=== PATIENT | male | born 1955 | race Caucasian/White ===

== ENCOUNTER → 2017-10-26 11:30 | Outpatient (CLI) | payer OTHER, MEDICAID, SELFPAY ==
[2017-10-26 13:30] LABS: Cholesterol 151 mg/dL (140-199); HDL Cholesterol 51 mg/dL (40-60); LDL Cholesterol Calculated 71 mg/dL (<100); Triglycerides 143 mg/dL (35-150)
[2017-10-26 14:00] LABS: Thyroid Stimulating Hormone 1.58 uIU/mL (0.47-4.68)
== END ==
PROVIDERS: Nurse Practitioner Family; Family Provider Physician Assistant; PCP Physician Assistant; Visit Provider Physician Assistant
DX: E11.9 Type 2 diabetes mellitus without complications (principal); Z79.4 Long term (current) use of insulin; E03.9 Hypothyroidism, unspecified
CPT/HCPCS: 36415; 80061; 83036; 84443

== ENCOUNTER 2019-05-31 23:13 | Observation (INO) | payer OTHER, SELFPAY ==
[2019-05-31 23:28] VITALS: BP 198/83; PULSE 71; RESP 16; TEMP 36.4; O2SAT 98; BMI 29.7
--- NOTE | 2019-05-31 23:39 | ED.CHESTPAIN ---
HPI - Chest Pain General Chief Complaint: Chest Pain Stated Complaint: chest pain, vomiting Time Seen by Provider: 05/31/19 23:15 Source: patient Mode of arrival: Ambulatory Limitations: no limitations History of Present Illness HPI narrative: 64-year-old male nonsmoker with history of diabetes presents with a chief complaint of severe epigastric pain with nausea and vomiting since about noon today. He states that it gets significantly worse whenever he eats or drinks and denies any history of alcohol or gallbladder disease. He has never had a similar set of symptoms. He denies fever or chills nor any change of bowel habits. He denies any change in diet or medications. He has had no trauma or injuries. Patient denies any palliation or radiation of his symptoms. He is not dizzy nor weak or lightheaded and denies any shortness of breath. In addition to pain with eating or drinking it hurts when he moves or with palpation. MD complaint: chest pain Onset (ago): hour(s) Duration: intermittent Pain location: epigastric Severity: severe Quality: aching and sharp Pain radiation: none Relieving factors: nothing Exacerbating factors: eating, palpation and movement Associated symptoms: nausea and vomiting Treatments prior to arrival chest pain: none Related Data Previous Rx's Medication Instructions Recorded [place] / SQ HS #30 09/03/17 [place] 1 each SUBCUT 6XD #100 10/26/17 pen needle, diabetic 31 gauge x #100 each 02/26/1807/27 Syringes #100 each 06/12/18 Glucose: Home Monitor #1 ea 09/25/18 Glucose: Test Strips #100 each 09/25/18 lancets #1 each 10/21/18 Insulin [place] BD Ultra Fine Mini #150 each 03/07/19 Pen Needle alprazolam 0.5 mg tablet 0.5 mg PO BIDP PRN #30 tab 03/26/19 lisinopril 20 mg tablet 20 mg PO QDAY #90 tab 03/26/19 insulin NPH isoph U-100 human 100 See Rx Instructions SUBCUT BID #90 03/27/19 unit/mL (3 mL) subcutaneous pen ml metformin 1,000 mg tablet 1,000 mg PO BIDCC #180 tab 03/27/19 zolpidem 10 mg tablet 10 mg PO HSP PRN #30 tab 03/27/19 atorvastatin 40 mg tablet 40 mg PO HS #90 tab 04/15/19 bupropion HCl 150 mg 24 hr tablet, 150 mg PO QDAY #90 tab 04/15/19 extended release insulin lispro 100 unit/mL 10 unit SUBCUT [facility] #15 ml 04/15/19 subcutaneous pen levothyroxine 125 mcg tablet 125 mcg PO QDAY #90 tab 04/15/19 Allergies Allergy/AdvReac Type Severity Reaction Status Date / Time flu shot Allergy Unknown Uncoded 01/09/19 13:04 Review of Systems Constitutional Constitutional: Denies chills, Denies fatigue, Denies fever(s), Denies frequent falls, Denies lethargy and Denies weakness Eyes Eyes: Denies change in vision, Denies eye discharge, Denies irritation and Denies loss of vision ENT Ears, Nose, Mouth, and Throat: Denies change in voice, Denies dizziness, Denies neck pain, Denies sore throat and Denies throat swelling Cardiovascular Cardiovascular: Denies chest pain, Denies irregular heart rhythm, Denies lightheadedness, Denies palpitations, Denies dyspnea, Denies dyspnea on exertion and Denies orthopnea Respiratory Respiratory: Denies cough, Denies dyspnea, Denies dyspnea on exertion and Denies wheezing Gastrointestinal Gastrointestinal: Reports abdominal pain, Denies change in bowel habits, Denies diarrhea, Reports nausea and Reports vomiting Genitourinary Genitourinary: Denies hematuria, Denies flank pain, Denies urinary incontinence and Denies urinary urgency Musculoskeletal Musculoskeletal: Denies back pain, Denies muscle weakness, Denies neck pain, Denies numbness and Denies tingling Integumentary/Breasts Skin/Breast: Denies pruritus, Denies erythema, Denies rash and Denies wounds Neurologic Neurologic: Denies behavioral changes, Denies confusion, Denies dizziness, Denies frequent falls, Denies loss of vision, Denies numbness, Denies tingling and Denies weakness Psychiatric Psychiatric: Denies anxiety, Denies behavioral changes, Denies confusion, Denies depression, Denies homicidal ideation and Denies suicidal ideation Endocrine Endocrine: Denies fatigue, Denies flushing and Denies palpitations Hematologic/Lymphatic Hematologic/Lymphatic: Denies easy bruising Allergic/Immunologic Allergic/Immunologic: Denies urticaria, Denies throat swelling and Denies wheezing Patient History Medical History Chronic back pain (Chronic 2004) CTS (carpal tunnel syndrome) (Chronic 1994) Depression (Chronic 1997) Diabetes mellitus (Chronic 1999) Esophageal obstruction due to food impaction (Resolved 05/07/16) Foot pain (Chronic 2004) Shoulder pain (Chronic 2009) Sleep apnea (Chronic 2009) Surgical History History of esophagogastroduodenoscopy (EGD) (Resolved 05/08/16) Social History marital status: household members: none lives independently: Yes education level: high school occupational status: employed Smoking Status: Never smoker alcohol intake: never substance use type: does not use Smoking Status: Never smoker alcohol intake frequency: 0-2 drinks per day Substance Use Type: does not use Exam Narrative Exam Narrative: GENERAL: [64] year old patient appears stated age. Obviously in pain, rubbing his upper abdomen and clutching a emesis bag HEAD: Atraumatic. Normocephalic. EYES: Pupils equal round and reactive. Extraocular motions intact. No scleral icterus. No injection or drainage. ENT: Nose without bleeding, purulent drainage. Throat without erythema, tonsillar hypertrophy or exudate. Airway patent. NECK: Trachea midline. Non tender CARDIOVASCULAR: Regular rate and rhythm without murmurs, gallops, or rubs. RESPIRATORY: Clear to auscultation. Breath sounds equal bilaterally. No wheezes, rales, or rhonchi. GASTROINTESTINAL: Abdomen soft, non-tender, nondistended. EXTREMITIES: No edema or joint tenderness. BACK: Nontender without deformity or crepitance. No flank tenderness. NEURO: AOx3. SKIN: No rash or erythema of visible areas Initial Vital Signs Initial Vital Signs: Vital Signs Temperature 97.5 F L 05/31/19 23:28 Pulse Rate 71 05/31/19 23:28 Respiratory Rate 16 05/31/19 23:28 Blood Pressure 198/83 H 05/31/19 23:28 Pulse Oximetry 98 05/31/19 23:28 Course Course Course Narrative: Call to on-call surgery upon receipt of imaging, a recommendation for antibiotics, NPO status and admission Orders Ordered: Acetaminophen (Tylenol) 650 mg PO Q6HR PRN PRN Reason: Fever/Mild Pain (1-3) Last Admin: 06/01/19 17:20 Dose: 650 mg Documented by: THELMA Alprazolam (Xanax) 0.5 mg PO BID PRN PRN Reason: Anxiety Bupropion HCl (Wellbutrin Xl) 150 mg PO DAILY [facility] Last Admin: 06/01/19 07:57 Dose: Not Given Documented by: BISMARK Dextrose (D50w) 25 gm IV PRN PRN PRN Reason: Hypoglycemia Hydromorphone HCl (Dilaudid) 0.5 mg IV Q4H PRN PRN Reason: Pain, Severe (7-10) Last Admin: 06/01/19 23:34 Dose: 0.5 mg Documented by: THELMA Piperacillin/Tazobactam/Dextrose (Zosyn) 3.375 gm in 50 mls @ 100 mls/hr IV Q6H [facility] Last Infusion: 06/01/19 23:33 Dose: 0 mls/hr Documented by: Admin: 06/01/19 22:05 Dose: 100 mls/hr Documented by: Infusion: 06/01/19 20:41 Dose: 0 mls/hr Documented by: Admin: 06/01/19 17:20 Dose: 100 mls/hr Documented by: Infusion: 06/01/19 10:07 Dose: 0 mls/hr Documented by: Admin: 06/01/19 09:50 Dose: 100 mls/hr Documented by: TRAVIS Insulin Aspart (Novolog Flexpen) 0 unit SUBCUT [facility]; Protocol Last Admin: 06/01/19 20:38 Dose: 7 unit Documented by: JEAN Cosigned by: THELMA Admin: 06/01/19 17:19 Dose: 3 unit Documented by: THELMA Cosigned by: DONNA Admin: 06/01/19 12:00 Dose: Not Given Documented by: Admin: 06/01/19 08:28 Dose: Not Given Documented by: BISMARK Ketorolac Tromethamine (Toradol) 15 mg IV Q6H PRN PRN Reason: Pain, Moderate (4-6) Stop: 06/06/19 21:12 Levothyroxine Sodium (Synthroid) 125 mcg PO QACBREAK [facility] Last Admin: 06/01/19 07:56 Dose: Not Given Documented by: BISMARK Ondansetron HCl (Zofran) 4 mg IV Q4HR PRN PRN Reason: Nausea And Vomiting Last Admin: 06/01/19 15:22 Dose: 4 mg Documented by: Admin: 06/01/19 00:01 Dose: 4 mg Documented by: SARAH Oxycodone HCl (Percolone) 5 mg PO Q4HR PRN PRN Reason: Pain, Moderate (4-6) Last Admin: 06/01/19 05:09 Dose: 5 mg Documented by: AWAIS Discontinued Medications Bupivacaine HCl/Epinephrine Bitart (Marcaine 0.25% W/ Epi (Pf)) 20 ml INJ NOW ONE Stop: 06/01/19 10:05 Last Admin: 06/01/19 10:04 Dose: 40 ml Documented by: GAURAV Fentanyl (Sublimaze) 0 mcg IV Q5M PRN PRN Reason: Pain, Moderate (4-6) Hydromorphone HCl (Dilaudid) 0.5 mg IV NOW ONE Stop: 05/31/19 23:45 Last Admin: 06/01/19 00:07 Dose: 0.5 mg Documented by: SARAH Hydromorphone HCl (Dilaudid) 0 mg IV Q5MIN PRN PRN Reason: Pain, Mild (1-3) Sodium Chloride (Normal Saline 0.9%) 1,000 mls @ 150 mls/hr IV CONT [facility] Last Admin: 06/01/19 04:48 Dose: 150 mls/hr Documented by: AWAIS Sodium Chloride (Normal Saline 0.9%) 1,000 mls @ 1,000 mls/hr IV BOLUS ONE Stop: 06/01/19 00:43 Last Infusion: 06/01/19 01:15 Dose: 0 mls/hr Documented by: Admin: 06/01/19 00:00 Dose: 1,000 mls/hr Documented by: SARAH Piperacillin/Tazobactam/Dextrose (Zosyn) 3.375 gm in 50 mls @ 100 mls/hr IV NOW ONE Stop: 06/01/19 03:36 Last Admin: 06/01/19 04:49 Dose: 100 mls/hr Documented by: AWAIS Lactated Ringer's (Lactated Ringers) 1,000 mls @ 42 mls/hr IV CONT ERIC Last Infusion: 06/01/19 16:26 Dose: 0 mls/hr Documented by: Admin: 06/01/19 10:59 Dose: 42 mls/hr Documented by: Infusion: 06/01/19 10:59 Dose: 42 mls/hr Documented by: Admin: 06/01/19 09:07 Dose: 42 mls/hr Documented by: AUGUSTINA Sodium Chloride (Normal Saline 0.9%) 1,000 mls @ 0 mls/hr IV NOW ONE Stop: 06/01/19 19:32 Last Admin: 06/01/19 20:10 Dose: 500 mls/hr Documented by: THELMA Iopamidol (Isovue-M 300) 15 ml INJ NOW ONE Stop: 06/01/19 11:16 Last Admin: 06/01/19 11:16 Dose: 45 ml Documented by: GAURAV Ketorolac Tromethamine (Toradol) 15 mg IV NOW ONE Stop: 06/01/19 19:21 Last Admin: 06/01/19 20:09 Dose: 15 mg Documented by: THELMA Metoclopramide HCl (Reglan) 10 mg IV NOW PRN PRN Reason: Nausea And Vomiting Ondansetron HCl (Zofran) 4 mg IV NOW PRN PRN Reason: Nausea And Vomiting Oxycodone/Acetaminophen (Percocet 5/325) 1 tab PO PACUNOW PRN PRN Reason: Mild or Moderate Pain Vital Signs Vital signs: Vital Signs - 8 hr 05/31/19 23:28 06/01/19 00:50 Temperature 97.5 F L Pulse Rate 71 88 Respiratory Rate 16 20 Blood Pressure 198/83 H Blood Pressure [Left Arm] 154/82 H Pulse Oximetry 98 96 MDM - Chest Pain Lab Data Result diagrams: 05/31/19 23:59 05/31/19 23:59 Labs: Lab Results 05/31/19 05/31/19 05/31/19 Range/Units 23:59 23:59 23:59 WBC 13.6 H (4.5-11.0) X10^3/uL RBC 4.44 L (4.5-5.9) X10^6/uL Hgb 13.2 L (13.5-17.5) g/dL Hct 38.6 L (41-53) % MCV 87.0 (80-100) fL MCH 29.8 (26-34) PG MCHC 34.3 (30-36) % RDW 13.9 (11.6-14.8) % Plt Count 297 (150-400) X10^3/uL Neut % (Auto) 60.9 (50-75) % Lymph % (Auto) 29.3 (25-40) % [place] % (Auto) 6.1 (3-14) % Eos % (Auto) 2.9 (2-4) % Baso % (Auto) 0.8 (0-2) % Neut # (Auto) 8300 H (8273-0905) /uL Lymph # (Auto) 4000 (8944-8580) /uL [place] # (Auto) 800 (0-900) /uL Eos # (Auto) 400 (0-450) /uL Baso # (Auto) 100 (0-100) /uL D-Dimer 218 (<230) ng/mL Sodium (137-145) mmol/L Potassium (3.4-5.1) mmol/L Chloride (98-107) mmol/L Carbon Dioxide (22-32) mmol/L BUN (9-20) mg/dL Creatinine (0.66-1.25) mg/dL Estimated GFR (>60) mL/min BUN/Creatinine Ratio (6-22) Glucose (80-110) mg/dL Calcium (8.4-10.2) mg/dL Total Bilirubin (0.2-1.3) mg/dL AST (17-59) IU/L ALT (<50) IU/L Alkaline Phosphatase (38-126) U/L Total Creatine Kinase (55-170) U/L CK-MB (CK-2) (<2.37) ng/mL CK-MB (CK-2) Rel Index (1.5-5.0) % Troponin I (0.01-0.034) ng/mL B-Natriuretic Peptide < 100 (<100) Total Protein (6.3-8.2) g/dL Albumin (3.5-5.0) g/dL Globulin (1.7-4.1) g/dL Albumin/Globulin Ratio (1.0-2.8) Lipase (23-300) U/L 05/31/19 Range/Units 23:59 WBC (4.5-11.0) X10^3/uL RBC (4.5-5.9) X10^6/uL Hgb (13.5-17.5) g/dL Hct (41-53) % MCV (80-100) fL MCH (26-34) PG MCHC (30-36) % RDW (11.6-14.8) % Plt Count (150-400) X10^3/uL Neut % (Auto) (50-75) % Lymph % (Auto) (25-40) % [place] % (Auto) (3-14) % Eos % (Auto) (2-4) % Baso % (Auto) (0-2) % Neut # (Auto) (9215-8511) /uL Lymph # (Auto) (4625-3790) /uL [place] # (Auto) (0-900) /uL Eos # (Auto) (0-450) /uL Baso # (Auto) (0-100) /uL D-Dimer (<230) ng/mL Sodium 138 (137-145) mmol/L Potassium 4.3 (3.4-5.1) mmol/L Chloride 100 (98-107) mmol/L Carbon Dioxide 26 (22-32) mmol/L BUN 26 H (9-20) mg/dL Creatinine 1.10 (0.66-1.25) mg/dL Estimated GFR > 60.0 (>60) mL/min BUN/Creatinine Ratio 23.6 H (6-22) Glucose 156 H (80-110) mg/dL Calcium 10.1 (8.4-10.2) mg/dL Total Bilirubin 0.4 (0.2-1.3) mg/dL AST 35 (17-59) IU/L ALT 31 (<50) IU/L Alkaline Phosphatase 90 (38-126) U/L Total Creatine Kinase 310 H (55-170) U/L CK-MB (CK-2) 2.97 H (<2.37) ng/mL CK-MB (CK-2) Rel Index 1.0 L (1.5-5.0) % Troponin I < 0.012 (0.01-0.034) ng/mL B-Natriuretic Peptide (<100) Total Protein 8.4 H (6.3-8.2) g/dL Albumin 5.0 (3.5-5.0) g/dL Globulin 3.4 (1.7-4.1) g/dL Albumin/Globulin Ratio 1.5 (1.0-2.8) Lipase 179 (23-300) U/L Imaging Data US - abdomen: Radiologist's Impression: [address] [address] Ultrasound Report Signed Patient: Bladimir Xavier Jr LMR#: [id number] : 3Acct:[id number] Age/Sex: 64 / MDate of Service: 06/01/19 Loc: MY459-0 Accession Number: [id number] Procedure: US abdomen limited Ordering Provider: Da Lafleur D.O. PROCEDURE: US ABDOMEN LIMITED INDICATIONS: EPIGASTRIC PAIN AFTER EATING TECHNIQUE: Real-time focused scanning was performed of the abdomen, with image documentation. COMPARISON: [facility], CR, XR CHEST 1V, 06/01/2019, 0:00. [facility], CT, CT ABDOMEN PELVIS W CON, 06/01/2019, 1:13. FINDINGS: Innumerable gallstones are seen. The gallbladder wall is thickened at 4 mm. No chava pericholecystic fluid is seen. The sonographic Salinas sign is positive. There is no biliary dilatation, the common bile duct measures 4-5 mm. The liver is normal in size and demonstrates no focal lesions. The pancreas is not well-seen, secondary to overlying bowel gas. IMPRESSION: Acute cholecystitis, with gallstones, a thickened gallbladder wall, and a positive sonographic Salinas's sign. No biliary dilatation. Note: No significant discrepancy from the preliminary report. Dictated by: Valentino Hemphill M.D. on 06/01/2019 at 8:09 Approved by: Valentino Hemphill M.D. on 06/01/2019 at 8:10 Discharge Plan Departure Patient Disposition: Admitted As Inpatient Clinical Impression: Acute cholecystitis Discharge Date/Time: 06/01/19 04:16 Admit Date/Time: 06/01/19 03:21 Admit Provider: Makenzie Magana
--- NOTE | 2019-05-31 23:40 | DI.RAD.S_ITS ---
PROCEDURE: XR CHEST 1V INDICATIONS: chest pain TECHNIQUE: One view of the chest was acquired. COMPARISON: [facility], US, US ABDOMEN LIMITED, 06/01/2019, 3:43. [facility], CT, CT ABDOMEN PELVIS W CON, 06/01/2019, 1:13. FINDINGS: The inferior most costophrenic angles are not included within the [id number] of this study. Surgical changes and devices: None. Lungs and pleura: Lungs are clear. No pleural effusions or pneumothorax. Mediastinum: Mediastinal contours appear normal. Heart size is normal. Bones and chest wall: No suspicious bony lesions. Age-appropriate bony degenerative changes are seen. Overlying soft tissues appear unremarkable. IMPRESSION: Portable chest within normal limits. Dictated by: Valentino Hemphill M.D. on 06/01/2019 at 8:05 Approved by: Valentino Hemphill M.D. on 06/01/2019 at 8:05
[2019-06-01] VITALS (32 sets, daily range): BP systolic 114–168; BP diastolic 67–107; PULSE 68–109; RESP 10–20; TEMP 35.8–36.9; O2SAT 91–99; BMI 29.0
[2019-06-01] MEDS: SODIUM CHLORIDE 0.9% 1,000 ML 1000 ML IV
--- NOTE | 2019-06-01 | PATH_ITS ---
[facility] Accession Number: [id number] . 01 Material submitted: . gallbladder - GALLBLADDER . 01 Clinical history: . CHEST PAIN, VOMITING . 02 Diagnosis: Gallbladder, Cholecystectomy: Mild chronic cholecystitis with cholelithiasis. No evidence of neoplasm. [facility] 06/04/2019 1314 Local . 02 Electronically signed: . Tian Leung MD, PhD, Pathologist NPI- [id number] . 01 Gross description: . Received in formalin, labeled gallbladder, is an intact gallbladder (length-8.7 cm, diameter-3.4 cm) with ramirez-stallings smooth and shiny serosa and a patent cystic duct. No lymph nodes are identified. The lumen contains dark green gelatinous bile and multiple dark black round smooth friable calculi (6.1 x 3.2 x 2.7 cm in aggregate). The mucosa is stallings with a trabeculated appearance. The wall is up to 0.2 cm thick. No nodules, masses or lesions are identified. Section code: (A1) cystic duct resection margin and two serial sections from the body; (A2) two longitudinal sections from the fundus. ([id number]) /[facility] 06/03/2019 1554 Local . 02 Pathologist provided ICD-10: K80.60 . 02 CPT . 802317 Performed at: 01 [facility] [address] [facility], [place], [place] [id number] MD Maurice Hendrickson MD Phone: [phone] Performed at: 02 [facility] [address] [place], [place] [id number] MD Nehal Jansen MD Phone: [phone]
[2019-06-01] MEDS: ONDANSETRON 4 MG/2 ML INJ IV ×2 (00:01→15:22)
[2019-06-01] MEDS: HYDROMORPHONE 0.5 MG INJ IV ×2 (00:07→23:34)
[2019-06-01 00:11] LABS: Add Manual Diff / Slide Review NO; Basophils Absolute Auto 100 /uL (0-100); Basophils Percent Auto 0.8 % (0-2); Eosinophils Absolute Auto 400 /uL (0-450); Eosinophils Percent Auto 2.9 % (2-4); Hematocrit 38.6 % (41-53); Hemoglobin 13.2 g/dL (13.5-17.5); Lymphocytes Absolute Auto 4000 /uL (1100-4500); Lymphocytes Percent Auto 29.3 % (25-40); Mean Corpuscular HGB Conc 34.3 % (30-36); Mean Corpuscular Hemoglobin 29.8 PG (26-34); Monocytes Absolute Auto 800 /uL (0-900); Monocytes Percent Auto 6.1 % (3-14); Neutrophils Absolute Auto 8300 /uL (1500-7000); Neutrophils Percent Auto 60.9 % (50-75); Platelet Count 297 X10^3/uL (150-400); Red Blood Cell Count 4.44 X10^6/uL (4.5-5.9); Red Cell Distribution Width 13.9 % (11.6-14.8); White Blood Cell Count 13.6 X10^3/uL (4.5-11.0)
[2019-06-01 00:16] LABS: D Dimer 218 ng/mL (<230)
[2019-06-01 00:17] LABS: Alanine Aminotransferase 31 IU/L (<50); Albumin Globulin Ratio 1.5 (1.0-2.8); Alkaline Phosphatase 90 U/L (38-126); Aspartate Aminotransferase 35 IU/L (17-59); BUN Creatinine Ratio 23.6 (6-22); Bilirubin Total 0.4 mg/dL (0.2-1.3); Blood Urea Nitrogen 26 mg/dL (9-20); Calcium 10.1 mg/dL (8.4-10.2); Carbon Dioxide 26 mmol/L (22-32); Chloride 100 mmol/L (98-107); Creatine Kinase 310 U/L (55-170); Estimated Glomerular Filt Rate > 60.0 mL/min (>60); Globulin 3.4 g/dL (1.7-4.1); Glucose 156 mg/dL (80-110); Lipase 179 U/L (23-300); Potassium 4.3 mmol/L (3.4-5.1); Sodium 138 mmol/L (137-145); Total Protein 8.4 g/dL (6.3-8.2)
[2019-06-01 00:29] LABS: Troponin I < 0.012 ng/mL (0.01-0.034)
[2019-06-01 00:32] LABS: HEMOLYSIS 26 (0-50)
[2019-06-01 00:42] LABS: Creatine Kinase MB 2.97 ng/mL (<2.37)
[2019-06-01 00:48] LABS: B Type Natriuretic Peptide < 100 (<100)
--- NOTE | 2019-06-01 01:03 | DI.CT.S_ITS ---
PROCEDURE: CT ABDOMEN PELVIS W CON INDICATIONS: severe abdominal pain TECHNIQUE: After the administration of intravenous contrast, 5 mm thick sections acquired from the diaphragm to the symphysis. 5 mm coronal and sagittal reformats were acquired. For radiation dose reduction, the following was used: automated exposure control, adjustment of mA and/or kV according to patient size. COMPARISON: [facility], CR, XR CHEST 1V, 06/01/2019, 0:00. [facility], US, US ABDOMEN LIMITED, 06/01/2019, 3:43. FINDINGS: Image quality: Excellent. ABDOMEN: Lung bases: At least 2 calcified granulomas can be seen within the right lower lobe, as on series 3 image 10 and within the left lower lobe on series 2 image 15. Heart size is normal. Solid organs: Liver is normal in size and enhancement. Innumerable gallstones can be seen within the gallbladder lumen. The gallbladder wall appears thickened and enhancing. Biliary system is non dilated. Pancreas enhances normally. Spleen is normal in size and enhancement. No adrenal nodules. Kidneys demonstrate normal size and enhancement, without hydronephrosis. Peritoneum and bowel: Bowel loops demonstrate normal wall thickness and caliber. No free fluid or air. The appendix is well-seen and is normal. Nodes and vessels: No retroperitoneal or mesenteric adenopathy by size criteria. Aorta and inferior vena cava are normal in size. Miscellaneous: No ventral hernias. PELVIS: Genitourinary: Bladder wall thickness is normal. Miscellaneous: No inguinal adenopathy. Bilateral fat containing inguinal hernias are seen. Bones: Within the left iliac bone, adjacent to the sacroiliac joint, there is an irregular sclerotic focus that measures 2.5 cm. No similar sclerotic foci can be seen elsewhere. No acute vertebral body compression fractures. There is a remote appearing anterior wedge deformity seen of L1. There is a remote appearing center compression deformity seen at L4. Fusion changes can be seen at L2-L3. Degenerative changes are seen throughout. Focal degenerative change is seen of the pubic symphysis. IMPRESSION: Numerous gallstones are seen. Mild gallbladder wall thickening and enhancement can be seen. (The subsequently performed abdominal ultrasound confirms acute cholecystitis.) There is a focal sclerotic lesion involving the left iliac bone. This is felt most likely to be related to a large bone island. If clinically appropriate, please consider additional dedicated imaging (such as a nuclear medicine bone scan) for further evaluation. Incidental note is made of: Prior granulomatous exposure. Normal appendix. Bilateral fat containing inguinal hernias L2-L3 fusion changes Lumbar compression deformities Focal degenerative change of the pubic symphysis Note: No significant discrepancy from the preliminary report. Dictated by: Valentino Hemphill M.D. on 06/01/2019 at 7:50 Approved by: Valentino Hemphill M.D. on 06/01/2019 at 7:58
--- NOTE | 2019-06-01 02:47 | DI.US.S_ITS ---
PROCEDURE: US ABDOMEN LIMITED INDICATIONS: EPIGASTRIC PAIN AFTER EATING TECHNIQUE: Real-time focused scanning was performed of the abdomen, with image documentation. COMPARISON: [facility], CR, XR CHEST 1V, 06/01/2019, 0:00. [facility], CT, CT ABDOMEN PELVIS W CON, 06/01/2019, 1:13. FINDINGS: Innumerable gallstones are seen. The gallbladder wall is thickened at 4 mm. No chava pericholecystic fluid is seen. The sonographic Salinas sign is positive. There is no biliary dilatation, the common bile duct measures 4-5 mm. The liver is normal in size and demonstrates no focal lesions. The pancreas is not well-seen, secondary to overlying bowel gas. IMPRESSION: Acute cholecystitis, with gallstones, a thickened gallbladder wall, and a positive sonographic Salinas's sign. No biliary dilatation. Note: No significant discrepancy from the preliminary report. Dictated by: Valentino Hemphill M.D. on 06/01/2019 at 8:09 Approved by: Valentino Hemphill M.D. on 06/01/2019 at 8:10
--- NOTE | 2019-06-01 03:17 | P.HP_ITS ---
History of Present Illness History of Present Illness Date Patient Seen: 06/01/19 Time Patient Seen: 07:28 Chief complaint: chest pain, vomiting Narrative: This is a 64 yo man with history of overweight, insulin dependent DM2, HTN, HLD, depression, ANNALISA not on cpap, and multiple orthopedic operations. About two weeks ago he noticed epigastric pain after eating. It resolved on its own after a few hours. Yesterday he developed sharp epigastric pain again and came into the ER. He was found to have cholelthiasis and cholecystitis by CT, US and labs. No sign of choledocholithiasis or cholangitis. He denies subjective fevers or jaundice at home. He says he is otherwise healthy, and has never had a heart attack or stroke. He says that he has had problems with his oxygen levels when waking up from surgery in the past, but has always done fine. ROS: Constitutional: Denies chills, Denies fatigue, Denies fever(s), Denies frequent falls, Denies lethargy and Denies weakness Eyes: Denies change in vision, Denies eye discharge, Denies irritation and Den ies loss of vision Ears, Nose, Mouth, and Throat: Denies change in voice, Denies dizziness, Denies neck pain, Denies sore throat and Denies throat swelling Cardiovascular: Denies chest pain, Denies irregular heart rhythm, Denies lightheadedness, Denies palpitations, Denies dyspnea, Denies dyspnea on exertion and Denies orthopnea Respiratory: Denies cough, Denies dyspnea, Denies dyspnea on exertion and Denies wheezing Gastrointestinal: Reports abdominal pain, Denies change in bowel habits, Denies diarrhea, Reports nausea and Reports vomiting Genitourinary: Denies hematuria, Denies flank pain, Denies urinary incontinence and Denies urinary urgency Musculoskeletal: Denies back pain, Denies muscle weakness, Denies neck pain, Denies numbness and Denies tingling Skin/Breast: Denies pruritus, Denies erythema, Denies rash and Denies wounds Neurologic: Denies behavioral changes, Denies confusion, Denies dizziness, Denies frequent falls, Denies loss of vision, Denies numbness, Denies tingling and Denies weakness Psychiatric: Denies anxiety, Denies behavioral changes, Denies confusion, Denies depression, Denies homicidal ideation and Denies suicidal ideation Endocrine: Denies fatigue, Denies flushing and Denies palpitations Hematologic/Lymphatic: Denies easy bruising Allergic/Immunologic: Denies urticaria, Denies throat swelling and Denies wheezing PE: GENERAL: alert, comfortable, appears stated age. HEAD: Atraumatic. Normocephalic. EYES: Pupils equal round and reactive. Wearing glasses; Extraocular motions intact. No scleral icterus. No injection or drainage. NECK: Trachea midline. Non tender CARDIOVASCULAR: Regular rate and rhythm; no LE edema RESPIRATORY: Non tachypneic; breathing comfortably on room air. Breath sounds equal bilaterally GASTROINTESTINAL: Abdomen soft, non-tender, nondistended. 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 No flank tenderness. NEURO: AOx3. No focal abnormalities SKIN: No rash or erythema of visible areas Patient History Medical History Chronic back pain (Chronic 2004) CTS (carpal tunnel syndrome) (Chronic 1994) Depression (Chronic 1997) Diabetes mellitus (Chronic 1999) Esophageal obstruction due to food impaction (Resolved 05/07/16) Foot pain (Chronic 2004) Shoulder pain (Chronic 2009) Sleep apnea (Chronic 2009) Surgical History History of esophagogastroduodenoscopy (EGD) (Resolved 05/08/16) Family & Social History Social History: household members none lives independently Yes Safety & Behavioral: Feels Safe in Current Yes Environment Been Physically Hurt or No Threatened By a Person Tobacco & Substance use: Smoking Status Never smoker alcohol intake never alcohol intake frequency 0-2 drinks per day Substance Use Type does not use Meds Home Medications and Allergies Home Medications Medication Instructions Recorded Confirmed Type Hyde / SQ HS #30 09/03/17 01/09/19 Rx Hyde 1 each SUBCUT 6XD #100 10/26/17 06/01/19 Rx pen needle, diabetic 31 gauge x #100 each 02/26/18 01/09/19 Rx 3/16 Syringes #100 each 06/12/18 01/09/19 Rx Glucose: Home Monitor #1 ea 09/25/18 01/09/19 Rx Glucose: Test Strips #100 each 09/25/18 01/09/19 Rx lancets #1 each 10/21/18 01/09/19 Rx Insulin Hyde BD Ultra Fine Mini #150 each 03/07/19 Rx Pen Needle alprazolam 0.5 mg tablet 0.5 mg PO BIDP PRN #30 tab 03/26/19 06/01/19 Rx lisinopril 20 mg tablet 20 mg PO QDAY #90 tab 03/26/19 06/01/19 Rx insulin NPH isoph U-100 human 100 See Rx Instructions SUBCUT BID #90 03/27/19 06/01/19 Rx unit/mL (3 mL) subcutaneous pen ml metformin 1,000 mg tablet 1,000 mg PO BIDCC #180 tab 03/27/19 06/01/19 Rx zolpidem 10 mg tablet 10 mg PO HSP PRN #30 tab 03/27/19 06/01/19 Rx atorvastatin 40 mg tablet 40 mg PO HS #90 tab 04/15/19 06/01/19 Rx bupropion HCl 150 mg 24 hr tablet, 150 mg PO QDAY #90 tab 04/15/19 06/01/19 Rx extended release insulin lispro 100 unit/mL 10 unit SUBCUT QAC #15 ml 04/15/19 06/01/19 Rx subcutaneous pen levothyroxine 125 mcg tablet 125 mcg PO QDAY #90 tab 04/15/19 06/01/19 Rx Allergies Allergy/AdvReac Type Severity Reaction Status Date / Time flu shot Allergy Unknown Uncoded 01/09/19 13:04 Exam Vital Signs (past 8 hours): - 05/31/19 23:28 06/01/19 00:50 Temperature 97.5 F L Pulse Rate 71 88 Respiratory Rate 16 20 Blood Pressure 198/83 H Blood Pressure [Left Arm] 154/82 H Pulse Oximetry 98 96 Oxygen Delivery Method Room Air Objective Imaging CT scan - abdomen: Radiologist's impression: Gall stones, thickened GB wall US - abdomen: Radiologist's impression: Gall stones; CBD 4.5mm; thickened gb wall Labs Result Diagrams: 05/31/19 23:59 05/31/19 23:59 Labs: Laboratory Results - last 24 hr 05/31/19 05/31/19 05/31/19 23:59 23:59 23:59 WBC 13.6 H RBC 4.44 L Hgb 13.2 L Hct 38.6 L MCV 87.0 MCH 29.8 MCHC 34.3 RDW 13.9 Plt Count 297 Neut % (Auto) 60.9 Lymph % (Auto) 29.3 [place] % (Auto) 6.1 Eos % (Auto) 2.9 Baso % (Auto) 0.8 Neut # (Auto) 8300 H Lymph # (Auto) 4000 [place] # (Auto) 800 Eos # (Auto) 400 Baso # (Auto) 100 D-Dimer 218 Sodium Potassium Chloride Carbon Dioxide BUN Creatinine Estimated GFR BUN/Creatinine Ratio Glucose Calcium Total Bilirubin AST ALT Alkaline Phosphatase Total Creatine Kinase CK-MB (CK-2) CK-MB (CK-2) Rel Index Troponin I B-Natriuretic Peptide < 100 Total Protein Albumin Globulin Albumin/Globulin Ratio Lipase 05/31/19 23:59 WBC RBC Hgb Hct MCV MCH MCHC RDW Plt Count Neut % (Auto) Lymph % (Auto) [place] % (Auto) Eos % (Auto) Baso % (Auto) Neut # (Auto) Lymph # (Auto) [place] # (Auto) Eos # (Auto) Baso # (Auto) D-Dimer Sodium 138 Potassium 4.3 Chloride 100 Carbon Dioxide 26 BUN 26 H Creatinine 1.10 Estimated GFR > 60.0 BUN/Creatinine Ratio 23.6 H Glucose 156 H Calcium 10.1 Total Bilirubin 0.4 AST 35 ALT 31 Alkaline Phosphatase 90 Total Creatine Kinase 310 H CK-MB (CK-2) 2.97 H CK-MB (CK-2) Rel Index 1.0 L Troponin I < 0.012 B-Natriuretic Peptide Total Protein 8.4 H Albumin 5.0 Globulin 3.4 Albumin/Globulin Ratio 1.5 Lipase 179 Assessment & Plan Assessment and plan (1) Acute cholecystitis: Current visit: Yes Status: Acute (2) Depression: Current visit: No Status: Chronic (3) Generalized anxiety disorder: Current visit: No Status: Chronic (4) Hypothyroidism (acquired): Current visit: No Status: Chronic (5) Essential hypertension: Current visit: No Status: Chronic (6) Hyperlipidemia associated with type 2 diabetes mellitus: Current visit: No Status: Chronic (7) Controlled type 2 diabetes mellitus without complication, with long-term current use of insulin: Current visit: No Status: Chronic (8) Dysthymia: Current visit: No Status: None Assessment & Plan narrative: 64 yo man with acute cholecystitis. Alternatives, risks and benefits of cholecystectomy were discussed. Risk of bleeding, infection, damage to nearby structures, need for additional procedures, bile duct injury, need for open surgery, bile leak, need for prolonged hospitalization, hernia were discussed. The patient desires to proceed with surgery. Plan: Laparoscopic possible open cholecystectomy NPO IV fluids pain meds hold DM meds hold antihypertensives hold DVT ppx IV zosyn Time Spent With Patient Time with patient: 25 - 35 minutes Quality VTE Deep Vein Thrombosis/Pulmonary Embolism Present on Admission: No
[2019-06-01] MEDS: SODIUM CHLORIDE 0.9% 1,000 ML 150 ML IV (04:48)
[2019-06-01] MEDS: PIPERACILLIN-TAZO 3.375 GM/50 ML FROZ.PIGGY IV ×4 (04:49→22:05)
[2019-06-01] MEDS: OXYCODONE IR 5 MG TABLET PO (05:09)
--- NOTE | 2019-06-01 08:34 | PC.NURSE ---
Patient off floor to pre-op at this time. Taken in bed by 2 nurses, accompanied by significant other. Consent form still needs filled out, signed and witnessed, OR crew aware of the same and consent on chart. Sent down with 1000 Zosyn dose for them to hang.
[2019-06-01] MEDS: LACTATED RINGERS 1,000 ML 42 ML IV ×2 (09:07→10:59)
--- NOTE | 2019-06-01 09:57 | SUR.OPER ---
Supine on padded OR bed, head on pillow, safety belt at thigh, ARMS ON PADDED ARM BOARDS<90 degrees Legs uncrossed.
[2019-06-01] MEDS: BUPIVACAINE 0.25% W/ EPI (PF) 10 ML VIAL 20 ML INJ (10:04)
[2019-06-01] MEDS: IOPAMIDOL 15 ML VIAL INJ (11:16)
--- NOTE | 2019-06-01 12:32 | PM.OP.1 ---
Operative Date/Time/Diagnoses Date of procedure: 06/01/19 Time of procedure: 12:32 Pre-op diagnosis: acute cholecystitis Post-op diagnosis: same (acute on chronic cholecystitis) Procedure & Clinicians Procedure: Laparoscopic cholecystectomy with intra op cholangiogram Same procedure as scheduled: Yes Indications: Acute cholecystitis Surgeon: Makenzie Magana Click Yes if Unassisted: Yes Anesthesia Type: General Operative Notes Findings: Dense adhesions, obstructing cystic duct stones, removed during procedure, contrast did not pass through cystic duct during cholangiogram, but no stones appeared in duct on images Specimen(s): other (gall bladder) Estimated Blood Loss (mL): 50 Blood products transfused: none Procedure in detail: The patient was brought into the operating room and placed supine on the OR table. Sequential compression devices were placed on both legs and turned on. Appropriate perioperative antibiotics were given prior to the start of surgery. General anesthesia was induced the patient was intubated. The abdomen was prepped and draped in sterile fashion. Surgical time-out was conducted. Local anesthetic was injected under the skin just superior to the umbilicus and a 5 mm vertical incision was made at this site. The umbilical stalk was grasped with a Pennie and elevated. A Veress needle was passed through the fascia into proper position. The position was tested with a saline drop test which was appropriate for intra-abdominal Veress needle placement. The abdomen was then insufflated in the usual fashion. Once insufflated to 15 mm Hg the Veress needle was removed and a 5 mm optical trocar was placed under direct vision using a 5 mm 30 degree scope. Once the camera was inside the abdomen I took a look around. There was no injury from port placement. Two additional ports were placed in a similar fashion in the right upper quadrant and a 10 mm port was placed in the epigastrium. Through the 2 lateral ports the gallbladder was grasped and elevated and the infundibulum was retracted laterally to the patient's right. Prolonged tedious dissection was undertaken to dissect out the cystic duct and artery. There was dense inflammatory rind covering Calot's triangle. All if the adhesions were very vascular, and hemostasis was continually an issue. Using clips and cautery as well as Surgicell I was able to get the cystic duct and artery dissected out and bleeding controlled. ICG was given 45 minutes prior to the procedure. Under flourescene lamp, the ICG was seen in the liver, but not in the gall bladder or cystic duct. I felt that the cystic duct was likely obstructed with stones. I could not easily tell the location of the CBD because of all of the thick adhesive rind. Once I dissected out the cystic duct, I clipped it at the infundibulum with a 10mm clip sericulture teacher, then made a ductotomy for a cholangiogram. A 3mm spherical black stone was seen in the duct. This was removed. No other stones were seen. The cholangiogram catheter threaded into the duct and was secured by the cholangioclamp. Upon injecting saline, a significant amount of fluid leaked out. I attempted to re-thread it, but no change was seen with re-injection of saline. A cholangiogram was attempted, but contrast was seen coming out of the ductotomy and not draining into the duct. Because I was not able to see the CBD well, I elected at this point to close the cystic duct, and complete the cholecystectomy, leaving any stones that may remain unseen in the cystic duct to be removed by ERCP if necessary. I then dissected the gall bladder from the top down removing it from the liver. The cystic artery was doubly clipped and ligated. Once the gall bladder was free from the liver, I passed an endoloop over the gall bladder and around the cystic duct just below the ductotomy, securing it well. A second endoloop was placed in the same fashion. The cystic duct was then completely divided at the level of the ductotomy and placed in an endocatch bag. The epigastric port site had to be enlarged to remove the bag full of stones. I then took a last look into the abdomen and suctioned out the remaining blood and fluid. I left a 19 round nilay drain secured through the lateral port site with 3-0 Nylon. At this point I removed insufflation from the abdomen, and I closed the epigastric port site with 0 vicryl in the fascia, and 4-0 Monocryl in the skin. The remaining port sites were closed with 3-0 vicryl and 4-0 Monocryl, and sealed with steri strips. Local anesthetic was given at each of the port sites and in the fascia. This concluded the procedure. At this point the needle sponge and instrument counts were correct. The gallbladder was passed off the table for pathology. Patient was awakened from anesthesia and extubated. She was transferred to the postanesthesia care unit in stable condition. Complications: none Post-operative Condition: stable Disposition: Acute Care Plan for aftercare: Transfer to recovery and back to the floor; repeat labs in AM; if elevated bilirubin will consider MRCP vs outpatient follow up labs and MRCP if needed at that point.
--- NOTE | 2019-06-01 14:13 | SUR.PHASEI ---
PT CONTINUES TO BE VERY SLEEPING AND HAS PERIODS OF APNEA, REMAINS ON O2 AT 4LNC DR SILVEIRA (ANESTHESIA) NOTIFIED AND RESPIRATORY CALLED FOR CPAP. LUNGS CLEAR .
--- NOTE | 2019-06-01 15:39 | SUR.PHASEI ---
PT REMAINS SLEEPY, ON CPAP WITH 4 LITERS O2, PULSE OX 90-96%, PT DOES CONTINUE TO HAVE APNEA EPISODES WHILE SLEEPING SIGNIFICANT OTHER IS AT BEDSIDE WITH PT, PT TOLERATING SMALL SIPS OF WATER,
--- NOTE | 2019-06-01 17:13 | CM.DANOTE ---
DCP Assessment: EMR reviewed: Patient is a 64 yr old male who was admitted for a cholecystectomy preformed by Dr. Magana. Patients PCP is Dr Rocha. CM/RN met with patient at the bedside and explained role. Patient was still very groggy and medicated at time of CM visit. Patients Significant other Blanche Hodge was at the bedside. Patient stated he would like her to be his emergency contact. her phone number is [phone]. Patient stated he wanted his next of kin to be his sister Amita rosado [phone]. CM department will verify this information with the patient again tomorrow when patient is more alert and clear with his decisions. Patient currently lives in a house with two roommates. Patients stated they are no help and wont be helpful to him when he d/c. Patient is I with all ADL's and drives himself. Patient was placed into ICU after surgery due to apnic episodes and needing oxygen. Patient was not able to stay awake any longer during CM visit so CM department will follow up again tomorrow 06/02/19 to finish D/C planning. No PT ordered at this time I: Rodriguez and self pay P: Patients current plan is to d/c home when medically stable. patient does not have anyone at home who will help with recovery if he needs it. CM department to follow up with patient tomorrow to determine D/C plan. Marilyn Garibay RN Discharge Planning/Care Management CM Discharge Assessment Start: 06/01/19 16:27 Freq: Status: Active Protocol: Document 06/01/19 16:28 HS (Rec: 06/01/19 16:51 HS [id number]) Discharge Planning Assessment Assigned Neurology Manager Marilyn Garibay RN Advance Directives? No History Provided By Medical Record Has Patient been admitted in last 30 No days? Prior Living Arrangements House Comment Patient currently lives with two roommates. Household Members none Comment No house hole members who could help with caregiving tasks Type of transporation used prior to Drives own vehicle admit Independent with ADL's Yes Is patient alert and oriented? Yes Caregiver for Another No Discharge Plan Home Whiteboard Updated in Patient Room with Yes name and ext. # of Neurology Manager Review Status In Process Next Review Type Continued Stay Review
[2019-06-01] MEDS: INSULIN ASPART 100 UNIT/ML INSULN PEN SUBCUT ×2 (17:19→20:38)
[2019-06-01] MEDS: ACETAMINOPHEN 325 MG TABLET 650 MG PO (17:20)
[2019-06-01] MEDS: KETOROLAC 15 MG/ML VIAL IV (20:09)
[2019-06-01] MEDS: SODIUM CHLORIDE 0.9% 1,000 ML 500 ML IV (20:10)
--- NOTE | 2019-06-01 21:01 | PC.NURSE ---
Addendum entered by Mildred Gonsalves R.N. 06/01/19 23:34: Pt with HR 102-113 post IV bolus. Giving 0.5mg IV Dilaudid for pain that is just starting back up per patient. Pt sleeping comfortably, with CPAP, using urinal when needed, incisions c/d/i, ROSEMARY to bulb suction-25cc serosang this shift. Family at bedside. Original Note: Pt wtih 1L NS bolus infusiong for sustained tachycardia. HR 100-113. Dr. Magana aware. Afebrile. FRANCO 142.84. Sats 92% on RA sleeping. CPAP to be put on shortly. Will cont to monitor tachycardia.
[2019-06-02] VITALS: BP 144/79; PULSE 105; RESP 17
--- NOTE | 2019-06-02 00:14 | PC.NURSE ---
Addendum entered by Joce Wilcox R.N. 06/02/19 06:54: 0400: Sleeping intermittently. Vital signs stable. at bedside. Original Note: Production Recorder Note: 0000: Awake, vital signs stable with HR 102, B/P 144/79. Pt is on CPAP with O2 2L bleed-in. SCDs on. IV in place in lt hand. Pt recently medicated for pain, and states it is helping. resting at bedside.
[2019-06-02 02:09] VITALS: BP 139/85; PULSE 100; RESP 14
[2019-06-02] MEDS: PIPERACILLIN-TAZO 3.375 GM/50 ML FROZ.PIGGY IV (03:34)
[2019-06-02 04:00] VITALS: BP 132/77; PULSE 96; RESP 16; TEMP 36.9; O2SAT 91
[2019-06-02 05:01] LABS: Add Manual Diff / Slide Review NO; Basophils Absolute Auto 0 /uL (0-100); Basophils Percent Auto 0.1 % (0-2); Eosinophils Absolute Auto 0 /uL (0-450); Hematocrit 35.2 % (41-53); Lymphocytes Absolute Auto 1100 /uL (1100-4500); Lymphocytes Percent Auto 7.5 % (25-40); Mean Corpuscular Hemoglobin 29.7 PG (26-34); Mean Corpuscular Volume 87.1 fL (80-100); Monocytes Absolute Auto 700 /uL (0-900); Monocytes Percent Auto 4.9 % (3-14); Neutrophils Absolute Auto 12700 /uL (1500-7000); Neutrophils Percent Auto 87.5 % (50-75); Platelet Count 264 X10^3/uL (150-400); Red Blood Cell Count 4.04 X10^6/uL (4.5-5.9); Red Cell Distribution Width 14.1 % (11.6-14.8); White Blood Cell Count 14.5 X10^3/uL (4.5-11.0)
[2019-06-02 05:10] LABS: Alanine Aminotransferase 80 IU/L (<50); Albumin 4.1 g/dL (3.5-5.0); Albumin Globulin Ratio 1.4 (1.0-2.8); Alkaline Phosphatase 63 U/L (38-126); Aspartate Aminotransferase 62 IU/L (17-59); BUN Creatinine Ratio 21.5 (6-22); Bilirubin Total 0.4 mg/dL (0.2-1.3); Blood Urea Nitrogen 28 mg/dL (9-20); Calcium 8.9 mg/dL (8.4-10.2); Carbon Dioxide 24 mmol/L (22-32); Chloride 100 mmol/L (98-107); Estimated Glomerular Filt Rate 55.2 mL/min (>60); Globulin 2.9 g/dL (1.7-4.1); Glucose 252 mg/dL (80-110); HEMOLYSIS < 15 (0-50); Magnesium 1.5 mg/dL (1.6-2.3); Potassium 4.4 mmol/L (3.4-5.1); Sodium 137 mmol/L (137-145)
[2019-06-02 06:00] VITALS: BP 125/80; PULSE 92; RESP 18; O2SAT 97
[2019-06-02] MEDS: LEVOTHYROXINE 125 MCG TABLET PO (06:44)
[2019-06-02] MEDS: METFORMIN HCL 500 MG TABLET 1000 MG PO (07:27)
[2019-06-02] MEDS: OXYCODONE IR 5 MG TABLET PO (07:27)
[2019-06-02] MEDS: ACETAMINOPHEN 325 MG TABLET 650 MG PO (07:27)
[2019-06-02 07:28] VITALS: BP 127/74; PULSE 92; RESP 20; TEMP 37.3; O2SAT 94
[2019-06-02] MEDS: MAGNESIUM SULFATE 2 GM/50 ML PIGGYBACK IV (07:28)
[2019-06-02] MEDS: buPROPion XL 150 MG TAB PO (07:28)
[2019-06-02] MEDS: INSULIN ASPART 100 UNIT/ML INSULN PEN SUBCUT (07:33)
[2019-06-02] MEDS: INSULIN ASPART 100 UNIT/ML INSULN PEN 10 UNIT SUBCUT (07:34)
--- NOTE | 2019-06-02 10:23 | PC.NURSE ---
Dr. Magana on rounds ~ 0733. removed drain from abd and applied steri strips, covered with gauze, and secured site with tape. Dr. Magana instructed patient to call tomorrow to schedule a f/u appointment, educated to s/s of post op wound infx, when to call with concerns/seek emergency medical treatment. would like pt to receive IV mag prior to d/c. Pt is reported pain well controlled with PRN meds. He is tolerating ADA diet without n/v. He is up ambulating with a fww currently. Plan to ambulate without AD prior to d/c as pt does not normally use a mobility aid.
--- NOTE | 2019-06-02 11:17 | CM.DPC ---
DCP Discharge Home Per Surgeon, pt medically stable to d/c home later today and no identified barriers to discharge. Per RNMD would like pt to receive IV mag prior to d/c. Pt is reported pain well controlled with PRN meds. He is tolerating ADA diet without n/v. He is up ambulating with a fww currently. Plan to ambulate without AD prior to d/c as pt does not normally use a mobility aid. Plan: SW to follow for plan of d/c home later today and currently no SW needs at this time. Please refer if indicated. KALLIE Ayala
--- NOTE | 2019-06-02 11:38 | PC.NURSE ---
Pt d/c'd to home per MD order at 1135. Pt and s/o provided with printed d/c education and packet as well as rx for oxycodone. Pt and s/o verbalized understanding regarding dx, medications, activity, diet, wound care, s/s of post op infx, when to notify provider, when to seek emergency medical tx. Pt verbalizes understanding. Pt ambulated in hallway with a steady gait without AD and tolerated well. Pt states he has no questions regarding d/c teaching. All belongings are gathered and given to pt and s/o. HIGH RIGGER escorted pt and s/o to POV for d/c in no acute distress.
[2019-06-04 19:02] LABS: Reticulocyte Count, Percent 1.6 % (0.87-2.60)
[2019-06-04 19:22] LABS: Hemoglobin A1C% w Est Avg Glu 8.2 % (4.0-6.0)
[2019-06-04 19:51] LABS: Prostate Specific Antigen Scrn 1.59 ng/mL (0.1-4.0)
--- NOTE | 2019-06-05 11:53 | PC.NURSE ---
Late entry: Zosyn stopped 06/01 518 NS stopped 06/01 1655 (started 447) NS stopped 06/01 2109 (started 2009)
== END 2019-06-02 11:35 | disposition home or self-care (01) ==
LOC: ED 06-01 03:07 → AC 06-01 03:41 → ICU 06-01 15:23
PROVIDERS: Admitting Provider Surgery; Emergency Provider Emergency Medicine; PCP Student in an Organized Health Care Education/Training Program; Visit Provider Surgery
PROC: 0FT44ZZ Resection of Gallbladder, Percutaneous Endoscopic Approach (ICD-10-PCS; CPT 47562; principal; 2019-06-01 09:00)
DX: K80.00 Calculus of gallbladder with acute cholecystitis without obstruction (principal); R10.13 Epigastric pain; K82.8 Other specified diseases of gallbladder; F32.9 Major depressive disorder, single episode, unspecified; F41.1 Generalized anxiety disorder; E03.9 Hypothyroidism, unspecified; I10 Essential (primary) hypertension; E78.5 Hyperlipidemia, unspecified; E11.9 Type 2 diabetes mellitus without complications; Z79.4 Long term (current) use of insulin; F34.1 Dysthymic disorder; G47.33 Obstructive sleep apnea (adult) (pediatric)
CPT/HCPCS: 47563; 36415; 71045; 74177; 76000; 76705; 80053; 82550; 82553; 82962; 83036; 83690; 83735; 83880; 84484; 85025; 85045; 85379; 87797; 93005; 93010; 94660; 94760; 94762; 96361; 96365; 96372; 96374; 96375; 96376; 99220; 99284; G0103; G0378; J1100; J1170; J1885; J2250; J2405; J2543; J2704; J3010; Q9967

== ENCOUNTER 2019-06-08 13:20 | Inpatient (IN) | payer OTHER, SELFPAY ==
[2019-06-01 04:21] VITALS: BMI 29.0
[2019-06-08 13:26] VITALS: BP 169/89; PULSE 71; RESP 22; TEMP 36.6; O2SAT 99
--- NOTE | 2019-06-08 13:37 | ED_ITS ---
HPI - Abdominal Pain General Chief Complaint: Abdominal Pain Stated Complaint: Discomfort and Nausea After Surgery Time Seen by Provider: 06/08/19 13:29 Source: patient Mode of arrival: Ambulatory Limitations: no limitations History of Present Illness HPI narrative: Patient is a 64-year-old male who is post cholecystectomy day 8, presenting today with increasing abdominal pain and nausea and rash. He says the 1st few days he was doing fine however yesterday he started to notice some abdominal pain this morning at is seems to be epigastric and right upper quadrant significantly worse he feels extremely nauseous. He also is noted to have an erythematous like rash all over his trunk. He has no difficulty spe aking or facial, lip or tongue swelling. He says it does feel like he can't take a deep breath due to pain is epigastric area. He denies any real chest pain. He has been taking his pain pills about 3 times a day just 1 tablet was initially helping. He has been having bowel movements as as well. He denies any fevers or chills. MD complaint: abdominal pain Related Data Previous Rx's Medication Instructions Recorded [place] 1 each SUBCUT 6XD #100 10/26/17 pen needle, diabetic 31 gauge x #100 each 02/26/1807/27 Syringes #100 each 06/12/18 Glucose: Home Monitor #1 ea 09/25/18 Glucose: Test Strips #100 each 09/25/18 lancets #1 each 10/21/18 Insulin [place] BD Ultra Fine Mini #150 each 03/07/19 Pen Needle alprazolam 0.5 mg tablet 0.5 mg PO BIDP PRN #30 tab 03/26/19 lisinopril 20 mg tablet 20 mg PO QDAY #90 tab 03/26/19 insulin NPH isoph U-100 human 100 See Rx Instructions SUBCUT BID #90 03/27/19 unit/mL (3 mL) subcutaneous pen ml metformin 1,000 mg tablet 1,000 mg PO BIDCC #180 tab 03/27/19 zolpidem 10 mg tablet 10 mg PO HSP PRN #30 tab 03/27/19 atorvastatin 40 mg tablet 40 mg PO HS #90 tab 04/15/19 bupropion HCl 150 mg 24 hr tablet, 150 mg PO QDAY #90 tab 04/15/19 extended release insulin lispro 100 unit/mL 10 unit SUBCUT QAC #15 ml 04/15/19 subcutaneous pen levothyroxine 125 mcg tablet 125 mcg PO QDAY #90 tab 04/15/19 docusate sodium 100 mg PO BID #60 cap 06/02/19 oxycodone 5 mg PO Q4-6H PRN #30 tab 06/02/19 Allergies Allergy/AdvReac Type Severity Reaction Status Date / Time flu shot Allergy Unknown Uncoded 06/04/19 14:57 Review of Systems Review of Systems ROS Unobtainable: All systems reviewed & are unremarkable except as noted in HPI and below Constitutional Constitutional: Denies chills, Denies fever(s), Denies lethargy and Denies weakness Eyes Eyes: Denies change in vision, Denies eye discharge, Denies irritation and Denies loss of vision ENT Ears, Nose, Mouth, and Throat: Denies change in voice, Denies neck pain and Denies sore throat Cardiovascular Cardiovascular: Denies chest pain, Denies irregular heart rhythm, Denies lightheadedness, Denies palpitations and Denies orthopnea Respiratory Respiratory: Reports pain on inspiration Gastrointestinal Gastrointestinal: Reports as per HPI Genitourinary Genitourinary: Denies hematuria, Denies flank pain, Denies urinary incontinence and Denies urinary urgency Musculoskeletal Musculoskeletal: Denies neck pain Integumentary/Breasts Skin/Breast: Denies pruritus, Denies erythema, Denies rash and Denies wounds Neurologic Neurologic: Denies loss of vision and Denies weakness Endocrine Endocrine: Denies palpitations Patient History Medical History Chronic back pain (Chronic 2004) CTS (carpal tunnel syndrome) (Chronic 1994) Depression (Chronic 1997) Diabetes mellitus (Chronic 1999) Esophageal obstruction due to food impaction (Resolved 05/07/16) Foot pain (Chronic 2004) Shoulder pain (Chronic 2009) Sleep apnea (Chronic 2009) Surgical History (Updated 06/08/19 @ 17:19 by Wing Martin MD) History of esophagogastroduodenoscopy (EGD) (Resolved 05/08/16) Status post laparoscopic cholecystectomy (Acute) Social History marital status: household members: none lives independently: Yes education level: high school occupational status: employed Smoking Status: Never smoker alcohol intake: never substance use type: does not use Smoking Status: Never smoker alcohol intake frequency: 0-2 drinks per day Substance Use Type: does not use Exam Initial Vital Signs Initial Vital Signs: Vital Signs Temperature 97.9 F 06/08/19 13:26 Pulse Rate 71 06/08/19 13:26 Respiratory Rate 22 06/08/19 13:26 Blood Pressure 169/89 H 06/08/19 13:26 Pulse Oximetry 99 06/08/19 13:26 GENERAL: Alert male appears uncomfortable HEENT: Head atraumatic,EOMI, pupils reactive CARDIOVASCULAR: Regular rate and rhythm without murmurs, rubs or gallops. RESPIRATORY: Breath sounds equal bilaterally, no wheezes rales or rhonchi. ABDOMEN: Soft, mild tenderness in right upper quadrant and epigastric normal bowel sounds incision size overall appear healing and non infectious EXTREMITIES: Normal range of motion, no clubbing or edema. Neurovascularly intact NEUROLOGICAL: Alert and oriented x4.Normal gait and speech. SKIN: Erythematous blanchable blotchy rash on abdomen and back Course Orders Ordered: ED Orders 06/08/19 13:28 EKG-12 Lead Stat 06/08/19 13:48 CT abdomen pelvis w con Stat XR chest 1V Stat Complete Blood Count AUTO DIFF Stat Comprehensive Metabolic Panel Stat Lipase Stat Troponin & CK Cardiac Panel Stat Sodium Chloride (Normal Saline 0.9%) 1,000 mls @ 200 mls/hr IV NOW ONE Stop: 06/08/19 21:59 Last Infusion: 06/08/19 17:29 Dose: 200 mls/hr Documented by: Admin: 06/08/19 17:01 Dose: 200 mls/hr Documented by: PERI Discontinued Medications Diphenhydramine HCl (Benadryl) 25 mg IV NOW ONE Stop: 06/08/19 16:16 Last Admin: 06/08/19 16:18 Dose: 25 mg Documented by: PERI Hydromorphone HCl (Dilaudid) 0.5 mg IV NOW ONE Stop: 06/08/19 13:49 Last Admin: 06/08/19 13:55 Dose: 0.5 mg Documented by: PERI Hydromorphone HCl (Dilaudid) 1 mg IV NOW ONE Stop: 06/08/19 16:15 Last Admin: 06/08/19 16:19 Dose: 1 mg Documented by: PERI Sodium Chloride (Normal Saline 0.9%) 1,000 mls @ 1,000 mls/hr IV BOLUS ONE Stop: 06/08/19 15:40 Last Infusion: 06/08/19 16:58 Dose: 0 mls/hr Documented by: Admin: 06/08/19 15:00 Dose: 1,000 mls/hr Documented by: PERI Methylprednisolone (Solu-Medrol 125 Mg Vial) 125 mg IV NOW ONE Stop: 06/08/19 13:49 Last Admin: 06/08/19 13:55 Dose: 125 mg Documented by: PERI Ondansetron HCl (Zofran) 4 mg IV NOW ONE Stop: 06/08/19 13:49 Last Admin: 06/08/19 13:55 Dose: 4 mg Documented by: PERI Vital Signs Vital signs: Vital Signs - 8 hr 06/08/19 13:26 06/08/19 14:30 06/08/19 15:30 Temperature 97.9 F Pulse Rate 71 81 84 Respiratory Rate 22 18 18 Blood Pressure 169/89 H Blood Pressure [Left Arm] 155/76 H 160/80 H Pulse Oximetry 99 99 06/08/19 16:00 Temperature Pulse Rate 84 Respiratory Rate Blood Pressure Blood Pressure [Left Arm] 150/93 H Pulse Oximetry 97 MDM - Abdominal Pain Lab Data Attestation: I reviewed the patient's lab results. Result diagrams: 06/08/19 13:48 06/08/19 13:48 Labs: Lab Results 06/08/19 06/08/19 06/08/19 Range/Units 13:48 13:48 13:48 WBC 14.3 H (4.5-11.0) X10^3/uL RBC 4.52 (4.5-5.9) X10^6/uL Hgb 13.3 L (13.5-17.5) g/dL Hct 39.0 L (41-53) % MCV 86.2 (80-100) fL MCH 29.4 (26-34) PG MCHC 34.1 (30-36) % RDW 13.9 (11.6-14.8) % Plt Count 326 (150-400) X10^3/uL Neut % (Auto) 66.5 (50-75) % Lymph % (Auto) 20.6 L (25-40) % [place] % (Auto) 6.6 (3-14) % Eos % (Auto) 5.7 H (2-4) % Baso % (Auto) 0.6 (0-2) % Neut # (Auto) 9500 H (5986-3096) /uL Lymph # (Auto) 2900 (1754-7752) /uL [place] # (Auto) 900 (0-900) /uL Eos # (Auto) 800 H (0-450) /uL Baso # (Auto) 100 (0-100) /uL Sodium 135 L (137-145) mmol/L Potassium 5.0 (3.4-5.1) mmol/L Chloride 97 L (98-107) mmol/L Carbon Dioxide 28 (22-32) mmol/L BUN 29 H (9-20) mg/dL Creatinine 1.20 (0.66-1.25) mg/dL Estimated GFR > 60.0 (>60) mL/min BUN/Creatinine Ratio 24.2 H (6-22) Glucose 184 H (80-110) mg/dL Calcium 10.7 H (8.4-10.2) mg/dL Total Bilirubin 0.5 (0.2-1.3) mg/dL AST 27 (17-59) IU/L ALT 36 (<50) IU/L Alkaline Phosphatase 92 (38-126) U/L Total Creatine Kinase 65 D Cancelled (55-170) U/L CK-MB (CK-2) TNP Cancelled CK-MB (CK-2) Rel Index TNP Cancelled Troponin I < 0.012 Cancelled (0.01-0.034) ng/mL Total Protein 8.2 (6.3-8.2) g/dL Albumin 4.9 (3.5-5.0) g/dL Globulin 3.3 (1.7-4.1) g/dL Albumin/Globulin Ratio 1.5 (1.0-2.8) Lipase 2442 H D (23-300) U/L Imaging Data CT scan - abdomen/pelvis: Radiologist's Impression: PROCEDURE: CT ABDOMEN PELVIS W CON INDICATIONS: pain post camilla x1 week TECHNIQUE: After the administration of oral and intravenous contrast, 5 mm thick sections acquired from the diaphragms to the symphysis. 5 mm thick coronal and sagittal reformats were performed. For radiation dose reduction, the following was used: automated exposure control, adjustment of mA and/or kV according to patient size. COMPARISON: [facility], CT, CT ABDOMEN PELVIS W CON, 06/01/2019, 1:13. FINDINGS: Image quality: Diagnostic. ABDOMEN: Lung bases: Lung bases are clear. Heart size is normal. Coronary artery atherosclerosis is present. Solid organs: Interval postoperative changes are evident related to a cholecystectomy. Multiple clips are seen within the gallbladder fossa. There may be a retained stone within the common hepatic duct or the cystic stump (image 28, series 3 and image 27, series 2). Mild intrahepatic biliary dilatation is present, which is slightly more pronounced on the current exam. The common bile duct is unchanged in size. No definite liver lesions are evident. No subcapsular fluid collections are identified. No fluid collections are seen within the gallbladder fossa. The spleen, adrenals, pancreas, and kidneys are unchanged. There is no hydronephrosis. Peritoneum and bowel: Mild prominence of the wall the distal esophagus is noted. There is a small hiatal hernia. The stomach is otherwise unremarkable. The small bowel loops are nondilated. The distal colon is decompressed and demonstrates slight wall thickening involving the rectosigmoid colon without surrounding inflammation. A moderate amount of residual stool is seen within the proximal aspect of the colon. The appendix is well-visualized and normal. There is no free fluid, loculated fluid collection or free air. Periumbilical soft tissue attenuation probably is related to recent surgery. Nodes and vessels: No retroperitoneal or mesenteric adenopathy. Aorta and inferior vena cava are normal in caliber. There is aortic atherosclerosis. Bones: No acute fracture or suspicious osseous lesion is evident. Degenerative changes of the thoracolumbar spine are unchanged since the prior study. PELVIS: Genitourinary: Mild thickening of the urinary bladder wall is present. The prostate is not significantly enlarged. Miscellaneous: No inguinal hernias or adenopathy. No free fluid or loculated fluid collection is identified. Bones: No suspicious bony lesions. No acute pelvic fractures are identified. There continues to be a sclerotic lesion evident involving the posterior left iliac bone. The degree of degenerative changes of the pelvis are unchanged. Slight deformity involving the right parasymphyseal portion of the pubic bone and the inferior pubic ramus probably is related to previous trauma and is unchanged.. IMPRESSION: 1. Interval cholecystectomy. There is no associated loculated fluid collection within the gallbladder fossa or evidence of an injury to the liver. 2. Retained stone within the cystic stump versus common hepatic duct with mild interval increase in degree of intrahepatic biliary dilatation. The common bile duct is not significantly changed in size. MRCP may be helpful for better characterization, if indicated. 3. No free fluid or loculated fluid collections within the abdomen or pelvis. 4. No bowel obstruction. 5. Mild wall prominence of the urinary bladder. Please correlate clinically to exclude cystitis. Dictated by: Saeid Mota M.D. on 06/08/2019 at 14:11 Chest x-ray: Radiologist's Impression: PROCEDURE: XR CHEST 1V INDICATIONS: short of breath TECHNIQUE: One view of the chest was acquired. COMPARISON: [facility], XR CHEST 1V, 06/01/2019, 0:00. FINDINGS: Surgical changes and devices: None. Lungs and pleura: Lungs are clear. No pleural effusions or pneumothorax. Mediastinum: Mediastinal contours appear normal. Heart size is normal. Bones and chest wall: No suspicious bony lesions. Degenerative changes of the spine and shoulders appear to be unchanged since the prior study, but are not adequately evaluated on this study. Overlying soft tissues appear unremarkable. IMPRESSION: Stable chest. No acute cardiopulmonary process is evident. Dictated by: Saeid Mota M.D. on 06/08/2019 at 14:24 ECG Data Attestation: I personally reviewed and interpreted this ECG as follows: Prior ECG tracings: available for review Interpretation: Normal sinus rhythm rate 71 p.r. interval 160 QRS [address] elevation depression or T-wave inversion MDM Narrative Medical decision making narrative: The patient is found to have pancreatitis with lipase of 2444, he also CT notes a stone in the cystic duct versus common hepatic duct. I initially talked with surgery here who recommended patient be transferred for ERCP, stone is visible on CT. Patient is noted to have rash which is possible related to allergic like reacti on he is given Solu-Medrol and Benadryl. He still continues to itch on his back but the rash on his the abdomen does seem to be improving. Patient is a [place] patient we have called [facility] unfortunately [facility] does not have any beds however he has been placed on a wait list nonetheless they do recommend calling a place called [facility]: [phone] 1st thing on Sunday morning to ensure that he be transferred to the correct hospital. Dr. Martin has been updated on the circumstances and happily accepts patient in till he can be transferred. Discharge Plan Departure Admit Date/Time: 06/08/19 17:18 Admit Provider: Wing Martin
--- NOTE | 2019-06-08 13:48 | DI.CT.S_ITS ---
PROCEDURE: CT ABDOMEN PELVIS W CON INDICATIONS: pain post camilla x1 week TECHNIQUE: After the administration of oral and intravenous contrast, 5 mm thick sections acquired from the diaphragms to the symphysis. 5 mm thick coronal and sagittal reformats were performed. For radiation dose reduction, the following was used: automated exposure control, adjustment of mA and/or kV according to patient size. COMPARISON: [facility], CT, CT ABDOMEN PELVIS W CON, 06/01/2019, 1:13. FINDINGS: Image quality: Diagnostic. ABDOMEN: Lung bases: Lung bases are clear. Heart size is normal. Coronary artery atherosclerosis is present. Solid organs: Interval postoperative changes are evident related to a cholecystectomy. Multiple clips are seen within the gallbladder fossa. There may be a retained stone within the common hepatic duct or the cystic stump (image 28, series 3 and image 27, series 2). Mild intrahepatic biliary dilatation is present, which is slightly more pronounced on the current exam. The common bile duct is unchanged in size. No definite liver lesions are evident. No subcapsular fluid collections are identified. No fluid collections are seen within the gallbladder fossa. The spleen, adrenals, pancreas, and kidneys are unchanged. There is no hydronephrosis. Peritoneum and bowel: Mild prominence of the wall the distal esophagus is noted. There is a small hiatal hernia. The stomach is otherwise unremarkable. The small bowel loops are nondilated. The distal colon is decompressed and demonstrates slight wall thickening involving the rectosigmoid colon without surrounding inflammation. A moderate amount of residual stool is seen within the proximal aspect of the colon. The appendix is well-visualized and normal. There is no free fluid, loculated fluid collection or free air. Periumbilical soft tissue attenuation probably is related to recent surgery. Nodes and vessels: No retroperitoneal or mesenteric adenopathy. Aorta and inferior vena cava are normal in caliber. There is aortic atherosclerosis. Bones: No acute fracture or suspicious osseous lesion is evident. Degenerative changes of the thoracolumbar spine are unchanged since the prior study. PELVIS: Genitourinary: Mild thickening of the urinary bladder wall is present. The prostate is not significantly enlarged. Miscellaneous: No inguinal hernias or adenopathy. No free fluid or loculated fluid collection is identified. Bones: No suspicious bony lesions. No acute pelvic fractures are identified. There continues to be a sclerotic lesion evident involving the posterior left iliac bone. The degree of degenerative changes of the pelvis are unchanged. Slight deformity involving the right parasymphyseal portion of the pubic bone and the inferior pubic ramus probably is related to previous trauma and is unchanged.. IMPRESSION: 1. Interval cholecystectomy. There is no associated loculated fluid collection within the gallbladder fossa or evidence of an injury to the liver. 2. Retained stone within the cystic stump versus common hepatic duct with mild interval increase in degree of intrahepatic biliary dilatation. The common bile duct is not significantly changed in size. MRCP may be helpful for better characterization, if indicated. 3. No free fluid or loculated fluid collections within the abdomen or pelvis. 4. No bowel obstruction. 5. Mild wall prominence of the urinary bladder. Please correlate clinically to exclude cystitis. Dictated by: Saeid Mota M.D. on 06/08/2019 at 14:11 Approved by: Saeid Mota M.D. on 06/08/2019 at 14:21
--- NOTE | 2019-06-08 13:48 | DI.RAD.S_ITS ---
PROCEDURE: XR CHEST 1V INDICATIONS: short of breath TECHNIQUE: One view of the chest was acquired. COMPARISON: [facility], , XR CHEST 1V, 06/01/2019, 0:00. FINDINGS: Surgical changes and devices: None. Lungs and pleura: Lungs are clear. No pleural effusions or pneumothorax. Mediastinum: Mediastinal contours appear normal. Heart size is normal. Bones and chest wall: No suspicious bony lesions. Degenerative changes of the spine and shoulders appear to be unchanged since the prior study, but are not adequately evaluated on this study. Overlying soft tissues appear unremarkable. IMPRESSION: Stable chest. No acute cardiopulmonary process is evident. Dictated by: Saeid Mota M.D. on 06/08/2019 at 14:24 Approved by: Saeid Mota M.D. on 06/08/2019 at 14:26
[2019-06-08] MEDS: ONDANSETRON 4 MG/2 ML INJ IV (13:55)
[2019-06-08] MEDS: HYDROMORPHONE 0.5 MG INJ IV (13:55)
[2019-06-08] MEDS: methylPREDNISolone 125 MG/2 ML VIAL IV (13:55)
[2019-06-08 14:17] LABS: Alanine Aminotransferase 36 IU/L (<50); Albumin 4.9 g/dL (3.5-5.0); Albumin Globulin Ratio 1.5 (1.0-2.8); Alkaline Phosphatase 92 U/L (38-126); Aspartate Aminotransferase 27 IU/L (17-59); BUN Creatinine Ratio 24.2 (6-22); Bilirubin Total 0.5 mg/dL (0.2-1.3); Blood Urea Nitrogen 29 mg/dL (9-20); Calcium 10.7 mg/dL (8.4-10.2); Carbon Dioxide 28 mmol/L (22-32); Chloride 97 mmol/L (98-107); Creatine Kinase 65 U/L (55-170); Estimated Glomerular Filt Rate > 60.0 mL/min (>60); Globulin 3.3 g/dL (1.7-4.1); Glucose 184 mg/dL (80-110); HEMOLYSIS 16 (0-50); Sodium 135 mmol/L (137-145); Total Protein 8.2 g/dL (6.3-8.2)
[2019-06-08 14:23] LABS: Add Manual Diff / Slide Review NO; Basophils Absolute Auto 100 /uL (0-100); Basophils Percent Auto 0.6 % (0-2); Eosinophils Absolute Auto 800 /uL (0-450); Eosinophils Percent Auto 5.7 % (2-4); Hemoglobin 13.3 g/dL (13.5-17.5); Lymphocytes Absolute Auto 2900 /uL (1100-4500); Lymphocytes Percent Auto 20.6 % (25-40); Mean Corpuscular HGB Conc 34.1 % (30-36); Mean Corpuscular Hemoglobin 29.4 PG (26-34); Mean Corpuscular Volume 86.2 fL (80-100); Monocytes Absolute Auto 900 /uL (0-900); Monocytes Percent Auto 6.6 % (3-14); Neutrophils Absolute Auto 9500 /uL (1500-7000); Neutrophils Percent Auto 66.5 % (50-75); Platelet Count 326 X10^3/uL (150-400); Red Blood Cell Count 4.52 X10^6/uL (4.5-5.9); Red Cell Distribution Width 13.9 % (11.6-14.8); White Blood Cell Count 14.3 X10^3/uL (4.5-11.0)
[2019-06-08 14:25] LABS: Lipase 2442 U/L (23-300)
[2019-06-08 14:29] LABS: Troponin I < 0.012 ng/mL (0.01-0.034)
[2019-06-08 14:30] VITALS: BP 155/76; PULSE 78; PULSE 81; RESP 18; O2SAT 95; O2SAT 99
[2019-06-08] MEDS: SODIUM CHLORIDE 0.9% 1,000 ML 1000 ML IV (15:00)
[2019-06-08 15:30] VITALS: BP 160/80; PULSE 84; RESP 18
[2019-06-08 16:00] VITALS: BP 150/93; PULSE 84; O2SAT 97
[2019-06-08] MEDS: diphenhydrAMINE 50 MG/ML VIAL 25 MG IV (16:18)
[2019-06-08] MEDS: HYDROMORPHONE 1 MG INJ IV (16:19)
[2019-06-08] MEDS: SODIUM CHLORIDE 0.9% 1,000 ML 200 ML IV (17:01)
--- NOTE | 2019-06-08 17:16 | PM.HP.1 ---
History of Present Illness History of Present Illness Date Patient Seen: 06/08/19 Time Patient Seen: 17:16 Chief complaint: Discomfort and Nausea After Surgery Narrative: Patient is a gentleman who had a laparoscopic cholecystectomy week ago. He had acute cholecystitis. On opening the cystic duct a stone came out but a cholangiogram was unable to be performed as injection simply caused diet to back flow. He presents now with progressive epigastric pain. He has been eating fine and is hungry now. He has been having bowel movements. The pain has gotten worse. He says his sugars with actually been well controlled since he got home. He is diabetic. Patient History Medical History Chronic back pain (Chronic 2004) CTS (carpal tunnel syndrome) (Chronic 1994) Depression (Chronic 1997) Diabetes mellitus (Chronic 1999) Esophageal obstruction due to food impaction (Resolved 05/07/16) Foot pain (Chronic 2004) Shoulder pain (Chronic 2009) Sleep apnea (Chronic 2009) Surgical History (Updated 06/08/19 @ 17:19 by Wing Martin MD) History of esophagogastroduodenoscopy (EGD) (Resolved 05/08/16) Status post laparoscopic cholecystectomy (Acute) Family & Social History Social History: household members none lives independently Yes Tobacco & Substance use: Smoking Status Never smoker alcohol intake never alcohol intake frequency 0-2 drinks per day Substance Use Type does not use Meds Home Medications and Allergies Home Medications Medication Instructions Recorded Confirmed Type [place] 1 each SUBCUT 6XD #100 10/26/17 06/04/19 Rx pen needle, diabetic 31 gauge x #100 each 02/26/18 06/04/19 Rx 07/27 Syringes #100 each 06/12/18 06/04/19 Rx Glucose: Home Monitor #1 ea 09/25/18 06/04/19 Rx Glucose: Test Strips #100 each 09/25/18 06/04/19 Rx lancets #1 each 10/21/18 06/04/19 Rx Insulin [place] BD Ultra Fine Mini #150 each 03/07/19 06/04/19 Rx Pen Needle alprazolam 0.5 mg tablet 0.5 mg PO BIDP PRN #30 tab 03/26/19 06/04/19 Rx lisinopril 20 mg tablet 20 mg PO QDAY #90 tab 03/26/19 06/04/19 Rx insulin NPH isoph U-100 human 100 See Rx Instructions SUBCUT BID #90 03/27/19 06/04/19 Rx unit/mL (3 mL) subcutaneous pen ml metformin 1,000 mg tablet 1,000 mg PO BIDCC #180 tab 03/27/19 06/04/19 Rx zolpidem 10 mg tablet 10 mg PO HSP PRN #30 tab 03/27/19 06/04/19 Rx atorvastatin 40 mg tablet 40 mg PO HS #90 tab 04/15/19 06/04/19 Rx bupropion HCl 150 mg 24 hr tablet, 150 mg PO QDAY #90 tab 04/15/19 06/04/19 Rx extended release insulin lispro 100 unit/mL 10 unit SUBCUT QAC #15 ml 04/15/19 06/04/19 Rx subcutaneous pen levothyroxine 125 mcg tablet 125 mcg PO QDAY #90 tab 04/15/19 06/04/19 Rx docusate sodium 100 mg PO BID #60 cap 06/02/19 06/04/19 Rx oxycodone 5 mg PO Q4-6H PRN #30 tab 06/02/19 06/04/19 Rx Allergies Allergy/AdvReac Type Severity Reaction Status Date / Time flu shot Allergy Unknown Uncoded 06/04/19 14:57 Review of Systems Review of Systems Narrative: Patient has no visual difficulties. No trouble swallowing. No cough cold or asthma. No heart problems chest pain or murmurs. No black or bloody bowel movements. No seizures or blackouts. He does suffer from hypertension and is on medication. Exam Vital Signs (past 8 hours): - 06/08/19 13:26 06/08/19 14:30 06/08/19 15:30 Temperature 97.9 F Pulse Rate 71 81 84 Respiratory Rate 22 18 18 Blood Pressure 169/89 H Blood Pressure [Left Arm] 155/76 H 160/80 H Pulse Oximetry 99 99 06/08/19 16:00 Temperature Pulse Rate 84 Respiratory Rate Blood Pressure Blood Pressure [Left Arm] 150/93 H Pulse Oximetry 97 Oxygen Delivery Method Room Air Narrative Exam Narrative: Operative no apparent distress. Eyes are nonicteric. Neck is supple. No nodes in the neck supraclavicular areas. Lungs are clear to auscultation without rales or rhonchi. Good effort. Good air movement. Heart regular rate and rhythm. He has a 2/6 systolic murmur heard best at left sternal border without radiation into the neck. No bruit in the neck. His abdomen is protuberant soft. May have a hernia at the umbilicus. Scars are all intact there is some bruising around them. No cellulitis. Objective Imaging CT scan - abdomen: My impression: Patient has a stone somewhere near the cystic duct common bile duct junction. Clips from the gallbladder removal are noted. The pancreas actually looks pretty normal with normal contours. Labs Result Diagrams: 06/08/19 13:48 06/08/19 13:48 Labs: Laboratory Results - last 24 hr 06/08/19 06/08/19 06/08/19 13:48 13:48 13:48 WBC 14.3 H RBC 4.52 Hgb 13.3 L Hct 39.0 L MCV 86.2 MCH 29.4 MCHC 34.1 RDW 13.9 Plt Count 326 Neut % (Auto) 66.5 Lymph % (Auto) 20.6 L [place] % (Auto) 6.6 Eos % (Auto) 5.7 H Baso % (Auto) 0.6 Neut # (Auto) 9500 H Lymph # (Auto) 2900 [place] # (Auto) 900 Eos # (Auto) 800 H Baso # (Auto) 100 Sodium 135 L Potassium 5.0 Chloride 97 L Carbon Dioxide 28 BUN 29 H Creatinine 1.20 Estimated GFR > 60.0 BUN/Creatinine Ratio 24.2 H Glucose 184 H Calcium 10.7 H Total Bilirubin 0.5 AST 27 ALT 36 Alkaline Phosphatase 92 Total Creatine Kinase 65 D Cancelled CK-MB (CK-2) TNP Cancelled CK-MB (CK-2) Rel Index TNP Cancelled Troponin I < 0.012 Cancelled Total Protein 8.2 Albumin 4.9 Globulin 3.3 Albumin/Globulin Ratio 1.5 Lipase 2442 H D Assessment & Plan Assessment & Plan narrative: Patient with progressive epigastric pain. Oddly despite his elevated amylase of 2000 he is hungry and wants something to eat. CT is not consistent with a lot of inflammation of his pancreas as I might of expected. He does have a stone somewhere in his biliary tree. It does not appear to be obstructing based on the liver function tests which are normal. Attempted diet transfer of this patient as he will need an ERCP but the ensure or insists on him going to [place] and there are no beds available. Therefore we will admit him IV fluids p.o. liquids control his sugars and attempt to transfer tomorrow depending on bed availability
[2019-06-08 17:22] VITALS: BP 183/74; PULSE 91; O2SAT 97
[2019-06-08 18:14] VITALS: BMI 29.7
[2019-06-08 18:18] VITALS: BP 135/97; PULSE 89; RESP 20; TEMP 36.4; O2SAT 93
[2019-06-08] MEDS: LACTATED RINGERS 1,000 ML 125 ML IV (18:32)
[2019-06-08] MEDS: GABAPENTIN 300 MG CAPSULE PO (20:46)
[2019-06-08] MEDS: ATORVASTATIN 20 MG TABLET 40 MG PO (20:46)
[2019-06-08] MEDS: ZOLPIDEM 5 MG TABLET 10 MG PO (20:47)
[2019-06-08] MEDS: OXYCODONE IR 5 MG TABLET PO (20:47)
[2019-06-08] MEDS: INSULIN ASPART 100 UNIT/ML INSULN PEN SUBCUT (21:55)
--- NOTE | 2019-06-08 22:12 | PC.NURSE ---
Gladis shift note: Patient admitted to room 204 from ED, ambulated from gurney to bed, steady gait. Scattered rash to upper chest, upper and lower back, flat pink, pruritic. Patient states significant improvement with Solumedrol and Benadryl admin in ED. Oriented to room, environment, and plan of care. NPO after MN. Bed alarm active, call appropriately for staff assistance. Call light within reach. SO Magalie at bedside providing supportive care.
[2019-06-09 00:14] VITALS: BP 127/74; PULSE 95; RESP 16; TEMP 36.2; O2SAT 90
[2019-06-09 00:46] VITALS: RESP 16; O2SAT 92
[2019-06-09] MEDS: OXYCODONE IR 5 MG TABLET PO ×3 (00:52→08:44)
[2019-06-09] MEDS: LACTATED RINGERS 1,000 ML 125 ML IV (01:53)
--- NOTE | 2019-06-09 03:58 | PC.NURSE ---
Pt NPO since 0000. Plan for transfer to hospital in [place] tomorrow for ERCP procedure. Pt reports pain at epigastric area, describes as a ball hitting the inside. Abd round, tender, bowel tones active. Lap sites from procedure lst week with well appox edges, no redness or s/s infection. Lipase increased on admit, labs order for the AM. BG check at 0200 196. Pt with maculopapular rash on upper chest, upper back and down bilat flank. Reports pruritis, no antipruretic ordered. Pt states lotion helps. RN applied lotion with some relief. Pt assured provided could be contacted of pruritus increased, pt declined at this time. Inquiring regarding transfer time. Await for bed availability. Will notify pt of time when known. Supportive S.O. at bedside. Monitoring UOP.
[2019-06-09 04:10] VITALS: BP 128/72; PULSE 91; RESP 16; TEMP 36.9; O2SAT 90
[2019-06-09 06:01] LABS: Add Manual Diff / Slide Review NO; Basophils Absolute Auto 100 /uL (0-100); Basophils Percent Auto 0.4 % (0-2); Eosinophils Absolute Auto 0 /uL (0-450); Hematocrit 37.7 % (41-53); Hemoglobin 12.8 g/dL (13.5-17.5); Lymphocytes Absolute Auto 1500 /uL (1100-4500); Lymphocytes Percent Auto 8.7 % (25-40); Mean Corpuscular HGB Conc 33.9 % (30-36); Mean Corpuscular Hemoglobin 29.2 PG (26-34); Mean Corpuscular Volume 86.2 fL (80-100); Monocytes Absolute Auto 400 /uL (0-900); Monocytes Percent Auto 2.4 % (3-14); Neutrophils Absolute Auto 15700 /uL (1500-7000); Neutrophils Percent Auto 88.5 % (50-75); Platelet Count 342 X10^3/uL (150-400); Red Blood Cell Count 4.37 X10^6/uL (4.5-5.9); Red Cell Distribution Width 14.2 % (11.6-14.8); White Blood Cell Count 17.7 X10^3/uL (4.5-11.0)
[2019-06-09 06:09] LABS: Alanine Aminotransferase 32 IU/L (<50); Albumin 4.6 g/dL (3.5-5.0); Albumin Globulin Ratio 1.4 (1.0-2.8); Alkaline Phosphatase 68 U/L (38-126); Amylase 100 U/L (30-110); Aspartate Aminotransferase 25 IU/L (17-59); BUN Creatinine Ratio 21.7 (6-22); Bilirubin Total 0.6 mg/dL (0.2-1.3); Blood Urea Nitrogen 26 mg/dL (9-20); Calcium 10.3 mg/dL (8.4-10.2); Carbon Dioxide 24 mmol/L (22-32); Chloride 99 mmol/L (98-107); Estimated Glomerular Filt Rate > 60.0 mL/min (>60); Globulin 3.2 g/dL (1.7-4.1); Glucose 193 mg/dL (80-110); HEMOLYSIS < 15 (0-50); Lipase 172 U/L (23-300); Potassium 5.2 mmol/L (3.4-5.1); Sodium 136 mmol/L (137-145); Total Protein 7.8 g/dL (6.3-8.2)
[2019-06-09 08:00] VITALS: BP 128/78; PULSE 90; RESP 18; TEMP 36.8; O2SAT 92
[2019-06-09] MEDS: LISINOPRIL 20 MG TABLET PO (08:43)
[2019-06-09] MEDS: GABAPENTIN 300 MG CAPSULE PO (08:43)
[2019-06-09] MEDS: LEVOTHYROXINE 125 MCG TABLET PO (08:43)
[2019-06-09] MEDS: diphenhydrAMINE 50 MG/ML VIAL IV (08:43)
[2019-06-09] MEDS: buPROPion XL 150 MG TAB PO (08:43)
[2019-06-09] MEDS: predniSONE 10 MG TABLET PO (08:44)
[2019-06-09] MEDS: INSULIN ASPART 100 UNIT/ML INSULN PEN SUBCUT ×2 (08:44→14:57)
--- NOTE | 2019-06-09 09:08 | CM.DANOTE ---
DCP: Case received, EMR reviewed and met with patient. Introduced self and role. Was able to meet with patient, he was starting to get ready to ambulate down the dunne. Obtained baseline history and health information from patient. He was recently here about a week ago. DCP assessment completed with information currently available. Patient is a 64 year old male who admitted yesterday afternoon to the care of the hospitalist/surgical team. PCP: Dr. Rocha. Payer: confirmed: [facility]. Patient came to the hospital via private vehicle secondary to increased epigastric pain. Patient was here on 06/02 for cholecystectomy. Patient is noted to have a stone near the cystic duct. According to notes, as well as patient, they are looking to transfer him to a higher level hospital, for ERCP, for stone removal. Met with patient. He had friend visiting, and was starting to walk down the [place]. He is independent. He resides here in [place], and lives with room mates. P: DCP will continue to follow. He could potentially be discharged today if higher level hospital accepts. Alice Sal RN/Sourcing Analyst
[2019-06-09 10:50] VITALS: BP 101/66; PULSE 78; RESP 18; TEMP 37.5; O2SAT 94
--- NOTE | 2019-06-09 12:02 | PC.NURSE ---
Day shift pt c/o itching associated with a rash this AM on assessment. Notified MD and order placed for 10mg prednisone and 50 mg IV benadryl. This was given to pt and he stated it felt better for a short period of time and then got worse. This AM rash was to his mid-thigh. Around 1100, rash to his knee. Spoke with pt who reports rash started afternoon of his original surgery (06/01/2019). At the time it was on his chest and arms only but was not spreading and felt like it was getting better to pt. Yesterday (06/08/2019) pt states rash got worse and spread to his back and abd. this started prior to pt coming into hospital. last night before bed (around 2100) pt noticed that the rash was getting worse on his legs and arms. This morning around 1100, rash had spread from his mid thigh that i had seen this AM on assessment to his knee. Pt denies starting any new medications within the last 2 months. Spoke with pharmacist, best guess is the oxycodone as it was started around surgery, pt states he did have Rx for it at home and was taking it. He also reports he has taken oxycodone multiple other times in his life and had never had this issue previously. Notified MD and order to stop oxycodone. no additional orders obtained. will continue to monitor.
[2019-06-09 15:20] VITALS: BP 122/70; PULSE 77; RESP 18; TEMP 37.7; O2SAT 93
--- NOTE | 2019-06-09 15:20 | PM.DS.1 ---
History of Present Illness History of Present Illness Chief complaint: Discomfort and Nausea After Surgery Narrative: Patient is a gentleman who had a laparoscopic cholecystectomy week ago. He had acute cholecystitis. On opening the cystic duct a stone came out but a cholangiogram was unable to be performed as injection simply caused diet to back flow. He presents now with progressive epigastric pain. He has been eating fine and is hungry now. He has been having bowel movements. The pain has gotten worse. He says his sugars with actually been well controlled since he got home. He is diabetic. Discharge Providers Provider Date of admission: 06/08/19 17:18 Discharge Date: 06/09/19 Primary care physician: Patrick Rocha MD Consults: 06/08/19 17:53 Consult to Discharge Planning Routine Comment: Discharge provider: Wing Martin MD Summary Hospital Course Discharge Diagnosis: 1. Acute pancreatitis 2. Type 2 diabetes mellitus worsened by pancreatitis 3. Elevated cholesterol chronic treated with medication 4. Chronic essential hypertension 5. Choledocholithiasis as most likely cause of acute pancreatitis 6. Hypothyroidism 7. Anemia acute probably related to recent operation and fluid shifts with pancreatitis 8. Allergic reaction acute with rash cause is not clear at time of transfer Hospital Course: Patient was admitted. He was given steroids and Benadryl for the rash that he developed. It seemed to progress suggesting it made a been contact related due to our sheets. He really was on no new medication. He is transferred to [facility] at the direction of [facility] insurer for further treatment of his choledocholithiasis and pancreatitis. His amylase was normal. Lipase was 2200 on admission and normal the following day. His liver function tests were within normal limits. His white blood cell count is elevated at 17 but he did receive a dose of IV steroids which may have impacted that. He has been afebrile and shows no sign of abscess or infection. His wounds look fine. There is some bruising. Status at Discharge Cognitive/behavioral status at discharge: at baseline, oriented Functional status at discharge: independent ambulation Overall status at discharge: patient is progressing back to baseline Exam Vital Signs (past 8 hours): - 06/09/19 08:00 06/09/19 10:50 Temperature 98.3 F 99.5 F Pulse Rate 90 78 Respiratory Rate 18 18 Blood Pressure 128/78 101/66 Pulse Oximetry 92 94 Oxygen Delivery Method Room Air Oxygen Flow Rate 0 Narrative Exam Narrative: Lungs are clear to auscultation no rales or rhonchi. Heart regular rate and rhythm without murmur gallop abdomen is protuberant soft with [id number] epigastric pain on moderate palpation. No palpable masses. No obvious enlargement of the liver spleen. Objective Labs Result Diagrams: 06/09/19 05:43 06/09/19 05:43 Labs: Laboratory Results - last 24 hr 06/09/19 06/09/19 05:43 05:43 WBC 17.7 H RBC 4.37 L Hgb 12.8 L Hct 37.7 L MCV 86.2 MCH 29.2 MCHC 33.9 RDW 14.2 Plt Count 342 Neut % (Auto) 88.5 H D Lymph % (Auto) 8.7 L [place] % (Auto) 2.4 L Eos % (Auto) 0.0 L Baso % (Auto) 0.4 Neut # (Auto) 35902 H Lymph # (Auto) 1500 [place] # (Auto) 400 Eos # (Auto) 0 Baso # (Auto) 100 Sodium 136 L Potassium 5.2 H Chloride 99 Carbon Dioxide 24 BUN 26 H Creatinine 1.20 Estimated GFR > 60.0 BUN/Creatinine Ratio 21.7 Glucose 193 H Calcium 10.3 H Total Bilirubin 0.6 AST 25 ALT 32 Alkaline Phosphatase 68 Total Protein 7.8 Albumin 4.6 Globulin 3.2 Albumin/Globulin Ratio 1.4 Amylase 100 Lipase 172 D Discharge Plan Discharge Plan Patient Disposition: [facility] Other facility: [facility] in [facility] Under care of provider: Dr. Almazan Sayed Discharge comment: Being transferred for care not available for here(ERCP) Discharge orders & Medications Prescriptions: No Action [place] 1 each SUBCUT 6XD Qty: 100 RF: 5 (DME) pen needle, diabetic [Sure-Fine Pen [place]] 31 gauge x 3/16 needle See Dose Instructions .ROUTE .MEDSUPPLY Qty: 100 RF: 3 (DME) Syringes See Rx Instructions .Route .MEDSUPPLY Qty: 100 RF: 6 (DME) Glucose: Home Monitor 0 .Route .MEDSUPPLY Qty: 1 RF: 0 (DME) Glucose: Test Strips 0 .Route .MEDSUPPLY Qty: 100 RF: 5 (DME) lancets Qty: 1 RF: 3 (DME) Insulin [place] BD Ultra Fine Mini Pen Needle Qty: 150 RF: 3 lisinopril 20 mg tablet 20 mg PO QDAY Qty: 90 RF: 3 metformin [Glucophage] 1,000 mg tablet 1,000 mg PO BIDCC Qty: 180 RF: 1 zolpidem [Ambien] 10 mg tablet 10 mg PO HSP PRN (Reason: insomnia) Qty: 30 RF: 5 Humulin N NPH Insulin KwikPen 100 unit/mL (3 mL) insulin pen See Rx Instructions SUBCUT BID Qty: 90 RF: 1 atorvastatin 40 mg tablet 40 mg PO HS Qty: 90 RF: 3 insulin lispro 100 unit/mL insulin pen 10 unit SUBCUT QAC Qty: 15 RF: 11 bupropion HCl [Wellbutrin XL] 150 mg tablet extended release 24 hr 150 mg PO QDAY Qty: 90 RF: 3 levothyroxine [Synthroid] 125 mcg tablet 125 mcg PO QDAY Qty: 90 RF: 3 oxycodone 5 mg tablet 5 mg PO Q4-6H PRN (Reason: post operative pain) Qty: 30 RF: 0 docusate sodium 100 mg capsule 100 mg PO BID Qty: 60 RF: 0 Follow up/Referrals: Patrick Rocha MD [Primary Care Provider] - Discharge Health Status Multidrug resistant organism: No MDRO Precautions: [place] Diet/Activity/Treatments Diet: Nothing by Mouth Diet comment: Diet per receiving physician Discharge Data Primary Care Provider: Patrick Rocha
--- NOTE | 2019-06-09 15:58 | PC.NURSE ---
Addendum entered by Bibiana Huntley R.N. 06/09/19 16:52: Report given to transport team, patient transferred to [facility] in stable condition as ordered. Original Note: Report given to Monse MONZON, receiving nurse at [facility] at [phone], questions answered. Patient remain NPO, macular rash still present to upper chest, upper and lower back, and upper arms, less pruritic. Dr. Martin in to update patient. Awaiting for transport teams arrival.
== END 2019-06-09 16:52 | disposition short-term general hospital (02) | DRG 393 ==
LOC: ED 13:48 → AC 17:19
PROVIDERS: Nurse Practitioner Family; Admitting Provider Specialist; Emergency Provider Emergency Medicine; PCP Student in an Organized Health Care Education/Training Program; Visit Provider Specialist
DX: K91.86 Retained cholelithiasis following cholecystectomy (principal); K85.90 Acute pancreatitis without necrosis or infection, unspecified; E11.69 Type 2 diabetes mellitus with other specified complication; F32.9 Major depressive disorder, single episode, unspecified; E78.5 Hyperlipidemia, unspecified; I10 Essential (primary) hypertension; E03.9 Hypothyroidism, unspecified; D64.89 Other specified anemias; L23.9 Allergic contact dermatitis, unspecified cause; Z79.4 Long term (current) use of insulin
CPT/HCPCS: 36415; 71045; 74177; 80053; 82150; 82550; 82962; 83690; 84484; 85025; 93005; 96361; 96374; 96375; 96376; 99222; 99238; 99284; 99285; J1170; J1200; J2405; J2930; Q9967

== ENCOUNTER → 2019-09-22 10:59 | Outpatient (CLI) | payer OTHER, SELFPAY ==
--- NOTE | 2019-09-22 | DI.RAD.S_ITS ---
PROCEDURE: XR LUMBAR SPINE 2-3V INDICATIONS: FALL AND INJURY TO LOWER BACK PAIN TECHNIQUE: 3 views of the lumbar spine were acquired. COMPARISON: [facility], CT, CT ABDOMEN PELVIS W CON, 06/08/2019, 14:36. FINDINGS: Bones: 5 [id number] vertebrae are present. There is normal bony alignment. L1 and L4 compression fractures are stable in appearance compared to prior CT scan. No suspicious bony lesions. Severe L2-L3 degenerative disc changes. Moderate L1-L2 degenerative changes. Mild L3-L4, L4-L5 and L5-S1 degenerative disc disease. Mild facet hypertrophy noted throughout the lumbar spine. Soft tissues: Overlying bowel gas pattern is normal. No suspicious soft tissue calcifications. Cholecystectomy clips. IMPRESSION: 1. No acute fracture. No acute osseous lesion. If symptoms and/or clinical suspicion for pathology persists, evaluation with MRI may be helpful for further assessment. 2. Chronic L1 and L4 compression fractures stable compared to 06/08/2019. 3. Multilevel degenerative disc disease and facet arthropathy. Dictated by: Jennifer Alvarado MD, PhD on 09/22/2019 at 13:47 Approved by: Jennifer Alvarado MD, PhD on 09/22/2019 at 13:51
== END ==
PROVIDERS: PCP Student in an Organized Health Care Education/Training Program; Referring Provider Family Medicine; Visit Provider Family Medicine
DX: M54.5 Low back pain (principal); S39.92XA Unspecified injury of lower back, initial encounter; M51.36 Other intervertebral disc degeneration, lumbar region; M51.37 Other intervertebral disc degeneration, lumbosacral region; M47.816 Spondylosis without myelopathy or radiculopathy, lumbar region; M48.56XS Collapsed vertebra, not elsewhere classified, lumbar region, sequela of fracture; W19.XXXA Unspecified fall, initial encounter
CPT/HCPCS: 72100

== ENCOUNTER → 2019-09-24 07:34 | Outpatient (CLI) | payer OTHER, SELFPAY ==
--- NOTE | 2019-09-24 | DI.MRI.S_ITS ---
PROCEDURE: MR LUMBAR SPINE WO CON INDICATIONS: Wedge compression fracture of first lumbar vertebr TECHNIQUE: Noncontrast sagittal T1 spin echo and T2 fast echo, sagittal STIR, axial T1 and T2 fast spin echo through the lumbar spine. In cases with scoliosis, additional coronal T2 fast spin echo may be performed. COMPARISON: [facility], CT, CT ABDOMEN PELVIS W CON, 06/01/2019, 1:13. [facility], CR, XR LUMBAR SPINE 2-3V, 09/22/2019, 11:09. [facility], CT, CT ABDOMEN PELVIS W CON, 06/08/2019, 14:36. FINDINGS: Image quality: Diagnostic, with note made of motion artifact. Alignment and Curvature: There is straightening of the normal lumbar lordosis. No focal AP alignment abnormality is seen. Bone Marrow: Marrow is of normal overall signal. Compression deformities are seen involving the L1, L3, and L4 levels, which are similar to prior imaging, without acute features. At the L3 level, there is posterior displacement of fracture fragments of 4-5 mm, as on series 4 image 49. Spinal Cord: Conus medullaris terminates at the L1 level. Visualized cord demonstrates normal signal and size. Paraspinous Soft Tissues: No paravertebral masses. T12-L1: No significant abnormality is seen. L1-L2: The disc height is well-preserved. Loss of disc signal is seen at this level. Mild generalized disc bulge is seen. There is mild to moderate right-sided and moderate left-sided neural foraminal narrowing seen. No significant central canal narrowing is seen. L2-L3: Mild to moderate loss of disc height is seen. The disc signal is relatively well-preserved. Moderate disc bulge is seen. Moderate bilateral neural foraminal narrowing can be seen. There is moderate central canal narrowing seen involving the superior aspect of L3, where there is posterior displacement of fracture fragments. L3-L4: Moderate loss of disc height and disc signal can be seen. Moderate generalized disc bulge is seen. Mild facet joint hypertrophy is seen. There is moderate left-sided and mild to moderate right-sided neural foraminal narrowing seen. No significant central canal narrowing is seen. L4-L5: The disc height is well-preserved. Loss of disc signal is seen at this level. Moderate disc bulge is seen, which is eccentric to the right. Moderate facet joint hypertrophy is seen. At least moderate bilateral neural foraminal narrowing can be seen. There is a degree of compression seen upon the exiting nerve roots. Mild central canal narrowing is seen. L5-S1: Moderate loss of disc height is seen. Loss of disc signal is seen. Moderate disc bulge is seen, with a mild central disc protrusion. There is moderate bilateral facet hypertrophy seen, right worse than left. There is moderate right-sided and moderate to severe left-sided neural foraminal narrowing seen. There is a degree of compression seen upon the exiting right L5 nerve root. No significant central canal narrowing is seen. IMPRESSION: L1, L3, and L4 compression fractures, without acute features. At L3, there is posterior displacement of fracture fragments seen, with associated moderate central canal narrowing. Multiple levels of degenerative change are seen, which are most prominent inferiorly. Dictated by: Valentino Hemphill M.D. on 09/24/2019 at 9:17 Approved by: Valentino Hemphill M.D. on 09/24/2019 at 9:25
== END ==
PROVIDERS: PCP Student in an Organized Health Care Education/Training Program; Referring Provider Family Medicine; Visit Provider Family Medicine
DX: M47.816 Spondylosis without myelopathy or radiculopathy, lumbar region (principal); M47.817 Spondylosis without myelopathy or radiculopathy, lumbosacral region; M48.56XS Collapsed vertebra, not elsewhere classified, lumbar region, sequela of fracture
CPT/HCPCS: 72148

== ENCOUNTER → 2019-10-03 14:09 | Outpatient (CLI) | payer OTHER, SELFPAY ==
[2019-09-24 10:28] VITALS: BMI 29.7
[2019-10-03 14:22] LABS: Add Manual Diff / Slide Review NO; Basophils Absolute Auto 200 /uL (0-100); Basophils Percent Auto 1.2 % (0-2); Eosinophils Absolute Auto 400 /uL (0-450); Eosinophils Percent Auto 3.4 % (2-4); Hematocrit 39.7 % (41-53); Hemoglobin 13.7 g/dL (13.5-17.5); Lymphocytes Absolute Auto 3800 /uL (1100-4500); Lymphocytes Percent Auto 30.8 % (25-40); Mean Corpuscular HGB Conc 34.4 % (30-36); Mean Corpuscular Volume 87.2 fL (80-100); Monocytes Absolute Auto 700 /uL (0-900); Monocytes Percent Auto 5.8 % (3-14); Neutrophils Absolute Auto 7200 /uL (1500-7000); Neutrophils Percent Auto 58.8 % (50-75); Platelet Count 296 X10^3/uL (150-400); Red Blood Cell Count 4.55 X10^6/uL (4.5-5.9); Red Cell Distribution Width 13.7 % (11.6-14.8); White Blood Cell Count 12.2 X10^3/uL (4.5-11.0)
--- NOTE | 2019-10-03 14:26 | DI.CT.S_ITS ---
PROCEDURE: CT ABDOMEN PELVIS W CON INDICATIONS: Abdominal pain TECHNIQUE: After the administration of oral and intravenous contrast, 5 mm thick sections acquired from the diaphragms to the symphysis. 5 mm thick coronal and sagittal reformats were performed. For radiation dose reduction, the following was used: automated exposure control, adjustment of mA and/or kV according to patient size. COMPARISON: [facility], CT, CT ABDOMEN PELVIS W CON, 06/01/2019, 1:13. [facility], CT, CT ABDOMEN PELVIS W CON, 06/08/2019, 14:36. FINDINGS: Image quality: Excellent. ABDOMEN: Lung bases: There is a small 3 mm right lower lobe groundglass nodule on series 3 image 4 which appears unchanged from the recent prior study. Heart size is normal. Solid organs: There is diffuse hypoattenuation of the liver consistent with fatty infiltration. The gallbladder is surgically absent. No fluid collections in the gallbladder fossa. There is a small calcification measuring up to 4 mm redemonstrated in the cystic duct stump. There is resolution of intra-and extrahepatic biliary ductal dilatation seen on the prior study. Pancreas enhances normally. No peripancreatic fat stranding or fluid collections. No pancreatic duct dilatation. The spleen is normal in size. No adrenal nodules. Kidneys demonstrate no hydronephrosis. Peritoneum and bowel: Stomach, small bowel, and colon loops are normal in caliber and wall thickness. No pericecal inflammatory changes to suggest appendicitis. No free fluid or air. Nodes and vessels: No retroperitoneal or mesenteric adenopathy. Aorta and inferior vena cava are normal in caliber. Miscellaneous: No ventral hernias. PELVIS: Genitourinary: There is marked concentric bladder wall thickening with mild associated fat stranding. Miscellaneous: No inguinal hernias or adenopathy. Bones: A sclerotic lesion is redemonstrated within the posterior left ilium, measuring up to 3.0 x 1.4 x 2.7 cm, unchanged from the recent prior studies and likely representing a bone island. No vertebral body compression fractures. IMPRESSION: 1. Small residual stone redemonstrated within the cystic duct stump. 2. Resolution of biliary ductal dilatation seen on the prior study. 3. No abnormal fluid collections or free fluid in the gallbladder fossa. 4. Concentric bladder wall thickening with mild fat stranding suggestive of a nonspecific cystitis. Recommend correlation with urinalysis. 5. Sclerotic lesion redemonstrated in the posterior left ilium likely representing a bone island. Dictated by: Maurice Koch M.D. on 10/03/2019 at 16:03 Approved by: Maurice Koch M.D. on 10/03/2019 at 16:10
[2019-10-03 14:34] LABS: Alanine Aminotransferase 31 IU/L (<50); Albumin 4.8 g/dL (3.5-5.0); Albumin Globulin Ratio 1.5 (1.0-2.8); Alkaline Phosphatase 65 U/L (38-126); Aspartate Aminotransferase 29 IU/L (17-59); BUN Creatinine Ratio 19.4 (6-22); Bilirubin Total 0.4 mg/dL (0.2-1.3); Blood Urea Nitrogen 28 mg/dL (9-20); Calcium 10.2 mg/dL (8.4-10.2); Carbon Dioxide 24 mmol/L (22-32); Chloride 101 mmol/L (98-107); Estimated Glomerular Filt Rate 49.1 mL/min (>60); Globulin 3.1 g/dL (1.7-4.1); Glucose 134 mg/dL (80-110); HEMOLYSIS < 15 (0-50); Lipase 140 U/L (23-300); Potassium 4.6 mmol/L (3.4-5.1); Sodium 138 mmol/L (137-145); Total Protein 7.9 g/dL (6.3-8.2)
[2019-10-03 14:55] LABS: Procalcitonin < 0.05 ng/mL (<0.5)
[2019-10-03 17:25] LABS: Bacteria Urine None Seen; RBC Urine None Seen (0-5/HPF); WBC Urine None Seen (0-5/HPF)
[2019-10-03 18:34] LABS: Appearance Urine UA CLEAR; Bilirubin Urine UA NEGATIVE (NEGATIVE); Color Urine UA YELLOW; Glucose Urine UA NEGATIVE (Negative); Ketones Urine UA NEGATIVE (NEGATIVE); Leukocyte Esterase Urine UA NEGATIVE (NEGATIVE); Nitrite Urine UA NEGATIVE (Negative); Occult Blood Urine UA NEGATIVE (Negative); Protein Urine UA NEGATIVE (Negative); Specific Gravity Urine UA <=1.005 (1.000-1.035); Urobilinogen Urine UA 0.2 E.U./dL (0.2); pH Urine UA 5.5 (4.5-8.0)
[2019-10-03 18:45] LABS: Culture Indicated Urine Cult Not Indicated; Urine Comments Microscopic Normal
== END ==
PROVIDERS: PCP Student in an Organized Health Care Education/Training Program; Referring Provider Student in an Organized Health Care Education/Training Program; Visit Provider Student in an Organized Health Care Education/Training Program
DX: K81.0 Acute cholecystitis (principal); K85.90 Acute pancreatitis without necrosis or infection, unspecified; R10.9 Unspecified abdominal pain; K91.86 Retained cholelithiasis following cholecystectomy; N30.90 Cystitis, unspecified without hematuria
CPT/HCPCS: 36415; 74177; 80053; 81001; 83690; 84145; 85025

== ENCOUNTER 2019-10-06 20:29 | Emergency (ER) | payer OTHER, SELFPAY ==
[2019-09-24 10:28] VITALS: BMI 29.7
[2019-10-06 20:50] VITALS: BP 201/89; PULSE 52; RESP 20; TEMP 36.4; O2SAT 100; BMI 28.8
[2019-10-06 21:35] LABS: INR 0.9 (0.9-1.3); Prothrombin Time 10.9 SECONDS (10.1-12.7)
[2019-10-06 21:37] LABS: PTT Partial Thromboplastin Tim 31 SECONDS (26.4-36.2)
[2019-10-06 21:39] LABS: Alanine Aminotransferase 27 IU/L (<50); Albumin 4.7 g/dL (3.5-5.0); Albumin Globulin Ratio 1.5 (1.0-2.8); Alkaline Phosphatase 95 U/L (38-126); Aspartate Aminotransferase 27 IU/L (17-59); BUN Creatinine Ratio 20.8 (6-22); Bilirubin Total 0.4 mg/dL (0.2-1.3); Blood Urea Nitrogen 30 mg/dL (9-20); Calcium 10.2 mg/dL (8.4-10.2); Carbon Dioxide 28 mmol/L (22-32); Chloride 99 mmol/L (98-107); Estimated Glomerular Filt Rate 49.1 mL/min (>60); Globulin 3.2 g/dL (1.7-4.1); Glucose 228 mg/dL (80-110); HEMOLYSIS < 15 (0-50); Lipase 138 U/L (23-300); Sodium 137 mmol/L (137-145); Total Protein 7.9 g/dL (6.3-8.2)
[2019-10-06 21:40] LABS: Add Manual Diff / Slide Review NO; Basophils Absolute Auto 0 /uL (0-100); Basophils Percent Auto 0.2 % (0-2); Eosinophils Absolute Auto 2100 /uL (0-450); Eosinophils Percent Auto 15.3 % (2-4); Hematocrit 41.1 % (41-53); Hemoglobin 13.9 g/dL (13.5-17.5); Lymphocytes Absolute Auto 2200 /uL (1100-4500); Lymphocytes Percent Auto 16.5 % (25-40); Mean Corpuscular HGB Conc 33.9 % (30-36); Mean Corpuscular Hemoglobin 29.8 PG (26-34); Mean Corpuscular Volume 87.9 fL (80-100); Monocytes Absolute Auto 800 /uL (0-900); Monocytes Percent Auto 5.6 % (3-14); Neutrophils Absolute Auto 8500 /uL (1500-7000); Neutrophils Percent Auto 62.4 % (50-75); Platelet Count 286 X10^3/uL (150-400); Red Blood Cell Count 4.67 X10^6/uL (4.5-5.9); Red Cell Distribution Width 14.3 % (11.6-14.8); White Blood Cell Count 13.6 X10^3/uL (4.5-11.0)
--- NOTE | 2019-10-06 22:10 | PC.NURSE ---
Pt wondering how long the wait will be until the doctor will come see him. I told the pt that there is a wait due to the influx of patients but that if there is anything that we could do to make him more comfortable during the wait to let us know. I gave him warm blankets and dimmed the lights. Call light is in reach and pt has no complaints at this time
[2019-10-06 22:17] VITALS: BP 182/88; PULSE 68; RESP 18; O2SAT 98
--- NOTE | 2019-10-06 22:45 | DI.RAD.S_ITS ---
PROCEDURE: XR ACUTE ABDOMEN SERIES INDICATIONS: vomiting TECHNIQUE: One view chest and two views of the abdomen were acquired. COMPARISON: [facility], CT, CT ABDOMEN PELVIS W CON, 06/01/2019, 1:13. FINDINGS: Surgical changes and devices: Right upper quadrant surgical clips. Chest: Lungs are clear. Heart size is normal. No pleural effusions. No pneumoperitoneum. Abdomen: Bowel gas pattern is normal. No suspicious calcifications. Visualized solid organ contours appear normal. Bones: Unchanged left posteromedial iliac sclerosis. Pubic symphysis degenerative changes. Mild bilateral degeneration and diffuse spondylosis IMPRESSION: No specific evidence of bowel obstruction seen at this time although if the patient's symptoms do not improve, continued surveillance with abdominal series radiographs could be performed. Mild/moderate stool Dictated by: Montana Greenwood M.D. on 10/07/2019 at 8:36 Approved by: Montana Greenwood M.D. on 10/07/2019 at 8:38
--- NOTE | 2019-10-06 23:22 | ED.NAVMDI ---
HPI - Nausea/Vomiting/Diarrhea General Chief complaint: Nausea/Vomiting/Diarrhea Stated complaint: VOMITING OVER A WEEK PAIN IN THE CHEST Time Seen by Provider: 10/06/19 22:24 History of Present Illness HPI Narrative: 64-year-old gentleman with a history of hypertension, hyperlipidemia, diabetes, with a history of acute cholecystitis June 01 and laparoscopic cholecystectomy. He has a known stone in the remnant cystic duct with no intrahepatic bile duct dilation. Over the last week he has been having recurrent episodes of epigastric abdominal pain with significant vomiting. These are occurring every other day and he is not able to link them to foods, medications, eating or other activities. He denies any fevers, cough, chills, chest pain, palpitations, diarrhea or flank pain. He was evaluated by his primary care physician within outpatient CT scan 48 hours ago with an unrevealing workup at that time. Related Data Previous Rx's Medication Instructions Recorded Syringes #100 each 06/12/18 Glucose: Test Strips #100 each 09/25/18 lisinopril 20 mg tablet 20 mg PO QDAY #90 tab 03/26/19 insulin NPH isoph U-100 human 100 See Rx Instructions SUBCUT BID #90 03/27/19 unit/mL (3 mL) subcutaneous pen ml metformin 1,000 mg tablet 1,000 mg PO BIDCC #180 tab 03/27/19 zolpidem 10 mg tablet 10 mg PO HSP PRN #30 tab 03/27/19 atorvastatin 40 mg tablet 40 mg PO HS #90 tab 04/15/19 bupropion HCl 150 mg 24 hr tablet, 150 mg PO QDAY #90 tab 04/15/19 extended release insulin lispro 100 unit/mL 10 unit SUBCUT QAC #15 ml 04/15/19 subcutaneous pen levothyroxine 125 mcg tablet 125 mcg PO QDAY #90 tab 04/15/19 docusate sodium 100 mg PO BID #60 cap 06/02/19 oxycodone 5 mg PO Q4-6H PRN #30 tab 06/02/19 ursodiol 300 mg capsule 300 mg PO TID #90 cap 06/19/19 onetouch glucose meter starter kit #1 ea 07/02/19 Insulin [place] BD Ultra Fine Mini #150 each 07/04/19 Pen Needle ondansetron 4 mg disintegrating 4 mg PO Q8H PRN 7 Days #21 tab 10/03/19 tablet ondansetron 4 mg PO Q8H PRN #20 tab 10/07/19 Allergies Allergy/AdvReac Type Severity Reaction Status Date / Time Influenza Virus Vaccines Allergy Unknown Verified 10/03/19 13:50 Review of Systems Review of Systems Narrative: Pertinent positive and negative findings as per HPI Remainder of review of systems is otherwise unremarkable for Constitutional: Fevers, chills, weakness ENT: No sore throat, neck pain, ear pain CV: Chest pain, palpitations, dyspnea on exertion Respiratory: Cough, wheeze, dyspnea : Dysuria, hematuria, flank pain MS: Muscle weakness, numbness, joint swelling or warmth Skin: Rashes, nonhealing lesions Neuro: Syncope, dizziness, tingling Psych: Depression, anxiety, suicidal ideation Patient History Medical History Chronic back pain (Chronic 2004) CTS (carpal tunnel syndrome) (Chronic 1994) Depression (Chronic 1997) Diabetes mellitus (Chronic 1999) Esophageal obstruction due to food impaction (Resolved 05/07/16) Foot pain (Chronic 2004) Shoulder pain (Chronic 2009) Sleep apnea (Chronic 2009) Surgical History History of esophagogastroduodenoscopy (EGD) (Resolved 05/08/16) Status post laparoscopic cholecystectomy (Acute) Family History Mother Loud snoring Restless leg Hypertension Diabetes mellitus Depression Family/Other Restless leg Obesity Hypertension Depression Anxiety Social History marital status: household members: none lives independently: Yes education level: high school occupational status: employed Smoking Status: Never smoker alcohol intake: never substance use type: does not use Smoking Status: Never smoker alcohol intake frequency: 0-2 drinks per day Substance Use Type: does not use Exam Narrative Exam Narrative: General: Healthy appearing, in no acute distress. Able to give a complete and coherent history. Well-nourished well-developed HEENT: Moist mucous membranes, normal sclera with reactive pupils, Neck: supple Respiratory: Lungs are clear to auscultation, no wheezing no rales no rhonchi. Full and symmetrical air movement Cardiac: Regular rate and rhythm no murmurs no bruits Abdomen: Mildly distended, tender in the epigastrium without rebound or guarding. No rashes or skin changes. Hypoactive bowel tones. No flank pain Skin: Warm and dry, no rashes Neurologic: Grossly neurologically intact with no obvious asymmetries or abnormalities Extremities: No trauma, well perfused Psych: Cooperative, appropriate insight and affect Initial Vital Signs Initial Vital Signs: Vital Signs Temperature 97.6 F 10/06/19 20:50 Pulse Rate 52 L 10/06/19 20:50 Respiratory Rate 20 10/06/19 20:50 Blood Pressure 201/89 H 10/06/19 20:50 Pulse Oximetry 100 10/06/19 20:50 Course Orders Ordered: ED Orders 10/06/19 21:01 EKG-12 Lead Stat 10/06/19 21:10 Complete Blood Count AUTO DIFF Stat Comprehensive Metabolic Panel Stat Lipase Stat Partial Thromboplastin Time Stat Prothrombin Time INR Stat 10/06/19 22:45 XR acute abdomen series Stat 10/07/19 01:24 CT kidney ureter bladder (KUB) Stat Discontinued Medications Hydromorphone HCl (Dilaudid) 0.5 mg IV NOW ONE Stop: 10/07/19 00:01 Last Admin: 10/07/19 00:32 Dose: 0.5 mg Documented by: RENÉE Hydromorphone HCl (Dilaudid) 1 mg IV NOW ONE Stop: 10/07/19 01:25 Last Admin: 10/07/19 02:01 Dose: 1 mg Documented by: RENÉE Sodium Chloride (Normal Saline 0.9%) 1,000 mls @ 1,000 mls/hr IV BOLUS ONE Stop: 10/07/19 00:59 Last Infusion: 10/07/19 02:02 Dose: 0 mls/hr Documented by: Admin: 10/07/19 00:31 Dose: 1,000 mls/hr Documented by: RENÉE Ondansetron HCl (Zofran) 4 mg IV NOW ONE Stop: 10/07/19 00:01 Last Admin: 10/07/19 00:32 Dose: 4 mg Documented by: RENÉE Vital Signs Vital signs: Vital Signs - 8 hr 10/06/19 20:50 10/06/19 22:17 10/07/19 00:38 Temperature 97.6 F 98.0 F Pulse Rate 52 L 68 92 H Respiratory Rate 20 18 16 Blood Pressure 201/89 H Blood Pressure [Left Arm] 182/88 H 175/84 H Pulse Oximetry 100 98 98 MDM - Nausea/Vomiting/Diarrhea Medical Records Attestation: I reviewed the patient's medical records. Lab Data Attestation: I reviewed the patient's lab results. Result diagrams: 10/06/19 21:10 10/06/19 21:10 Labs: Lab Results 10/06/19 10/06/19 10/06/19 Range/Units 21:10 21:10 21:10 WBC 13.6 H (4.5-11.0) X10^3/uL RBC 4.67 (4.5-5.9) X10^6/uL Hgb 13.9 (13.5-17.5) g/dL Hct 41.1 (41-53) % MCV 87.9 (80-100) fL MCH 29.8 (26-34) PG MCHC 33.9 (30-36) % RDW 14.3 (11.6-14.8) % Plt Count 286 (150-400) X10^3/uL Neut % (Auto) 62.4 (50-75) % Lymph % (Auto) 16.5 L (25-40) % [place] % (Auto) 5.6 (3-14) % Eos % (Auto) 15.3 H (2-4) % Baso % (Auto) 0.2 (0-2) % Neut # (Auto) 8500 H (8231-6677) /uL Lymph # (Auto) 2200 (7170-4605) /uL [place] # (Auto) 800 (0-900) /uL Eos # (Auto) 2100 H (0-450) /uL Baso # (Auto) 0 (0-100) /uL PT 10.9 (10.1-12.7) SECONDS INR 0.9 (0.9-1.3) APTT 31 (26.4-36.2) SECONDS Sodium 137 (137-145) mmol/L Potassium 5.0 (3.4-5.1) mmol/L Chloride 99 (98-107) mmol/L Carbon Dioxide 28 (22-32) mmol/L BUN 30 H (9-20) mg/dL Creatinine 1.44 H (0.66-1.25) mg/dL Estimated GFR 49.1 L (>60) mL/min BUN/Creatinine Ratio 20.8 (6-22) Glucose 228 H (80-110) mg/dL Calcium 10.2 (8.4-10.2) mg/dL Total Bilirubin 0.4 (0.2-1.3) mg/dL AST 27 (17-59) IU/L ALT 27 (<50) IU/L Alkaline Phosphatase 95 (38-126) U/L Total Protein 7.9 (6.3-8.2) g/dL Albumin 4.7 (3.5-5.0) g/dL Globulin 3.2 (1.7-4.1) g/dL Albumin/Globulin Ratio 1.5 (1.0-2.8) Lipase 138 (23-300) U/L Urine Dip Bedside Urine Glucose 100 mg/dl Bedside Urine Bilirubin - Negative Bedside Urine Ketone +/- 5 Urine Specific [place] 1.020 Bedside Urine Occult Blood - Negative Bedside Urine pH 6.0 Bedside Urine Protein +/- 15 Bedside Urine Urobilinogen - Negative Bedside Urine Nitrite - Negative Bedside Urine Leukocytes - Negative Esterase MDM Narrative Medical decision making narrative: 64-year-old gentleman with a week of recurrent episodes of epigastric pain associated with vomiting. No evidence of acute coronary syndrome. On CT scan initially no significant findings with slightly increased white blood cell count today and symptoms continuing CT KUB is repeated(the contrast used caused some itching in a mild rash so has not used again). Again, no significant findings are appreciated aside from a 5 mm stone in the remnant cystic duct without any intrahepatic duct dilation or LFT abnormalities. Pain and nausea are improved with medications fluids and Zofran. He is safe for home discharge now explain to him the uncertainty of his current diagnosis and he has follow-up scheduled with his primary care physician coming this week. Discharge Plan Departure Patient Disposition: Home Clinical Impression: Abdominal pain Qualifiers: Abdominal location: epigastric Qualified Code(s): R10.13 - Epigastric pain Vomiting Qualifiers: Vomiting type: unspecified Vomiting Intractability: non-intractable Nausea presence: with nausea Qualified Code(s): R11.2 - Nausea with vomiting, unspecified Instructions: DI for Vomiting -- Adult Activity Restrictions/Additional Instructions: Thank you for coming in tonight. Your blood work is very reassuring with no evidence of heart attack, overwhelming abdominal infection, pneumonia, intra-abdominal bleeding, abscess or bowel obstruction. I do not have a good explanation for why you have these recurrent episodes every 48 hours. At this point, I can tell you am not finding a life-threatening diagnosis and I do believe it is okay to treat the nausea specifically and to use pain medication on a very limited basis to control the pain. 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 Please follow-up with Dr. Chapa to see what his thoughts are in next steps to figuring out the source of your pain and vomiting. Prescriptions: New ondansetron 4 mg tablet,disintegrating 4 mg PO Q8H PRN (Reason: nausea and vomiting) Qty: 20 RF: 0 No Action (DME) Syringes See Rx Instructions .Route .MEDSUPPLY Qty: 100 RF: 6 (DME) Glucose: Test Strips 0 .Route .MEDSUPPLY Qty: 100 RF: 5 lisinopril 20 mg tablet 20 mg PO QDAY Qty: 90 RF: 3 metformin [Glucophage] 1,000 mg tablet 1,000 mg PO BIDCC Qty: 180 RF: 1 zolpidem [Ambien] 10 mg tablet 10 mg PO HSP PRN (Reason: insomnia) Qty: 30 RF: 5 Humulin N NPH Insulin KwikPen 100 unit/mL (3 mL) insulin pen See Rx Instructions SUBCUT BID Qty: 90 RF: 1 atorvastatin 40 mg tablet 40 mg PO HS Qty: 90 RF: 3 insulin lispro 100 unit/mL insulin pen 10 unit SUBCUT QAC Qty: 15 RF: 11 bupropion HCl [Wellbutrin XL] 150 mg tablet extended release 24 hr 150 mg PO QDAY Qty: 90 RF: 3 levothyroxine [Synthroid] 125 mcg tablet 125 mcg PO QDAY Qty: 90 RF: 3 (DME) onetouch glucose meter starter kit Qty: 1 RF: 0 (DME) Insulin [place] BD Ultra Fine Mini Pen Needle Qty: 150 RF: 3 ondansetron 4 mg tablet,disintegrating 4 mg PO Q8H PRN (Reason: nausea and vomiting) 7 Days Qty: 21 RF: 0 ursodiol [Actigall] 300 mg capsule 300 mg PO TID Qty: 90 RF: 6 oxycodone 5 mg tablet 5 mg PO Q4-6H PRN (Reason: post operative pain) Qty: 30 RF: 0 docusate sodium 100 mg capsule 100 mg PO BID Qty: 60 RF: 0 Referrals: Patrick Rocha MD [Primary Care Provider] -
[2019-10-07] MEDS: SODIUM CHLORIDE 0.9% 1,000 ML 1000 ML IV (00:31)
[2019-10-07] MEDS: HYDROMORPHONE 0.5 MG INJ IV (00:32)
[2019-10-07] MEDS: ONDANSETRON 4 MG/2 ML INJ IV (00:32)
[2019-10-07 00:38] VITALS: BP 175/84; PULSE 92; RESP 16; TEMP 36.7; O2SAT 98
--- NOTE | 2019-10-07 01:24 | DI.CT.S_ITS ---
PROCEDURE: CT KIDNEY URETER BLADDER (KUB) INDICATIONS: continued abdominal pain, emesis. Compare to 10/02 study TECHNIQUE: Noncontrast 5 mm thick sections acquired from the diaphragms to the symphysis. 5 mm thick coronal and sagittal reformats were then performed. For radiation dose reduction, the following was used: automated exposure control, adjustment of mA and/or kV according to patient size. COMPARISON: [facility], CT, CT ABDOMEN PELVIS W CON, 06/01/2019, 1:13. [facility], CT, CT ABDOMEN PELVIS W CON, 06/08/2019, 14:36. [facility], CT, CT ABDOMEN PELVIS W CON, 10/03/2019, 15:11. FINDINGS: Image quality: Excellent. Lung bases: Lung bases are clear. Heart size is normal. Coronary artery calcifications are present. Urinary system: Both kidneys are normal in size. No kidney stones. No hydronephrosis or perinephric fat stranding. Both ureters appear non-dilated throughout their expected courses. Bladder wall thickness is normal; no calcified bladder stones. Other solid organs: Liver is normal in size. Gallbladder surgically absent. Unchanged by millimeters calculus seen in the cystic duct. Pancreas is normal in contours. Spleen is normal in size. No adrenal nodules. Peritoneum and bowel: Unenhanced bowel loops demonstrate normal wall thickness and caliber. The appendix is normal in size. There is incidentally noted appendicolith measuring 2-3 mm. This is seen on image 66/2. No free fluid or air. Nodes and vessels: No retroperitoneal or mesenteric adenopathy by size criteria. Aorta and inferior vena cava are normal in caliber. Abdominal wall: No ventral hernias. Pelvis: No free pelvic fluid. No inguinal hernias or adenopathy. Bones: No suspicious bony lesions. Diffuse spondylosis and facet arthropathy. Mild anterior wedging of L1 vertebral body which is grossly unchanged No vertebral body compression fractures. Unchanged sclerosis involving left posteromedial ilium. IMPRESSION: No urolithiasis. No evidence of urinary obstruction Normal appendix. Incidentally noted 2-3 mm appendicolith Coronary artery disease Status post cholecystectomy. Residual proximal choledocholithiasis which is grossly unchanged since prior study dated 06/08/19 Findings concordant with the preliminary study interpretation provided at the time of the exam. Dictated by: Montana Greenwood M.D. on 10/07/2019 at 8:11 Approved by: Montana Greenwood M.D. on 10/07/2019 at 8:19
[2019-10-07] MEDS: HYDROMORPHONE 1 MG INJ IV (02:01)
[2019-10-07 02:30] VITALS: BP 132/60; PULSE 88; RESP 18; O2SAT 93
[2019-10-07] MEDS: OXYCODONE/APAP 5/325 PREPACK 1 BOTTLE MISC (03:52)
[2019-10-07 04:00] VITALS: BP 123/71; PULSE 87; RESP 16; O2SAT 93
== END 2019-10-07 04:00 | disposition home or self-care (01) ==
PROVIDERS: Emergency Provider Emergency Medicine; PCP Student in an Organized Health Care Education/Training Program
DX: R10.13 Epigastric pain (principal); R11.2 Nausea with vomiting, unspecified; I10 Essential (primary) hypertension; E78.5 Hyperlipidemia, unspecified; E11.9 Type 2 diabetes mellitus without complications
CPT/HCPCS: 36415; 74022; 74176; 80053; 81003; 83690; 85025; 85610; 85730; 93005; 93010; 96361; 96374; 96375; 96376; 99284; 99285; J1170; J2405

== ENCOUNTER → 2019-11-01 08:40 | Outpatient (CLI) | payer OTHER, SELFPAY ==
[2019-10-07 14:50] VITALS: BMI 29.7
--- NOTE | 2019-11-01 08:41 | DI.MRI.S_ITS ---
PROCEDURE: MR ABDOMEN WO CON INDICATIONS: retained cystic duct stones TECHNIQUE: Coronal HASTE through the abdomen, axial 2-D FLASH in- and [id number], and breath-hold T2 FSE with fat saturation through the biliary system and pancreas. Oblique coronal and axial thin-slice HASTE, radial thick-slab HASTE centered on the extrahepatic bile ducts. Intravenous secretin: Not requested. COMPARISON: [facility], CT, CT ABDOMEN PELVIS W CON, 10/03/2019, 15:11. Outside Facility, RG, MRI ABDOMEN W / WO CONT MRCP, 06/10/2019, 10:40. [facility], CT, CT KIDNEY URETER BLADDER (KUB), 10/07/2019, 1:23. FINDINGS: Image quality: Excellent. Pancreas and biliary system: Gallbladder is surgically absent. A 7 mm hypointensity is present the residual cystic duct stump, close to the confluence of the common hepatic duct, but in a position stable compared to prior studies. No other filling defects of the biliary system. Intra- and extra-hepatic biliary ducts are non dilated. Pancreas is normal in morphology, without adjacent soft tissue edema. Pancreatic duct is normal in caliber, without developmental anomalies. Other solid organs: Liver is normal in size. Spleen is normal in size. No adrenal nodules. Both kidneys are normal in size, without hydronephrosis. Nodes and vessels: No retroperitoneal or mesenteric adenopathy by size criteria. Aorta and inferior vena cava are normal in size. Bowel and peritoneum: Unenhanced bowel loops are normal in caliber. No free fluid. Lung bases: No basal pleural effusions. Heart size is normal. Bones and soft tissues: No ventral hernias. Bone marrow is of normal overall signal. IMPRESSION: 1. Stable position of 7 mm cystic duct stone compared to the prior study. 2. Status post cholecystectomy without evidence of biliary dilatation. Dictated by: Leigha Figueroa M.D. on 11/03/2019 at 9:49 Approved by: Leigha Figueroa M.D. on 11/03/2019 at 9:58
== END ==
PROVIDERS: PCP Student in an Organized Health Care Education/Training Program; Referring Provider Surgery; Visit Provider Surgery
DX: K80.50 Calculus of bile duct without cholangitis or cholecystitis without obstruction (principal); Z90.49 Acquired absence of other specified parts of digestive tract
CPT/HCPCS: 74181

== ENCOUNTER → 2019-12-23 13:12 | Outpatient (CLI) | payer OTHER, SELFPAY ==
[2019-10-07 14:50] VITALS: BMI 29.7
[2019-12-23 14:08] LABS: BUN Creatinine Ratio 19.5 (6-22); Blood Urea Nitrogen 25 mg/dL (9-20); Estimated Glomerular Filt Rate 56.2 mL/min (>60)
== END ==
PROVIDERS: PCP Student in an Organized Health Care Education/Training Program; Referring Provider Student in an Organized Health Care Education/Training Program; Visit Provider Student in an Organized Health Care Education/Training Program
DX: E11.9 Type 2 diabetes mellitus without complications (principal)
CPT/HCPCS: 36415; 82565; 83036; 84520

== ENCOUNTER 2020-01-18 22:03 | Emergency (ER) | payer OTHER, SELFPAY ==
[2019-10-07 14:50] VITALS: BMI 29.7
[2020-01-18 22:11] VITALS: PULSE 71; O2SAT 97
[2020-01-18 22:12] VITALS: BP 216/93; PULSE 75; RESP 18; TEMP 37.3; O2SAT 95
--- NOTE | 2020-01-18 22:16 | ED_ITS ---
HPI - Chest Pain General Chief Complaint: Chest Pain Stated Complaint: vomiting x2 days, pain in chest Time Seen by Provider: 01/18/20 22:14 Source: patient Mode of arrival: Ambulatory Limitations: no limitations History of Present Illness HPI narrative: 64M with a history of hypertension, hyperlipidemia, diabetes, with a history of acute cholecystitis June 01 and laparoscopic cholecystectomy presents with family and the chief complaint of 2 days of severe epigastric pain with multiple episodes of nausea and vomiting. He has a poor appetite and any eating and drinking worsens pain and causes vomiting. He denies chest pain, SOB, fever, or chills. He states this feels very similar to prior gallbladder episodes. He had a lap choley in May and had what appeared to be a retained stone in the CBD, he was sent to [facility] for evaluation and treatment and ERCP noted that the stone was actually in the cystic duct. He had been in his normal state of health until he had another similar episode in September with comp lete workup including reassuring labs and CT KUB noting retained stone in Cystic duct with no other significant findings. Related Data Previous Rx's Medication Instructions Recorded Syringes #100 each 06/12/18 lisinopril 20 mg tablet 20 mg PO QDAY #90 tab 03/26/19 atorvastatin 40 mg tablet 40 mg PO HS #90 tab 04/15/19 bupropion HCl 150 mg 24 hr tablet, 150 mg PO QDAY #90 tab 04/15/19 extended release levothyroxine 125 mcg tablet 125 mcg PO QDAY #90 tab 04/15/19 docusate sodium 100 mg PO BID #60 cap 06/02/19 ursodiol 300 mg capsule 300 mg PO TID #90 cap 06/19/19 onetouch glucose meter starter kit #1 ea 07/02/19 ondansetron 4 mg PO Q8H PRN #20 tab 10/07/19 zolpidem 10 mg tablet 10 mg PO HSP PRN #30 tab 10/08/19 metformin 1,000 mg tablet 1,000 mg PO BIDCC #180 tab 10/13/19 Glucose: Test Strips #100 each 10/29/19 insulin lispro 100 unit/mL 10 unit SUBCUT QAC #20 ml MDD 50 11/21/19 subcutaneous pen units Insulin [place] BD Ultra Fine Mini #450 each 01/01/20 Pen Needle insulin NPH isoph U-100 human 100 See Rx Instructions SUBCUT BID #90 01/01/20 unit/mL (3 mL) subcutaneous pen ml hydrocodone-acetaminophen 1 tab PO Q4-6H PRN #10 tab 01/19/20 ondansetron 4 mg PO TID-QID PRN #10 tab 01/19/20 Allergies Allergy/AdvReac Type Severity Reaction Status Date / Time Iodinated Contrast Media Allergy Mild Rash Verified 12/23/19 13:48 Influenza Virus Vaccines Allergy Unknown Verified 12/23/19 13:48 Review of Systems Constitutional Constitutional: Denies chills, Denies fatigue, Denies fever(s), Denies frequent falls, Denies lethargy and Denies weakness Eyes Eyes: Denies change in vision, Denies eye discharge, Denies irritation and Denies loss of vision ENT Ears, Nose, Mouth, and Throat: Denies change in voice, Denies dizziness, Denies neck pain, Denies sore throat and Denies throat swelling Cardiovascular Cardiovascular: Denies chest pain, Denies irregular heart rhythm, Denies li ghtheadedness, Denies palpitations, Denies dyspnea, Denies dyspnea on exertion and Denies orthopnea Respiratory Respiratory: Denies cough, Denies dyspnea, Denies dyspnea on exertion and Denies wheezing Gastrointestinal Gastrointestinal: Reports abdominal pain, Denies change in bowel habits, Denies diarrhea, Reports nausea and Reports vomiting Musculoskeletal Musculoskeletal: Denies neck pain and Denies numbness Integumentary/Breasts Skin/Breast: Denies pruritus, Denies erythema, Denies rash and Denies wounds Neurologic Neurologic: Denies behavioral changes, Denies confusion, Denies dizziness, Denies frequent falls, Denies loss of vision, Denies numbness and Denies weakness Psychiatric Psychiatric: Denies anxiety, Denies behavioral changes, Denies confusion, Denies depression, Denies homicidal ideation and Denies suicidal ideation Endocrine Endocrine: Denies fatigue, Denies flushing and Denies palpitations Hematologic/Lymphatic Hematologic/Lymphatic: Denies easy bruising Allergic/Immunologic Allergic/Immunologic: Denies urticaria, Denies throat swelling and Denies wheezing Patient History Medical History Chronic back pain (Chronic 2004) CTS (carpal tunnel syndrome) (Chronic 1994) Depression (Chronic 1997) Diabetes mellitus (Chronic 1999) Esophageal obstruction due to food impaction (Resolved 05/07/16) Foot pain (Chronic 2004) Shoulder pain (Chronic 2009) Sleep apnea (Chronic 2009) Surgical History History of esophagogastroduodenoscopy (EGD) (Resolved 05/08/16) Status post laparoscopic cholecystectomy (Acute) Family History Mother Loud snoring Restless leg Hypertension Diabetes mellitus Depression Family/Other Restless leg Obesity Hypertension Depression Anxiety Social History marital status: household members: none lives independently: Yes education level: high school occupational status: employed Smoking Status: Never smoker alcohol intake: never substance use type: does not use Smoking Status: Never smoker alcohol intake frequency: 0-2 drinks per day Substance Use Type: does not use Exam Narrative Exam Narrative: GENERAL: [64] year old patient appears stated age. Well- nourished, well-developed patient, in mild distress. Holding an emesis bag HEAD: Atraumatic. Normocephalic. EYES: Pupils equal round and reactive. Extraocular motions intact. No scleral icterus. No injection or drainage. ENT: Nose without bleeding, purulent drainage. Throat without erythema, tonsillar hypertrophy or exudate. Airway patent. NECK: Trachea midline. Non tender CARDIOVASCULAR: Regular rate and rhythm without murmurs, gallops, or rubs. RESPIRATORY: Clear to auscultation. Breath sounds equal bilaterally. No wheezes, rales, or rhonchi. GASTROINTESTINAL: Abdomen soft, tender in the epigastric, nondistended. EXTREMITIES: No edema or joint tenderness. BACK: Nontender without deformity or crepitance. No flank tenderness. NEURO: AOx3. SKIN: No rash or erythema of visible areas Initial Vital Signs Initial Vital Signs: Vital Signs Pulse Rate 71 01/18/20 22:11 Pulse Oximetry 97 01/18/20 22:11 Course Orders Ordered: ED Orders 01/18/20 22:15 Complete Blood Count AUTO DIFF Stat Comprehensive Metabolic Panel Stat Lipase Stat Troponin & CK Cardiac Panel Stat 01/18/20 22:42 US abdomen limited Stat 01/18/20 23:27 CT abdomen pelvis w con Stat 01/19/20 EKG-12 Lead Stat Discontinued Medications Hydrocodone Bitart/Acetaminophen (Vicodin 5/325 Prepack) 1 bottle MISC SEEINSTR ONE Stop: 01/19/20 01:58 Last Admin: 01/19/20 02:15 Dose: 1 bottle Documented by: RENÉE Diphenhydramine HCl (Benadryl) 25 mg IV NOW ONE Stop: 01/18/20 22:18 Last Admin: 01/18/20 22:27 Dose: 25 mg Documented by: SHARI Hydromorphone HCl (Dilaudid) 0.5 mg IV NOW ONE Stop: 01/18/20 22:15 Last Admin: 01/18/20 22:22 Dose: 0.5 mg Documented by: SHARI Hydromorphone HCl (Dilaudid) 0.5 mg IV NOW ONE Stop: 01/19/20 00:24 Last Admin: 01/19/20 00:26 Dose: 0.5 mg Documented by: SHARI Sodium Chloride (Normal Saline 0.9%) 1,000 mls @ 1,000 mls/hr IV BOLUS ONE Stop: 01/18/20 23:13 Last Infusion: 01/19/20 00:22 Dose: 0 mls/hr Documented by: Admin: 01/18/20 22:22 Dose: 1,000 mls/hr Documented by: SHARI Methylprednisolone (Solu-Medrol 125 Mg Vial) 125 mg IV NOW ONE Stop: 01/18/20 22:18 Last Admin: 01/18/20 22:27 Dose: 125 mg Documented by: SHARI Ondansetron HCl (Zofran) 4 mg IV Q4HR PRN PRN Reason: Nausea And Vomiting Last Admin: 01/18/20 22:22 Dose: 4 mg Documented by: SHARI Ondansetron HCl (Zofran Odt Prepack) 1 bottle MISC SEEINSTR ONE Stop: 01/19/20 01:58 Last Admin: 01/19/20 02:15 Dose: 1 bottle Documented by: RENÉE Vital Signs Vital signs: Vital Signs - 8 hr 01/18/20 22:11 01/18/20 22:12 01/18/20 22:30 Temperature 99.2 F Pulse Rate 71 75 96 H Respiratory Rate 18 Blood Pressure 216/93 H Pulse Oximetry 97 95 93 01/18/20 23:00 01/18/20 23:29 01/18/20 23:30 Temperature Pulse Rate 85 86 83 Respiratory Rate Blood Pressure 144/65 H 148/79 H Pulse Oximetry 95 98 97 01/19/20 00:23 01/19/20 00:30 01/19/20 01:00 Temperature Pulse Rate 75 82 85 Respiratory Rate Blood Pressure 166/76 H 163/76 H 159/72 H Pulse Oximetry 96 96 93 01/19/20 01:30 01/19/20 02:00 01/19/20 02:22 Temperature 98.7 F Pulse Rate 86 77 Respiratory Rate Blood Pressure 141/66 H 104/60 Pulse Oximetry 93 92 MDM - Chest Pain Lab Data Result diagrams: 01/18/20 22:15 01/18/20 22:15 Labs: Lab Results 01/18/20 01/18/20 Range/Units 22:15 22:15 WBC 16.8 H (4.5-11.0) X10^3/uL RBC 4.99 (4.5-5.9) X10^6/uL Hgb 14.8 (13.5-17.5) g/dL Hct 44.0 (41-53) % MCV 88.2 (80-100) fL MCH 29.7 (26-34) PG MCHC 33.7 (30-36) % RDW 14.5 (11.6-14.8) % Plt Count 298 (150-400) X10^3/uL Neut % (Auto) 80.6 H (50-75) % Lymph % (Auto) 13.1 L (25-40) % Rolette % (Auto) 5.2 (3-14) % Eos % (Auto) 0.4 L (2-4) % Baso % (Auto) 0.7 (0-2) % Neut # (Auto) 36860 H (7483-5131) /uL Lymph # (Auto) 2200 (7326-2859) /uL Rolette # (Auto) 900 (0-900) /uL Eos # (Auto) 100 (0-450) /uL Baso # (Auto) 100 (0-100) /uL Sodium 136 L (137-145) mmol/L Potassium 4.8 (3.4-5.1) mmol/L Chloride 99 (98-107) mmol/L Carbon Dioxide 28 (22-32) mmol/L BUN 23 H (9-20) mg/dL Creatinine 1.09 (0.66-1.25) mg/dL Estimated GFR > 60.0 (>60) mL/min BUN/Creatinine Ratio 21.1 (6-22) Glucose 225 H (80-110) mg/dL Calcium 10.9 H (8.4-10.2) mg/dL Total Bilirubin 0.7 (0.2-1.3) mg/dL AST 31 (17-59) IU/L ALT 34 (<50) IU/L Alkaline Phosphatase 72 (38-126) U/L Total Creatine Kinase 194 H (55-170) U/L CK-MB (CK-2) 2.16 (<2.37) ng/mL CK-MB (CK-2) Rel Index 1.1 L (1.5-5.0) % Troponin I < 0.012 (0.01-0.034) ng/mL Total Protein 8.4 H (6.3-8.2) g/dL Albumin 4.9 (3.5-5.0) g/dL Globulin 3.5 (1.7-4.1) g/dL Albumin/Globulin Ratio 1.4 (1.0-2.8) Lipase 96 (23-300) U/L Imaging Data US - abdomen: Radiologist's Impression: Poorly visualized CBD CT scan - abdomen/pelvis: Radiologist's Impression: Possible ileus MDM Narrative Medical decision making narrative: Patient with unremarkable labs and imaging findings. Likely an ileus noted on CT. Pain is well controlled, patient able to tolerate oral hydration and is a good candidate for discharge on clear liquid diet with pain control and antinausea meds. He will follow-up closely and understands return precautions to the emergency department. Discharge Plan Departure Patient Disposition: Home Clinical Impression: Ileus Discharge Date/Time: 01/19/20 02:24 Instructions: Acute Abdominal Pain, DI for Ileus Activity Restrictions/Additional Instructions: *You have been diagnosed with [abdominal pain likely due to an ileus, you have reassuring labs, ultrasound and CT] *What to do: *Take medications as directed *Follow up with your primary care provider in 2-3 days, call for an appointment. Let them know you were seen in the Emergency Department and that we ask that you be seen in follow up *Return to ER if you should have any new, worsening or concerning symptoms 1. Drink plenty of fluids with frequent small sips. 2. For the next 24 hours a clear liquid diet is advised. After that please employ a B.R.A.T. diet which would include bananas, rice, apples, toast and other mild food items 3. Please take medications as directed. 4. Please follow-up with your doctor in the next 1-2 days. Call the office for an appointment. 5. Please return to the emergency Department for any worsening or persistent symptoms, such as increasing pain or fever. Prescriptions: New hydrocodone-acetaminophen 5-325 mg tablet 1 tab PO Q4-6H PRN (Reason: pain) Qty: 10 RF: 0 ondansetron 4 mg tablet,disintegrating 4 mg PO TID-QID PRN (Reason: nausea and vomiting) Qty: 10 RF: 0 No Action (DME) Syringes See Rx Instructions .Route .MEDSUPPLY Qty: 100 RF: 6 lisinopril 20 mg tablet 20 mg PO QDAY Qty: 90 RF: 3 atorvastatin 40 mg tablet 40 mg PO HS Qty: 90 RF: 3 bupropion HCl [Wellbutrin XL] 150 mg tablet extended release 24 hr 150 mg PO QDAY Qty: 90 RF: 3 levothyroxine [Synthroid] 125 mcg tablet 125 mcg PO QDAY Qty: 90 RF: 3 (DME) onetouch glucose meter starter kit Qty: 1 RF: 0 metformin [Glucophage] 1,000 mg tablet 1,000 mg PO BIDCC Qty: 180 RF: 1 (DME) Glucose: Test Strips 0 .Route .MEDSUPPLY Qty: 100 RF: 5 (DME) Insulin [place] BD Ultra Fine Mini Pen Needle Qty: 450 RF: 3 Humulin N NPH Insulin KwikPen 100 unit/mL (3 mL) insulin pen See Rx Instructions SUBCUT BID Qty: 90 RF: 1 zolpidem [Ambien] 10 mg tablet 10 mg PO HSP PRN (Reason: insomnia) Qty: 30 RF: 5 insulin lispro 100 unit/mL insulin pen 10 unit SUBCUT QAC MDD 50 units Qty: 20 RF: 11 ursodiol [Actigall] 300 mg capsule 300 mg PO TID Qty: 90 RF: 6 docusate sodium 100 mg capsule 100 mg PO BID Qty: 60 RF: 0 ondansetron 4 mg tablet,disintegrating 4 mg PO Q8H PRN (Reason: nausea and vomiting) Qty: 20 RF: 0 Referrals: Patrick Rocha MD [Primary Care Provider] -
[2020-01-18] MEDS: HYDROMORPHONE 0.5 MG INJ IV (22:22)
[2020-01-18] MEDS: SODIUM CHLORIDE 0.9% 1,000 ML 1000 ML IV (22:22)
[2020-01-18] MEDS: ONDANSETRON 4 MG/2 ML INJ IV (22:22)
[2020-01-18] MEDS: methylPREDNISolone 125 MG/2 ML VIAL IV (22:27)
[2020-01-18] MEDS: diphenhydrAMINE 50 MG/ML VIAL 25 MG IV (22:27)
[2020-01-18 22:28] LABS: Add Manual Diff / Slide Review NO; Basophils Absolute Auto 100 /uL (0-100); Basophils Percent Auto 0.7 % (0-2); Eosinophils Absolute Auto 100 /uL (0-450); Eosinophils Percent Auto 0.4 % (2-4); Hemoglobin 14.8 g/dL (13.5-17.5); Lymphocytes Absolute Auto 2200 /uL (1100-4500); Lymphocytes Percent Auto 13.1 % (25-40); Mean Corpuscular HGB Conc 33.7 % (30-36); Mean Corpuscular Hemoglobin 29.7 PG (26-34); Mean Corpuscular Volume 88.2 fL (80-100); Monocytes Absolute Auto 900 /uL (0-900); Monocytes Percent Auto 5.2 % (3-14); Neutrophils Absolute Auto 13500 /uL (1500-7000); Neutrophils Percent Auto 80.6 % (50-75); Platelet Count 298 X10^3/uL (150-400); Red Blood Cell Count 4.99 X10^6/uL (4.5-5.9); Red Cell Distribution Width 14.5 % (11.6-14.8); White Blood Cell Count 16.8 X10^3/uL (4.5-11.0)
[2020-01-18 22:30] VITALS: PULSE 96; O2SAT 93
[2020-01-18 22:32] LABS: Alanine Aminotransferase 34 IU/L (<50); Albumin 4.9 g/dL (3.5-5.0); Albumin Globulin Ratio 1.4 (1.0-2.8); Alkaline Phosphatase 72 U/L (38-126); Aspartate Aminotransferase 31 IU/L (17-59); BUN Creatinine Ratio 21.1 (6-22); Bilirubin Total 0.7 mg/dL (0.2-1.3); Blood Urea Nitrogen 23 mg/dL (9-20); Calcium 10.9 mg/dL (8.4-10.2); Carbon Dioxide 28 mmol/L (22-32); Chloride 99 mmol/L (98-107); Creatine Kinase 194 U/L (55-170); Estimated Glomerular Filt Rate > 60.0 mL/min (>60); Globulin 3.5 g/dL (1.7-4.1); Glucose 225 mg/dL (80-110); Lipase 96 U/L (23-300); Potassium 4.8 mmol/L (3.4-5.1); Sodium 136 mmol/L (137-145); Total Protein 8.4 g/dL (6.3-8.2)
--- NOTE | 2020-01-18 22:42 | DI.US.S_ITS ---
PROCEDURE: US ABDOMEN LIMITED INDICATIONS: severe epigastric pain, hx retained stone, N/V TECHNIQUE: Real-time focused scanning was performed of the abdomen, with image documentation. COMPARISON: [facility], CT, CT KIDNEY URETER BLADDER (KUB), 10/07/2019, 1:23. [facility], CT, CT ABDOMEN PELVIS W CON, 01/18/2020, 23:29. [facility], US, US ABDOMEN LIMITED, 06/01/2019, 3:43. FINDINGS: The gallbladder has been removed. No abnormality of the gallbladder fossa can be seen. The liver is normal in size and demonstrates no focal lesions. There is no biliary dilatation, the common bile duct measures 2 mm. No common duct stones are seen on these images. The tail of the pancreas is hyperechoic. The visualized remainder of the pancreas is unremarkable. IMPRESSION: Status post cholecystectomy, without biliary dilatation seen on these ultrasound images. Note: No significant discrepancy from the preliminary report. Dictated by: Valentino Hemphill M.D. on 01/19/2020 at 8:39 Approved by: Valentino Hemphill M.D. on 01/19/2020 at 8:42
[2020-01-18 22:43] LABS: Troponin I < 0.012 ng/mL (0.01-0.034)
[2020-01-18 22:47] LABS: CKMB % Relative Index 1.1 % (1.5-5.0); Creatine Kinase MB 2.16 ng/mL (<2.37); HEMOLYSIS 17 (0-50)
[2020-01-18 23:00] VITALS: PULSE 85; O2SAT 95
--- NOTE | 2020-01-18 23:27 | DI.CT.S_ITS ---
PROCEDURE: CT ABDOMEN PELVIS W CON INDICATIONS: severe epigastric pain, persistent vomiting TECHNIQUE: After the administration of intravenous contrast, 5 mm thick sections acquired from the diaphragm to the symphysis. 5 mm coronal and sagittal reformats were acquired. For radiation dose reduction, the following was used: automated exposure control, adjustment of mA and/or kV according to patient size. COMPARISON: [facility], CT, CT ABDOMEN PELVIS W CON, 06/01/2019, 1:13. [facility], CT, CT ABDOMEN PELVIS W CON, 06/08/2019, 14:36. [facility], US, US ABDOMEN LIMITED, 01/18/2020, 23:13. [facility], MR, MR ABDOMEN WO CON, 11/01/2019, 8:47. [facility], CT, CT KIDNEY URETER BLADDER (KUB), 10/07/2019, 1:23. [facility], CR, XR ACUTE ABDOMEN SERIES, 10/06/2019, 22:40. [facility], CT, CT ABDOMEN PELVIS W CON, 10/03/2019, 15:11. FINDINGS: Image quality: Excellent. ABDOMEN: Lung bases: Lung bases are clear. Heart size is normal. Solid organs: Liver is normal in size and enhancement. Gallbladder has been removed. There is again seen a gallstone within the biliary system, at the junction between the cystic duct remnant and the common bile duct. This can be seen on series 4, image 27 and measures up to 6 mm. No chava biliary dilatation is seen. Minimal right upper quadrant flava toward changes are seen, with haziness of the fat. Pancreas enhances normally. Spleen is normal in size and enhancement. No adrenal nodules. Kidneys demonstrate normal size and enhancement, without hydronephrosis. Peritoneum and bowel: Mild prominence of small bowel loops can be seen within the upper abdomen that measure up to 2.6 cm. No frankly dilated loops of small bowel are seen. Nodes and vessels: No retroperitoneal or mesenteric adenopathy by size criteria. Aorta and inferior vena cava are normal in size. Miscellaneous: No ventral hernias. PELVIS: Genitourinary: Bladder wall thickness is normal. Miscellaneous: No inguinal adenopathy. Bilateral fat containing inguinal hernias are seen. Bones: No suspicious bony lesions. Remote compression deformities are seen involving several levels, although most prominently at the L3-4 level with 50% loss of height centrally and L4, with 30% loss of height centrally. The L3 level demonstrates posterior displacement of fracture fragments of 7 mm. There is vertebral body fusion seen at the L2-3 level. Milder degenerative changes are seen elsewhere. Lower lumbar spine facet arthropathy is seen. IMPRESSION: There is again seen a 6 mm stone within the extrahepatic biliary system at the junction between the cystic duct remnant and the common bile duct. No chava associated biliary ductal dilatation is seen. Minimal right upper quadrant inflammatory changes are seen, with haziness of the fat. This may be related to inflammatory change. Mild prominence of upper abdominal small bowel loops are seen, which may be related to ileus. No bowel obstruction can be seen. Incidental note is made of: Cholecystectomy clips Fat containing bilateral inguinal hernias Vertebral body compression deformities are seen, which are worst at L3 and L4 L2-3 vertebral body fusion Note: No significant discrepancy from the preliminary report. Dictated by: Valentino Hemphill M.D. on 01/19/2020 at 8:42 Approved by: Valentino Hemphill M.D. on 01/19/2020 at 8:49
[2020-01-18 23:29] VITALS: BP 144/65; PULSE 86; O2SAT 98
[2020-01-18 23:30] VITALS: BP 148/79; PULSE 83; O2SAT 97
[2020-01-19 00:23] VITALS: BP 166/76; PULSE 75; O2SAT 96
[2020-01-19] MEDS: HYDROMORPHONE 0.5 MG INJ IV (00:26)
[2020-01-19 00:30] VITALS: BP 163/76; PULSE 82; O2SAT 96
[2020-01-19 01:00] VITALS: BP 159/72; PULSE 85; O2SAT 93
[2020-01-19 01:30] VITALS: BP 141/66; PULSE 86; O2SAT 93
[2020-01-19 02:00] VITALS: BP 104/60; PULSE 77; O2SAT 92
[2020-01-19] MEDS: ONDANSETRON 4 MG ODT PREPACK 1 BOTTLE MISC (02:15)
[2020-01-19] MEDS: HYDROCODONE/ACET 5/325 PREPACK 1 BOTTLE MISC (02:15)
[2020-01-19 02:22] VITALS: TEMP 37.1
== END 2020-01-19 02:24 | disposition home or self-care (01) ==
PROVIDERS: Emergency Provider Emergency Medicine; PCP Student in an Organized Health Care Education/Training Program
DX: K56.7 Ileus, unspecified (principal); I10 Essential (primary) hypertension; E78.5 Hyperlipidemia, unspecified; E11.9 Type 2 diabetes mellitus without complications; R11.2 Nausea with vomiting, unspecified; R07.9 Chest pain, unspecified; R10.13 Epigastric pain
CPT/HCPCS: 36415; 74177; 76705; 80053; 82550; 82553; 83690; 84484; 85025; 93005; 96361; 96374; 96375; 96376; 99284; J1170; J1200; J2405; J2930; Q9967

== ENCOUNTER 2020-01-24 16:00 | Emergency (ER) | payer OTHER, SELFPAY ==
[2019-10-07 14:50] VITALS: BMI 29.7
[2020-01-24] VITALS (23 sets, daily range): BP systolic 135–209; BP diastolic 63–96; PULSE 61–96; RESP 16–29; TEMP 36.9; O2SAT 80–99; BMI 29.7
--- NOTE | 2020-01-24 16:03 | ED.CHESTPAIN ---
HPI - Chest Pain General Chief Complaint: Chest Pain Stated Complaint: chest pains Time Seen by Provider: 01/24/20 16:00 Source: patient Mode of arrival: Ambulatory Limitations: no limitations History of Present Illness HPI narrative: 64M with history of hypertension, hyperlipidemia, diabetes with history of acute cholecystitis in May followed by subsequent laparoscopic cholecystectomy presents with a recurrence of severe epigastric pain worsening over the course of the day. He states it feels just like it did when he was seen about a week ago under similar circumstances. Of note, there was concern of a possible retained stone in his common bile duct after the initial surgery in May and he was sent out for further evaluation and the nose from [place] suggest the stone was actually in the cystic duct. He has been going about his normal business and was seen and evaluated by myself about a week ago under similar circumstances, he had a normal EKG, reassuring labs and was treated for his pain and had imaging demonstrating the possibility of ileus. Today he has severe epigastric pain that is worse with eating and drinking and associated with nausea and vomiting. He denies any exertional symptoms and denies any chest pain or shortness of breath. He has had no fever or chills. MD complaint: chest pain Duration: intermittent Onset: after eating Pain location: substernal and epigastric Severity: moderate Quality: aching and sharp Pain radiation: none Relieving factors: nothing Exacerbating factors: eating Associated symptoms: nausea and vomiting Treatments prior to arrival chest pain: none Related Data Previous Rx's Medication Instructions Recorded Syringes #100 each 06/12/18 lisinopril 20 mg tablet 20 mg PO QDAY #90 tab 03/26/19 atorvastatin 40 mg tablet 40 mg PO HS #90 tab 04/15/19 bupropion HCl 150 mg 24 hr tablet, 150 mg PO QDAY #90 tab 04/15/19 extended release levothyroxine 125 mcg tablet 125 mcg PO QDAY #90 tab 04/15/19 onetouch glucose meter starter kit #1 ea 07/02/19 ondansetron 4 mg PO Q8H PRN #20 tab 10/07/19 zolpidem 10 mg tablet 10 mg PO HSP PRN #30 tab 10/08/19 metformin 1,000 mg tablet 1,000 mg PO BIDCC #180 tab 10/13/19 Glucose: Test Strips #100 each 10/29/19 insulin lispro 100 unit/mL 10 unit SUBCUT QAC #20 ml MDD 50 11/21/19 subcutaneous pen units Insulin Henderson BD Ultra Fine Mini #450 each 01/01/20 Pen Needle insulin NPH isoph U-100 human 100 See Rx Instructions SUBCUT BID #90 01/01/20 unit/mL (3 mL) subcutaneous pen ml hydroxyzine HCl 50 mg tablet 50 mg PO TID PRN 7 Days #21 tab 01/20/20 Allergies Allergy/AdvReac Type Severity Reaction Status Date / Time Iodinated Contrast Media Allergy Mild Rash Verified 01/24/20 17:22 Influenza Virus Vaccines Allergy Unknown Verified 01/24/20 17:22 Review of Systems Constitutional Constitutional: Denies chills, Denies fatigue, Denies fever(s), Denies frequent falls, Denies lethargy and Denies weakness Eyes Eyes: Denies change in vision, Denies eye discharge, Denies irritation and Denies loss of vision ENT Ears, Nose, Mouth, and Throat: Denies change in voice, Denies dizziness, Denies neck pain, Denies sore throat and Denies throat swelling Cardiovascular Cardiovascular: Denies chest pain, Denies irregular heart rhythm, Denies lightheadedness, Denies palpitations, Denies dyspnea, Denies dyspnea on exertion and Denies orthopnea Respiratory Respiratory: Denies cough, Denies dyspnea, Denies dyspnea on exertion and Denies wheezing Gastrointestinal Gastrointestinal: Reports abdominal pain, Denies change in bowel habits, Denies diarrhea, Reports nausea and Reports vomiting Musculoskeletal Musculoskeletal: Denies neck pain and Denies numbness Integumentary/Breasts Skin/Breast: Denies pruritus, Denies erythema, Denies rash and Denies wounds Neurologic Neurologic: Denies behavioral changes, Denies confusion, Denies dizziness, Denies frequent falls, Denies loss of vision, Denies numbness and Denies weakness Psychiatric Psychiatric: Denies anxiety, Denies behavioral changes, Denies confusion, Denies depression, Denies homicidal ideation and Denies suicidal ideation Endocrine Endocrine: Denies fatigue, Denies flushing and Denies palpitations Hematologic/Lymphatic Hematologic/Lymphatic: Denies easy bruising Allergic/Immunologic Allergic/Immunologic: Denies urticaria, Denies throat swelling and Denies wheezing Patient History Medical History (Updated 01/24/20 @ 18:07 by Da Lafleur DO) Chronic back pain (Chronic 2004) CTS (carpal tunnel syndrome) (Chronic 1994) Depression (Chronic 1997) Diabetes mellitus (Chronic 1999) Esophageal obstruction due to food impaction (Resolved 05/07/16) Foot pain (Chronic 2004) Shoulder pain (Chronic 2009) Sleep apnea (Chronic 2009) Surgical History History of esophagogastroduodenoscopy (EGD) (Resolved 05/08/16) Status post laparoscopic cholecystectomy (Acute) Family History Mother Loud snoring Restless leg Hypertension Diabetes mellitus Depression Family/Other Restless leg Obesity Hypertension Depression Anxiety Social History marital status: household members: none lives independently: Yes education level: high school occupational status: employed Smoking Status: Never smoker alcohol intake: never substance use type: does not use Smoking Status: Never smoker alcohol intake frequency: 0-2 drinks per day Substance Use Type: does not use Exam Narrative Exam Narrative: GENERAL: [64] year old patient appears stated age. Well-nourished, well-developed patient, in mild distress. Obviously uncomfortable, rubbing his upper abdomen HEAD: Atraumatic. Normocephalic. EYES: Pupils equal round and reactive. Extraocular motions intact. No scleral icterus. No injection or drainage. ENT: Nose without bleeding, purulent drainage. Throat without erythema, tonsillar hypertrophy or exudate. Airway patent. NECK: Trachea midline. Non tender CARDIOVASCULAR: Regular rate and rhythm without murmurs, gallops, or rubs. RESPIRATORY: Clear to auscultation. Breath sounds equal bilaterally. No wheezes, rales, or rhonchi. GASTROINTESTINAL: Abdomen soft, tender in the epigastrium, nondistended. EXTREMITIES: No edema or joint tenderness. BACK: Nontender without deformity or crepitance. No flank tenderness. NEURO: AOx3. SKIN: No rash or erythema of visible areas Initial Vital Signs Initial Vital Signs: Vital Signs Pulse Rate 61 01/24/20 16:03 Pulse Oximetry 99 01/24/20 16:03 Course Orders Ordered: Discontinued Medications Al Hydrox/Mg Hydrox/Simethicone 20 ml/ Lidocaine HCl 15 ml 0 ml PO NOW ONE Stop: 01/24/20 16:07 Last Admin: 01/24/20 16:50 Dose: 35 ml Documented by: ANDRE Hydromorphone HCl (Dilaudid) 0.5 mg IV NOW ONE Stop: 01/24/20 16:24 Last Admin: 01/24/20 16:40 Dose: 0.5 mg Documented by: ANDRE Hydromorphone HCl (Dilaudid) 0.5 mg IV NOW ONE Stop: 01/24/20 17:28 Last Admin: 01/24/20 17:32 Dose: 0.5 mg Documented by: ANDRE Hydromorphone HCl (Dilaudid) 1 mg IV NOW ONE Stop: 01/24/20 19:01 Last Admin: 01/24/20 19:00 Dose: 1 mg Documented by: JEFFY Sodium Chloride (Normal Saline 0.9%) 1,000 mls @ 1,000 mls/hr IV BOLUS ONE Stop: 01/24/20 17:05 Last Infusion: 01/24/20 17:59 Dose: 0 mls/hr Documented by: Admin: 01/24/20 16:52 Dose: 1,000 mls/hr Documented by: ANDRE Ondansetron HCl (Zofran) 4 mg IV NOW ONE Stop: 01/24/20 19:01 Last Admin: 01/24/20 19:00 Dose: 4 mg Documented by: JEFFY Pantoprazole Sodium (Protonix) 40 mg IV NOW ONE Stop: 01/24/20 16:07 Last Admin: 01/24/20 16:48 Dose: 40 mg Documented by: ANDRE Consultations Consultation #1: call to Dr. Torres to discuss patient and he agrees that patient needs to be at a facility that can perform ERCP given known stone and current pancreatitis Consultation #2: call to [facility] to help arrange transfer, they are in agreement with plan and will help place patient, likely at [place] Time: 17:29 Vital Signs Vital signs: Vital Signs - 8 hr 01/24/20 16:03 01/24/20 16:05 01/24/20 16:07 Temperature 98.4 F Pulse Rate 61 95 H 93 H Respiratory Rate 24 Blood Pressure 161/92 H 166/77 H Pulse Oximetry 99 97 97 01/24/20 16:08 01/24/20 16:09 01/24/20 16:10 Temperature Pulse Rate 96 H 85 Respiratory Rate Blood Pressure 148/68 H 147/65 H 141/63 H Pulse Oximetry 80 L 98 01/24/20 16:11 01/24/20 16:12 01/24/20 16:37 Temperature Pulse Rate 87 83 84 Respiratory Rate 24 Blood Pressure 135/63 139/64 Pulse Oximetry 98 99 94 MDM - Chest Pain Lab Data Result diagrams: 01/24/20 16:20 01/24/20 16:20 Labs: Lab Results 01/24/20 01/24/20 01/24/20 Range/Units 16:20 16:20 16:20 WBC 11.3 H (4.5-11.0) X10^3/uL RBC 4.42 L (4.5-5.9) X10^6/uL Hgb 13.2 L (13.5-17.5) g/dL Hct 39.1 L (41-53) % MCV 88.3 (80-100) fL MCH 29.9 (26-34) PG MCHC 33.8 (30-36) % RDW 14.8 (11.6-14.8) % Plt Count 266 (150-400) X10^3/uL Neut % (Auto) 47.6 L (50-75) % Lymph % (Auto) 30.0 (25-40) % Crowley % (Auto) 7.7 (3-14) % Eos % (Auto) 13.9 H (2-4) % Baso % (Auto) 0.8 (0-2) % Neut # (Auto) 5400 (8272-4475) /uL Lymph # (Auto) 3400 (9548-0886) /uL Crowley # (Auto) 900 (0-900) /uL Eos # (Auto) 1600 H (0-450) /uL Baso # (Auto) 100 (0-100) /uL PT 11.2 (10.1-12.7) SECONDS INR 1.0 (0.9-1.3) APTT 32 (26.4-36.2) SECONDS Sodium 139 (137-145) mmol/L Potassium 4.6 (3.4-5.1) mmol/L Chloride 101 (98-107) mmol/L Carbon Dioxide 30 (22-32) mmol/L BUN 25 H (9-20) mg/dL Creatinine 1.35 H (0.66-1.25) mg/dL Estimated GFR 52.9 L (>60) mL/min BUN/Creatinine Ratio 18.5 (6-22) Glucose 234 H (80-110) mg/dL Lactate (0.7-2.1) mmol/L Calcium 9.7 (8.4-10.2) mg/dL Total Bilirubin 0.4 (0.2-1.3) mg/dL AST 29 (17-59) IU/L ALT 33 (<50) IU/L Alkaline Phosphatase 97 (38-126) U/L Total Creatine Kinase 191 H (55-170) U/L CK-MB (CK-2) 2.06 (<2.37) ng/mL CK-MB (CK-2) Rel Index 1.1 L (1.5-5.0) % Troponin I < 0.012 (0.01-0.034) ng/mL NT-Pro-B Natriuret Pep 80 (<125) pg/mL Total Protein 7.2 (6.3-8.2) g/dL Albumin 4.5 (3.5-5.0) g/dL Globulin 2.7 (1.7-4.1) g/dL Albumin/Globulin Ratio 1.7 (1.0-2.8) Lipase 809 H D (23-300) U/L COVID-19 PCR (Negative) 01/24/20 01/24/20 Range/Units 16:20 17:40 WBC (4.5-11.0) X10^3/uL RBC (4.5-5.9) X10^6/uL Hgb (13.5-17.5) g/dL Hct (41-53) % MCV (80-100) fL MCH (26-34) PG MCHC (30-36) % RDW (11.6-14.8) % Plt Count (150-400) X10^3/uL Neut % (Auto) (50-75) % Lymph % (Auto) (25-40) % Crowley % (Auto) (3-14) % Eos % (Auto) (2-4) % Baso % (Auto) (0-2) % Neut # (Auto) (2851-7400) /uL Lymph # (Auto) (8901-5129) /uL Crowley # (Auto) (0-900) /uL Eos # (Auto) (0-450) /uL Baso # (Auto) (0-100) /uL PT (10.1-12.7) SECONDS INR (0.9-1.3) APTT (26.4-36.2) SECONDS Sodium (137-145) mmol/L Potassium (3.4-5.1) mmol/L Chloride (98-107) mmol/L Carbon Dioxide (22-32) mmol/L BUN (9-20) mg/dL Creatinine (0.66-1.25) mg/dL Estimated GFR (>60) mL/min BUN/Creatinine Ratio (6-22) Glucose (80-110) mg/dL Lactate 1.4 (0.7-2.1) mmol/L Calcium (8.4-10.2) mg/dL Total Bilirubin (0.2-1.3) mg/dL AST (17-59) IU/L ALT (<50) IU/L Alkaline Phosphatase (38-126) U/L Total Creatine Kinase (55-170) U/L CK-MB (CK-2) (<2.37) ng/mL CK-MB (CK-2) Rel Index (1.5-5.0) % Troponin I (0.01-0.034) ng/mL NT-Pro-B Natriuret Pep (<125) pg/mL Total Protein (6.3-8.2) g/dL Albumin (3.5-5.0) g/dL Globulin (1.7-4.1) g/dL Albumin/Globulin Ratio (1.0-2.8) Lipase (23-300) U/L COVID-19 PCR Negative (Negative) MDM Narrative Medical decision making narrative: patient returns with worse epigastric pain. He has known stone in Cystic/CBD and today has elevated lipase. Our surgeons have reviewed the case and quickly agree that he needs to be transferred to a facility with ability to perform ERCP at minimum. Discharge Plan Departure Patient Disposition: [facility] Clinical Impression: Acute gallstone pancreatitis Discharge Date/Time: 01/24/20 20:31 Prescriptions: No Action (DME) Syringes See Rx Instructions .Route .MEDSUPPLY Qty: 100 RF: 6 lisinopril 20 mg tablet 20 mg PO QDAY Qty: 90 RF: 3 atorvastatin 40 mg tablet 40 mg PO HS Qty: 90 RF: 3 bupropion HCl [Wellbutrin XL] 150 mg tablet extended release 24 hr 150 mg PO QDAY Qty: 90 RF: 3 levothyroxine [Synthroid] 125 mcg tablet 125 mcg PO QDAY Qty: 90 RF: 3 (DME) onetouch glucose meter starter kit Qty: 1 RF: 0 metformin [Glucophage] 1,000 mg tablet 1,000 mg PO BIDCC Qty: 180 RF: 1 (DME) Glucose: Test Strips 0 .Route .MEDSUPPLY Qty: 100 RF: 5 (DME) Insulin Henderson BD Ultra Fine Mini Pen Needle Qty: 450 RF: 3 Humulin N NPH Insulin KwikPen 100 unit/mL (3 mL) insulin pen See Rx Instructions SUBCUT BID Qty: 90 RF: 1 hydroxyzine HCl 50 mg tablet 50 mg PO TID PRN (Reason: itching) 7 Days Qty: 21 RF: 0 zolpidem [Ambien] 10 mg tablet 10 mg PO HSP PRN (Reason: insomnia) Qty: 30 RF: 5 insulin lispro 100 unit/mL insulin pen 10 unit SUBCUT QAC MDD 50 units Qty: 20 RF: 11 ondansetron 4 mg tablet,disintegrating 4 mg PO Q8H PRN (Reason: nausea and vomiting) Qty: 20 RF: 0 Referrals: Patrick Rocha MD [Primary Care Provider] -
--- NOTE | 2020-01-24 16:06 | DI.RAD.S_ITS ---
PROCEDURE: XR ACUTE ABDOMEN SERIES INDICATIONS: Abdominal pain TECHNIQUE: One view chest and two views of the abdomen were acquired. COMPARISON: [facility], CT, CT ABDOMEN PELVIS W CON, 06/01/2019, 1:13. [facility], CT, CT ABDOMEN PELVIS W CON, 01/18/2020, 23:29. [facility], CR, XR ACUTE ABDOMEN SERIES, 10/06/2019, 22:40. FINDINGS: Surgical changes and devices: Cholecystectomy clips Chest: Lungs are clear. Heart size is normal. No pleural effusions. No pneumoperitoneum. Abdomen: Bowel gas pattern is normal. No suspicious calcifications. Visualized solid organ contours appear normal. Bones: No suspicious bony lesions. Probable bone island, medial left iliac bone. IMPRESSION: 1. No evidence of acute abdominal process. 2. No evidence acute pulmonary process. Dictated by: Magdy Dimas M.D. on 01/24/2020 at 16:06 Approved by: Magdy Dimas M.D. on 01/24/2020 at 16:11
[2020-01-24 16:32] LABS: Add Manual Diff / Slide Review NO; Basophils Absolute Auto 100 /uL (0-100); Basophils Percent Auto 0.8 % (0-2); Eosinophils Absolute Auto 1600 /uL (0-450); Eosinophils Percent Auto 13.9 % (2-4); Hematocrit 39.1 % (41-53); Hemoglobin 13.2 g/dL (13.5-17.5); Lymphocytes Absolute Auto 3400 /uL (1100-4500); Mean Corpuscular HGB Conc 33.8 % (30-36); Mean Corpuscular Hemoglobin 29.9 PG (26-34); Mean Corpuscular Volume 88.3 fL (80-100); Monocytes Absolute Auto 900 /uL (0-900); Monocytes Percent Auto 7.7 % (3-14); Neutrophils Absolute Auto 5400 /uL (1500-7000); Neutrophils Percent Auto 47.6 % (50-75); Platelet Count 266 X10^3/uL (150-400); Red Blood Cell Count 4.42 X10^6/uL (4.5-5.9); Red Cell Distribution Width 14.8 % (11.6-14.8); White Blood Cell Count 11.3 X10^3/uL (4.5-11.0)
[2020-01-24 16:37] LABS: Prothrombin Time 11.2 SECONDS (10.1-12.7)
[2020-01-24 16:40] LABS: PTT Partial Thromboplastin Tim 32 SECONDS (26.4-36.2)
[2020-01-24] MEDS: HYDROMORPHONE 0.5 MG INJ IV ×2 (16:40→17:32)
[2020-01-24 16:41] LABS: Lactate (Lactic Acid) 1.4 mmol/L (0.7-2.1)
[2020-01-24 16:42] LABS: Alanine Aminotransferase 33 IU/L (<50); Albumin 4.5 g/dL (3.5-5.0); Albumin Globulin Ratio 1.7 (1.0-2.8); Alkaline Phosphatase 97 U/L (38-126); Aspartate Aminotransferase 29 IU/L (17-59); BUN Creatinine Ratio 18.5 (6-22); Bilirubin Total 0.4 mg/dL (0.2-1.3); Blood Urea Nitrogen 25 mg/dL (9-20); Calcium 9.7 mg/dL (8.4-10.2); Carbon Dioxide 30 mmol/L (22-32); Chloride 101 mmol/L (98-107); Creatine Kinase 191 U/L (55-170); Estimated Glomerular Filt Rate 52.9 mL/min (>60); Globulin 2.7 g/dL (1.7-4.1); Glucose 234 mg/dL (80-110); HEMOLYSIS < 15 (0-50); Lipase 809 U/L (23-300); Potassium 4.6 mmol/L (3.4-5.1); Sodium 139 mmol/L (137-145); Total Protein 7.2 g/dL (6.3-8.2)
[2020-01-24] MEDS: PANTOPRAZOLE 40 MG VIAL IV (16:48)
[2020-01-24] MEDS: MAG HYDROX/ALUMINUM/SIMETH SUS 20 ML, LIDOCAINE VISCOUS 2% 15 ML PO (16:50)
[2020-01-24] MEDS: SODIUM CHLORIDE 0.9% 1,000 ML 1000 ML IV (16:52)
[2020-01-24 16:54] LABS: NT-proBNP (BNP-Adult 18+) 80 pg/mL (<125); Troponin I < 0.012 ng/mL (0.01-0.034)
[2020-01-24] MEDS: ONDANSETRON 4 MG/2 ML INJ (16:56)
[2020-01-24 16:57] LABS: CKMB % Relative Index 1.1 % (1.5-5.0); Creatine Kinase MB 2.06 ng/mL (<2.37)
[2020-01-24 18:28] LABS: COVID19 -Nasal RAPID Negative (Negative)
[2020-01-24] MEDS: ONDANSETRON 4 MG/2 ML INJ IV (19:00)
[2020-01-24] MEDS: HYDROMORPHONE 1 MG INJ IV (19:00)
--- NOTE | 2020-01-24 19:30 | PC.NURSE ---
[facility] arrived to take pt to [facility]. However, pt had sbps in the 190's and they stated per protocol they could not transport the pt. Provider made aware. BP taken on both arms. Pt given additional pain medication and antinausea medication as well. ALS transport arranged, to arrive at approx [phone]. Pt and significant other updated, understand and agreeable to plan.
== END 2020-01-24 20:31 | disposition short-term general hospital (02) ==
PROVIDERS: Emergency Provider Emergency Medicine; PCP Student in an Organized Health Care Education/Training Program
DX: K85.10 Biliary acute pancreatitis without necrosis or infection (principal); R11.2 Nausea with vomiting, unspecified; R10.9 Unspecified abdominal pain
CPT/HCPCS: 36415; 74022; 80053; 82550; 82553; 83605; 83690; 83880; 84484; 85025; 85610; 85730; 87635; 93005; 96361; 96374; 96375; 96376; 99284; C9113; J1170; J2405

== ENCOUNTER → 2020-02-03 15:33 | Outpatient (CLI) | payer OTHER, SELFPAY ==
[2019-10-07 14:50] VITALS: BMI 29.7
[2020-02-03 16:41] LABS: HEMOLYSIS < 15 (0-50)
[2020-02-03 16:49] LABS: Alanine Aminotransferase 546 IU/L (<50); Albumin 4.5 g/dL (3.5-5.0); Albumin Globulin Ratio 1.5 (1.0-2.8); Alkaline Phosphatase 237 U/L (38-126); Aspartate Aminotransferase 177 IU/L (17-59); BUN Creatinine Ratio 26.5 (6-22); Bilirubin Total 0.9 mg/dL (0.2-1.3); Blood Urea Nitrogen 31 mg/dL (9-20); Calcium 10.6 mg/dL (8.4-10.2); Carbon Dioxide 28 mmol/L (22-32); Chloride 97 mmol/L (98-107); Estimated Glomerular Filt Rate > 60.0 mL/min (>60); Globulin 3.1 g/dL (1.7-4.1); Glucose 251 mg/dL (80-110); Lipase 511 U/L (23-300); Potassium 4.5 mmol/L (3.4-5.1); Sodium 134 mmol/L (137-145); Total Protein 7.6 g/dL (6.3-8.2)
== END ==
LOC: LAB 15:34
PROVIDERS: PCP Student in an Organized Health Care Education/Training Program; Referring Provider Student in an Organized Health Care Education/Training Program; Visit Provider Student in an Organized Health Care Education/Training Program
DX: K85.10 Biliary acute pancreatitis without necrosis or infection (principal); N18.3 Chronic kidney disease, stage 3 (moderate); Z12.5 Encounter for screening for malignant neoplasm of prostate
CPT/HCPCS: 36415; 80053; 83690; 84153

== ENCOUNTER → 2020-02-10 10:50 | Outpatient (CLI) | payer OTHER, SELFPAY ==
[2019-10-07 14:50] VITALS: BMI 29.7
[2020-02-10 13:35] LABS: Alanine Aminotransferase 142 IU/L (<50); Albumin 4.5 g/dL (3.5-5.0); Albumin Globulin Ratio 1.6 (1.0-2.8); Alkaline Phosphatase 188 U/L (38-126); Aspartate Aminotransferase 43 IU/L (17-59); Bilirubin Total 0.7 mg/dL (0.2-1.3); Bilirubin Unconjugated 0.3 mg/dL (0.0-1.1); Globulin 2.8 g/dL (1.7-4.1); HEMOLYSIS < 15 (0-50); Total Protein 7.3 g/dL (6.3-8.2)
== END ==
PROVIDERS: PCP Student in an Organized Health Care Education/Training Program; Referring Provider Internal Medicine Gastroenterology; Visit Provider Internal Medicine Gastroenterology
DX: Z96.89 Presence of other specified functional implants (principal); K80.50 Calculus of bile duct without cholangitis or cholecystitis without obstruction
CPT/HCPCS: 36415; 80076

== ENCOUNTER → 2020-02-17 08:56 | Outpatient (CLI) | payer OTHER, SELFPAY ==
[2019-10-07 14:50] VITALS: BMI 29.7
--- NOTE | 2020-02-17 | DI.US.S_ITS ---
PROCEDURE: US ABDOMEN LIMITED INDICATIONS: Presence of other specified functional implants TECHNIQUE: Real-time focused scanning was performed of the abdomen, with image documentation. COMPARISON: [facility], CT, CT ABDOMEN PELVIS W CON, 01/18/2020, 23:29. [facility], US, US ABDOMEN LIMITED, 01/18/2020, 23:13. FINDINGS: The liver is normal in size and demonstrates no focal lesions. The gallbladder has been removed. There is intrahepatic biliary ductal dilatation seen, with the intrahepatic biliary ducts measure up to 2 mm. There is minimal extrahepatic biliary ductal dilatation, measuring 7 mm. A distal biliary stent can be seen. The pancreas is not well seen, secondary to overlying bowel gas. IMPRESSION: Biliary stent, with mild biliary ductal dilatation. Status post cholecystectomy. Dictated by: Valentino Hemphill M.D. on 02/17/2020 at 8:48 Approved by: Valentino Hemphill M.D. on 02/17/2020 at 8:50
== END ==
PROVIDERS: PCP Student in an Organized Health Care Education/Training Program; Referring Provider Internal Medicine Gastroenterology; Visit Provider Internal Medicine Gastroenterology
DX: K83.8 Other specified diseases of biliary tract (principal); Z96.89 Presence of other specified functional implants; Z90.49 Acquired absence of other specified parts of digestive tract
CPT/HCPCS: 76705

== ENCOUNTER → 2020-02-24 09:47 | Outpatient (CLI) | payer OTHER, SELFPAY ==
[2019-10-07 14:50] VITALS: BMI 29.7
[2020-02-24 12:02] LABS: Alanine Aminotransferase 34 IU/L (<50); Albumin 4.6 g/dL (3.5-5.0); Albumin Globulin Ratio 1.8 (1.0-2.8); Alkaline Phosphatase 106 U/L (38-126); Aspartate Aminotransferase 27 IU/L (17-59); BUN Creatinine Ratio 18.9 (6-22); Bilirubin Total 0.5 mg/dL (0.2-1.3); Blood Urea Nitrogen 20 mg/dL (9-20); Calcium 9.9 mg/dL (8.4-10.2); Carbon Dioxide 28 mmol/L (22-32); Chloride 102 mmol/L (98-107); Estimated Glomerular Filt Rate > 60.0 mL/min (>60); Globulin 2.6 g/dL (1.7-4.1); Glucose 66 mg/dL (80-110); HEMOLYSIS < 15 (0-50); Lipase 211 U/L (23-300); Potassium 4.9 mmol/L (3.4-5.1); Sodium 139 mmol/L (137-145); Total Protein 7.2 g/dL (6.3-8.2)
== END ==
LOC: LAB 09:52
PROVIDERS: PCP Student in an Organized Health Care Education/Training Program; Referring Provider Internal Medicine Gastroenterology; Visit Provider Internal Medicine Gastroenterology
DX: K80.50 Calculus of bile duct without cholangitis or cholecystitis without obstruction (principal); Z96.89 Presence of other specified functional implants
CPT/HCPCS: 36415; 80053; 83690

== ENCOUNTER → 2020-06-17 15:18 | Outpatient (CLI) | payer OTHER, SELFPAY ==
[2019-10-07 14:50] VITALS: BMI 29.7
--- NOTE | 2020-06-17 15:20 | DI.RAD.S_ITS ---
PROCEDURE: XR SHOULDER RT MIN 2V INDICATIONS: Shoulder pain TECHNIQUE: 3 views of the shoulder were acquired. COMPARISON: None. FINDINGS: Bones: No fractures or dislocations. Moderate acromioclavicular joint and glenohumeral joint osteoarthritic changes are seen. No suspicious bony lesions. Visualized ribs appear intact. Soft tissues: No suspicious soft tissue calcifications. IMPRESSION: Moderate right shoulder joint osteoarthritis. No fracture or dislocation. Dictated by: Brodie Plunkett M.D. on 06/17/2020 at 14:33 Approved by: Brodie Plunkett M.D. on 06/17/2020 at 14:35
== END ==
PROVIDERS: PCP Student in an Organized Health Care Education/Training Program; Referring Provider Student in an Organized Health Care Education/Training Program; Visit Provider Student in an Organized Health Care Education/Training Program
DX: M25.511 Pain in right shoulder (principal)
CPT/HCPCS: 73030

== ENCOUNTER → 2020-07-01 17:13 | Outpatient (CLI) | payer OTHER, SELFPAY ==
[2019-10-07 14:50] VITALS: BMI 29.7
--- NOTE | 2020-07-01 17:14 | DI.MRI.S_ITS ---
PROCEDURE: MR SHOULDER RT WO CON INDICATIONS: Neuropathic pain in right shoulder and upper arm TECHNIQUE: Noncontrast oblique coronal T2 fast spin echo with fat saturation, oblique sagittal T1 spin echo and T2 fast spin echo with fat saturation, axial T1 spin echo and T2 fast spin echo with fat saturation through the shoulder. COMPARISON: [facility], CR, XR SHOULDER RT MIN 2V, 06/17/2020, 15:20. FINDINGS: Image quality: Excellent. Rotator cuff: There is high-grade intrasubstance tearing of the supraspinatus tendon at the mid to posterior footprint measuring 12 mm in anterior-posterior dimension superimposed on tendinosis. There may be focal perforation of the bursal sided fibers. There is moderate infraspinatus tendinosis. The teres minor tendon is intact. There is moderate tendinosis and low grade intrasubstance tearing of the subscapularis tendon at the superior insertion. There is no significant rotator cuff muscle atrophy. Bones and bursae: No acute trabecular bone injury. Traction cystic changes are seen in the posterosuperior humeral head in the greater and lesser tuberosities near the rotator cuff tendon insertions. Degenerative spurring is seen in the glenoid rim and the inferior humeral head. There is partial cartilage thinning in the medial humeral head and central glenoid. Moderate degenerative changes are seen in the acromioclavicular joint with marginal osteophyte formation and subchondral cystic changes. There is trace subacromial/subdeltoid bursal fluid. A small amount of glenohumeral joint fluid is seen in the superior subscapularis recess Capsule and soft tissues: There is nondisplaced tearing of the posterosuperior disc superior labrum. The remainder of the labrum is grossly intact. Severe tendinosis of the biceps long head intra-articular portion is seen with perching along the medial aspect of the bicipital groove. There is partial effacement of the fat in the rotator interval. Borderline thickening of the inferior glenohumeral ligament is seen. IMPRESSION: 1. High-grade partial intrasubstance tearing of the supraspinatus tendon at the mid to posterior footprint measuring 12 mm anterior-posterior dimension with possible focal perforation of the bursal sided fibers. Findings are superimposed on moderate to severe supraspinatus and infraspinatus tendinosis. 2. Moderate tendinosis and low grade intrasubstance tearing of the subscapularis tendon at the superior insertion. 3. Severe tendinosis of the intra-articular portion of the biceps long head tendon with perching along the medial aspect of the bicipital groove. 4. Nondisplaced tearing of the posterosuperior labrum extending into the superior labrum. 5. Moderate glenohumeral and acromioclavicular osteoarthrosis. Dictated by: Nguyễn Irby M.D. on 07/02/2020 at 9:22 Approved by: Nguyễn Irby M.D. on 07/02/2020 at 9:43
--- NOTE | 2020-07-01 17:14 | DI.MRI.S_ITS ---
PROCEDURE: MR CERVICAL SPINE WO CON INDICATIONS: Neuropathic pain in right shoulder and upper arm TECHNIQUE: Noncontrast sagittal T1 spin echo and T2 fast spin echo, sagittal STIR, foraminal oblique sagittal T2 fast spin echo, and axial gradient echo or T2 fast spin echo through the cervical spine. COMPARISON: None. FINDINGS: Image quality: Excellent. Alignment and Curvature: Mild anterolisthesis of C3 on C4 and of C2 on C3. Bone Marrow: Marrow demonstrates normal overall signal. Spinal Cord: Visualized spinal cord has normal size and signal. No cerebellar tonsillar herniation. Paraspinous Soft Tissues: No paravertebral masses. Prevertebral soft tissues are normal in thickness. C2-C3: Disc bulge. Prominent right uncovertebral joint hypertrophy. Congenitally short pedicles. Moderate canal stenosis. AP diameter of the canal is 8 mm. Right facet hypertrophy. Severe right foraminal narrowing with impingement on the exiting right C3 nerve root. Moderate left foraminal narrowing with flattening deformity on the exiting left C3 nerve root. C3-C4: Mild anterolisthesis of C3 on C4. Moderate diffuse posterior disc protrusion. Short pedicles. Indentation on the ventral cord. Severe canal stenosis. AP diameter of C3-C4: Congenitally short pedicles. Mild anterolisthesis of C3 on C4. Moderate diffuse central posterior disc protrusion. Indentation on the cord ventral surface. Severe canal stenosis. Central canal measures 7 mm. Bilateral facet hypertrophy. Bilateral uncovertebral joint hypertrophy, left greater than right. Mild right foraminal narrowing. Marked left foraminal narrowing with obliteration of the left C4 nerve root in the left foramen. C4-C5: Congenitally short pedicles. Mild central posterior disc protrusion indenting on the ventral cord. Mild to moderate canal stenosis. AP diameter of the canal is 9 mm. Mild bilateral foraminal narrowing. C5-C6: Disc bulge. Borderline canal stenosis. AP diameter of the canal is 10 mm. Bilateral uncovertebral joint hypertrophy. Bilateral facet hypertrophy. Moderate right foraminal narrowing and moderate to severe left foraminal narrowing with flattening deformity on the exiting bilateral C6 nerve roots. C6-C7: Diffuse disc bulge. AP diameter of the canal is 11 mm. Mild bilateral uncovertebral joint hypertrophy. Bilateral facet hypertrophy. Moderate to severe bilateral foraminal narrowing with flattening deformity on the exiting bilateral C7 nerve roots. C7-T1: No canal stenosis or foraminal stenosis. IMPRESSION: 1. Congenitally short pedicles contribute to multilevel canal stenosis. 2. Diffuse spondylitic change. 3. Central canal stenosis is moderate at C2-C3, severe at C3-C4, [id number] at C4-C5, and borderline at C5-C6. 4. Bilateral uncovertebral joint hypertrophy and facet arthropathy contribute to significant multilevel foraminal narrowing as described above. Dictated by: Magdy Dimas M.D. on 07/02/2020 at 11:12 Approved by: Magdy Dimas M.D. on 07/02/2020 at 11:25
== END ==
PROVIDERS: PCP Student in an Organized Health Care Education/Training Program; Referring Provider Student in an Organized Health Care Education/Training Program; Visit Provider Student in an Organized Health Care Education/Training Program
DX: M54.12 Radiculopathy, cervical region (principal); M48.02 Spinal stenosis, cervical region; M47.812 Spondylosis without myelopathy or radiculopathy, cervical region; M25.511 Pain in right shoulder; M75.111 Incomplete rotator cuff tear or rupture of right shoulder, not specified as traumatic; S43.491A Other sprain of right shoulder joint, initial encounter; M19.011 Primary osteoarthritis, right shoulder
CPT/HCPCS: 72141; 73221

== ENCOUNTER → 2020-11-22 12:48 | Outpatient (CLI) | payer OTHER, SELFPAY ==
[2019-10-07 14:50] VITALS: BMI 29.7
[2020-11-22 13:34] LABS: COVID19 -Nasal RAPID Negative (Negative)
== END ==
PROVIDERS: PCP Student in an Organized Health Care Education/Training Program; Visit Provider Physician Assistant
DX: Z20.822 Contact with and (suspected) exposure to COVID-19 (principal)
CPT/HCPCS: 87635

== ENCOUNTER 2020-11-22 13:21 | Emergency (ER) | payer OTHER, SELFPAY ==
[2019-10-07 14:50] VITALS: BMI 29.7
[2020-11-22] VITALS (11 sets, daily range): BP systolic 157–169; BP diastolic 77–95; PULSE 59–72; RESP 9–24; TEMP 36.6; O2SAT 96–99
--- NOTE | 2020-11-22 13:40 | DI.RAD.S_ITS ---
PROCEDURE: XR CHEST 1V INDICATIONS: chest pain TECHNIQUE: One view of the chest was acquired. COMPARISON: [facility], CR, XR CHEST 1V, 06/08/2019, 15:01. FINDINGS: Surgical changes and devices: None. Lungs and pleura: Lungs are clear. No pleural effusions or pneumothorax. Mediastinum: Mediastinal contours appear normal. Heart size is normal. Bones and chest wall: No suspicious bony lesions. Overlying soft tissues appear unremarkable. IMPRESSION: No acute pulmonary process. Dictated by: Arin Stallworth M.D. on 11/22/2020 at 14:22 Approved by: Arin Stallworth M.D. on 11/22/2020 at 14:22
[2020-11-22 14:00] LABS: Add Manual Diff / Slide Review NO; Basophils Absolute Auto 100 /uL (0-100); Eosinophils Absolute Auto 300 /uL (0-450); Eosinophils Percent Auto 2.4 % (2-4); Hematocrit 39.6 % (41-53); Hemoglobin 12.9 g/dL (13.5-17.5); Lymphocytes Absolute Auto 3500 /uL (1100-4500); Lymphocytes Percent Auto 31.1 % (25-40); Mean Corpuscular HGB Conc 32.6 % (30-36); Mean Corpuscular Volume 88.8 fL (80-100); Monocytes Absolute Auto 700 /uL (0-900); Monocytes Percent Auto 6.4 % (3-14); Neutrophils Absolute Auto 6700 /uL (1500-7000); Neutrophils Percent Auto 59.1 % (50-75); Platelet Count 271 X10^3/uL (150-400); Red Blood Cell Count 4.46 X10^6/uL (4.5-5.9); Red Cell Distribution Width 14.2 % (11.6-14.8); White Blood Cell Count 11.4 X10^3/uL (4.5-11.0)
[2020-11-22 14:34] LABS: Alanine Aminotransferase 28 IU/L (<50); Albumin 4.8 g/dL (3.5-5.0); Albumin Globulin Ratio 1.7 (1.0-2.8); Alkaline Phosphatase 63 U/L (38-126); Aspartate Aminotransferase 30 IU/L (17-59); BUN Creatinine Ratio 14.9 (6-22); Bilirubin Total 0.4 mg/dL (0.2-1.3); Blood Urea Nitrogen 17 mg/dL (9-20); Calcium 10.2 mg/dL (8.4-10.2); Carbon Dioxide 25 mmol/L (22-32); Chloride 104 mmol/L (98-107); Creatine Kinase 193 U/L (55-170); Estimated Glomerular Filt Rate > 60.0 mL/min (>60); Globulin 2.9 g/dL (1.7-4.1); Glucose 131 mg/dL (80-110); HEMOLYSIS < 15 (0-50); Lipase 121 U/L (23-300); Magnesium 1.5 mg/dL (1.6-2.3); Potassium 4.9 mmol/L (3.4-5.1); Sodium 139 mmol/L (137-145); Total Protein 7.7 g/dL (6.3-8.2)
[2020-11-22 14:40] LABS: NT-proBNP (BNP-Adult 18+) 46 pg/mL (<125); Troponin I < 0.012 ng/mL (0.01-0.034)
[2020-11-22 14:48] LABS: CKMB % Relative Index 1.5 % (1.5-5.0)
--- NOTE | 2020-11-22 15:52 | ED_ITS ---
HPI - Dizziness General Chief Complaint: Dizziness Stated Complaint: coughing fit, lightheaded, dizzy Time Seen by Provider: 11/22/20 15:47 Source: patient Mode of arrival: Ambulatory History of Present Illness HPI Narrative: Patient is a 65-year-old male history of diabetes hyperlipidemia presenting today with coughing and dizziness. He says he wait went to work at the [employer] he started having a coughing spell that he was unable to control he coughed so hard he was extremely dizzy and lightheaded. He tried to get into his primary care provider but he was unable to do so. He denies any chest pain or palpitations. He denies any prior history of smoking or COPD. He has not had any fevers chills. His cough is nonproductive. He now hours later says that he still feels a bit dizzy and lightheaded and it comes and goes while s itting in the emergency department. It does seem to be a little bit positional. He has no numbness tingling or weakness. Related Data Previous Rx's Medication Instructions Recorded Syringes #100 each 06/12/18 onetouch glucose meter starter kit #1 ea 07/02/19 ondansetron 4 mg disintegrating 4 mg PO Q8H PRN #20 tab 10/07/19 tablet Insulin [place] BD Ultra Fine Mini #450 each 01/01/20 Pen Needle lidocaine 5 % topical patch 1 patch TOP DAILY #30 each 02/03/20 atorvastatin 40 mg tablet 40 mg PO HS #90 tab 04/21/20 levothyroxine 125 mcg tablet 125 mcg PO QDAY #90 tab 04/21/20 (Synthroid) lisinopril 20 mg tablet 20 mg PO QDAY #90 tab 04/21/20 bupropion HCl 150 mg 24 hr tablet, 150 mg PO QDAY #90 tab 05/27/20 extended release (Wellbutrin XL) insulin NPH isoph U-100 human 100 See Rx Instructions SUBCUT BID #90 07/21/20 unit/mL (3 mL) subcutaneous pen ml (Humulin N NPH U-100 Insulin KwikPen) insulin lispro 100 unit/mL 10 unit SUBCUT QAC #45 ml MDD 50 07/21/20 subcutaneous pen units Glucose: Test Strips #300 ea 08/31/20 metformin 1,000 mg tablet 1,000 mg PO BIDCC #180 tab 10/20/20 (Glucophage) zolpidem 10 mg tablet (Ambien) 10 mg PO HSP PRN #30 tab 10/20/20 albuterol sulfate 90 mcg/actuation 2 puff INHALATION Q4-6H PRN #8.5 11/22/20 aerosol inhaler gram Allergies Allergy/AdvReac Type Severity Reaction Status Date / Time Iodinated Contrast Media Allergy Mild Rash Verified 11/16/20 15:32 Influenza Virus Vaccines Allergy Unknown Verified 11/16/20 15:32 Review of Systems Review of Systems ROS Unobtainable: All systems reviewed & are unremarkable except as noted in HPI and below Constitutional Constitutional: Denies body ache(s), Denies chills, Denies frequent falls and Denies headache(s) Eyes Eyes: Denies blurry vision and Denies diplopia ENT Ears, Nose, Mouth, and Throat: Denies vertigo, Reports dizziness, Denies headache(s) and Denies sore throat Cardiovascular Cardiovascular: Denies chest pain, Denies syncope, Denies dyspnea and Denies dys pnea on exertion Respiratory Respiratory: Reports cough, Denies dyspnea, Denies dyspnea on exertion, Denies stridor and Denies wheezing Gastrointestinal Gastrointestinal: Denies abdominal pain, Denies nausea and Denies vomiting Genitourinary Genitourinary: Denies urinary frequency and Denies urinary hesitancy Musculoskeletal Musculoskeletal: Denies back pain and Denies numbness Integumentary/Breasts Skin/Breast: Denies rash Neurologic Neurologic: Denies vertigo, Reports dizziness, Denies syncope, Denies frequent falls, Denies headache(s) and Denies numbness Allergic/Immunologic Allergic/Immunologic: Denies wheezing Patient History Medical History (Updated 11/22/20 @ 17:23 by Fifi Henderson DO) Chronic back pain (2004) CTS (carpal tunnel syndrome) (1994) Depression (1997) Diabetes mellitus (1999) Esophageal obstruction due to food impaction (05/07/16) Foot pain (2004) Shoulder pain (2009) Sleep apnea (2009) Surgical History History of esophagogastroduodenoscopy (EGD) (05/08/16) Status post laparoscopic cholecystectomy Family History Mother Loud snoring Restless leg Hypertension Diabetes mellitus Depression Family/Other Restless leg Obesity Hypertension Depression Anxiety Social History marital status: household members: none lives independently: Yes education level: high school occupational status: employed Smoking Status: Never smoker alcohol intake: never substance use type: does not use Smoking Status: Never smoker alcohol intake frequency: 0-2 drinks per day Substance Use Type: does not use Exam Initial Vital Signs Initial Vital Signs: Vital Signs Temperature 97.8 F 11/22/20 13:35 Pulse Rate 69 11/22/20 13:35 Respiratory Rate 18 11/22/20 13:35 Blood Pressure 157/81 H 11/22/20 13:35 Pulse Oximetry 96 11/22/20 13:35 GENERAL: 65-year-old male overall appears well. HEENT: Head atraumatic,EOMI, pupils reactive, face symmetric, moist mucous membranes CARDIOVASCULAR: Regular rate and rhythm without murmurs, rubs or gallops. RESPIRATORY: Breath sounds equal bilaterally, no wheezes rales or rhonchi. ABDOMEN: Soft, nontender. Normoactive bowel sounds all 4 quadrants. No guarding or rebound. EXTREMITIES: Normal range of motion, no clubbing or edema. Neurovascularly intact NEUROLOGICAL: Alert and oriented x4.Normal gait and speech. Cranial nerves II through XII grossly intact. Staffing Executive strength equal bilaterally SKIN: Warm, dry, no laceration, no petechiae, no rashes or lesions. Course Orders Ordered: ED Orders 11/22/20 13:40 XR chest 1V Stat EKG-12 Lead Stat 11/22/20 13:45 BNP [NT-proBNP (BNP-Adult 18+)] Stat Complete Blood Count AUTO DIFF Stat Comprehensive Metabolic Panel Stat Lipase Stat Magnesium Stat Troponin & CK Cardiac Panel Stat Discontinued Medications Albuterol/Ipratropium (Albuterol/Ipratropium 3 Ml Ampul) 3 ml INH NOW ONE Stop: 11/22/20 16:00 Last Admin: 11/22/20 16:28 Dose: 3 ml Documented by: JONO Sodium Chloride (Normal Saline 0.9%) 1,000 mls @ 1,000 mls/hr IV BOLUS ONE Stop: 11/22/20 16:58 Last Infusion: 11/22/20 17:32 Dose: Infused Documented by: Vital Signs Vital signs: Vital Signs - 8 hr 11/22/20 13:35 11/22/20 13:50 11/22/20 14:00 Temperature 97.8 F Pulse Rate 69 64 63 Respiratory Rate 18 9 L 13 Blood Pressure 157/81 H 162/95 H Pulse Oximetry 96 98 97 11/22/20 14:30 11/22/20 15:00 11/22/20 15:27 Temperature Pulse Rate 63 66 59 L Respiratory Rate 13 24 15 Blood Pressure 169/77 H Pulse Oximetry 97 97 99 11/22/20 15:30 11/22/20 16:00 11/22/20 16:29 Temperature Pulse Rate 59 L 64 72 Respiratory Rate 16 14 24 Blood Pressure Pulse Oximetry 96 96 96 11/22/20 16:30 11/22/20 17:00 Temperature Pulse Rate 64 72 Respiratory Rate 15 22 Blood Pressure Pulse Oximetry 98 96 MDM - Dizziness Lab Data Result diagrams: 11/22/20 13:45 11/22/20 13:45 Labs: Lab Results 11/22/20 11/22/20 Range/Units 13:45 13:45 WBC 11.4 H (4.5-11.0) X10^3/uL RBC 4.46 L (4.5-5.9) X10^6/uL Hgb 12.9 L (13.5-17.5) g/dL Hct 39.6 L (41-53) % MCV 88.8 (80-100) fL MCH 29.0 (26-34) PG MCHC 32.6 (30-36) % RDW 14.2 (11.6-14.8) % Plt Count 271 (150-400) X10^3/uL Neut % (Auto) 59.1 (50-75) % Lymph % (Auto) 31.1 (25-40) % [place] % (Auto) 6.4 (3-14) % Eos % (Auto) 2.4 (2-4) % Baso % (Auto) 1.0 (0-2) % Neut # (Auto) 6700 (5564-7243) /uL Lymph # (Auto) 3500 (6225-6005) /uL [place] # (Auto) 700 (0-900) /uL Eos # (Auto) 300 (0-450) /uL Baso # (Auto) 100 (0-100) /uL Sodium 139 (137-145) mmol/L Potassium 4.9 (3.4-5.1) mmol/L Chloride 104 (98-107) mmol/L Carbon Dioxide 25 (22-32) mmol/L BUN 17 (9-20) mg/dL Creatinine 1.14 (0.66-1.25) mg/dL Estimated GFR > 60.0 (>60) mL/min BUN/Creatinine Ratio 14.9 (6-22) Glucose 131 H (80-110) mg/dL Calcium 10.2 (8.4-10.2) mg/dL Magnesium 1.5 L (1.6-2.3) mg/dL Total Bilirubin 0.4 (0.2-1.3) mg/dL AST 30 (17-59) IU/L ALT 28 (<50) IU/L Alkaline Phosphatase 63 (38-126) U/L Total Creatine Kinase 193 H (55-170) U/L CK-MB (CK-2) 2.80 H (<2.37) ng/mL CK-MB (CK-2) Rel Index 1.5 (1.5-5.0) % Troponin I < 0.012 (0.01-0.034) ng/mL NT-Pro-B Natriuret Pep 46 (<125) pg/mL Total Protein 7.7 (6.3-8.2) g/dL Albumin 4.8 (3.5-5.0) g/dL Globulin 2.9 (1.7-4.1) g/dL Albumin/Globulin Ratio 1.7 (1.0-2.8) Lipase 121 (23-300) U/L Imaging Data Chest x-ray: Radiologist's Impression: PROCEDURE: XR CHEST 1V INDICATIONS: chest pain TECHNIQUE: One view of the chest was acquired. COMPARISON: [facility], , XR CHEST 1V, 06/08/2019, 15:01. FINDINGS: Surgical changes and devices: None. Lungs and pleura: Lungs are clear. No pleural effusions or pneumothorax. Mediastinum: Mediastinal contours appear normal. Heart size is normal. Bones and chest wall: No suspicious bony lesions. Overlying soft tissues appear unremarkable. IMPRESSION: No acute pulmonary process. Dictated by: Arin Stallworth M.D. on 11/22/2020 at 14:22 Approved by: Arin Stallworth M.D. on 11/22/2020 at 14:22 ECG Data Attestation: I personally reviewed and interpreted this ECG as follows: Interpretation: Normal sinus rhythm rate 66 CT interval 154 QRS [address] changes or T-wave inversions MDM Narrative Medical decision making narrative: Patient is overall feeling better after DuoNeb and fluids. No longer dizzy. Breathing is significantly improved. Certainly has history of cough syncope syndrome. Although he never passed out. He does work at a [employer] and is on top of both. At this time would recommend clearance from primary care provider to see how he does with albuterol before clearing him to go back to work. Discharge Plan Departure Patient Disposition: Home Clinical Impression: Mild intermittent reactive airway disease, Cough syncope syndrome Instructions: DI for Reactive Airway Disease-Adult Activity Restrictions/Additional Instructions: *You have been diagnosed with reactive airway disease *What to do: You likely are dizzy and lightheaded from your lungs and inflammation. You will need to see her primary care provider to be cleared to go back to work *Continue to take medications as directed Use albuterol inhaler 1-2 puffs every 4 hours if needed for coughing or shortness of breath *Follow up with your primary care provider in 2-3 days *Return to ER if you should have increasing shortness of breath, worsening coughing spells, passing out, worsening dizziness or lightheadedness or any new, worsening or concerning symptoms Prescriptions: New albuterol sulfate 90 mcg/actuation HFA aerosol inhaler 2 puff INHALATION Q4-6H PRN (Reason: shortness of breath or wheezing) Qty: 8.5 RF: 0 No Action (DME) Syringes See Rx Instructions .Route .MEDSUPPLY Qty: 100 RF: 6 (DME) onetouch glucose meter starter kit Qty: 1 RF: 0 (DME) Insulin [place] BD Ultra Fine Mini Pen Needle Qty: 450 RF: 3 atorvastatin 40 mg tablet 40 mg PO HS Qty: 90 RF: 3 levothyroxine [Synthroid] 125 mcg tablet 125 mcg PO QDAY Qty: 90 RF: 3 lisinopril 20 mg tablet 20 mg PO QDAY Qty: 90 RF: 3 bupropion HCl [Wellbutrin XL] 150 mg tablet extended release 24 hr 150 mg PO QDAY Qty: 90 RF: 2 insulin lispro 100 unit/mL insulin pen 10 unit SUBCUT QAC MDD 50 units Qty: 45 RF: 1 Humulin N NPH Insulin KwikPen 100 unit/mL (3 mL) insulin pen See Rx Instructions SUBCUT BID Qty: 90 RF: 1 (DME) Glucose: Test Strips 0 .Route .MEDSUPPLY Qty: 300 RF: 1 zolpidem [Ambien] 10 mg tablet 10 mg PO HSP PRN (Reason: insomnia) Qty: 30 RF: 5 metformin [Glucophage] 1,000 mg tablet 1,000 mg PO BIDCC Qty: 180 RF: 1 lidocaine 5 % adhesive patch,medicated 1 patch TOP DAILY Qty: 30 RF: 1 ondansetron 4 mg tablet,disintegrating 4 mg PO Q8H PRN (Reason: nausea and vomiting) Qty: 20 RF: 0 Referrals: Patrick Rocha MD [Primary Care Provider] - Stand Alone Forms: Work Release Note
[2020-11-22] MEDS: ALBUTEROL/IPRATROPIUM 3 ML AMPUL INH (16:28)
[2020-11-22] MEDS: SODIUM CHLORIDE 0.9% 1,000 ML 1000 ML IV (17:32)
== END 2020-11-22 17:40 | disposition home or self-care (01) ==
PROVIDERS: Emergency Medicine; Emergency Provider Emergency Medicine; PCP Student in an Organized Health Care Education/Training Program
DX: J45.20 Mild intermittent asthma, uncomplicated (principal); R05 Cough; R55 Syncope and collapse; R42 Dizziness and giddiness; R03.0 Elevated blood-pressure reading, without diagnosis of hypertension; Z20.822 Contact with and (suspected) exposure to COVID-19
CPT/HCPCS: 36415; 71045; 80053; 82550; 82553; 83690; 83735; 83880; 84484; 85025; 87635; 93005; 93010; 94640; 99284

== ENCOUNTER → 2021-01-26 15:26 | Outpatient (ROUT) | payer OTHER, SELFPAY ==
[2019-10-07 14:50] VITALS: BMI 29.7
== END ==
PROVIDERS: PCP Student in an Organized Health Care Education/Training Program; Visit Provider Family Medicine
DX: L08.9 Local infection of the skin and subcutaneous tissue, unspecified (principal)
CPT/HCPCS: 87070; 87075; 87205

== ENCOUNTER → 2021-03-08 08:00 | Outpatient (CLI) | payer OTHER, SELFPAY ==
[2019-10-07 14:50] VITALS: BMI 29.7
--- NOTE | 2021-03-08 | DI.RAD.S_ITS ---
PROCEDURE: XR WRIST LT MIN 3V INDICATIONS: pain after injury TECHNIQUE: 4 views of the wrist were acquired. COMPARISON: None. FINDINGS: Bones: No fractures or dislocations. Mild to moderate 1st carpometacarpal joint space loss with osteophytosis. No suspicious bony lesions. Soft tissues: No suspicious soft tissue calcifications. IMPRESSION: No acute osseous abnormality. Dictated by: Kali Marin M.D. on 03/08/2021 at 8:50 Approved by: Kali Marin M.D. on 03/08/2021 at 8:54
== END ==
PROVIDERS: PCP Student in an Organized Health Care Education/Training Program; Referring Provider Family Medicine; Visit Provider Family Medicine
DX: M25.532 Pain in left wrist (principal); S69.92XA Unspecified injury of left wrist, hand and finger(s), initial encounter; X58.XXXA Exposure to other specified factors, initial encounter
CPT/HCPCS: 73110

== ENCOUNTER 2021-04-24 07:45 | Inpatient (IN) | payer OTHER, SELFPAY ==
[2019-10-07 14:50] VITALS: BMI 29.7
[2021-04-24] VITALS (26 sets, daily range): BP systolic 114–164; BP diastolic 63–81; PULSE 100–129; RESP 19–30; TEMP 36.1–38.2; O2SAT 93–98; BMI 29.7
--- NOTE | 2021-04-24 08:24 | ED.DIZZY ---
HPI - Dizziness General Chief Complaint: Fever Stated Complaint: Dizzy, diarrhea, can't eat x 2days Time Seen by Provider: 04/24/21 08:00 Source: patient Mode of arrival: Ambulatory Limitations: no limitations History of Present Illness HPI Narrative: The patient has been ill for 3 days. He primarily complains of dizziness. He has no visual changes. He has no significant headache or sore throat. He denies dysphagia. He has no sinus congestion or ear pain. He does have a frequent cough, generally dry. He denies dyspnea. He denies chest pain, although he is having tachycardia. He is a nonsmoker. He has no chronic cardiopulmonary issues. His appetite has been normal, he has no nausea vomiting. He has constipation, he has not had a bowel movement for couple days. He denies chronic GI issues. He has no urinary complaints. He is under care every PCM for diabetes, hypertension, hypothyroidism, and hyperlipidemia. He is unaware of any recent exposure to COVID-19. Related Data Previous Rx's Medication Instructions Recorded Syringes #100 each 06/12/18 onetouch glucose meter starter kit #1 ea 07/02/19 atorvastatin 40 mg tablet 40 mg PO HS #90 tab 04/21/20 levothyroxine 125 mcg tablet 125 mcg PO QDAY #90 tab 04/21/20 (Synthroid) lisinopril 20 mg tablet 20 mg PO QDAY #90 tab 04/21/20 Glucose: Test Strips #300 ea 08/31/20 metformin 1,000 mg tablet 1,000 mg PO BIDCC #180 tab 10/20/20 (Glucophage) zolpidem 10 mg tablet (Ambien) 10 mg PO HSP PRN #30 tab 10/20/20 bupropion HCl 150 mg 24 hr tablet, 150 mg PO QDAY #90 tab 02/21/21 extended release (Wellbutrin XL) insulin NPH isoph U-100 human 100 See Rx Instructions SUBCUT BID #90 04/11/21 unit/mL (3 mL) subcutaneous pen ml (Humulin N NPH U-100 Insulin KwikPen) Insulin [place] BD Ultra Fine Mini #450 each 04/14/21 Pen Needle insulin lispro 100 unit/mL 10 unit (0.1 mL) SUBCUT TID #3 ml 04/19/21 subcutaneous pen (Humalog KwikPen (U-100) Insulin) Allergies Allergy/AdvReac Type Severity Reaction Status Date / Time Iodinated Contrast Media Allergy Mild Rash Verified 02/28/21 15:20 Influenza Virus Vaccines Allergy Unknown Verified 02/28/21 15:20 Review of Systems Constitutional Constitutional: Reports fatigue, Denies fever(s), Denies headache(s) and Reports malaise Eyes Eyes: Denies blurry vision and Denies change in vision ENT Ears, Nose, Mouth, and Throat: Reports as per HPI, Reports dizziness, Denies headache(s), Denies hoarseness, Denies sinus pain and Denies sore throat Cardiovascular Cardiovascular: Denies chest pain, Denies syncope, Reports rapid heart rate, Denies pedal edema, Reports lightheadedness and Denies dyspnea Respiratory Respiratory: Denies chest congestion, Reports cough and Denies dyspnea Gastrointestinal Gastrointestinal: Reports abdominal pain (Left lower quadrant), Reports constipation, Denies nausea and Denies vomiting Genitourinary Comments: No urinary complaints. Musculoskeletal Musculoskeletal: Reports muscle weakness and Reports myalgias Integumentary/Breasts Skin/Breast: Denies rash Neurologic Neurologic: Denies confusion, Reports dizziness, Denies syncope and Denies headache(s) Psychiatric Psychiatric: Denies confusion Endocrine Endocrine: Reports fatigue Hematologic/Lymphatic On Anticoagulants: No Patient History Medical History (Updated 04/24/21 @ 19:20 by Osei Hernandez MD) Chronic back pain (2004) CTS (carpal tunnel syndrome) (1994) Depression (1997) Diabetes mellitus (1999) Esophageal obstruction due to food impaction (05/07/16) Foot pain (2004) Shoulder pain (2009) Sleep apnea (2009) Surgical History History of esophagogastroduodenoscopy (EGD) (05/08/16) Status post laparoscopic cholecystectomy Family History Mother Loud snoring Restless leg Hypertension Diabetes mellitus Depression Family/Other Restless leg Obesity Hypertension Depression Anxiety Social History marital status: household members: none lives independently: Yes education level: high school occupational status: employed Smoking Status: Never smoker alcohol intake: never substance use type: does not use Smoking Status: Never smoker alcohol intake frequency: 0-2 drinks per day Substance Use Type: does not use Exam Initial Vital Signs Initial Vital Signs: Vital Signs Pulse Rate 129 H 04/24/21 07:53 Pulse Oximetry 95 04/24/21 07:53 Const General: cooperative, comfortable, anxious and other (He obviously does not feel well.) Nutritional Appearance: average body habitus Orientation: Orientation (X3) [facility] Head: normal to inspection, normocephalic and atraumatic Ears: hearing grossly normal bilaterally Face and sinus: sinuses nontender Mouth: oral mucosae normal Eyes General: appearance normal, both eyes and all related structures Neck Neck: No lymphadenopathy Chest Chest: normal palpation of entire chest wall Resp Effort & Inspection: no audible wheezes, cough and tachypneic Auscultation: clear to auscultation bilaterally Cardio Rate: tachycardic Rhythm: regular rhythm and abnormal rhythm Heart Sounds: S1 normal, S2 normal and no murmurs GI Inspection: normal to inspection Palpation: soft, No mass and tender (Mildly tender in the LL acute. No distension. No guarding rebound. ) Auscultation: normal bowel sounds Back/Spine/Pelvis Back: normal to inspection Skin General: no rashes or lesions noted Neuro General: patient alert, patient awake, patient oriented x3 and no focal motor deficits Extrem General: normal to inspection, no pedal edema and no calf tenderness Psych Appearance: grossly normal Course Course Course Narrative: The patient presents with tachycardia and tachypnea. He is afebrile. His initial O2 sats are about 94% he has a mild cough. He also has mild LL acute pain. Initial evaluation revealed significant leukocytosis, and elevated lactic acid level. Zosyn was given, I had initial concern for diverticulitis, as well as a pulmonary process. Chest x-ray revealed a significant left upper lung infiltrate. He has pneumonia. COVID-19 testing is negative. IV boluses were given. After hydration and antibiotics, he is feeling significantly better. Tachypnea and tachycardia persists. The abdominal pain has improved. The lactic acid level is improved. He has community-acquired pneumonia with sepsis. He has improved with his ER care. I discussed the situation with the hospitalist, Dr. Hubbard. He is admitted for ongoing care. Orders Ordered: Acetaminophen (Acetaminophen 325 Mg Tablet) 650 mg PO Q6HR PRN PRN Reason: Fever/Mild Pain (1-3) Last Admin: 04/24/21 17:22 Dose: 650 mg Documented by: ANDREE Atorvastatin Calcium (Atorvastatin 20 Mg Tablet) 40 mg PO BEDTIME [facility] Bupropion HCl (Bupropion Xl 150 Mg Tab) 150 mg PO DAILY [facility] Dextrose (Dextrose 50 % In Water 25 Gm/50 Ml Syringe) 25 gm IV PRN PRN; Protocol PRN Reason: Hypoglycemia Enoxaparin Sodium (Enoxaparin 40 Mg/0.4 Ml Syringe) 40 mg SUBCUT DAILY [facility] Last Admin: 04/24/21 16:18 Dose: 40 mg Documented by: ANDREE Sodium Chloride (Normal Saline 0.45%) 1,000 mls @ 100 mls/hr IV CONT [facility] Last Admin: 04/24/21 16:17 Dose: 100 mls/hr Documented by: ANDREE Piperacillin Sod/Tazobactam (Sod 3.375 gm/ Sodium Chloride) 100 mls @ 25 mls/hr IV Q8H [facility] Last Admin: 04/24/21 16:13 Dose: 25 mls/hr Documented by: ANDREE Insulin Glargine (Insulin Glargine 100 Unit/Ml 3ml Pen) 30 unit SUBCUT BEDTIME [facility] Insulin Human Lispro (Insulin Lispro 100 Unit/Ml 3ml Vial) 0 unit SUBCUT ACHS [facility]; Protocol Last Admin: 04/24/21 17:16 Dose: 4 unit Documented by: ANDREE Cosigned by: MSTEWCASA Levothyroxine Sodium (Levothyroxine 125 Mcg Tablet) 125 mcg PO DAILY@0600 [facility] Morphine Sulfate (Morphine 2 Mg/Ml Inj) 2 mg IV Q4HR PRN PRN Reason: Pain, Moderate (4-6) Naloxone HCl (Naloxone 0.4 Mg/Ml Vial) 0.2 mg IV Q2MIN PRN PRN Reason: Opiate Reversal Ondansetron HCl (Ondansetron 4 Mg/2 Ml Inj) 4 mg IV Q8HR PRN PRN Reason: Nausea And Vomiting Oxycodone HCl (Oxycodone Ir 5 Mg Tablet) 5 mg PO Q6HR PRN PRN Reason: Pain, Moderate (4-6) Zolpidem Tartrate (Zolpidem 5 Mg Tablet) 10 mg PO BEDTIME PRN PRN Reason: Sleep Discontinued Medications Acetaminophen (Acetaminophen 325 Mg Tablet) 975 mg PO NOW ONE Stop: 04/24/21 09:03 Last Admin: 04/24/21 09:09 Dose: 975 mg Documented by: HANSEL Sodium Chloride (Normal Saline 0.9%) 1,000 mls @ 1,000 mls/hr IV BOLUS ONE Stop: 04/24/21 09:38 Last Infusion: 04/24/21 10:55 Dose: 0 mls/hr Documented by: Admin: 04/24/21 09:11 Dose: 1,000 mls/hr Documented by: HANSEL Sodium Chloride (Normal Saline 0.9%) 1,000 mls @ 1,000 mls/hr IV BOLUS ONE Stop: 04/24/21 10:48 Last Infusion: 04/24/21 11:04 Dose: 0 mls/hr Documented by: Admin: 04/24/21 10:03 Dose: 1,000 mls/hr Documented by: HANSEL Piperacillin Sod/Tazobactam (Sod 4.5 gm/ Sodium Chloride) 100 mls @ 200 mls/hr IV NOW ONE Stop: 04/24/21 09:50 Last Infusion: 04/24/21 10:55 Dose: 0 mls/hr Documented by: Admin: 04/24/21 10:02 Dose: 200 mls/hr Documented by: HANSEL Ketorolac Tromethamine (Ketorolac 30 Mg/Ml Vial) 15 mg IV NOW ONE Stop: 04/24/21 11:30 Last Admin: 04/24/21 11:54 Dose: 15 mg Documented by: HANSEL Vital Signs Vital signs: Vital Signs - 8 hr 04/24/21 11:30 04/24/21 12:00 04/24/21 12:30 Pulse Rate 117 H 112 H 116 H Respiratory Rate 24 20 24 Blood Pressure 138/71 133/72 119/65 Pulse Oximetry 95 95 94 04/24/21 12:43 Pulse Rate 112 H Respiratory Rate 22 Blood Pressure 119/65 Pulse Oximetry 96 MDM - Dizziness Lab Data Result diagrams: 04/24/21 08:30 04/24/21 08:30 Labs: Lab Results 04/24/21 04/24/21 04/24/21 Range/Units 07:25 08:30 08:30 WBC 27.9 H (4.5-11.0) X10^3/uL RBC 4.50 (4.5-5.9) X10^6/uL Hgb 13.3 L (13.5-17.5) g/dL Hct 39.8 L (41-53) % MCV 88.4 (80-100) fL MCH 29.6 (26-34) PG MCHC 33.4 (30-36) % RDW 13.9 (11.6-14.8) % Plt Count 245 (150-400) X10^3/uL Neut % (Auto) Not Reportable Lymph % (Auto) Not Reportable Mitchell % (Auto) Not Reportable Eos % (Auto) Not Reportable Baso % (Auto) Not Reportable Lymph # (Auto) Not Reportable Mitchell # (Auto) Not Reportable Baso # (Auto) Not Reportable Total Counted 100 Seg Neutrophils % 56.0 (38-70) % Band Neutrophils % 27.0 H (3-7) % Lymphocytes % (Manual) 9.0 L (25-45) % Monocytes % (Manual) 8.0 (2-11) % Neutrophils # (Manual) 42088 H (6780-6695) /uL RBC Morphology Normal morphology Sodium 130 L (137-145) mmol/L Potassium 4.8 (3.4-5.1) mmol/L Chloride 96 L (98-107) mmol/L Carbon Dioxide 23 (22-32) mmol/L BUN 33 H (9-20) mg/dL Creatinine 1.55 H (0.66-1.25) mg/dL Estimated GFR 44.8 L (>60) mL/min BUN/Creatinine Ratio 21.3 (6-22) Glucose 294 H (80-110) mg/dL Lactate (0.7-2.1) mmol/L Calcium 9.6 (8.4-10.2) mg/dL Total Bilirubin 1.4 H (0.2-1.3) mg/dL AST 116 H (17-59) IU/L ALT 39 (<50) IU/L Alkaline Phosphatase 69 (38-126) U/L Total Protein 7.7 (6.3-8.2) g/dL Albumin 4.6 (3.5-5.0) g/dL Globulin 3.1 (1.7-4.1) g/dL Albumin/Globulin Ratio 1.5 (1.0-2.8) Lipase 55 (23-300) U/L Procalcitonin 23.6 H (<0.5) ng/mL Urine Color Urine Appearance Urine pH (4.5-8.0) Ur Specific [place] (1.000-1.035) Urine Protein (Negative) Urine Glucose (UA) (Negative) g/dL Urine Ketones (NEGATIVE) Urine Occult Blood (Negative) Urine Nitrate (Negative) Urine Bilirubin (NEGATIVE) Urine Urobilinogen (0.2) E.U./dL Ur Leukocyte Esterase (NEGATIVE) Urine RBC (0-5/HPF) Urine WBC (0-5/HPF) Ur Squamous Epith Cells (0-5/HPF) Ur Renal Epithelial Cell (0-1/HPF) Urine Bacteria (None) Urine Mucus (Negative) Ur Culture Indicated? SARS-CoV-2 (PCR) Negative (Negative) 04/24/21 04/24/21 04/24/21 Range/Units 08:30 09:18 09:25 WBC (4.5-11.0) X10^3/uL RBC (4.5-5.9) X10^6/uL Hgb (13.5-17.5) g/dL Hct (41-53) % MCV (80-100) fL MCH (26-34) PG MCHC (30-36) % RDW (11.6-14.8) % Plt Count (150-400) X10^3/uL Neut % (Auto) Lymph % (Auto) Mitchell % (Auto) Eos % (Auto) Baso % (Auto) Lymph # (Auto) Mitchell # (Auto) Baso # (Auto) Total Counted Seg Neutrophils % (38-70) % Band Neutrophils % (3-7) % Lymphocytes % (Manual) (25-45) % Monocytes % (Manual) (2-11) % Neutrophils # (Manual) (5144-9126) /uL RBC Morphology Sodium (137-145) mmol/L Potassium (3.4-5.1) mmol/L Chloride (98-107) mmol/L Carbon Dioxide (22-32) mmol/L BUN (9-20) mg/dL Creatinine (0.66-1.25) mg/dL Estimated GFR (>60) mL/min BUN/Creatinine Ratio (6-22) Glucose (80-110) mg/dL Lactate 3.0 H (0.7-2.1) mmol/L Calcium (8.4-10.2) mg/dL Total Bilirubin (0.2-1.3) mg/dL AST (17-59) IU/L ALT (<50) IU/L Alkaline Phosphatase (38-126) U/L Total Protein (6.3-8.2) g/dL Albumin (3.5-5.0) g/dL Globulin (1.7-4.1) g/dL Albumin/Globulin Ratio (1.0-2.8) Lipase (23-300) U/L Procalcitonin (<0.5) ng/mL Urine Color Yellow Urine Appearance Clear Urine pH 5.0 (4.5-8.0) Ur Specific [place] 1.020 (1.000-1.035) Urine Protein 2+ H (Negative) Urine Glucose (UA) 1+ H (Negative) g/dL Urine Ketones Negative (NEGATIVE) Urine Occult Blood 3+ H (Negative) Urine Nitrate Negative (Negative) Urine Bilirubin Negative (NEGATIVE) Urine Urobilinogen 0.2 (0.2) E.U./dL Ur Leukocyte Esterase Negative (NEGATIVE) Urine RBC None seen (0-5/HPF) Urine WBC None seen (0-5/HPF) Ur Squamous Epith Cells 0-1 /hpf (0-5/HPF) Ur Renal Epithelial Cell 1-5/hpf H (0-1/HPF) Urine Bacteria None seen (None) Urine Mucus 1+ H (Negative) Ur Culture Indicated? Cult not indicated SARS-CoV-2 (PCR) Negative (Negative) 04/24/21 Range/Units 11:05 WBC (4.5-11.0) X10^3/uL RBC (4.5-5.9) X10^6/uL Hgb (13.5-17.5) g/dL Hct (41-53) % MCV (80-100) fL MCH (26-34) PG MCHC (30-36) % RDW (11.6-14.8) % Plt Count (150-400) X10^3/uL Neut % (Auto) Lymph % (Auto) Mitchell % (Auto) Eos % (Auto) Baso % (Auto) Lymph # (Auto) Mitchell # (Auto) Baso # (Auto) Total Counted Seg Neutrophils % (38-70) % Band Neutrophils % (3-7) % Lymphocytes % (Manual) (25-45) % Monocytes % (Manual) (2-11) % Neutrophils # (Manual) (8799-6260) /uL RBC Morphology Sodium (137-145) mmol/L Potassium (3.4-5.1) mmol/L Chloride (98-107) mmol/L Carbon Dioxide (22-32) mmol/L BUN (9-20) mg/dL Creatinine (0.66-1.25) mg/dL Estimated GFR (>60) mL/min BUN/Creatinine Ratio (6-22) Glucose (80-110) mg/dL Lactate 2.2 H (0.7-2.1) mmol/L Calcium (8.4-10.2) mg/dL Total Bilirubin (0.2-1.3) mg/dL AST (17-59) IU/L ALT (<50) IU/L Alkaline Phosphatase (38-126) U/L Total Protein (6.3-8.2) g/dL Albumin (3.5-5.0) g/dL Globulin (1.7-4.1) g/dL Albumin/Globulin Ratio (1.0-2.8) Lipase (23-300) U/L Procalcitonin (<0.5) ng/mL Urine Color Urine Appearance Urine pH (4.5-8.0) Ur Specific [place] (1.000-1.035) Urine Protein (Negative) Urine Glucose (UA) (Negative) g/dL Urine Ketones (NEGATIVE) Urine Occult Blood (Negative) Urine Nitrate (Negative) Urine Bilirubin (NEGATIVE) Urine Urobilinogen (0.2) E.U./dL Ur Leukocyte Esterase (NEGATIVE) Urine RBC (0-5/HPF) Urine WBC (0-5/HPF) Ur Squamous Epith Cells (0-5/HPF) Ur Renal Epithelial Cell (0-1/HPF) Urine Bacteria (None) Urine Mucus (Negative) Ur Culture Indicated? SARS-CoV-2 (PCR) (Negative) Point of Care Testing Glucose POC 244 Imaging Data Chest x-ray: Radiologist's Impression: Left upper lung infiltrate ECG Data Attestation: I personally reviewed and interpreted this ECG as follows: (Sinus tachycardia rate 123 beats per minute. RBBB. No ectopy. No acute ST T wave changes.) Critical Care Time Critical Care Time Critical Care Time: Yes Total Critical Care Time: 50 Attestation: Critical care time includes initial patient assessment, review of medical records, in review of Radiology, EKG and lab data. Multiple clinical decisions were made during the course of his care. The patient was informed of the clinical findings. The admitting physician was consulted. Discharge Plan Departure Patient Disposition: Admitted As Inpatient Clinical Impression: Community acquired pneumonia, Sepsis, Diabetes mellitus, Renal insufficiency Admit Date/Time: 04/24/21 12:57 Admit Provider: Corrie Hubbard
[2021-04-24 08:28] LABS: COVID19 -Nasal RAPID Negative (Negative)
[2021-04-24 08:48] LABS: Hematocrit 39.8 % (41-53); Hemoglobin 13.3 g/dL (13.5-17.5); Mean Corpuscular HGB Conc 33.4 % (30-36); Mean Corpuscular Hemoglobin 29.6 PG (26-34); Mean Corpuscular Volume 88.4 fL (80-100); Platelet Count 245 X10^3/uL (150-400); Red Cell Distribution Width 13.9 % (11.6-14.8); White Blood Cell Count 27.9 X10^3/uL (4.5-11.0)
--- NOTE | 2021-04-24 08:48 | DI.RAD.S_ITS ---
PROCEDURE: XR CHEST 1V INDICATIONS: Fever, hyperventilation TECHNIQUE: One view of the chest was acquired. COMPARISON: [facility], CR, XR CHEST 1V, 11/22/2020, 14:11. FINDINGS: Surgical changes and devices: None. Lungs and pleura: Airspace opacity in the left upper lobe. Otherwise clear lungs and pleural spaces. Mediastinum: Mediastinal contours appear normal. Heart size is normal. Bones and chest wall: No suspicious bony lesions. Overlying soft tissues appear unremarkable. IMPRESSION: Airspace opacity in the left upper lobe likely infectious, new from 11/22/2020 study. Follow-up to clinical and radiographic resolution is recommended to help exclude an underlying mass. Dictated by: Luis Guerra M.D. on 04/24/2021 at 9:41 Approved by: Luis Guerra M.D. on 04/24/2021 at 9:42
[2021-04-24 08:50] LABS: Add Manual Diff / Slide Review YES
[2021-04-24 08:56] LABS: Alanine Aminotransferase 39 IU/L (<50); Albumin 4.6 g/dL (3.5-5.0); Albumin Globulin Ratio 1.5 (1.0-2.8); Alkaline Phosphatase 69 U/L (38-126); Aspartate Aminotransferase 116 IU/L (17-59); BUN Creatinine Ratio 21.3 (6-22); Bilirubin Total 1.4 mg/dL (0.2-1.3); Blood Urea Nitrogen 33 mg/dL (9-20); Calcium 9.6 mg/dL (8.4-10.2); Carbon Dioxide 23 mmol/L (22-32); Chloride 96 mmol/L (98-107); Estimated Glomerular Filt Rate 44.8 mL/min (>60); Globulin 3.1 g/dL (1.7-4.1); Glucose 294 mg/dL (80-110); HEMOLYSIS < 15 (0-50); Lipase 55 U/L (23-300); Potassium 4.8 mmol/L (3.4-5.1); Sodium 130 mmol/L (137-145); Total Protein 7.7 g/dL (6.3-8.2)
[2021-04-24] MEDS: ACETAMINOPHEN 325 MG TABLET 975 MG PO (09:09)
[2021-04-24] MEDS: SODIUM CHLORIDE 0.9% 1,000 ML 1000 ML IV ×2 (09:11→10:03)
[2021-04-24 09:13] LABS: Procalcitonin 23.6 ng/mL (<0.5)
[2021-04-24 09:39] LABS: Neutrophils Absolute Manual 23157 /uL (3000-5900); Total Cells Counted 100
[2021-04-24 09:40] LABS: RBC Morphology Normal Morphology
[2021-04-24 09:46] LABS: Appearance Urine UA CLEAR; Bilirubin Urine UA NEGATIVE (NEGATIVE); Color Urine UA YELLOW; Glucose Urine UA 1+ g/dL (Negative); Ketones Urine UA NEGATIVE (NEGATIVE); Leukocyte Esterase Urine UA NEGATIVE (NEGATIVE); Nitrite Urine UA NEGATIVE (Negative); Occult Blood Urine UA 3+ (Negative); Protein Urine UA 2+ (Negative); Urobilinogen Urine UA 0.2 E.U./dL (0.2)
[2021-04-24 09:56] LABS: Bacteria Urine None Seen; Mucus Urine 1+ (Negative); RBC Urine None Seen (0-5/HPF); Renal Epithelial Cells Urine 1-5/HPF (0-1/HPF); Squamous Epithelial Cell Urine 0-1 /HPF (0-5/HPF); WBC Urine None Seen (0-5/HPF)
[2021-04-24 09:57] LABS: Culture Indicated Urine Cult Not Indicated
[2021-04-24] MEDS: PIPERACILLIN/TAZO 4.5 GM in SODIUM CHLORIDE 0.9% 100 ML 200 ML IV (10:02)
[2021-04-24 10:39] LABS: COVID19 - ADMIT (NP swab/PCR) Negative (Negative)
[2021-04-24 10:42] LABS: Reflexed Lactate in 2 Hours Y
[2021-04-24 11:26] LABS: Lactate 2HR (Lactic Acid Rflx) 2.2 mmol/L (0.7-2.1)
[2021-04-24] MEDS: KETOROLAC 30 MG/ML VIAL 15 MG IV (11:54)
[2021-04-24 14:55] LABS: Adenovirus Not Detected (Not Detect); Coronavirus 229E Not Detected (Not Detect); Coronavirus HKU1 Not Detected (Not Detect); Coronavirus NL 63 Not Detected (Not Detect); SARS- CoV-2 Not Detected (Not Detecte)
[2021-04-24 14:56] LABS: B. parapertussis Not Detected (Not Detecte); Bordetella pertussis Not Detected (Not Detecte); Chlamydophila pneumoniae Not Detected (Not Detect); Coronavirus OC43 Detected (Not Detect); Human Metapneumovirus Not Detected (Not Detect); Human Rhinovirus/Enterovirus Detected (Not Detect); Influenza A Not Detected (Not Detect); Influenza B Not Detected (Not Detect); Mycoplasma pneumoniae Not Detected (Not Detect); Parainfluenza Virus 1 Not Detected (Not Detect); Parainfluenza Virus 2 Not Detected (Not Detect); Parainfluenza Virus 3 Not Detected (Not Detect); Parainfluenza Virus 4 Not Detected (Not Detect); Respiratory Syncytial Virus Not Detected (Not Detect)
--- NOTE | 2021-04-24 15:06 | P.PN_ITS ---
Subjective Subjective Date Patient Seen: 04/24/21 Time Patient Seen: 15:07 Interval history: 66 y/o male with Type 2 diabetes, hypothyroidism, hypertension, hyperlipidemia, who presents with 2 days of diarrhea, dizziness, cough, low-grade fever, and shortness of breath. Patient noted his symptoms got progressively worse. He presented to the emergency room for evaluation. In the emergency department patient was found to be febrile to 100.8. He has been vaccinated against COVID in July and August of 2020. He tested negative for COVID x2. Chest x-ray confi rmed a left upper lobe infiltrate. Patient also found to have a markedly elevated white count of 27.9, left shift is noted, procalcitonin markedly elevated at 23. Lactate 2.2. Patient is also noted to have an elevated creatinine of 1.55. Patient is admitted to the hospital for severe sepsis seco ndary to bacterial pneumonia. Despite improvement of his white count, improved oxygenation, the patient continues to have a cough and feels poorly Exam Vital Signs (past 8 hours): - 04/24/21 07:53 04/24/21 07:54 04/24/21 08:00 Temperature Pulse Rate 129 H 129 H 124 H Respiratory Rate 26 H Blood Pressure 164/78 H 150/81 H Pulse Oximetry 95 94 94 04/24/21 08:02 04/24/21 08:30 04/24/21 09:00 Temperature 100.8 F H Pulse Rate 128 H 115 H 119 H Respiratory Rate 30 H 26 H 25 H Blood Pressure 164/74 H Pulse Oximetry 93 95 95 04/24/21 09:09 04/24/21 09:20 04/24/21 09:30 Temperature 100.8 F H Pulse Rate 122 H 126 H Respiratory Rate 25 H 25 H Blood Pressure 141/78 H 149/78 H Pulse Oximetry 94 95 04/24/21 10:00 04/24/21 10:01 04/24/21 10:19 Temperature 98.9 F 98.9 F Pulse Rate 125 H 126 H Respiratory Rate 26 H 26 H Blood Pressure 114/80 Pulse Oximetry 94 94 04/24/21 10:30 04/24/21 11:00 04/24/21 11:30 Temperature Pulse Rate 123 H 116 H 117 H Respiratory Rate 20 20 24 Blood Pressure 116/69 123/70 138/71 Pulse Oximetry 94 95 95 04/24/21 12:00 04/24/21 12:30 04/24/21 12:43 Temperature Pulse Rate 112 H 116 H 112 H Respiratory Rate 20 24 22 Blood Pressure 133/72 119/65 119/65 Pulse Oximetry 95 94 96 04/24/21 13:57 Temperature 97.0 F L Pulse Rate 111 H Respiratory Rate 24 Blood Pressure 122/63 Pulse Oximetry 94 Oxygen Delivery Method Nasal Cannula Narrative Exam Narrative: Ill-appearing male sitting in a chair Resp Other: Lungs: Coarse breath sounds bilaterally with occasional scattered rhonchi Cardio Other: Cardiac exam: Regular rate and rhythm normal S1-S2 GI Other: Abdomen: Soft nontender nondistended Skin Other: Back bilateral rash on both side of his upper back, it is erythematous, and itchy Extrem Other: Extremities: No edema Objective Labs Result Diagrams: 04/26/21 05:25 04/26/21 05:25 Labs: Laboratory Results - last 24 hr 04/24/21 04/24/21 04/24/21 07:25 08:30 08:30 WBC 27.9 H RBC 4.50 Hgb 13.3 L Hct 39.8 L MCV 88.4 MCH 29.6 MCHC 33.4 RDW 13.9 Plt Count 245 Neut % (Auto) Not Reportable Lymph % (Auto) Not Reportable [place] % (Auto) Not Reportable Eos % (Auto) Not Reportable Baso % (Auto) Not Reportable Lymph # (Auto) Not Reportable [place] # (Auto) Not Reportable Baso # (Auto) Not Reportable Total Counted 100 Seg Neutrophils % 56.0 Band Neutrophils % 27.0 H Lymphocytes % (Manual) 9.0 L Monocytes % (Manual) 8.0 Neutrophils # (Manual) 44430 H RBC Morphology Normal morphology Sodium 130 L Potassium 4.8 Chloride 96 L Carbon Dioxide 23 BUN 33 H Creatinine 1.55 H Estimated GFR 44.8 L BUN/Creatinine Ratio 21.3 Glucose 294 H Lactate Calcium 9.6 Total Bilirubin 1.4 H AST 116 H ALT 39 Alkaline Phosphatase 69 Total Protein 7.7 Albumin 4.6 Globulin 3.1 Albumin/Globulin Ratio 1.5 Lipase 55 Procalcitonin 23.6 H Urine Color Urine Appearance Urine pH Ur Specific [place] Urine Protein Urine Glucose (UA) Urine Ketones Urine Occult Blood Urine Nitrate Urine Bilirubin Urine Urobilinogen Ur Leukocyte Esterase Urine RBC Urine WBC Ur Squamous Epith Cells Ur Renal Epithelial Cell Urine Bacteria Urine Mucus Ur Culture Indicated? Chlamy pneumoniae PCR Adenovirus (PCR) B. pertussis DNA (PCR) B.parapertussis DNA PCR Coronavirus OC43 (PCR) Coronavirus HKU1 (PCR) Coronavirus 229E (PCR) SARS-CoV-2 (PCR) Negative Coronavirus NL63 (PCR) Human Metapneumovir PCR Influenza Type A (PCR) Influenza Type B (PCR) M. pneumoniae (PCR) Parainfluenza 1 (PCR) Parainfluenza 2 (PCR) Parainfluenza 3 (PCR) Parainfluenza 4 (PCR) RSV (PCR) Entero/Rhino (PCR) 04/24/21 04/24/21 04/24/21 08:30 09:18 09:25 WBC RBC Hgb Hct MCV MCH MCHC RDW Plt Count Neut % (Auto) Lymph % (Auto) [place] % (Auto) Eos % (Auto) Baso % (Auto) Lymph # (Auto) [place] # (Auto) Baso # (Auto) Total Counted Seg Neutrophils % Band Neutrophils % Lymphocytes % (Manual) Monocytes % (Manual) Neutrophils # (Manual) RBC Morphology Sodium Potassium Chloride Carbon Dioxide BUN Creatinine Estimated GFR BUN/Creatinine Ratio Glucose Lactate 3.0 H Calcium Total Bilirubin AST ALT Alkaline Phosphatase Total Protein Albumin Globulin Albumin/Globulin Ratio Lipase Procalcitonin Urine Color Yellow Urine Appearance Clear Urine pH 5.0 Ur Specific [place] 1.020 Urine Protein 2+ H Urine Glucose (UA) 1+ H Urine Ketones Negative Urine Occult Blood 3+ H Urine Nitrate Negative Urine Bilirubin Negative Urine Urobilinogen 0.2 Ur Leukocyte Esterase Negative Urine RBC None seen Urine WBC None seen Ur Squamous Epith Cells 0-1 /hpf Ur Renal Epithelial Cell 1-5/hpf H Urine Bacteria None seen Urine Mucus 1+ H Ur Culture Indicated? Cult not indicated Chlamy pneumoniae PCR Adenovirus (PCR) B. pertussis DNA (PCR) B.parapertussis DNA PCR Coronavirus OC43 (PCR) Coronavirus HKU1 (PCR) Coronavirus 229E (PCR) SARS-CoV-2 (PCR) Negative Coronavirus NL63 (PCR) Human Metapneumovir PCR Influenza Type A (PCR) Influenza Type B (PCR) M. pneumoniae (PCR) Parainfluenza 1 (PCR) Parainfluenza 2 (PCR) Parainfluenza 3 (PCR) Parainfluenza 4 (PCR) RSV (PCR) Entero/Rhino (PCR) 04/24/21 04/24/21 11:05 13:45 WBC RBC Hgb Hct MCV MCH MCHC RDW Plt Count Neut % (Auto) Lymph % (Auto) [place] % (Auto) Eos % (Auto) Baso % (Auto) Lymph # (Auto) [place] # (Auto) Baso # (Auto) Total Counted Seg Neutrophils % Band Neutrophils % Lymphocytes % (Manual) Monocytes % (Manual) Neutrophils # (Manual) RBC Morphology Sodium Potassium Chloride Carbon Dioxide BUN Creatinine Estimated GFR BUN/Creatinine Ratio Glucose Lactate 2.2 H Calcium Total Bilirubin AST ALT Alkaline Phosphatase Total Protein Albumin Globulin Albumin/Globulin Ratio Lipase Procalcitonin Urine Color Urine Appearance Urine pH Ur Specific [place] Urine Protein Urine Glucose (UA) Urine Ketones Urine Occult Blood Urine Nitrate Urine Bilirubin Urine Urobilinogen Ur Leukocyte Esterase Urine RBC Urine WBC Ur Squamous Epith Cells Ur Renal Epithelial Cell Urine Bacteria Urine Mucus Ur Culture Indicated? Chlamy pneumoniae PCR Not detected Adenovirus (PCR) Not detected B. pertussis DNA (PCR) Not detected B.parapertussis DNA PCR Not detected Coronavirus OC43 (PCR) Detected H Coronavirus HKU1 (PCR) Not detected Coronavirus 229E (PCR) Not detected SARS-CoV-2 (PCR) Not detected Coronavirus NL63 (PCR) Not detected Human Metapneumovir PCR Not detected Influenza Type A (PCR) Not detected Influenza Type B (PCR) Not detected M. pneumoniae (PCR) Not detected Parainfluenza 1 (PCR) Not detected Parainfluenza 2 (PCR) Not detected Parainfluenza 3 (PCR) Not detected Parainfluenza 4 (PCR) Not detected RSV (PCR) Not detected Entero/Rhino (PCR) Detected H REPLACED BY [facility] Medical History (Updated 04/24/21 @ 19:20 by Osei Hernandez MD) Chronic back pain (2004) CTS (carpal tunnel syndrome) (1994) Depression (1997) Diabetes mellitus (1999) Esophageal obstruction due to food impaction (05/07/16) Foot pain (2004) Shoulder pain (2009) Sleep apnea (2009) Surgical History History of esophagogastroduodenoscopy (EGD) (05/08/16) Status post laparoscopic cholecystectomy Family History Mother Loud snoring Restless leg Hypertension Diabetes mellitus Depression Family/Other Restless leg Obesity Hypertension Depression Anxiety Social History marital status: household members: none lives independently: Yes education level: high school occupational status: employed Smoking Status: Never smoker alcohol intake: never substance use type: does not use Assessment & Plan Assessment & Plan narrative: 66-year-old male with a history of type 2 diabetes, hypertension, hypothyroidism, depression, admitted to the hospital with left upper lobe pneumonia * Patient presents with?severe sepsis, manifested by end-organ damage to include renal function, creatinine elevated to 1.55, plus acute hypoxemic respiratory failure * Patient given 30 cc/kilogram of IV fluids in the emergency room, started on broad-spectrum antibiotics with Zosyn * White count elevated at 27, procalcitonin elevated at 31, improved to 19.5 today * Respiratory panel positive for coronavirus OC 43 in addition to antral/rhino virus, COVID-19 is negative * Chest x-ray confirms left upper lobe infiltrate * Suspect bacterial pneumonia given markedly elevated white count and procalcitonin * Patient very likely has a bacterial superinfection, will discontinue Zosyn start meropenem will obtain sputum culture, will obtain blood cultures * Will repeat procalcitonin and follow for resolution * Oxygen given the patient's?acute hypoxemic respiratory failure * Type 2 diabetes * Will continue basal bolus insulin * Will hold metformin given the patient's elevated creatinine and him being hospitalized * Sliding scale insulin has been redness wellHypertension * Patient typically on lisinopril, creatinine now normal, can resume lisinopril * Will use IV hydralazine porarily * Hyperlipidemia * Continue statin * Hypothyroidism * Continue L-thyroxineAnxiety/depression * Continue Wellbutrin * Patient continues to have significant cough, his renal function is improving * will increase cough syrup * Will discontinue IV hydration, stop telemetry will defer CT of the chest given iodine allergy, as oxygenation improved will follow serial chest xrays * Will continue antibiotics, meropenem * Continue DVT prophylaxis * Time Spent With Patient Critical Care time: I spent a total of [] minutes of critical care time on this patient's care today; this time is exclusive of procedural time.
--- NOTE | 2021-04-24 15:37 | P.HP_ITS ---
History of Present Illness History of Present Illness Date Patient Seen: 04/24/21 Chief complaint: Dizzy, diarrhea, can't eat x 2days Narrative: 66 y/o male with Type 2 diabetes, hypothyroidism, hypertension, hyperlipidemia, who presents with 2 days of diarrhea, dizziness, cough, low-grade fever, and shortness of breath. Patient noted his symptoms got progressively worse. He presented to the emergency room for evaluation. In the emergency department patient was found to be febrile to 100.8. He has been vaccinated against COVID in July and August of 2020. He tested negative for COVID x2. Chest x-ray confirmed a left upper lobe infiltrate. Patient also found to have a markedly elevated white count of 27.9, left shift is noted, procalcitonin markedly elevated at 23. Lactate 2.2. Patient is also noted to have an elevated creatinine of 1.55. Patient is admitted to the hospital for severe sepsis secondary to bacterial pneumonia. Patient reports mild headache, sore throat from coughing, cough which has been nonproductive, shortness of breath, low- grade fever, decreased taste and smell, nausea vomiting and 1 episode of diarrhea. Patient History Medical History (Updated 12/07/20 @ 00:01 by ) Chronic back pain (2004) CTS (carpal tunnel syndrome) (1994) Depression (1997) Diabetes mellitus (1999) Esophageal obstruction due to food impaction (05/07/16) Foot pain (2004) Shoulder pain (2009) Sleep apnea (2009) Surgical History History of esophagogastroduodenoscopy (EGD) (05/08/16) Status post laparoscopic cholecystectomy Family & Social History Family History Mother Loud snoring Restless leg Hypertension Diabetes mellitus Depression Family/Other Restless leg Obesity Hypertension Depression Anxiety Social History: household members none Prior Living Arrangements [facility] lives independently Yes Safety & Behavioral: Feels Safe in Current Yes Environment Been Physically Hurt or No Threatened By a Person Tobacco & Substance use: Smoking Status Never smoker alcohol intake never alcohol intake frequency 0-2 drinks per day Substance Use Type does not use Meds Home Medications and Allergies Home Medications Medication Instructions Recorded Confirmed Type Syringes #100 each 06/12/18 04/24/21 Rx onetouch glucose meter starter kit #1 ea 07/02/19 04/24/21 Rx atorvastatin 40 mg tablet 40 mg PO HS #90 tab 04/21/20 04/24/21 Rx levothyroxine 125 mcg tablet 125 mcg PO QDAY #90 tab 04/21/20 04/24/21 Rx (Synthroid) lisinopril 20 mg tablet 20 mg PO QDAY #90 tab 04/21/20 04/24/21 Rx Glucose: Test Strips #300 ea 08/31/20 04/24/21 Rx metformin 1,000 mg tablet 1,000 mg PO BIDCC #180 tab 10/20/20 04/24/21 Rx (Glucophage) zolpidem 10 mg tablet (Ambien) 10 mg PO HSP PRN #30 tab 10/20/20 04/24/21 Rx bupropion HCl 150 mg 24 hr tablet, 150 mg PO QDAY #90 tab 02/21/21 04/24/21 Rx extended release (Wellbutrin XL) insulin NPH isoph U-100 human 100 See Rx Instructions SUBCUT BID #90 04/11/21 04/24/21 Rx unit/mL (3 mL) subcutaneous pen ml (Humulin N NPH U-100 Insulin KwikPen) Insulin [place] BD Ultra Fine Mini #450 each 04/14/21 04/24/21 Rx Pen Needle insulin lispro 100 unit/mL 10 unit (0.1 mL) SUBCUT TID #3 ml 04/19/21 04/24/21 Rx subcutaneous pen (Humalog KwikPen (U-100) Insulin) Allergies Allergy/AdvReac Type Severity Reaction Status Date / Time Iodinated Contrast Media Allergy Mild Rash Verified 02/28/21 15:20 Influenza Virus Vaccines Allergy Unknown Verified 02/28/21 15:20 Review of Systems Review of Systems Narrative: Ten point review of systems is negative Exam Vital Signs (past 8 hours): - 04/24/21 07:53 04/24/21 07:54 04/24/21 08:00 Temperature Pulse Rate 129 H 129 H 124 H Respiratory Rate 26 H Blood Pressure 164/78 H 150/81 H Pulse Oximetry 95 94 94 04/24/21 08:02 04/24/21 08:30 04/24/21 09:00 Temperature 100.8 F H Pulse Rate 128 H 115 H 119 H Respiratory Rate 30 H 26 H 25 H Blood Pressure 164/74 H Pulse Oximetry 93 95 95 04/24/21 09:09 04/24/21 09:20 04/24/21 09:30 Temperature 100.8 F H Pulse Rate 122 H 126 H Respiratory Rate 25 H 25 H Blood Pressure 141/78 H 149/78 H Pulse Oximetry 94 95 04/24/21 10:00 04/24/21 10:01 04/24/21 10:19 Temperature 98.9 F 98.9 F Pulse Rate 125 H 126 H Respiratory Rate 26 H 26 H Blood Pressure 114/80 Pulse Oximetry 94 94 04/24/21 10:30 04/24/21 11:00 04/24/21 11:30 Temperature Pulse Rate 123 H 116 H 117 H Respiratory Rate 20 20 24 Blood Pressure 116/69 123/70 138/71 Pulse Oximetry 94 95 95 04/24/21 12:00 04/24/21 12:30 04/24/21 12:43 Temperature Pulse Rate 112 H 116 H 112 H Respiratory Rate 20 24 22 Blood Pressure 133/72 119/65 119/65 Pulse Oximetry 95 94 96 04/24/21 13:57 04/24/21 14:00 04/24/21 15:33 Temperature 97.0 F L Pulse Rate 111 H Respiratory Rate 24 Blood Pressure 122/63 Pulse Oximetry 94 97 97 Oxygen Delivery Method Nasal Cannula Oxygen Flow Rate 2 Narrative Exam Narrative: Ill-appearing male lying in bed [facility] Other: Normocephalic atraumatic, extraocular muscles are intact, oropharynx is clear, neck is supple without adenopathy. Resp Other: Lungs reveal decreased breath sounds, scattered crackles in the left upper lobe Cardio Other: Cardiac exam: Tachycardic regular rate and rhythm normal S1-S2 GI Other: Abdomen: Soft nontender nondistended, no hepatosplenomegaly Neuro Other: Neuro exam: Nonfocal Extrem Other: Extremities: No edema Objective Labs Result Diagrams: 04/24/21 08:30 04/24/21 08:30 Labs: Laboratory Results - last 24 hr 04/24/21 04/24/21 04/24/21 07:25 08:30 08:30 WBC 27.9 H RBC 4.50 Hgb 13.3 L Hct 39.8 L MCV 88.4 MCH 29.6 MCHC 33.4 RDW 13.9 Plt Count 245 Neut % (Auto) Not Reportable Lymph % (Auto) Not Reportable [place] % (Auto) Not Reportable Eos % (Auto) Not Reportable Baso % (Auto) Not Reportable Lymph # (Auto) Not Reportable [place] # (Auto) Not Reportable Baso # (Auto) Not Reportable Total Counted 100 Seg Neutrophils % 56.0 Band Neutrophils % 27.0 H Lymphocytes % (Manual) 9.0 L Monocytes % (Manual) 8.0 Neutrophils # (Manual) 68072 H RBC Morphology Normal morphology Sodium 130 L Potassium 4.8 Chloride 96 L Carbon Dioxide 23 BUN 33 H Creatinine 1.55 H Estimated GFR 44.8 L BUN/Creatinine Ratio 21.3 Glucose 294 H Lactate Calcium 9.6 Total Bilirubin 1.4 H AST 116 H ALT 39 Alkaline Phosphatase 69 Total Protein 7.7 Albumin 4.6 Globulin 3.1 Albumin/Globulin Ratio 1.5 Lipase 55 Procalcitonin 23.6 H Urine Color Urine Appearance Urine pH Ur Specific [place] Urine Protein Urine Glucose (UA) Urine Ketones Urine Occult Blood Urine Nitrate Urine Bilirubin Urine Urobilinogen Ur Leukocyte Esterase Urine RBC Urine WBC Ur Squamous Epith Cells Ur Renal Epithelial Cell Urine Bacteria Urine Mucus Ur Culture Indicated? Chlamy pneumoniae PCR Adenovirus (PCR) B. pertussis DNA (PCR) B.parapertussis DNA PCR Coronavirus OC43 (PCR) Coronavirus HKU1 (PCR) Coronavirus 229E (PCR) SARS-CoV-2 (PCR) Negative Coronavirus NL63 (PCR) Human Metapneumovir PCR Influenza Type A (PCR) Influenza Type B (PCR) M. pneumoniae (PCR) Parainfluenza 1 (PCR) Parainfluenza 2 (PCR) Parainfluenza 3 (PCR) Parainfluenza 4 (PCR) RSV (PCR) Entero/Rhino (PCR) 04/24/21 04/24/21 04/24/21 08:30 09:18 09:25 WBC RBC Hgb Hct MCV MCH MCHC RDW Plt Count Neut % (Auto) Lymph % (Auto) [place] % (Auto) Eos % (Auto) Baso % (Auto) Lymph # (Auto) [place] # (Auto) Baso # (Auto) Total Counted Seg Neutrophils % Band Neutrophils % Lymphocytes % (Manual) Monocytes % (Manual) Neutrophils # (Manual) RBC Morphology Sodium Potassium Chloride Carbon Dioxide BUN Creatinine Estimated GFR BUN/Creatinine Ratio Glucose Lactate 3.0 H Calcium Total Bilirubin AST ALT Alkaline Phosphatase Total Protein Albumin Globulin Albumin/Globulin Ratio Lipase Procalcitonin Urine Color Yellow Urine Appearance Clear Urine pH 5.0 Ur Specific [place] 1.020 Urine Protein 2+ H Urine Glucose (UA) 1+ H Urine Ketones Negative Urine Occult Blood 3+ H Urine Nitrate Negative Urine Bilirubin Negative Urine Urobilinogen 0.2 Ur Leukocyte Esterase Negative Urine RBC None seen Urine WBC None seen Ur Squamous Epith Cells 0-1 /hpf Ur Renal Epithelial Cell 1-5/hpf H Urine Bacteria None seen Urine Mucus 1+ H Ur Culture Indicated? Cult not indicated Chlamy pneumoniae PCR Adenovirus (PCR) B. pertussis DNA (PCR) B.parapertussis DNA PCR Coronavirus OC43 (PCR) Coronavirus HKU1 (PCR) Coronavirus 229E (PCR) SARS-CoV-2 (PCR) Negative Coronavirus NL63 (PCR) Human Metapneumovir PCR Influenza Type A (PCR) Influenza Type B (PCR) M. pneumoniae (PCR) Parainfluenza 1 (PCR) Parainfluenza 2 (PCR) Parainfluenza 3 (PCR) Parainfluenza 4 (PCR) RSV (PCR) Entero/Rhino (PCR) 04/24/21 04/24/21 11:05 13:45 WBC RBC Hgb Hct MCV MCH MCHC RDW Plt Count Neut % (Auto) Lymph % (Auto) [place] % (Auto) Eos % (Auto) Baso % (Auto) Lymph # (Auto) [place] # (Auto) Baso # (Auto) Total Counted Seg Neutrophils % Band Neutrophils % Lymphocytes % (Manual) Monocytes % (Manual) Neutrophils # (Manual) RBC Morphology Sodium Potassium Chloride Carbon Dioxide BUN Creatinine Estimated GFR BUN/Creatinine Ratio Glucose Lactate 2.2 H Calcium Total Bilirubin AST ALT Alkaline Phosphatase Total Protein Albumin Globulin Albumin/Globulin Ratio Lipase Procalcitonin Urine Color Urine Appearance Urine pH Ur Specific [place] Urine Protein Urine Glucose (UA) Urine Ketones Urine Occult Blood Urine Nitrate Urine Bilirubin Urine Urobilinogen Ur Leukocyte Esterase Urine RBC Urine WBC Ur Squamous Epith Cells Ur Renal Epithelial Cell Urine Bacteria Urine Mucus Ur Culture Indicated? Chlamy pneumoniae PCR Not detected Adenovirus (PCR) Not detected B. pertussis DNA (PCR) Not detected B.parapertussis DNA PCR Not detected Coronavirus OC43 (PCR) Detected H Coronavirus HKU1 (PCR) Not detected Coronavirus 229E (PCR) Not detected SARS-CoV-2 (PCR) Not detected Coronavirus NL63 (PCR) Not detected Human Metapneumovir PCR Not detected Influenza Type A (PCR) Not detected Influenza Type B (PCR) Not detected M. pneumoniae (PCR) Not detected Parainfluenza 1 (PCR) Not detected Parainfluenza 2 (PCR) Not detected Parainfluenza 3 (PCR) Not detected Parainfluenza 4 (PCR) Not detected RSV (PCR) Not detected Entero/Rhino (PCR) Detected H Assessment & Plan Assessment & Plan narrative: Impression 1. 66-year-old male with a history of type 2 diabetes, hypertension, hypothyroidism, depression, admitted to the hospital with left upper lobe pneumonia * Patient presents with severe sepsis, manifested by end-organ damage to include renal function, creatinine elevated to 1.55, plus acute hypoxemic respiratory failure * Patient given 30 cc/kilogram of IV fluids in the emergency room, started on broad-spectrum antibiotics with Zosyn * White count elevated at 27, procalcitonin elevated at 23, * Respiratory panel positive for coronavirus OC 43 in addition to antral/rhino virus, COVID-19 is negative * Chest x-ray confirms left upper lobe infiltrate * Suspect bacterial pneumonia given markedly elevated white count and procalcitonin * Patient very likely has a bacterial superinfection, will continue Zosyn, will obtain sputum culture, will obtain blood cultures * Will repeat procalcitonin and follow for resolution * Oxygen given the patient's acute hypoxemic respiratory failure Type 2 diabetes * Will continue basal bolus insulin * Will hold metformin given the patient's elevated creatinine and him being hospitalized * Sliding scale insulin has been redness well Hypertension * Patient typically on lisinopril, however given his elevated creatinine will hold the lisinopril * Will use IV hydralazine temporarily Hyperlipidemia * Continue statin Hypothyroidism * Continue L-thyroxine Anxiety/depression * Continue Wellbutrin * I have utilized all available methods to review update confirm the patient's medication Patient reports he is DNR will note that his record accordingly Patient will be started on Lovenox for DVT prophylaxis will continue to monitor him closely Time Spent With Patient Critical Care time: I spent a total of [] minutes of critical care time on this patient's care today; this time is exclusive of procedural time.
[2021-04-24] MEDS: PIPERACILLIN/TAZO 3.375 GM in SODIUM CHLORIDE 0.9% 100 ML 25 ML IV ×2 (16:13→22:31)
[2021-04-24] MEDS: SODIUM CHLORIDE 0.45% 1,000 ML 100 ML IV (16:17)
[2021-04-24] MEDS: ENOXAPARIN 40 MG/0.4 ML SYRINGE SUBCUT (16:18)
[2021-04-24] MEDS: INSULIN LISPRO 100 UNIT/ML 3ML VIAL SUBCUT ×2 (17:16→21:31)
[2021-04-24] MEDS: ACETAMINOPHEN 325 MG TABLET 650 MG PO (17:22)
[2021-04-24] MEDS: ATORVASTATIN 20 MG TABLET 40 MG PO (21:29)
[2021-04-24] MEDS: ZOLPIDEM 5 MG TABLET 10 MG PO (21:29)
[2021-04-24] MEDS: INSULIN GLARGINE 100 UNIT/ML 3ML PEN 30 UNIT SUBCUT (21:30)
[2021-04-24] MEDS: BENZOCAINE/MENTHOL 1 LOZ PKT 1 EACH PO (22:08)
[2021-04-25] VITALS (12 sets, daily range): BP systolic 110–145; BP diastolic 60–78; PULSE 82–101; RESP 16–22; TEMP 36.2–37.6; O2SAT 91–99
--- NOTE | 2021-04-25 00:50 | PC.NURSE ---
Addendum entered by Krystina Rosas R.N. 04/25/21 01:56: At approx 0130, same situation occurred, total bed change needed again. PT still reports feeling confused, but Alert and Oriented. Reoriented to room and amenities and make urinal instantly accessible and recognizable to pt. Pt reports being continent normally. This RN asked pt if he normally had behavioral changes when taking ambien, & patient confirmed that about half of the time ambien gives him negative side effects of disorientation. Provider informed. Will continue to monitor closely. Original Note: At approx 0030, pt found sitting on side of bed with NC off, tele out, and bed slightly soiled. This RN entered the room and asked the pt if everything was okay, and if he was having trouble breathing. Pt O2 sat 90-91% RA, denied any difficulty breathing, told this RN nothing's wrong. Pt able to answer all orientation questions. Placed back on 2L NC. Bed change, jhonatan care completed. SCDs replaced. Pt SPO2 up to 96%. This RN asked the patient if he felt confused at all- pt confirmed that he felt confused yet was AOx4. This RN reoriented patient to room and call light. Pt denied needing anything. Pt had requested and rec'd 10 mg zolpidem at approx 2130, AOx4 and denied confusion at time of administration. Prior to this incident pt had been extremely restless in bed, removing NC and pulse ox multiple times and twisting up in bedsheets. Will continue to monitor closely.
[2021-04-25] MEDS: ACETAMINOPHEN 325 MG TABLET 650 MG PO ×2 (04:11→21:23)
[2021-04-25] MEDS: BENZOCAINE/MENTHOL 1 LOZ PKT 1 EACH PO (04:11)
[2021-04-25] MEDS: OXYCODONE IR 5 MG TABLET PO (04:12)
[2021-04-25 06:02] LABS: BUN Creatinine Ratio 26.1 (6-22); Blood Urea Nitrogen 37 mg/dL (9-20); Calcium 8.4 mg/dL (8.4-10.2); Carbon Dioxide 24 mmol/L (22-32); Chloride 103 mmol/L (98-107); Estimated Glomerular Filt Rate 49.6 mL/min (>60); Glucose 145 mg/dL (80-110); HEMOLYSIS < 15 (0-50); Potassium 4.4 mmol/L (3.4-5.1); Sodium 134 mmol/L (137-145)
[2021-04-25 06:17] LABS: Procalcitonin 31.1 ng/mL (<0.5)
[2021-04-25] MEDS: PIPERACILLIN/TAZO 3.375 GM in SODIUM CHLORIDE 0.9% 100 ML 25 ML IV ×2 (06:21→16:09)
[2021-04-25] MEDS: LEVOTHYROXINE 125 MCG TABLET PO (06:21)
[2021-04-25] MEDS: SODIUM CHLORIDE 0.45% 1,000 ML 100 ML IV (06:21)
[2021-04-25] MEDS: ENOXAPARIN 40 MG/0.4 ML SYRINGE SUBCUT (08:01)
[2021-04-25] MEDS: buPROPion XL 150 MG TAB PO (08:01)
[2021-04-25] MEDS: INSULIN LISPRO 100 UNIT/ML 3ML VIAL SUBCUT ×3 (08:03→18:15)
--- NOTE | 2021-04-25 08:21 | P.PN_ITS ---
Subjective Subjective Date Patient Seen: 04/25/21 Interval history: The patient is a 66-year-old male who was admitted to the hospital yesterday with the left upper lobe pneumonia. He continues to have low-grade fever, he continues to have cough, he is still requiring oxygen to maintain his O2 sat. His procalcitonin is elevated. Sputum culture/respiratory panel has grown coronavirus OC 43 and rhino virus. Overall the patient feels like he is making some improvement except he continues to have a cough Exam Vital Signs (past 8 hours): - 04/25/21 00:31 04/25/21 02:50 04/25/21 04:11 Temperature 98.8 F 99.6 F Pulse Rate 100 H 101 H Respiratory Rate 22 20 Blood Pressure 123/71 Pulse Oximetry 96 97 04/25/21 04:12 04/25/21 05:30 Temperature 99.6 F 97.5 F L Pulse Rate 88 Respiratory Rate 18 Blood Pressure 110/60 Pulse Oximetry 95 Oxygen Delivery Method Nasal Cannula Oxygen Flow Rate 2.5 Narrative Exam Narrative: Pleasant male sitting in a chair in no obvious distress Resp Other: Lungs: Coarse breath sounds bilaterally Cardio Other: Cardiac exam: Regular rate and rhythm normal S1-S2 GI Other: Abdomen: Soft nontender nondistended Extrem Other: Extremities: No edema Objective Labs Result Diagrams: 04/24/21 08:30 04/25/21 05:00 Labs: Laboratory Results - last 24 hr 04/24/21 04/24/21 04/24/21 07:25 08:30 08:30 WBC 27.9 H RBC 4.50 Hgb 13.3 L Hct 39.8 L MCV 88.4 MCH 29.6 MCHC 33.4 RDW 13.9 Plt Count 245 Neut % (Auto) Not Reportable Lymph % (Auto) Not Reportable [place] % (Auto) Not Reportable Eos % (Auto) Not Reportable Baso % (Auto) Not Reportable Lymph # (Auto) Not Reportable [place] # (Auto) Not Reportable Baso # (Auto) Not Reportable Total Counted 100 Seg Neutrophils % 56.0 Band Neutrophils % 27.0 H Lymphocytes % (Manual) 9.0 L Monocytes % (Manual) 8.0 Neutrophils # (Manual) 00712 H RBC Morphology Normal morphology Sodium 130 L Potassium 4.8 Chloride 96 L Carbon Dioxide 23 BUN 33 H Creatinine 1.55 H Estimated GFR 44.8 L BUN/Creatinine Ratio 21.3 Glucose 294 H Lactate Calcium 9.6 Total Bilirubin 1.4 H AST 116 H ALT 39 Alkaline Phosphatase 69 Total Protein 7.7 Albumin 4.6 Globulin 3.1 Albumin/Globulin Ratio 1.5 Lipase 55 Procalcitonin 23.6 H Urine Color Urine Appearance Urine pH Ur Specific [place] Urine Protein Urine Glucose (UA) Urine Ketones Urine Occult Blood Urine Nitrate Urine Bilirubin Urine Urobilinogen Ur Leukocyte Esterase Urine RBC Urine WBC Ur Squamous Epith Cells Ur Renal Epithelial Cell Urine Bacteria Urine Mucus Ur Culture Indicated? Chlamy pneumoniae PCR Adenovirus (PCR) B. pertussis DNA (PCR) B.parapertussis DNA PCR Coronavirus OC43 (PCR) Coronavirus HKU1 (PCR) Coronavirus 229E (PCR) SARS-CoV-2 (PCR) Negative Coronavirus NL63 (PCR) Human Metapneumovir PCR Influenza Type A (PCR) Influenza Type B (PCR) M. pneumoniae (PCR) Parainfluenza 1 (PCR) Parainfluenza 2 (PCR) Parainfluenza 3 (PCR) Parainfluenza 4 (PCR) RSV (PCR) Entero/Rhino (PCR) 04/24/21 04/24/21 04/24/21 08:30 09:18 09:25 WBC RBC Hgb Hct MCV MCH MCHC RDW Plt Count Neut % (Auto) Lymph % (Auto) [place] % (Auto) Eos % (Auto) Baso % (Auto) Lymph # (Auto) [place] # (Auto) Baso # (Auto) Total Counted Seg Neutrophils % Band Neutrophils % Lymphocytes % (Manual) Monocytes % (Manual) Neutrophils # (Manual) RBC Morphology Sodium Potassium Chloride Carbon Dioxide BUN Creatinine Estimated GFR BUN/Creatinine Ratio Glucose Lactate 3.0 H Calcium Total Bilirubin AST ALT Alkaline Phosphatase Total Protein Albumin Globulin Albumin/Globulin Ratio Lipase Procalcitonin Urine Color Yellow Urine Appearance Clear Urine pH 5.0 Ur Specific [place] 1.020 Urine Protein 2+ H Urine Glucose (UA) 1+ H Urine Ketones Negative Urine Occult Blood 3+ H Urine Nitrate Negative Urine Bilirubin Negative Urine Urobilinogen 0.2 Ur Leukocyte Esterase Negative Urine RBC None seen Urine WBC None seen Ur Squamous Epith Cells 0-1 /hpf Ur Renal Epithelial Cell 1-5/hpf H Urine Bacteria None seen Urine Mucus 1+ H Ur Culture Indicated? Cult not indicated Chlamy pneumoniae PCR Adenovirus (PCR) B. pertussis DNA (PCR) B.parapertussis DNA PCR Coronavirus OC43 (PCR) Coronavirus HKU1 (PCR) Coronavirus 229E (PCR) SARS-CoV-2 (PCR) Negative Coronavirus NL63 (PCR) Human Metapneumovir PCR Influenza Type A (PCR) Influenza Type B (PCR) M. pneumoniae (PCR) Parainfluenza 1 (PCR) Parainfluenza 2 (PCR) Parainfluenza 3 (PCR) Parainfluenza 4 (PCR) RSV (PCR) Entero/Rhino (PCR) 04/24/21 04/24/21 04/25/21 11:05 13:45 05:00 WBC RBC Hgb Hct MCV MCH MCHC RDW Plt Count Neut % (Auto) Lymph % (Auto) [place] % (Auto) Eos % (Auto) Baso % (Auto) Lymph # (Auto) [place] # (Auto) Baso # (Auto) Total Counted Seg Neutrophils % Band Neutrophils % Lymphocytes % (Manual) Monocytes % (Manual) Neutrophils # (Manual) RBC Morphology Sodium 134 L Potassium 4.4 Chloride 103 Carbon Dioxide 24 BUN 37 H Creatinine 1.42 H Estimated GFR 49.6 L BUN/Creatinine Ratio 26.1 H Glucose 145 H D Lactate 2.2 H Calcium 8.4 Total Bilirubin AST ALT Alkaline Phosphatase Total Protein Albumin Globulin Albumin/Globulin Ratio Lipase Procalcitonin 31.1 H Urine Color Urine Appearance Urine pH Ur Specific [place] Urine Protein Urine Glucose (UA) Urine Ketones Urine Occult Blood Urine Nitrate Urine Bilirubin Urine Urobilinogen Ur Leukocyte Esterase Urine RBC Urine WBC Ur Squamous Epith Cells Ur Renal Epithelial Cell Urine Bacteria Urine Mucus Ur Culture Indicated? Chlamy pneumoniae PCR Not detected Adenovirus (PCR) Not detected B. pertussis DNA (PCR) Not detected B.parapertussis DNA PCR Not detected Coronavirus OC43 (PCR) Detected H Coronavirus HKU1 (PCR) Not detected Coronavirus 229E (PCR) Not detected SARS-CoV-2 (PCR) Not detected Coronavirus NL63 (PCR) Not detected Human Metapneumovir PCR Not detected Influenza Type A (PCR) Not detected Influenza Type B (PCR) Not detected M. pneumoniae (PCR) Not detected Parainfluenza 1 (PCR) Not detected Parainfluenza 2 (PCR) Not detected Parainfluenza 3 (PCR) Not detected Parainfluenza 4 (PCR) Not detected RSV (PCR) Not detected Entero/Rhino (PCR) Detected H [facility] Medical History (Updated 04/24/21 @ 19:20 by Osei Hernandez MD) Chronic back pain (2004) CTS (carpal tunnel syndrome) (1994) Depression (1997) Diabetes mellitus (1999) Esophageal obstruction due to food impaction (05/07/16) Foot pain (2004) Shoulder pain (2009) Sleep apnea (2009) Surgical History History of esophagogastroduodenoscopy (EGD) (05/08/16) Status post laparoscopic cholecystectomy Family History Mother Loud snoring Restless leg Hypertension Diabetes mellitus Depression Family/Other Restless leg Obesity Hypertension Depression Anxiety Social History marital status: household members: none lives independently: Yes education level: high school occupational status: employed Smoking Status: Never smoker alcohol intake: never substance use type: does not use Assessment & Plan Assessment & Plan narrative: 66-year-old male with a history of type 2 diabetes, hypertension, hypothyroidism, depression, admitted to the hospital with left upper lobe pneumonia * Patient presents with?severe sepsis, manifested by end-organ damage to include renal function, creatinine elevated to 1.55, plus acute hypoxemic respiratory failure * Patient given 30 cc/kilogram of IV fluids in the emergency room, started on broad-spectrum antibiotics with Zosyn * White count elevated at 27, procalcitonin elevated at 23, * Respiratory panel positive for coronavirus OC 43 in addition to antral/rhino virus, COVID-19 is negative * Chest x-ray confirms left upper lobe infiltrate * Suspect bacterial pneumonia given markedly elevated white count and procalcitonin * Patient very likely has a bacterial superinfection, will continue Zosyn, will obtain sputum culture, will obtain blood cultures * Will repeat procalcitonin and follow for resolution * Oxygen given the patient's?acute hypoxemic respiratory failureType 2 diabetes * Will continue basal bolus insulin * Will hold metformin given the patient's elevated creatinine and him being hos pitalized * Sliding scale insulin has been redness wellHypertension * Patient typically on lisinopril, however given his elevated creatinine will hold the lisinopril * Will use IV hydralazine temporarilyHyperlipidemia * Continue statinHypothyroidism * Continue L-thyroxineAnxiety/depression * Continue Wellbutrin * Patient continues to have significant cough, his renal function is improving however his creatinine is still elevated * Will continue IV hydration, will check CT of the chest once his renal function has improved * Will continue antibiotics, start cough suppressant, * Continue DVT prophylaxis * Will continue to hold lisinopril until renal function has returned to normal Time Spent With Patient Critical Care time: I spent a total of [] minutes of critical care time on this patient's care today; this time is exclusive of procedural time.
--- NOTE | 2021-04-25 16:43 | DI.RAD.S_ITS ---
PROCEDURE: XR CHEST 1V INDICATIONS: shortness of breath TECHNIQUE: One view of the chest was acquired. COMPARISON: [facility], CR, XR CHEST 1V, 04/24/2021, 8:50. [facility], CR, XR CHEST 1V, 11/22/2020, 14:11. FINDINGS: Surgical changes and devices: None. Lungs and pleura: Consolidative left upper lobe opacity with a few air bronchograms. This is likely infectious pneumonia although an underlying mass lesion cannot be strictly excluded. No pleural effusions or pneumothorax. Mediastinum: Mediastinal contours appear normal. Heart size is normal. Bones and chest wall: No suspicious bony lesions. Overlying soft tissues appear unremarkable. IMPRESSION: Consolidative left upper lobe airspace opacity is most likely pneumonia although follow-up to both clinical and radiographic resolution will be needed to help exclude an underlying mass. Dictated by: Luis Guerra M.D. on 04/25/2021 at 17:04 Approved by: Luis Guerra M.D. on 04/25/2021 at 17:05
[2021-04-25 17:02] LABS: Hematocrit 34.5 % (41-53); Hemoglobin 11.4 g/dL (13.5-17.5); Mean Corpuscular HGB Conc 33.1 % (30-36); Mean Corpuscular Hemoglobin 29.6 PG (26-34); Mean Corpuscular Volume 89.4 fL (80-100); Platelet Count 219 X10^3/uL (150-400); Red Blood Cell Count 3.86 X10^6/uL (4.5-5.9); Red Cell Distribution Width 14.2 % (11.6-14.8); White Blood Cell Count 25.7 X10^3/uL (4.5-11.0)
[2021-04-25 17:03] LABS: Add Manual Diff / Slide Review YES
[2021-04-25 17:15] LABS: Fractionated Inspired Oxygen 36; HCO3 ABG 23 mmol/L (22-26); Oxygen Saturation ABG 96 % (95-100); PO2 ABG 85 mmHg (80-100); TCO2 ABG 24 mmol/L (21-31); pH ABG 7.38 (7.35-7.45)
[2021-04-25] MEDS: MEROPENEM 2 GM in SODIUM CHLORIDE 0.9% 100 ML 200 ML IV (18:14)
[2021-04-25 19:23] LABS: Neutrophils Absolute Manual 20303 /uL (3000-5900); Total Cells Counted 100
[2021-04-25 19:24] LABS: RBC Morphology Normal Morphology
--- NOTE | 2021-04-25 19:38 | PC.NURSE ---
Event Note Patient with episode of shortness of breath and desaturations to 70's on 1L NC. Patient place on high flow nasal cannula with change in O2 sats to 100% within 5 min. Patient moved back to bed and MD updated. New orders for STAT ABG and xray. Will continue to monitor.
[2021-04-25] MEDS: ATORVASTATIN 20 MG TABLET 40 MG PO (21:15)
[2021-04-25] MEDS: ZOLPIDEM 5 MG TABLET 10 MG PO (21:24)
[2021-04-25] MEDS: INSULIN GLARGINE 100 UNIT/ML 3ML PEN 30 UNIT SUBCUT (21:26)
[2021-04-26] VITALS (8 sets, daily range): BP systolic 110–153; BP diastolic 65–83; PULSE 84–107; RESP 17–20; TEMP 36.5–36.7; O2SAT 93–96
[2021-04-26] MEDS: MEROPENEM 2 GM in SODIUM CHLORIDE 0.9% 100 ML 200 ML IV ×3 (02:33→17:59)
[2021-04-26 06:04] LABS: Add Manual Diff / Slide Review YES; Hematocrit 34.8 % (41-53); Hemoglobin 11.8 g/dL (13.5-17.5); Mean Corpuscular HGB Conc 33.9 % (30-36); Mean Corpuscular Hemoglobin 29.7 PG (26-34); Mean Corpuscular Volume 87.7 fL (80-100); Platelet Count 260 X10^3/uL (150-400); Red Blood Cell Count 3.97 X10^6/uL (4.5-5.9); White Blood Cell Count 21.5 X10^3/uL (4.5-11.0)
[2021-04-26 06:06] LABS: BUN Creatinine Ratio 25.8 (6-22); Blood Urea Nitrogen 31 mg/dL (9-20); Carbon Dioxide 27 mmol/L (22-32); Chloride 106 mmol/L (98-107); Estimated Glomerular Filt Rate > 60.0 mL/min (>60); Glucose 128 mg/dL (80-110); HEMOLYSIS < 15 (0-50); Potassium 4.3 mmol/L (3.4-5.1); Sodium 137 mmol/L (137-145)
[2021-04-26 06:22] LABS: Procalcitonin 19.5 ng/mL (<0.5)
[2021-04-26 06:28] LABS: Neutrophils Absolute Manual 17200 /uL (3000-5900); Total Cells Counted 100
[2021-04-26 06:29] LABS: RBC Morphology Normal Morphology
[2021-04-26] MEDS: LEVOTHYROXINE 125 MCG TABLET PO (06:39)
[2021-04-26] MEDS: CODEINE/GUAIFENESIN LIQUID 5ML UDC 10 ML PO ×4 (07:33→20:38)
[2021-04-26] MEDS: ENOXAPARIN 40 MG/0.4 ML SYRINGE SUBCUT (09:51)
[2021-04-26] MEDS: buPROPion XL 150 MG TAB PO (09:51)
[2021-04-26] MEDS: INSULIN LISPRO 100 UNIT/ML 3ML VIAL SUBCUT ×2 (12:14→17:50)
[2021-04-26] MEDS: SODIUM CHLORIDE 0.45% 1,000 ML 100 ML IV (12:22)
[2021-04-26] MEDS: OXYCODONE IR 5 MG TABLET PO (14:24)
[2021-04-26] MEDS: BENZOCAINE/MENTHOL 1 LOZ PKT 1 EACH PO (14:24)
--- NOTE | 2021-04-26 16:38 | CM.DANOTE ---
Addendum entered by Evette Garibay 04/26/21 16:46: Patient currently on 2liters of 02. Unclear if patient will need 02 at time of d/c. [facility] Original Note: DCP/Assessment: Reviewed chart. Patient is a 66yr old male admitted to I.. with SOB. PCP is Dr. Rocha. Primary payor is 1)[facility]. Met with patient this afternoon explained CM/SW role. Patient sitting in chair at time of visit. Patient reports that she is completely I with all ADL's. Patient is employed with [employer] and works full-time. Patient initially thought to have COVID but test(s) negative. Patient reports that he has not felt this sick for 30+ years. Patient continues with bad cough during assessment. Precautions for visitors in place and type of COVID not ruled out? P: Anticipate home when patient medically stable. At this time patient does not anticipate any needs. D/C date unknown at this time. CM team to continue to follow. [facility] Discharge Planning/Care Management CM Discharge Assessment Start: 04/26/21 16:36 Freq: Status: Active Protocol: Document 04/26/21 16:36 [facility] (Rec: 04/26/21 16:38 [facility] [id number]) Discharge Planning Assessment Assigned Fixture Maker KALLIE Pulido Contact Information Amita Bauer (sister) # Advance Directives? No History Provided By Patient,Medical Record Prior Living Arrangements [facility] Comment Patient reports that he rents room in [place]. Household Members other Type of transporation used prior to Drives own vehicle admit Independent with ADL's Yes Is patient alert and oriented? Yes Caregiver for Another No Barriers to Discharge No Discharge Plan Home Transportation Arrangement Friends or self? Whiteboard Updated in Patient Room with Yes name and ext. # of Fixture Maker Review Status In Process Next Review Type Continued Stay Review
[2021-04-26] MEDS: HYDROCORTISONE 2.5% OINT 28 GM 1 APPLIC TOP (16:46)
[2021-04-26] MEDS: ATORVASTATIN 20 MG TABLET 40 MG PO (18:02)
[2021-04-26] MEDS: INSULIN GLARGINE 100 UNIT/ML 3ML PEN 30 UNIT SUBCUT (20:39)
[2021-04-27] VITALS (7 sets, daily range): BP systolic 147–164; BP diastolic 81–95; PULSE 72–90; RESP 16–19; TEMP 36.4–37; O2SAT 95–97
[2021-04-27] MEDS: CODEINE/GUAIFENESIN LIQUID 5ML UDC 10 ML PO ×6 (00:06→20:53)
[2021-04-27] MEDS: MEROPENEM 2 GM in SODIUM CHLORIDE 0.9% 100 ML 200 ML IV (02:11)
[2021-04-27] MEDS: BENZOCAINE/MENTHOL 1 LOZ PKT 1 EACH PO ×2 (04:28→20:53)
[2021-04-27] MEDS: LEVOTHYROXINE 125 MCG TABLET PO (04:30)
[2021-04-27] MEDS: OXYCODONE IR 5 MG TABLET PO (04:53)
[2021-04-27 05:55] LABS: BUN Creatinine Ratio 23.6 (6-22); Blood Urea Nitrogen 26 mg/dL (9-20); Calcium 9.4 mg/dL (8.4-10.2); Carbon Dioxide 25 mmol/L (22-32); Chloride 106 mmol/L (98-107); Estimated Glomerular Filt Rate > 60.0 mL/min (>60); Glucose 133 mg/dL (80-110); HEMOLYSIS 47 (0-50); Potassium 4.8 mmol/L (3.4-5.1); Sodium 138 mmol/L (137-145)
[2021-04-27 06:03] LABS: Hematocrit 35.4 % (41-53); Mean Corpuscular HGB Conc 33.9 % (30-36); Mean Corpuscular Hemoglobin 29.8 PG (26-34); Mean Corpuscular Volume 87.7 fL (80-100); Platelet Count 238 X10^3/uL (150-400); Red Blood Cell Count 4.04 X10^6/uL (4.5-5.9); Red Cell Distribution Width 14.4 % (11.6-14.8); White Blood Cell Count 15.4 X10^3/uL (4.5-11.0)
[2021-04-27 06:10] LABS: Add Manual Diff / Slide Review YES
[2021-04-27 06:13] LABS: Procalcitonin 10.1 ng/mL (<0.5)
[2021-04-27 08:04] LABS: Neutrophils Absolute Manual 11550 /uL (3000-5900); Total Cells Counted 100
[2021-04-27 08:05] LABS: RBC Morphology Normal Morphology
[2021-04-27] MEDS: BENZONATATE 100 MG CAPSULE PO (08:32)
[2021-04-27] MEDS: buPROPion XL 150 MG TAB PO (08:32)
[2021-04-27] MEDS: ENOXAPARIN 40 MG/0.4 ML SYRINGE SUBCUT (08:32)
[2021-04-27] MEDS: lisinopriL 20 MG TABLET PO (08:35)
--- NOTE | 2021-04-27 10:47 | P.PN_ITS ---
Subjective Subjective Date Patient Seen: 04/27/21 Interval history: The patient continues to complain of feeling poorly, he reports the cough is the significant piece of him feeling bad. He complains of abdominal pain from coughing. He is oxygenating well at rest, his O2 sat is 95-97%. Patient reports wheezing today Exam Vital Signs (past 8 hours): - 04/27/21 03:07 04/27/21 07:00 04/27/21 08:35 Temperature 98.1 F 98 F Pulse Rate 72 76 76 Respiratory Rate 18 19 Blood Pressure 159/90 H 147/81 H 147/81 H Pulse Oximetry 97 96 04/27/21 10:13 Temperature Pulse Rate Respiratory Rate Blood Pressure Pulse Oximetry 97 Fraction of Inspired Oxygen 95 Oxygen Delivery Method Room Air Oxygen Flow Rate 0 Narrative Exam Narrative: Ill-appearing male lying in bed Resp Other: Lungs: Decreased breath sounds with scattered rhonchi bilaterally Cardio Other: Regular rate and rhythm normal S1-S2 GI Other: Abdomen: Soft nontender nondistended Extrem Other: No edema Objective Labs Result Diagrams: 04/27/21 05:05 04/27/21 05:05 Labs: Laboratory Results - last 24 hr 04/27/21 04/27/21 04/27/21 05:05 05:05 05:05 WBC 15.4 H RBC 4.04 L Hgb 12.0 L Hct 35.4 L MCV 87.7 MCH 29.8 MCHC 33.9 RDW 14.4 Plt Count 238 Neut % (Auto) Not Reportable Lymph % (Auto) Not Reportable [place] % (Auto) Not Reportable Eos % (Auto) Not Reportable Baso % (Auto) Not Reportable Lymph # (Auto) Not Reportable [place] # (Auto) Not Reportable Baso # (Auto) Not Reportable Total Counted 100 Seg Neutrophils % 61.0 Band Neutrophils % 14.0 H Lymphocytes % (Manual) 16.0 L Monocytes % (Manual) 6.0 Eosinophils % (Manual) 2.0 Basophils % (Manual) 1.0 Neutrophils # (Manual) 81949 H RBC Morphology Normal morphology Sodium 138 Potassium 4.8 Chloride 106 Carbon Dioxide 25 BUN 26 H Creatinine 1.10 Estimated GFR > 60.0 BUN/Creatinine Ratio 23.6 H Glucose 133 H Calcium 9.4 Procalcitonin 10.1 H [facility] Medical History (Updated 04/24/21 @ 19:20 by Osei Hernandez MD) Chronic back pain (2004) CTS (carpal tunnel syndrome) (1994) Depression (1997) Diabetes mellitus (1999) Esophageal obstruction due to food impaction (05/07/16) Foot pain (2004) Shoulder pain (2009) Sleep apnea (2009) Surgical History History of esophagogastroduodenoscopy (EGD) (05/08/16) Status post laparoscopic cholecystectomy Family History Mother Loud snoring Restless leg Hypertension Diabetes mellitus Depression Family/Other Restless leg Obesity Hypertension Depression Anxiety Social History marital status: household members: other lives independently: Yes education level: high school occupational status: employed Smoking Status: Never smoker alcohol intake: never substance use type: does not use Assessment & Plan Assessment & Plan narrative: 66-year-old male with a history of type 2 diabetes, hypertension, hypothyroidism, depression, admitted to the hospital with left upper lobe pneumonia * Patient presents with?severe sepsis, manifested by end-organ damage to include renal function, creatinine elevated to 1.55, plus acute hypoxemic respiratory failure * Patient given 30 cc/kilogram of IV fluids in the emergency room, started on broad-spectrum antibiotics with Zosyn * White count elevated at 27, procalcitonin elevated at 23, * Respiratory panel positive for coronavirus OC 43 in addition to antral/rhino virus, COVID-19 is negative * Chest x-ray confirms left upper lobe infiltrate * Suspect bacterial pneumonia given markedly elevated white count and procalcito sherwin * Patient very likely has a bacterial superinfection, will continue Zosyn, will obtain sputum culture, will obtain blood cultures * Will repeat procalcitonin and follow for resolution * Oxygen given the patient's?acute hypoxemic respiratory failureType 2 diabetes * Will continue basal bolus insulin * Will hold metformin given the patient's elevated creatinine and him being hospitalized * Sliding scale insulin has been redness wellHypertension * Patient typically on lisinopril, however given his elevated creatinine will hold the lisinopril * Will use IV hydralazine temporarilyHyperlipidemia * Continue statinHypothyroidism * Continue L-thyroxineAnxiety/depression * Continue Wellbutrin * Patient continues to have significant cough, his renal function is improving however his creatinine is still elevated * Will continue IV hydration, will check CT of the chest once his renal function has improved, today * Will continue antibiotics, start cough suppressant, * Continue DVT prophylaxis * albuterol nebs, cough suppressants. Time Spent With Patient Critical Care time: I spent a total of [] minutes of critical care time on this patient's care today; this time is exclusive of procedural time.
[2021-04-27] MEDS: MEROPENEM 1 GM in SODIUM CHLORIDE 0.9% 100 ML 200 ML IV ×2 (10:58→17:04)
[2021-04-27] MEDS: diphenhydrAMINE 50 MG/ML VIAL IV (11:11)
--- NOTE | 2021-04-27 11:21 | DI.CT.S_ITS ---
PROCEDURE: CT CHEST W CON INDICATIONS: f/u pneumonia TECHNIQUE: After the administration of intravenous contrast, 5 mm thick sections acquired from the pulmonary apices to the posterior costophrenic angles. 1 mm axial lung, 5 mm thick coronal and sagittal reformats and 7 mm axial MIP were acquired. For radiation dose reduction, the following was used: automated exposure control, adjustment of mA and/or kV according to patient size. COMPARISON: [facility], CR, XR CHEST 1V, 04/25/2021, 16:49. [facility], CR, XR CHEST 1V, 04/24/2021, 8:50. [facility], CR, XR CHEST 1V, 11/22/2020, 14:11. FINDINGS: Image quality: Excellent. Lungs and pleura: Dense consolidative pneumonia, left upper lobe posterior pickle segment. Small focal area of consolidation, lateral segment right middle lobe. No pleural effusions or pneumothorax. Central and peripheral airways are patent and normal in caliber. Mediastinum: Heart size is normal. No pericardial effusion. Moderate coronary artery calcifications. No mediastinal or hilar adenopathy by size criteria. Thoracic aorta and central pulmonary arteries are normal in size. Esophagus is normal in caliber. No hiatal hernia. Bones and chest wall: No suspicious bony lesions. No vertebral body compression fractures. No axillary or supraclavicular adenopathy by size criteria. Thyroid gland is unremarkable. Abdomen: Visualized upper abdominal solid organs appear normal. Upper abdominal bowel loops are normal in caliber. IMPRESSION: 1. Large pneumonia, right upper lobe. 2. Small focal pneumonia, right middle lobe. Comment: Suggest progress films till clear. Dictated by: Magdy Dimas M.D. on 04/27/2021 at 12:25 Approved by: Magdy Dimas M.D. on 04/27/2021 at 12:29
[2021-04-27] MEDS: INSULIN LISPRO 100 UNIT/ML 3ML VIAL SUBCUT ×3 (11:47→20:54)
[2021-04-27] MEDS: HYDROCORTISONE 100 MG/2 ML VIAL 50 MG IV ×3 (12:35→23:58)
[2021-04-27] MEDS: ATORVASTATIN 20 MG TABLET 40 MG PO (18:46)
[2021-04-27] MEDS: INSULIN GLARGINE 100 UNIT/ML 3ML PEN 30 UNIT SUBCUT (20:54)
[2021-04-28] MEDS: MEROPENEM 1 GM in SODIUM CHLORIDE 0.9% 100 ML 200 ML IV ×3 (01:47→18:49)
[2021-04-28] MEDS: CODEINE/GUAIFENESIN LIQUID 5ML UDC 10 ML PO ×5 (01:48→21:01)
[2021-04-28] MEDS: BENZOCAINE/MENTHOL 1 LOZ PKT 1 EACH PO ×3 (03:55→17:10)
[2021-04-28] MEDS: LEVOTHYROXINE 125 MCG TABLET PO (06:17)
[2021-04-28] MEDS: HYDROCORTISONE 100 MG/2 ML VIAL 50 MG IV (06:17)
[2021-04-28] MEDS: INSULIN LISPRO 100 UNIT/ML 3ML VIAL SUBCUT ×4 (07:58→21:00)
[2021-04-28 08:00] VITALS: BP 148/95; BP 158/85; PULSE 80; RESP 16; O2SAT 97
[2021-04-28] MEDS: lisinopriL 20 MG TABLET PO (08:00)
[2021-04-28] MEDS: ENOXAPARIN 40 MG/0.4 ML SYRINGE SUBCUT (08:00)
[2021-04-28] MEDS: buPROPion XL 150 MG TAB PO (08:01)
--- NOTE | 2021-04-28 11:47 | P.PN_ITS ---
Subjective Subjective Date Patient Seen: 04/28/21 Interval history: The patient is a 66-year-old male admitted to the hospital with left upper lobe pneumonia. He continues to have significant cough. The patient reports feeling poorly. He complains of feeling short of breath. He was in the bathroom and felt quite dizzy and nearly passed out. Despite that the patient's oxygenation on room air at rest is at 97%. Exam Vital Signs (past 8 hours): - 04/28/21 08:00 Pulse Rate 80 Respiratory Rate 16 Blood Pressure 158/85 H Pulse Oximetry 97 Fraction of Inspired Oxygen 95 Oxygen Delivery Method Room Air Oxygen Flow Rate 0 Narrative Exam Narrative: Ill-appearing male sitting in a chair HENMT Other: Normocephalic atraumatic, extraocular muscles are intact, oropharynx is clear, patient has blisters on his lips Resp Other: Decreased breath sounds with occasional scattered rhonchi Cardio Other: Cardiac exam: Regular rate and rhythm normal S1-S2 with a 2/6 systolic ejection murmur GI Other: Abdomen soft nontender nondistended Skin Other: back with erythematous macular eruption, itchy, warm Extrem Other: Extremity no edema Objective Labs Result Diagrams: 04/27/21 05:05 04/27/21 05:05 [facility] Medical History (Updated 04/24/21 @ 19:20 by Osei Hernandez MD) Chronic back pain (2004) CTS (carpal tunnel syndrome) (1994) Depression (1997) Diabetes mellitus (1999) Esophageal obstruction due to food impaction (05/07/16) Foot pain (2004) Shoulder pain (2009) Sleep apnea (2009) Surgical History History of esophagogastroduodenoscopy (EGD) (05/08/16) Status post laparoscopic cholecystectomy Family History Mother Loud snoring Restless leg Hypertension Diabetes mellitus Depression Family/Other Restless leg Obesity Hypertension Depression Anxiety Social History marital status: household members: other lives independently: Yes education level: high school occupational status: employed Smoking Status: Never smoker alcohol intake: never substance use type: does not use Assessment & Plan Assessment & Plan narrative: 66-year-old male with a history of type 2 diabetes, hypertension, hypothyroidism, depression, admitted to the hospital with left upper lobe pneumonia * Patient presents with?severe sepsis, manifested by end-organ damage to include renal function, creatinine elevated to 1.55, plus acute hypoxemic respiratory failure * Acute Renal Failure, present on admission secondary to Sepsis, now resolved * Patient given 30 cc/kilogram of IV fluids in the emergency room, started on broad-spectrum antibiotics with Zosyn * White count elevated at 27, procalcitonin elevated at 23,WBC 15k TODAY * Respiratory panel positive for coronavirus OC 43 in addition to antral/rhino virus, COVID-19 is negative * Chest x-ray confirms left upper lobe infiltrate, CT SCAN OF CHEST Confirms extensive Left Upper Lobe infiltrate * Suspect bacterial pneumonia given markedly elevated white count and procalcitonin * Patient very likely has a bacterial superinfection, will continue Meropenem, will obtain sputum culture, will obtain blood cultures * Will repeat procalcitonin and follow for resolution * Oxygen given the patient's?acute hypoxemic respiratory failureType 2 diabetes * Will continue basal bolus insulin * Will hold metformin given the patient's elevated creatinine and him being hospitalized * Sliding scale insulin has been redness wellHypertension * Continue statinHypothyroidism * Continue L-thyroxineAnxiety/depression * Continue Wellbutrin * Patient continues to have significant cough, his renal function is improving however his creatinine is still elevated * * Will continue antibiotics, start cough suppressant, * Continue DVT prophylaxis , cough suppressants. will defer nebs as he is not wheezing Consult PT for chest physiotherapy. continue hydrocortisone cream for back Continue IV antibiotics given severity and extensiveness of pneumonia Time Spent With Patient Critical Care time: I spent a total of [] minutes of critical care time on this patient's care today; this time is exclusive of procedural time.
[2021-04-28 11:55] VITALS: BP 152/76; PULSE 84; RESP 16; TEMP 36.7; O2SAT 94
[2021-04-28 12:10] LABS: Hematocrit 36.9 % (41-53); Hemoglobin 12.3 g/dL (13.5-17.5); Mean Corpuscular HGB Conc 33.5 % (30-36); Mean Corpuscular Hemoglobin 29.5 PG (26-34); Mean Corpuscular Volume 88.2 fL (80-100); Platelet Count 326 X10^3/uL (150-400); Red Blood Cell Count 4.18 X10^6/uL (4.5-5.9); Red Cell Distribution Width 14.5 % (11.6-14.8); White Blood Cell Count 19.2 X10^3/uL (4.5-11.0)
[2021-04-28 12:18] LABS: Add Manual Diff / Slide Review YES
[2021-04-28 12:22] LABS: BUN Creatinine Ratio 25.6 (6-22); Blood Urea Nitrogen 31 mg/dL (9-20); Calcium 9.5 mg/dL (8.4-10.2); Carbon Dioxide 26 mmol/L (22-32); Chloride 103 mmol/L (98-107); Estimated Glomerular Filt Rate 59.6 mL/min (>60); Glucose 298 mg/dL (80-110); HEMOLYSIS < 15 (0-50); Potassium 4.6 mmol/L (3.4-5.1); Sodium 137 mmol/L (137-145)
[2021-04-28] MEDS: HYDROCORTISONE 2.5% OINT 28 GM 1 APPLIC TOP (12:42)
[2021-04-28 12:50] LABS: Neutrophils Absolute Manual 15168 /uL (3000-5900); Total Cells Counted 100
[2021-04-28 12:53] LABS: Anisocytosis 1+; Polychromasia 1+
[2021-04-28 16:29] VITALS: BP 153/89; PULSE 86; RESP 18; TEMP 36.7; O2SAT 96
[2021-04-28 17:00] VITALS: BP 153/89; PULSE 86; RESP 18; TEMP 36.7; O2SAT 96
[2021-04-28] MEDS: BENZONATATE 100 MG CAPSULE PO (17:09)
[2021-04-28] MEDS: ATORVASTATIN 20 MG TABLET 40 MG PO (18:48)
[2021-04-28] MEDS: ACETAMINOPHEN 325 MG TABLET 650 MG PO (18:48)
--- NOTE | 2021-04-28 19:34 | PC.NURSE ---
A&Ox4. Hypertensive, 153/89. All other vitals stable. Room air 96%. Non productive cough, given PRN gauifenesin, benzocaine/menthol lozenge, and benzonatate with some relief. Good appetite. Lung sounds diminished throughout. Rash on upper back, hydrocortisone applied. Patient has chronic low back pain and was given Tylenol. Call light within reach, bed low.
[2021-04-28 20:36] VITALS: BP 170/78; PULSE 76; RESP 18; TEMP 36.5; O2SAT 95
[2021-04-28] MEDS: INSULIN GLARGINE 100 UNIT/ML 3ML PEN 30 UNIT SUBCUT (21:00)
[2021-04-28] MEDS: LIDOCAINE PATCH 1 EACH ADH..PATCH TOP (23:39)
[2021-04-28] MEDS: guaiFENesin Solution 100 MG/5 ML UDC 200 MG PO (23:40)
[2021-04-28] MEDS: OXYCODONE IR 5 MG TABLET PO (23:40)
[2021-04-29 00:10] VITALS: BP 159/96; PULSE 71; RESP 18; TEMP 36.5; O2SAT 96
[2021-04-29] MEDS: CODEINE/GUAIFENESIN LIQUID 5ML UDC 10 ML PO ×2 (01:57→05:05)
--- NOTE | 2021-04-29 02:24 | P.PN_ITS ---
Subjective Subjective Date Patient Seen: 04/29/21 Interval history: Patient seen at request of nurses to evaluate pruritic rash on upper back. Has been present for at least 8 hrs. Seems to have started with merepenem dose earlier today. Patient denies any tongue swelling or shortness of breath Exam Vital Signs (past 8 hours): - 04/28/21 20:36 04/29/21 00:10 Temperature 97.7 F 97.7 F Pulse Rate 76 71 Respiratory Rate 18 18 Blood Pressure 170/78 H 159/96 H Pulse Oximetry 95 96 Fraction of Inspired Oxygen 95 Oxygen Delivery Method Room Air Oxygen Flow Rate 0 Const General: cooperative, comfortable and No acute distress Eyes Eyelids: eyelids normal Conjunctivae: conjunctivae normal EOM: EOM intact bilaterally Resp Effort & Inspection: normal respiratory effort, able to speak in complete sentences, no audible wheezes, no cough and no stridor Auscultation: clear to auscultation bilaterally Cardio Rate: regular rate Rhythm: regular rhythm Skin Other: Blanchable erythematous rash across upper back Objective Labs Result Diagrams: 04/28/21 11:52 04/28/21 11:52 Labs: Laboratory Results - last 24 hr 04/28/21 04/28/21 11:52 11:52 WBC 19.2 H RBC 4.18 L Hgb 12.3 L Hct 36.9 L MCV 88.2 MCH 29.5 MCHC 33.5 RDW 14.5 Plt Count 326 Neut % (Auto) Not Reportable Lymph % (Auto) Not Reportable [place] % (Auto) Not Reportable Eos % (Auto) Not Reportable Baso % (Auto) Not Reportable Lymph # (Auto) Not Reportable [place] # (Auto) Not Reportable Baso # (Auto) Not Reportable Total Counted 100 Seg Neutrophils % 75.0 H Band Neutrophils % 4.0 Lymphocytes % (Manual) 9.0 L Atypical Lymphs % 1.0 H Monocytes % (Manual) 5.0 Metamyelocytes % 5.0 H Promyelocytes % 1.0 H Neutrophils # (Manual) 51892 H RBC Morphology See below Polychromasia 1+ H Anisocytosis 1+ H Sodium 137 Potassium 4.6 Chloride 103 Carbon Dioxide 26 BUN 31 H Creatinine 1.21 Estimated GFR 59.6 L BUN/Creatinine Ratio 25.6 H Glucose 298 H D Calcium 9.5 PFSH Medical History (Updated 04/24/21 @ 19:20 by Osei Hernandez MD) Chronic back pain (2004) CTS (carpal tunnel syndrome) (1994) Depression (1997) Diabetes mellitus (1999) Esophageal obstruction due to food impaction (05/07/16) Foot pain (2004) Shoulder pain (2009) Sleep apnea (2009) Surgical History History of esophagogastroduodenoscopy (EGD) (05/08/16) Status post laparoscopic cholecystectomy Family History Mother Loud snoring Restless leg Hypertension Diabetes mellitus Depression Family/Other Restless leg Obesity Hypertension Depression Anxiety Social History marital status: household members: other lives independently: Yes education level: high school occupational status: employed Smoking Status: Never smoker alcohol intake: never substance use type: does not use Assessment & Plan Assessment & Plan narrative: New onset rash concerning for hypersensitivity reaction - hold meropenem - give oral diphenhydramine 50 mg po once Time Spent With Patient Critical Care time: I spent a total of [] minutes of critical care time on this patient's care today; this time is exclusive of procedural time.
[2021-04-29] MEDS: diphenhydrAMINE 25 MG TABLET 50 MG PO (02:28)
--- NOTE | 2021-04-29 03:04 | PC.NURSE ---
POSSIBLE ALLERGIC REACTION TO MEROPENEM. PROVIDER NOTIFIED OF RASH TO UPPER BACK, UPPER CHEST, AND LEFT ARM. PATIENT REPORTS REDDENED SITES ARE ITCHY. PROVIDER ORDERED TO HOLD THE MEROPENEM AND GIVE 50 MG BENADRY PO. VSS. WILL REASSESS IN 1 HR.
--- NOTE | 2021-04-29 04:01 | PC.NURSE ---
ATTEMPTED TO REASSESS RASH TO UPPER BACK, LEFT ARM, AND UPPER CHEST. PATIENT WAS ASLEEP. GIVEN THAT HE HAD NOT SLEPT WELL IN 2 NIGHTS, I DECIDED TO LET HIM SLEEP AND ASSESS LATER WHEN HE IS AWAKE.
[2021-04-29 04:11] LABS: Clostridium Difficile Tox PCR Negative for C. diff (Negative)
[2021-04-29] MEDS: LOPERAMIDE 2 MG CAPSULE PO (05:05)
[2021-04-29] MEDS: LEVOTHYROXINE 125 MCG TABLET PO (05:05)
[2021-04-29] MEDS: BENZONATATE 100 MG CAPSULE PO (05:05)
--- NOTE | 2021-04-29 05:19 | PC.NURSE ---
RASH REASSESSMENT - RASH TO UPPER BACK, LEFT ARM, AND UPPER CHEST HAS SLIGHT IMPROVEMENT WITH REDNESS BECOMING LESS APPARENT IN THE MIDDLE OF HIS UPPER BACK, BUT STILL VERY RED AND ITCHY. PATIENT IS NOT ABNORMALLY SHORT OF BREATH GIVEN HIS DIAGNOSIS OF PNEUMONIA. NO WHEEZING. VSS. PROVIDER NOTIFIED. PROVIDER ORDERED TO STILL HOLD THE MEROPENEM AND PASS ALONG IN REPORT OF HOLD MEROPENEM UNTIL THE DAY SHIFT PROVIDER CAN REASSESS TO DETERMINE PLAN.
[2021-04-29 07:13] LABS: Hematocrit 35.4 % (41-53); Hemoglobin 11.9 g/dL (13.5-17.5); Mean Corpuscular HGB Conc 33.6 % (30-36); Mean Corpuscular Hemoglobin 29.4 PG (26-34); Mean Corpuscular Volume 87.7 fL (80-100); Platelet Count 332 X10^3/uL (150-400); Red Blood Cell Count 4.04 X10^6/uL (4.5-5.9); Red Cell Distribution Width 14.4 % (11.6-14.8); White Blood Cell Count 15.7 X10^3/uL (4.5-11.0)
[2021-04-29 07:14] LABS: Add Manual Diff / Slide Review YES
[2021-04-29 07:26] LABS: Alanine Aminotransferase 80 IU/L (<50); Albumin 3.4 g/dL (3.5-5.0); Albumin Globulin Ratio 1.1 (1.0-2.8); Alkaline Phosphatase 100 U/L (38-126); Aspartate Aminotransferase 61 IU/L (17-59); BUN Creatinine Ratio 24.4 (6-22); Bilirubin Total 0.5 mg/dL (0.2-1.3); Blood Urea Nitrogen 29 mg/dL (9-20); Calcium 9.1 mg/dL (8.4-10.2); Carbon Dioxide 26 mmol/L (22-32); Chloride 106 mmol/L (98-107); Estimated Glomerular Filt Rate > 60.0 mL/min (>60); Glucose 113 mg/dL (80-110); HEMOLYSIS < 15 (0-50); Potassium 3.7 mmol/L (3.4-5.1); Sodium 137 mmol/L (137-145); Total Protein 6.4 g/dL (6.3-8.2)
[2021-04-29 08:00] VITALS: BP 150/84; PULSE 64; RESP 17; TEMP 36.6; O2SAT 95
--- NOTE | 2021-04-29 08:37 | CM.DPNOTE ---
DCP Note Reviewed chart, patient discussed w/Dr Hubbard. DCP remains return home upon DC and patient is indp in room Dr Hubbard anticipates keeping patient admitted for at least another 24-48 hrs for IV abx d/t the severity of this pneumonia CM team will follow closely in case any DC needs or concerns arise. 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 CAMELIA
--- NOTE | 2021-04-29 08:58 | P.PN_ITS ---
Subjective Subjective Date Patient Seen: 04/29/21 Interval history: THIS IS A 66-YEAR-OLD MALE ADMITTED TO THE HOSPITAL WITH RESPIRATORY INSUFFICIENCY. HE HAS BEEN TREATED FOR A LARGE RIGHT LOWER LOBE PNEUMONIA. THIS IS A COMMUNITY-ACQUIRED PNEUMONIA. THIS MORNING HE REPORTED SOME GENERALIZED WEAKNESS BUT NO INCREASING SHORTNESS OF BREATH OR DYSPNEA ON EXERTION HE DOES FEEL SLIGHTLY BETTER DENIES ANY FEVER OR CHILLS REPORTED SOME OCCASIONAL COUGH DENIES ANY HISTORY OF TOBACCO ABUSE OR ASTHMA/EMPHYSEMA Exam Vital Signs (past 8 hours): - 04/29/21 08:00 Temperature 97.8 F Pulse Rate 64 Respiratory Rate 17 Blood Pressure 150/84 H Pulse Oximetry 95 Fraction of Inspired Oxygen 95 Oxygen Delivery Method Room Air Oxygen Flow Rate 0 Narrative Exam Narrative: NO ACUTE DISTRESS. PATIENT IS ALERT ORIENTED X3. APPEARS STATED AGE VITAL SIGNS STABLE ON ROOM AIR HEAD ATRAUMATIC NORMOCEPHALIC NECK : SUPPLE WITHOUT ADENOPATHY NO CAROTID BRUITS EYE: EOMI, PERRLA, NORMAL CONJUNCTIVA; NO JAUNDICE CHEST: REGULAR RATE. NO RUBS. PMI IS NON DISPLACED. NO MURMURS; NORMAL S1- S2 PULMONARY: DECREASED BREATH SOUND AT THE BASES. SOME BIBASILAR CRACKLES APPRECIATED. MILD WHEEZING ALSO APPRECIATED AT THE APICES. ABDOMEN: OBESE BUT SOFT. NONTENDER. NONDISTENDED. BOWEL SOUNDS ARE PRESENT IN ALL 4 QUADRANTS. NO MASS. EXTREMITIES: TRACE BILATERAL LOWER EXTREMITY EDEMA.. NO CYANOSIS CLUBBING NOTED. NEURO: CRANIAL NERVES 2-12 GROSSLY INTACT. NO FOCAL NEUROLOGICAL DEFICIT NOTED. MSK: NORMAL RANGE OF MOTION FOR AGE. NO JOINT EFFUSION. SKIN: NORMAL FOR ETHNICITY; NO ECCHYMOSIS. NO LESION. GOOD TURGOR.; NO RASHES : NORMAL EXTERNAL GENITALIA. PSYCH : APPROPRIATE MOOD AND AFFECT. ALERT AWAKE ORIENTED X3 Objective Labs Result Diagrams: 04/29/21 06:53 04/29/21 06:53 Labs: Laboratory Results - last 24 hr 04/28/21 04/28/21 04/29/21 11:52 11:52 02:50 WBC 19.2 H RBC 4.18 L Hgb 12.3 L Hct 36.9 L MCV 88.2 MCH 29.5 MCHC 33.5 RDW 14.5 Plt Count 326 Neut % (Auto) Not Reportable Lymph % (Auto) Not Reportable [place] % (Auto) Not Reportable Eos % (Auto) Not Reportable Baso % (Auto) Not Reportable Lymph # (Auto) Not Reportable [place] # (Auto) Not Reportable Baso # (Auto) Not Reportable Total Counted 100 Seg Neutrophils % 75.0 H Band Neutrophils % 4.0 Lymphocytes % (Manual) 9.0 L Atypical Lymphs % 1.0 H Monocytes % (Manual) 5.0 Metamyelocytes % 5.0 H Promyelocytes % 1.0 H Neutrophils # (Manual) 18702 H RBC Morphology See below Polychromasia 1+ H Anisocytosis 1+ H Sodium 137 Potassium 4.6 Chloride 103 Carbon Dioxide 26 BUN 31 H Creatinine 1.21 Estimated GFR 59.6 L BUN/Creatinine Ratio 25.6 H Glucose 298 H D Calcium 9.5 Total Bilirubin AST ALT Alkaline Phosphatase Total Protein Albumin Globulin Albumin/Globulin Ratio C. difficile Tox (PCR) Negative for c. diff 04/29/21 04/29/21 06:53 06:53 WBC 15.7 H RBC 4.04 L Hgb 11.9 L Hct 35.4 L MCV 87.7 MCH 29.4 MCHC 33.6 RDW 14.4 Plt Count 332 Neut % (Auto) Not Reportable Lymph % (Auto) Not Reportable [place] % (Auto) Not Reportable Eos % (Auto) Not Reportable Baso % (Auto) Not Reportable Lymph # (Auto) Not Reportable [place] # (Auto) Not Reportable Baso # (Auto) Not Reportable Total Counted Seg Neutrophils % Band Neutrophils % Lymphocytes % (Manual) Atypical Lymphs % Monocytes % (Manual) Metamyelocytes % Promyelocytes % Neutrophils # (Manual) RBC Morphology Polychromasia Anisocytosis Sodium 137 Potassium 3.7 Chloride 106 Carbon Dioxide 26 BUN 29 H Creatinine 1.19 Estimated GFR > 60.0 BUN/Creatinine Ratio 24.4 H Glucose 113 H D Calcium 9.1 Total Bilirubin 0.5 AST 61 H ALT 80 H Alkaline Phosphatase 100 Total Protein 6.4 Albumin 3.4 L Globulin 3.0 Albumin/Globulin Ratio 1.1 C. difficile Tox (PCR) [facility] Medical History (Updated 04/24/21 @ 19:20 by Osei Hernandez MD) Chronic back pain (2004) CTS (carpal tunnel syndrome) (1994) Depression (1997) Diabetes mellitus (1999) Esophageal obstruction due to food impaction (05/07/16) Foot pain (2004) Shoulder pain (2010) Sleep apnea (2010) Surgical History History of esophagogastroduodenoscopy (EGD) (05/08/16) Status post laparoscopic cholecystectomy Family History Mother Loud snoring Restless leg Hypertension Diabetes mellitus Depression Family/Other Restless leg Obesity Hypertension Depression Anxiety Social History marital status: household members: other lives independently: Yes education level: high school occupational status: employed Smoking Status: Never smoker alcohol intake: never substance use type: does not use Assessment & Plan Assessment & Plan narrative: PROBLEM LIST COMMUNITY-ACQUIRED PNEUMONIA. CONTINUE ANTIBIOTICS. RIGHT LOWER LOBE PNEUMONIA NOTED ON CT SCAN LEUKOCYTOSIS POSSIBLE SEPSIS. PRESENT ON ARRIVAL. SOURCE IS LIKELY THE LUNG OBESITY. LIFESTYLE CHANGES RECOMMENDED. ANEMIA. LIKELY OF CHRONIC DISEASE DIABETES TYPE 2 HYPERLIPIDEMIA PLAN WILL START PATIENT ON DUONEB TREATMENTS WILL ALSO START ON MUCINEX. CONSIDER MUCOMYST CHANGE ANTIBIOTICS TO CEFEPIME, FLAGYL WELL DOXY WILL ADD ANTIFUNGAL THERAPY WELL IF INDICATED CLINICALLY ANTI-REFLUX MEDICATIONS ORDERED AGGRESSIVE PULMONARY TOILETING NURSING TO TEACH PATIENT TO TURN, COUGH, AND DEEP BREATHE MOBILIZE MUCH TOLERATED OXYGEN TREATMENT TO MAINTAIN OXYGEN SATURATION ABOVE 88% AT ALL TIME PATIENT TO BE OUT OF BED WITH EACH MEAL MONITOR INPUT/ OUTPUT CLOSELY WILL ORDER INCENTIVE SPIROMETER DEVICE TO BE USED WHILE AWAKE ADDITIONAL MANAGEMENT PER CLINICAL COURSE LIKELY DISCHARGE IN NEXT 24-48 HOURS TO HOME WITH OR WITHOUT HOME HEALTH Time Spent With Patient Critical Care time: I spent a total of [] minutes of critical care time on this patient's care today; this time is exclusive of procedural time.
[2021-04-29 09:44] LABS: Neutrophils Absolute Manual 9263 /uL (3000-5900); Total Cells Counted 100
[2021-04-29 09:45] LABS: RBC Morphology Normal Morphology
[2021-04-29] MEDS: guaiFENesin ER 600 MG TAB 1200 MG PO ×2 (10:05→21:17)
[2021-04-29] MEDS: SUCRALFATE 1 GM TABLET PO ×4 (10:05→21:17)
[2021-04-29] MEDS: ENOXAPARIN 40 MG/0.4 ML SYRINGE SUBCUT (10:05)
[2021-04-29 10:06] VITALS: BP 150/84; PULSE 64
[2021-04-29] MEDS: lisinopriL 20 MG TABLET PO (10:06)
[2021-04-29] MEDS: LIDOCAINE PATCH 1 EACH ADH..PATCH TOP (10:06)
[2021-04-29] MEDS: buPROPion XL 150 MG TAB PO (10:06)
[2021-04-29] MEDS: MAGNESIUM OXIDE 400 MG TABLET PO (10:06)
[2021-04-29] MEDS: FAMOTIDINE 20 MG TABLET PO ×2 (10:07→21:17)
[2021-04-29] MEDS: metroNIDAZOLE 500 MG TABLET PO ×3 (10:07→21:17)
[2021-04-29] MEDS: CEFEPIME 1 GM in SODIUM CHLORIDE 0.9% 100 ML 200 ML IV ×2 (10:08→21:17)
[2021-04-29] MEDS: DOXYCYCLINE HYCLATE 100 MG TABLET PO ×2 (10:08→21:17)
[2021-04-29] MEDS: INSULIN LISPRO 100 UNIT/ML 3ML VIAL SUBCUT ×3 (13:51→21:19)
[2021-04-29 16:00] VITALS: BP 106/96; PULSE 83; RESP 20; TEMP 36.7; O2SAT 95
[2021-04-29] MEDS: ACETAMINOPHEN 325 MG TABLET 650 MG PO (16:12)
[2021-04-29] MEDS: BENZOCAINE/MENTHOL 1 LOZ PKT 1 EACH PO ×2 (18:05→22:28)
[2021-04-29] MEDS: ATORVASTATIN 20 MG TABLET 40 MG PO (18:09)
[2021-04-29] MEDS: ALBUTEROL/IPRATROPIUM 3 ML AMPUL INH (19:17)
[2021-04-29 19:18] VITALS: O2SAT 95
[2021-04-29 20:00] VITALS: BP 171/89; PULSE 94; RESP 23; TEMP 36.3; O2SAT 96
[2021-04-29] MEDS: INSULIN GLARGINE 100 UNIT/ML 3ML PEN 30 UNIT SUBCUT (21:19)
[2021-04-30 00:36] VITALS: BP 148/92; PULSE 83; RESP 18; TEMP 36.7; O2SAT 92
[2021-04-30] MEDS: BENZOCAINE/MENTHOL 1 LOZ PKT 1 EACH PO (02:53)
[2021-04-30] MEDS: BENZONATATE 100 MG CAPSULE PO (04:42)
[2021-04-30 04:49] LABS: Hematocrit 36.9 % (41-53); Hemoglobin 12.2 g/dL (13.5-17.5); Mean Corpuscular HGB Conc 33.1 % (30-36); Mean Corpuscular Hemoglobin 29.5 PG (26-34); Mean Corpuscular Volume 89.3 fL (80-100); Platelet Count 407 X10^3/uL (150-400); Red Blood Cell Count 4.13 X10^6/uL (4.5-5.9); Red Cell Distribution Width 14.5 % (11.6-14.8); White Blood Cell Count 18.5 X10^3/uL (4.5-11.0)
[2021-04-30 04:51] LABS: Add Manual Diff / Slide Review YES
[2021-04-30 04:56] LABS: Alanine Aminotransferase 74 IU/L (<50); Albumin Globulin Ratio 1.3 (1.0-2.8); Alkaline Phosphatase 134 U/L (38-126); Aspartate Aminotransferase 47 IU/L (17-59); BUN Creatinine Ratio 30.2 (6-22); Bilirubin Total 0.5 mg/dL (0.2-1.3); Blood Urea Nitrogen 35 mg/dL (9-20); Calcium 9.2 mg/dL (8.4-10.2); Carbon Dioxide 24 mmol/L (22-32); Chloride 102 mmol/L (98-107); Estimated Glomerular Filt Rate > 60.0 mL/min (>60); Globulin 3.2 g/dL (1.7-4.1); Glucose 298 mg/dL (80-110); HEMOLYSIS < 15 (0-50); Magnesium 2.1 mg/dL (1.6-2.3); Potassium 4.4 mmol/L (3.4-5.1); Sodium 134 mmol/L (137-145); Total Protein 7.2 g/dL (6.3-8.2)
[2021-04-30] MEDS: LEVOTHYROXINE 125 MCG TABLET PO (05:44)
[2021-04-30] MEDS: LOPERAMIDE 2 MG CAPSULE PO ×2 (06:37→11:18)
[2021-04-30 06:40] LABS: Neutrophils Absolute Manual 14615 /uL (3000-5900); Total Cells Counted 100
[2021-04-30 06:41] LABS: Platelet Estimate Increased on smear; RBC Morphology Normal Morphology
[2021-04-30] MEDS: SUCRALFATE 1 GM TABLET PO ×2 (07:44→11:18)
[2021-04-30 08:00] VITALS: BP 140/83; PULSE 81; RESP 17; TEMP 36.6; O2SAT 95
[2021-04-30] MEDS: ALBUTEROL/IPRATROPIUM 3 ML AMPUL INH ×2 (09:16→13:25)
[2021-04-30 09:19] VITALS: O2SAT 94
--- NOTE | 2021-04-30 10:18 | DI.RAD.S_ITS ---
PROCEDURE: XR CHEST 1V INDICATIONS: RT PNA TECHNIQUE: One view of the chest was acquired. COMPARISON: [facility], CR, XR CHEST 1V, 04/25/2021, 16:49. FINDINGS: Surgical changes and devices: None. Lungs and pleura: Lungs are clear. No pleural effusions or pneumothorax. Mediastinum: Mediastinal contours appear normal. Heart size is normal. Bones and chest wall: No suspicious bony lesions. Overlying soft tissues appear unremarkable. IMPRESSION: No acute cardiopulmonary abnormality. Dictated by: Darrell Resendiz M.D. on 04/30/2021 at 11:09 Approved by: Darrell Resendiz M.D. on 04/30/2021 at 11:10
--- NOTE | 2021-04-30 10:59 | PM.DS.1 ---
History of Present Illness History of Present Illness Date Patient Seen: 04/30/21 Chief complaint: Dizzy, diarrhea, can't eat x 2days Narrative: History of Present Illness History of Present Illness Date Patient Seen:?04/24/21 Narrative: 66 y/o male with Type 2 diabetes, hypothyroidism, hypertension, hyperlipidemia, who presents with 2 days of diarrhea, dizziness, cough, low-grade fever, and shortness of breath.? Patient noted his symptoms got progressively worse.? He presented to the emergency room for evaluation.? In the emergency department patient was found to be febrile to 100.8.? He has been vaccinated against COVID in July and August of 2020.? He tested negative for COVID x2.? Chest x-ray confirmed a left upper lobe infiltrate.? Patient also found to have a markedly elevated white count of 27.9, left shift is noted, procalcitonin markedly elevated at 23.? Lactate 2.2.? Patient is also noted to have an elevated creatinine of 1.55.? Patient is admitted to the hospital for severe sepsis secondary to bacterial pneumonia.? Patient reports mild headache, sore throat from coughing, cough which has been nonproductive, shortness of breath, low-grade fever, decreased taste and smell, nausea vomiting and 1 episode of diarrhea. Discharge Providers Provider Date of admission: 04/24/21 12:57 Discharge Date: 04/30/21 Primary care physician: Patrick Rocha MD Consults: N/A Discharge provider: Adwoa Lopez DO Summary Hospital Course Discharge Diagnosis: COMMUNITY-ACQUIRED PNEUMONIA.? RIGHT LOBE CONTINUE ANTIBIOTICS.? RIGHT LOWER LOBE LEUKOCYTOSIS. LIKELY ACUTE REACTANT POSSIBLE SEPSIS.? PRESENT ON ARRIVAL. OBESITY.? LIFESTYLE CHANGES RECOMMENDED. ANEMIA.? LIKELY OF CHRONIC DISEASE DIABETES TYPE 2 HYPERLIPIDEMIA Hospital Course: THIS IS A 66-YEAR-OLD MALE WITH REPORTEDLY NO PAST MEDICAL HISTORY SIGNIFICANT FOR COPD AND IS NOT A TOBACCO USER HOWEVER WORK A 1 [employer]MICALS. 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 HE HAS BEEN ANTIBIOTICS. HIS CULTURES HAS NOT GROWN ANY SIGNIFICANT ORGANISM. HE IS ON ROOM AIR AND NOT REPORTING ANY INCREASING SHORTNESS OF BREATH. SOME COUGH REPORTED YESTERDAY DURING INTERVIEW. BUT IMPROVED TODAY. MILD INCREASE OF WBC LEVEL NOTED TODAY BUT PATIENT HAS BEEN PLACED ON STEROIDS. PATIENT APPEARED TO BE IMPROVING AND SHOULD DO WELL AT HOME. HE WILL BE DISCHARGED ON 14 DAY COURSE OF ANTIBIOTICS HE ALSO WILL BE DISCHARGED WITH DUONEB TREATMENT AND STEROID TAPERED NO DICTATION DISCHARGE PATIENT ON OXYGEN SUPPLEMENT THERAPY AT THIS TIME. HE WILL NEED TO FOLLOW UP WITH HIS PRIMARY CARE PHYSICIAN WITHIN 1-2 WEEKS. HE COULD BE REFERRED TO A NEUROLOGY FOR ADDITIONAL MANAGEMENT INDICATED CLINICALLY ADDITIONAL MANAGEMENT WILL BE DEFERRED TO OUTPATIENT PROVIDERS AT THIS TIME Status at Discharge Cognitive/behavioral status at discharge: oriented Functional status at discharge: independent ambulation Overall status at discharge: patient is progressing back to baseline Time Spent with Patient Time spent: Greater than 30 minutes Exam Vital Signs (past 8 hours): - 04/30/21 08:00 04/30/21 09:19 Temperature 97.8 F Pulse Rate 81 Respiratory Rate 17 Blood Pressure 140/83 Pulse Oximetry 95 94 Fraction of Inspired Oxygen 95 Oxygen Delivery Method Room Air Oxygen Flow Rate 0 Narrative Exam Narrative: NO ACUTE DISTRESS.? PATIENT IS ALERT ORIENTED X3.? APPEARS STATED AGE VITAL SIGNS STABLE ON ROOM AIR HEAD ATRAUMATIC NORMOCEPHALIC NECK : SUPPLE WITHOUT ADENOPATHY NO CAROTID BRUITS EYE:? EOMI, PERRLA, NORMAL CONJUNCTIVA; NO JAUNDICE CHEST:? REGULAR RATE.? ? NO RUBS.? PMI IS NON DISPLACED.? NO MURMURS; NORMAL S1-S2 PULMONARY:? DECREASED BREATH SOUND AT THE BASES.? SOME BIBASILAR CRACKLES APPRECIATED.? MILD WHEEZING ALSO APPRECIATED AT THE APICES. ABDOMEN:? OBESE BUT SOFT.? NONTENDER.? NONDISTENDED.? BOWEL SOUNDS ARE PRESENT IN ALL 4 QUADRANTS.? NO MASS. EXTREMITIES:? TRACE BILATERAL LOWER EXTREMITY EDEMA..? NO CYANOSIS CLUBBING NOTED. NEURO:? CRANIAL NERVES 2-12 GROSSLY INTACT. NO FOCAL NEUROLOGICAL DEFICIT NOTED. MSK:? NORMAL RANGE OF MOTION FOR AGE.? NO JOINT EFFUSION. SKIN:? NORMAL FOR ETHNICITY; NO ECCHYMOSIS.? NO LESION. ? GOOD? TURGOR.; NO RASHES :? NORMAL EXTERNAL GENITALIA. PSYCH :? APPROPRIATE MOOD AND AFFECT.? ALERT AWAKE ORIENTED X3 Objective Labs Result Diagrams: 04/30/21 04:05 04/30/21 04:05 Labs: Laboratory Results - last 24 hr 04/30/21 04/30/21 04:05 04:05 WBC 18.5 H RBC 4.13 L Hgb 12.2 L Hct 36.9 L MCV 89.3 MCH 29.5 MCHC 33.1 RDW 14.5 Plt Count 407 H Neut % (Auto) Not Reportable Lymph % (Auto) Not Reportable [place] % (Auto) Not Reportable Eos % (Auto) Not Reportable Baso % (Auto) Not Reportable Lymph # (Auto) Not Reportable [place] # (Auto) Not Reportable Baso # (Auto) Not Reportable Total Counted 100 Seg Neutrophils % 69.0 Band Neutrophils % 10.0 H Lymphocytes % (Manual) 16.0 L Monocytes % (Manual) 1.0 L Metamyelocytes % 3.0 H Myelocytes % 1.0 H Neutrophils # (Manual) 46532 H Platelet Estimate Increased on smear RBC Morphology Normal morphology Sodium 134 L Potassium 4.4 Chloride 102 Carbon Dioxide 24 BUN 35 H Creatinine 1.16 Estimated GFR > 60.0 BUN/Creatinine Ratio 30.2 H Glucose 298 H D Calcium 9.2 Magnesium 2.1 Total Bilirubin 0.5 AST 47 ALT 74 H Alkaline Phosphatase 134 H Total Protein 7.2 Albumin 4.0 Globulin 3.2 Albumin/Globulin Ratio 1.3 [facility] Medical History (Updated 04/24/21 @ 19:20 by Osei Hernandez MD) Chronic back pain (2004) CTS (carpal tunnel syndrome) (1994) Depression (1997) Diabetes mellitus (1999) Esophageal obstruction due to food impaction (05/07/16) Foot pain (2004) Shoulder pain (2009) Sleep apnea (2009) Surgical History History of esophagogastroduodenoscopy (EGD) (05/08/16) Status post laparoscopic cholecystectomy Family History Mother Loud snoring Restless leg Hypertension Diabetes mellitus Depression Family/Other Restless leg Obesity Hypertension Depression Anxiety Social History marital status: household members: other lives independently: Yes education level: high school occupational status: employed Smoking Status: Never smoker alcohol intake: never substance use type: does not use Discharge Plan Discharge Plan Patient Disposition: Home Health Service Provider Discharge Comment: PATIENT TO BE EXCUSED FROM WORK FOR 30 DAYS. Nursing Discharge Comment: PATIENT NEEDS A NEBULIZER FOR HOME USE PRIOR TO DISCHARGE PLEASE. PATIENT TO BE EXCUSED FROM WORK FOR 30 DAYS Discharge orders & Medications Prescriptions: New ipratropium-albuterol 0.5 mg-3 mg(2.5 mg base)/3 mL Solution For Nebulization 3 ml INH Q4H PRN (Reason: SHORTNESS OF BREATH/WHEEZING) Qty: 180 0RF levofloxacin 750 mg tablet 750 mg PO DAILY 14 Days 0RF metronidazole 500 mg tablet 500 mg PO TID Qty: 42 0RF doxycycline hyclate 100 mg tablet 100 mg PO BID Qty: 28 0RF fluconazole [Diflucan] 100 mg tablet 100 mg PO DAILY Qty: 14 0RF sucralfate 1 gram Tablet 1 gm PO ACHS Qty: 240 0RF famotidine 40 mg tablet 40 mg PO BID Qty: 120 0RF guaifenesin [Mucus Relief ER] 600 mg Tablet Extended Release 12hr 1,200 mg PO BID Qty: 14 0RF lidocaine 5 % Adhesive Patch,Medicated 1 ea topical DAILY Qty: 10 0RF Acidophilus Tablet,Chewable 1 tab PO BID Qty: 60 0RF Rx Instructions: WITH MEALS albuterol sulfate 90 mcg/actuation HFA aerosol inhaler 2 puff inhalation Q4-6H PRN (Reason: shortness of breath or wheezing) Qty: 6.7 0RF aspirin 81 mg capsule 81 mg PO DAILY Qty: 60 0RF prednisone 10 mg tablet 10 mg PO DIRECTED Qty: 60 0RF Rx Instructions: 40MG PO X 3 DAYS 30MG PO X 3 DAYS 20MG PO X 3 DAYS 10MG PO X 3 DAYS 5MG PO X 3 DAYS Continued atorvastatin 40 mg tablet 40 mg PO HS Qty: 90 3RF levothyroxine [Synthroid] 125 mcg tablet 125 mcg PO QDAY Qty: 90 3RF lisinopril 20 mg tablet 20 mg PO QDAY Qty: 90 3RF zolpidem [Ambien] 10 mg tablet 10 mg PO HSP PRN (Reason: insomnia) Qty: 30 5RF bupropion HCl [Wellbutrin XL] 150 mg tablet extended release 24 hr 150 mg PO QDAY Qty: 90 3RF Humulin N NPH Insulin KwikPen 100 unit/mL (3 mL) insulin pen See Rx Instructions SUBCUT BID Qty: 90 1RF Dose Instruction: 50U in am, 20U in pm SUBCUT BID; Rx Instructions: 50U in am, 20U in pm SUBCUT BID; insulin lispro [Humalog KwikPen Insulin] 100 unit/mL insulin pen 10 unit SUBCUT TID Qty: 3 3RF Rx Instructions: inject 10 units under skin before meals give additional 2units per [id number]/dl glucose over 100. MMD 50 units Discontinued metformin [Glucophage] 1,000 mg tablet 1,000 mg PO BIDCC Qty: 180 1RF No Action (DME) Syringes See Rx Instructions .Route .MEDSUPPLY Qty: 100 6RF Dose Instruction: SQ SUBCUT QID; Rx Instructions: Use BD 0.5ml syringe with 31 gauge x 8mm needle to inject insulin four times a day. (DME) onetouch glucose meter starter kit Qty: 1 0RF Rx Instructions: use to check blood sugar 4 times daily (DME) Glucose: Test Strips 0 .Route .MEDSUPPLY Qty: 300 1RF Dose Instruction: As directed Rx Instructions: Use with matching meter to check blood glucose levels 4 times daily (DME) Insulin [place] BD Ultra Fine Mini Pen Needle Qty: 450 3RF Dose Instruction: As directed Rx Instructions: 31g X 3/16 - Use to Inject Humalog AND HUMULIN 5 NEEDLES PER DAY Follow up/Referrals: Patrick Rocha MD [Primary Care Provider] - Diet/Activity/Treatments Diet: Carb-consistent/Diabetic, Low-fat and Low-cholesterol Activity: TOLERATED Skin/Wound/Dressing Care Report to your healthcare provider any signs of infection, such as:: chills, fever, night sweats and unusual redness Discharge Data Primary Care Provider: Patrick Rocha
[2021-04-30] MEDS: CEFEPIME 1 GM in SODIUM CHLORIDE 0.9% 100 ML 200 ML IV (11:17)
[2021-04-30] MEDS: ENOXAPARIN 40 MG/0.4 ML SYRINGE SUBCUT (11:18)
[2021-04-30] MEDS: DOXYCYCLINE HYCLATE 100 MG TABLET PO (11:18)
[2021-04-30] MEDS: LIDOCAINE PATCH 1 EACH ADH..PATCH TOP (11:19)
[2021-04-30] MEDS: guaiFENesin ER 600 MG TAB 1200 MG PO (11:19)
[2021-04-30] MEDS: lisinopriL 20 MG TABLET PO (11:19)
[2021-04-30] MEDS: FAMOTIDINE 20 MG TABLET PO (11:19)
[2021-04-30] MEDS: MAGNESIUM OXIDE 400 MG TABLET PO (11:19)
[2021-04-30] MEDS: buPROPion XL 150 MG TAB PO (11:19)
[2021-04-30 11:27] LABS: Procalcitonin 1.46 ng/mL (<0.5)
[2021-04-30] MEDS: metroNIDAZOLE 500 MG TABLET PO (11:43)
[2021-04-30] MEDS: INSULIN LISPRO 100 UNIT/ML 3ML VIAL SUBCUT (12:21)
[2021-04-30 13:30] VITALS: O2SAT 95
== END 2021-04-30 14:50 | disposition home or self-care (01) | DRG 871 ==
LOC: ED 08:00 → AC 12:57
PROVIDERS: Emergency Medicine; Hospitalist; Admitting Provider Internal Medicine; Emergency Provider Emergency Medicine; PCP Student in an Organized Health Care Education/Training Program; Referring Provider Emergency Medicine; Visit Provider Internal Medicine
DX: A41.9 Sepsis, unspecified organism (principal); J96.01 Acute respiratory failure with hypoxia; J15.9 Unspecified bacterial pneumonia; N17.9 Acute kidney failure, unspecified; R65.20 Severe sepsis without septic shock; E11.9 Type 2 diabetes mellitus without complications; R21 Rash and other nonspecific skin eruption; Z79.4 Long term (current) use of insulin; Z79.84 Long term (current) use of oral hypoglycemic drugs; I10 Essential (primary) hypertension; E03.9 Hypothyroidism, unspecified; F32.9 Major depressive disorder, single episode, unspecified; B34.8 Other viral infections of unspecified site; B34.2 Coronavirus infection, unspecified
CPT/HCPCS: 36415; 36600; 51701; 71045; 71260; 80048; 80053; 81001; 82805; 82962; 83605; 83690; 83735; 84145; 85007; 85025; 87040; 87205; 87493; 87633; 87635; 93005; 93010; 94640; 94660; 94760; 94762; 96361; 96365; 96375; 99284; 99285; C9803; A9270; J0692; J1200; J1650; J1720; J1815; J1885; J2185; J2543; J2920; J7050

== ENCOUNTER → 2021-05-24 12:15 | Outpatient (CLI) | payer OTHER, SELFPAY ==
[2021-04-24 13:39] VITALS: BMI 29.7
--- NOTE | 2021-05-24 12:17 | DI.RAD.S_ITS ---
PROCEDURE: XR CHEST 2V INDICATIONS: persistent cough TECHNIQUE: 2 views of the chest were acquired. COMPARISON: [facility], CR, XR CHEST 1V, 04/30/2021, 10:31. FINDINGS: Surgical changes and devices: None. Lungs and pleura: Streaky density in the left lower lung zone, likely reflecting atelectasis. No pleural effusions or pneumothorax. Mediastinum: Mediastinal contours are normal. Heart size is normal. Bones and chest wall: No suspicious bony abnormalities. Soft tissues appear unremarkable. IMPRESSION: Streaky density in the left lower lung zone, likely reflecting atelectasis. Dictated by: Kali Marin M.D. on 05/24/2021 at 13:42 Approved by: Kali Marin M.D. on 05/24/2021 at 13:42
== END ==
PROVIDERS: PCP Student in an Organized Health Care Education/Training Program; Referring Provider Family Medicine; Visit Provider Family Medicine
DX: J18.9 Pneumonia, unspecified organism (principal); R05.9 Cough, unspecified
CPT/HCPCS: 71046

== ENCOUNTER 2021-07-05 14:45 | Emergency (ER) | payer OTHER, SELFPAY ==
[2021-04-24 13:39] VITALS: BMI 29.7
[2021-07-05] VITALS (9 sets, daily range): BP systolic 154–172; BP diastolic 84–98; PULSE 65–99; RESP 8–24; TEMP 36.2; O2SAT 94–99; BMI 29.7
--- NOTE | 2021-07-05 14:56 | DI.RAD.S_ITS ---
PROCEDURE: XR CHEST 1V INDICATIONS: chest pain TECHNIQUE: One view of the chest was acquired. COMPARISON: [facility], CR, XR CHEST 2V, 05/24/2021, 13:32. FINDINGS: Surgical changes and devices: None. Lungs and pleura: Lungs are clear. No pleural effusions or pneumothorax. Mediastinum: Mediastinal contours appear normal. Heart size is normal. Bones and chest wall: No suspicious bony lesions. Overlying soft tissues appear unremarkable. IMPRESSION: No acute cardiopulmonary disease. Dictated by: Leigha Figueroa M.D. on 07/05/2021 at 16:37 Approved by: Leigah Figueroa M.D. on 07/05/2021 at 16:37
[2021-07-05 15:12] LABS: Add Manual Diff / Slide Review NO; Basophils Absolute Auto 0 /uL (0-100); Basophils Percent Auto 0.3 % (0-2); Eosinophils Absolute Auto 700 /uL (0-450); Eosinophils Percent Auto 5.3 % (2-4); Hematocrit 40.3 % (41-53); Hemoglobin 13.2 g/dL (13.5-17.5); Lymphocytes Absolute Auto 4100 /uL (1100-4500); Lymphocytes Percent Auto 30.5 % (25-40); Mean Corpuscular HGB Conc 32.7 % (30-36); Mean Corpuscular Hemoglobin 29.1 PG (26-34); Mean Corpuscular Volume 88.9 fL (80-100); Monocytes Absolute Auto 800 /uL (0-900); Monocytes Percent Auto 5.7 % (3-14); Neutrophils Absolute Auto 7900 /uL (1500-7000); Neutrophils Percent Auto 58.2 % (50-75); Platelet Count 298 X10^3/uL (150-400); Red Blood Cell Count 4.53 X10^6/uL (4.5-5.9); Red Cell Distribution Width 14.8 % (11.6-14.8); White Blood Cell Count 13.5 X10^3/uL (4.5-11.0)
[2021-07-05 15:38] LABS: Alanine Aminotransferase 23 IU/L (<50); Albumin 4.9 g/dL (3.5-5.0); Albumin Globulin Ratio 1.7 (1.0-2.8); Alkaline Phosphatase 77 U/L (38-126); Aspartate Aminotransferase 27 IU/L (17-59); BUN Creatinine Ratio 16.9 (6-22); Bilirubin Total 0.4 mg/dL (0.2-1.3); Blood Urea Nitrogen 24 mg/dL (9-20); Calcium 10.3 mg/dL (8.4-10.2); Carbon Dioxide 23 mmol/L (22-32); Chloride 107 mmol/L (98-107); Creatine Kinase 248 U/L (55-170); Estimated Glomerular Filt Rate 49.6 mL/min (>60); Globulin 2.9 g/dL (1.7-4.1); Glucose 188 mg/dL (80-110); HEMOLYSIS < 15 (0-50); Lipase 118 U/L (23-300); Magnesium 1.4 mg/dL (1.6-2.3); Potassium 4.4 mmol/L (3.4-5.1); Sodium 138 mmol/L (137-145); Total Protein 7.8 g/dL (6.3-8.2)
--- NOTE | 2021-07-05 15:49 | ED_ITS ---
HPI - Chest Pain General Chief Complaint: Chest Pain Stated Complaint: chest pains; diarrhea; throwing up at night Time Seen by Provider: 07/05/21 15:12 Source: patient Mode of arrival: Ambulatory Limitations: no limitations History of Present Illness HPI narrative: Patient is a 66-year-old male who is sent to the emergency department after contacting his primary doctor for evaluation of chest pain, abdominal pain diarrhea and throwing up. He states that for the past couple days he has had diarrhea. No recent travel. No recent antibiotics. He states that he has also been getting some abdominal pain and distension that radiates up into his chest. He has also had some vomiting but seems to take care of those symptoms. No fevers. No urinary symptoms. He attempted to contact his primary doctor to get in to see them but because of his symptoms they advised that he come to the emergency department for evaluation. Related Data Previous Rx's Medication Instructions Recorded Syringes #100 each 06/12/18 onetouch glucose meter starter kit #1 ea 07/02/19 Glucose: Test Strips #300 ea 08/31/20 zolpidem 10 mg tablet (Ambien) 10 mg PO HSP PRN #30 tab 10/20/20 bupropion HCl 150 mg 24 hr tablet, 150 mg PO QDAY #90 tab 02/21/21 extended release (Wellbutrin XL) insulin NPH isoph U-100 human 100 See Rx Instructions SUBCUT BID #90 04/11/21 unit/mL (3 mL) subcutaneous pen ml (Humulin N NPH U-100 Insulin KwikPen) Insulin [place] BD Ultra Fine Mini #450 each 04/14/21 Pen Needle insulin lispro 100 unit/mL 10 unit (0.1 mL) SUBCUT TID #3 ml 04/19/21 subcutaneous pen (Humalog KwikPen (U-100) Insulin) Lactobacillus acidophilus 1 tab PO BID #60 tab 04/30/21 (Acidophilus) albuterol sulfate 90 mcg/actuation 2 puff INHALATION Q4-6H PRN #6.7 g 04/30/21 aerosol inhaler aspirin 81 mg capsule 81 mg PO DAILY #60 cap 04/30/21 famotidine 40 mg tablet 40 mg PO BID #120 tab 04/30/21 ipratropium 0.5 mg-albuterol 3 mg 3 ml INH Q4H PRN #180 ml 04/30/21 (2.5 mg base)/3 mL nebulization soln lidocaine 5 % topical patch 1 ea TOPICAL DAILY #10 ea 04/30/21 sucralfate 1 gram tablet 1 gm PO ACHS #240 tab 04/30/21 atorvastatin 40 mg tablet 40 mg PO HS #90 tab 05/02/21 cyclobenzaprine 10 mg tablet 10 mg PO TID #30 tab 05/24/21 metformin 500 mg tablet 500 mg PO BID #180 tab 06/15/21 levothyroxine 125 mcg tablet 125 mcg PO QDAY #90 tab 07/05/21 (Synthroid) lisinopril 20 mg tablet 20 mg PO QDAY #90 tab 07/05/21 ondansetron 4 mg disintegrating 4 mg PO Q8H #10 tab 07/05/21 tablet Allergies Allergy/AdvReac Type Severity Reaction Status Date / Time Iodinated Contrast Media Allergy Mild Rash Verified 07/05/21 14:56 meropenem Allergy Mild Rash Verified 07/05/21 14:56 Influenza Virus Vaccines Allergy Unknown Verified 07/05/21 14:56 Review of Systems Constitutional Constitutional: Denies fever(s) and Denies headache(s) ENT Ears, Nose, Mouth, and Throat: Denies headache(s) Cardiovascular Cardiovascular: Reports system reviewed and no additional complaints, except as documented Respiratory Respiratory: Reports as per HPI and Reports system reviewed and no additional complaints, except as documented Gastrointestinal Gastrointestinal: Reports as per HPI and Reports system reviewed and no additional complaints, except as documented Integumentary/Breasts Skin/Breast: Reports system reviewed and no additional complaints, except as documented Neurologic Neurologic: Denies headache(s) Hematologic/Lymphatic On Anticoagulants: No Patient History Medical History Chronic back pain (2004) CTS (carpal tunnel syndrome) (1994) Depression (1997) Esophageal obstruction due to food impaction (05/07/16) Foot pain (2004) Shoulder pain (2009) Sleep apnea (2009) Surgical History History of esophagogastroduodenoscopy (EGD) (05/08/16) Status post laparoscopic cholecystectomy Family History Mother Loud snoring Restless leg Hypertension Diabetes mellitus Depression Family/Other Restless leg Obesity Hypertension Depression Anxiety Social History marital status: household members: other lives independently: Yes education level: high school occupational status: employed Smoking Status: Never smoker alcohol intake: never substance use type: does not use Smoking Status: Never smoker alcohol intake frequency: holidays/special occasions only Substance Use Type: does not use Exam Initial Vital Signs Initial Vital Signs: Vital Signs Temperature 97.2 F L 07/05/21 14:50 Pulse Rate 65 07/05/21 14:50 Respiratory Rate 20 07/05/21 14:50 Blood Pressure 172/92 H 07/05/21 14:50 Pulse Oximetry 96 07/05/21 14:50 HENMT Head: normal to inspection and normocephalic Resp Effort & Inspection: normal respiratory effort Auscultation: clear to auscultation bilaterally Cardio Rate: regular rate Rhythm: regular rhythm GI Inspection: normal to inspection Palpation: soft and No guarding Skin General: no rashes or lesions noted Neuro General: patient alert, patient awake, patient oriented x3 and moves all extremities Extrem General: normal to inspection and capillary refill normal Psych Appearance: grossly normal and well kempt Course Orders Ordered: ED Orders 07/05/21 14:56 XR chest 1V Stat EKG-12 Lead Stat 07/05/21 15:05 Complete Blood Count AUTO DIFF Stat Comprehensive Metabolic Panel Stat Lipase Stat Magnesium Stat Troponin & CK Cardiac Panel Stat 07/05/21 15:50 CT kidney ureter bladder (KUB) Stat Discontinued Medications Sodium Chloride (Normal Saline 0.9%) 1,000 mls @ 1,000 mls/hr IV BOLUS ONE Stop: 07/05/21 16:48 Last Infusion: 07/05/21 17:44 Dose: 0 mls/hr Documented by: Admin: 07/05/21 16:00 Dose: 1,000 mls/hr Documented by: TALITA Vital Signs Vital signs: Vital Signs - 8 hr 07/05/21 14:50 07/05/21 14:53 07/05/21 14:54 Temperature 97.2 F L Pulse Rate 65 99 H 98 H Respiratory Rate Blood Pressure 172/92 H 172/92 H Pulse Oximetry 96 97 97 07/05/21 15:00 07/05/21 15:01 07/05/21 15:30 Temperature Pulse Rate 95 H 93 H 90 Respiratory Rate 20 24 19 Blood Pressure 156/98 H 159/84 H Pulse Oximetry 95 96 94 07/05/21 16:00 07/05/21 16:30 07/05/21 17:00 Temperature Pulse Rate 86 83 81 Respiratory Rate 20 19 8 L Blood Pressure 154/89 H Pulse Oximetry 95 97 99 MDM - Chest Pain Lab Data Attestation: I reviewed the patient's lab results. Result diagrams: 07/05/21 15:05 07/05/21 15:05 Labs: Lab Results 07/05/21 07/05/21 Range/Units 15:05 15:05 WBC 13.5 H (4.5-11.0) X10^3/uL RBC 4.53 (4.5-5.9) X10^6/uL Hgb 13.2 L (13.5-17.5) g/dL Hct 40.3 L (41-53) % MCV 88.9 (80-100) fL MCH 29.1 (26-34) PG MCHC 32.7 (30-36) % RDW 14.8 (11.6-14.8) % Plt Count 298 (150-400) X10^3/uL Neut % (Auto) 58.2 (50-75) % Lymph % (Auto) 30.5 (25-40) % School[place] % (Auto) 5.7 (3-14) % Eos % (Auto) 5.3 H (2-4) % Baso % (Auto) 0.3 (0-2) % Neut # (Auto) 7900 H (7945-2057) /uL Lymph # (Auto) 4100 (2575-3897) /uL Schoolcraft # (Auto) 800 (0-900) /uL Eos # (Auto) 700 H (0-450) /uL Baso # (Auto) 0 (0-100) /uL Sodium 138 (137-145) mmol/L Potassium 4.4 (3.4-5.1) mmol/L Chloride 107 (98-107) mmol/L Carbon Dioxide 23 (22-32) mmol/L BUN 24 H (9-20) mg/dL Creatinine 1.42 H (0.66-1.25) mg/dL Estimated GFR 49.6 L (>60) mL/min BUN/Creatinine Ratio 16.9 (6-22) Glucose 188 H (80-110) mg/dL Calcium 10.3 H (8.4-10.2) mg/dL Magnesium 1.4 L (1.6-2.3) mg/dL Total Bilirubin 0.4 (0.2-1.3) mg/dL AST 27 (17-59) IU/L ALT 23 (<50) IU/L Alkaline Phosphatase 77 (38-126) U/L Total Creatine Kinase 248 H (55-170) U/L CK-MB (CK-2) 3.46 H (<2.37) ng/mL CK-MB (CK-2) Rel Index 1.4 L (1.5-5.0) % Troponin I < 0.012 (0.01-0.034) ng/mL Total Protein 7.8 (6.3-8.2) g/dL Albumin 4.9 (3.5-5.0) g/dL Globulin 2.9 (1.7-4.1) g/dL Albumin/Globulin Ratio 1.7 (1.0-2.8) Lipase 118 (23-300) U/L Imaging Data Chest x-ray: Radiologist's Impression: [address] [address] XRay Report Signed Patient: Bladimir Xavier Jr MR#: [id number] : 1955 Acct:[id number] Age/Sex: 66 / M Date of Service: 07/05/21 Loc: ED Accession Number: [id number] ?? Procedure: XR chest 1V Ordering Provider: Cleve Eaton D.O. PROCEDURE:? XR CHEST 1V ? INDICATIONS:? chest pain ? TECHNIQUE:? One view of the chest was acquired.? ? COMPARISON:? [facility], , XR CHEST 2V, 05/24/2021, 13:32. ? FINDINGS:? ? Surgical changes and devices:? None.? ? Lungs and pleura:? Lungs are clear.? No pleural effusions or pneumothorax.? ? Mediastinum:? Mediastinal contours appear normal.? Heart size is normal.? ? Bones and chest wall:? No suspicious bony lesions.? Overlying soft tissues appear unremarkable.? ? IMPRESSION:? No acute cardiopulmonary disease.? ? ? Dictated by: Leigha Figueroa M.D. on 07/05/2021 at 16:37 ? ? Approved by: Leigha Figueroa M.D. on 07/05/2021 at 16:37?? CT scan - abdomen/pelvis: Radiologist's Impression: [address] [address] [address] Scan Report Signed Patient: Bladimir Xavier Jr MR#: [id number] : 1955 Acct:[id number] Age/Sex: 66 / M Date of Service: 07/05/21 Loc: ED Accession Number: [id number] ?? Procedure: CT kidney ureter bladder (KUB) Ordering Provider: Cleve Eaton D.O. PROCEDURE:? CT KIDNEY URETER BLADDER (KUB) ? INDICATIONS:? Abdominal distension, vomiting, eval for obstruction ? TECHNIQUE:? Axial sections were acquired from the lung bases to the pubic symphysis.? Coronal and sagittal reformats were performed.? For radiation dose reduction, the following was used: ?automated exposure control, adjustment of mA and/or kV according to patient size.? ? COMPARISON:? [facility], CT, CT KIDNEY URETER BLADDER (KUB), 10/07/2019, 1:23. ? FINDINGS:? Image quality:? Excellent.? ? Lung bases:? There are few tiny calcified and noncalcified nodules at the right lung base, and one at the left lung base, previously present and likely granulomas. Heart:? Coronary artery calcification.? No hiatal hernia. ? ABDOMEN: Liver:? Normal liver contour. Gallbladder:? Surgically absent Biliary ducts:? Nondilated. Pancreas:? Normal. Spleen:? Normal size. Adrenal Glands:? No nodules. Kidneys and Ureters:? Normal enhancement.? No hydronephrosis or hydroureter.? No calcifications. .? ? Stomach and Bowel:? Stomach is nondistended.? Small bowel loops are normal caliber without air-fluid levels or interloop fluid.? Normal appendix.? Normal quantity of solid stool in the colon.? No pericolonic inflammation. Peritoneum:? No abnormal intraperitoneal fluid.? No free air.? ? Ventral Wall: ? No hernia.? Abdominal Nodes:? No enlarged retroperitoneal or mesenteric lymph nodes.? Vessels:? Aorta and inferior vena cava are normal in size.? Mild abdominal aortic atherosclerotic calcification. ? PELVIS: ? Bladder:? Normal wall thickness. No stones. ? ? Mild prostatomegaly. Pelvic Organs:? Unremarkable.? ? Pelvic Nodes: Unremarkable. Miscellaneous: No inguinal hernias are seen. ? ? ? Bones:? Chronic L3 compression fracture with moderate retropulsion of posterior column.? Mild chronic compression fractures of L1 and L4. ? IMPRESSION:? ? 1. No acute process and no evidence of small bowel obstruction. ? 2. Probable lung base granulomas, stable.? ? ? Dictated by: Leigha Figueroa M.D. on 07/05/2021 at 16:37 ? ? Approved by: Leigha Figueroa M.D. on 07/05/2021 at 16:51? ECG Data Attestation: I personally reviewed and interpreted this ECG as follows: Interpretation: Sinus tachycardia Ventricular rate 1 0 to Normal axis Right bundle branch block QRS 130 milliseconds Normal QTC No ST T wave changes MDM Narrative Medical decision making narrative: Based on his history and physical today I have lower suspicion that this is cardiac in origin. He has been having diarrhea. The discomfort that he has is in his epigastric region that then radiates into his chest that improves after vomiting and seems to get worse after eating. His troponin is negative. EKG is unremarkable. Given his presenting symptoms the CT scan of an abdomen was ordered which showed no acute pathology. He does have a leukocytosis but does have was but likely a diarrheal illness. There is no indication for any antibiotics. Is afebrile. Has a relatively benign exam. I feel that we can hold on further workup for now. He does understand the lack of a definitive diagnosis but he was given strict return precautions and follow-up instructions. He expressed understanding and agreement. Discharge Plan Departure Patient Disposition: Home Clinical Impression: Nausea vomiting and diarrhea, Abdominal pain Instructions: Nausea and Vomiting-Adult Activity Restrictions/Additional Instructions: I do recommend that you consider starting a medicine called Pepcid/famotidine. You can purchase this [id number]. Is a 1 time a day medicine that will help prevent stomach ulcers. A prescription for nausea medication was transmitted to the pharmacy of your choice. I do recommend a bland diet and advance the diet as tolerated over the next couple days. Contact your primary doctor for a follow-up. Return to the emergency department for any new or worsening symptoms. Prescriptions: New ondansetron 4 mg tablet,disintegrating 4 mg PO Q8H Qty: 10 0RF No Action (DME) Syringes See Rx Instructions .Route .MEDSUPPLY Qty: 100 6RF Dose Instruction: SQ SUBCUT QID; Rx Instructions: Use BD 0.5ml syringe with 31 gauge x 8mm needle to inject insulin four times a day. (DME) onetouch glucose meter starter kit Qty: 1 0RF Rx Instructions: use to check blood sugar 4 times daily (DME) Glucose: Test Strips 0 .Route .MEDSUPPLY Qty: 300 1RF Dose Instruction: As directed Rx Instructions: Use with matching meter to check blood glucose levels 4 times daily zolpidem [Ambien] 10 mg tablet 10 mg PO HSP PRN (Reason: insomnia) Qty: 30 5RF bupropion HCl [Wellbutrin XL] 150 mg tablet extended release 24 hr 150 mg PO QDAY Qty: 90 3RF Humulin N NPH Insulin KwikPen 100 unit/mL (3 mL) insulin pen See Rx Instructions SUBCUT BID Qty: 90 1RF Dose Instruction: 50U in am, 20U in pm SUBCUT BID; Rx Instructions: 50U in am, 20U in pm SUBCUT BID; (DME) Insulin Clear[place] BD Ultra Fine Mini Pen Needle Qty: 450 3RF Dose Instruction: As directed Rx Instructions: 31g X 3/16 - Use to Inject Humalog AND HUMULIN 5 NEEDLES PER DAY insulin lispro [Humalog KwikPen Insulin] 100 unit/mL insulin pen 10 unit SUBCUT TID Qty: 3 3RF Rx Instructions: inject 10 units under skin before meals give additional 2units per [id number]/dl glucose over 100. MMD 50 units atorvastatin 40 mg tablet 40 mg PO HS Qty: 90 3RF metformin 500 mg tablet 500 mg PO BID Qty: 180 1RF levothyroxine [Synthroid] 125 mcg tablet 125 mcg PO QDAY Qty: 90 3RF lisinopril 20 mg tablet 20 mg PO QDAY Qty: 90 3RF cyclobenzaprine 10 mg tablet 10 mg PO TID Qty: 30 1RF ipratropium-albuterol 0.5 mg-3 mg(2.5 mg base)/3 mL Solution For Nebulization 3 ml INH Q4H PRN (Reason: SHORTNESS OF BREATH/WHEEZING) Qty: 180 0RF sucralfate 1 gram Tablet 1 gm PO ACHS Qty: 240 0RF famotidine 40 mg tablet 40 mg PO BID Qty: 120 0RF lidocaine 5 % Adhesive Patch,Medicated 1 ea topical DAILY Qty: 10 0RF Acidophilus Tablet,Chewable 1 tab PO BID Qty: 60 0RF Rx Instructions: WITH MEALS albuterol sulfate 90 mcg/actuation HFA aerosol inhaler 2 puff inhalation Q4-6H PRN (Reason: shortness of breath or wheezing) Qty: 6.7 0RF aspirin 81 mg capsule 81 mg PO DAILY Qty: 60 0RF Referrals: Patrick Rocha MD [Primary Care Provider] -
[2021-07-05 15:50] LABS: Troponin I < 0.012 ng/mL (0.01-0.034)
--- NOTE | 2021-07-05 15:50 | DI.CT.S_ITS ---
PROCEDURE: CT KIDNEY URETER BLADDER (KUB) INDICATIONS: Abdominal distension, vomiting, eval for obstruction TECHNIQUE: Axial sections were acquired from the lung bases to the pubic symphysis. Coronal and sagittal reformats were performed. For radiation dose reduction, the following was used: automated exposure control, adjustment of mA and/or kV according to patient size. COMPARISON: [facility], CT, CT KIDNEY URETER BLADDER (KUB), 10/07/2019, 1:23. FINDINGS: Image quality: Excellent. Lung bases: There are few tiny calcified and noncalcified nodules at the right lung base, and one at the left lung base, previously present and likely granulomas. Heart: Coronary artery calcification. No hiatal hernia. ABDOMEN: Liver: Normal liver contour. Gallbladder: Surgically absent Biliary ducts: Nondilated. Pancreas: Normal. Spleen: Normal size. Adrenal Glands: No nodules. Kidneys and Ureters: Normal enhancement. No hydronephrosis or hydroureter. No calcifications. . Stomach and Bowel: Stomach is nondistended. Small bowel loops are normal caliber without air-fluid levels or interloop fluid. Normal appendix. Normal quantity of solid stool in the colon. No pericolonic inflammation. Peritoneum: No abnormal intraperitoneal fluid. No free air. Ventral Wall: No hernia. Abdominal Nodes: No enlarged retroperitoneal or mesenteric lymph nodes. Vessels: Aorta and inferior vena cava are normal in size. Mild abdominal aortic atherosclerotic calcification. PELVIS: Bladder: Normal wall thickness. No stones. Mild prostatomegaly. Pelvic Organs: Unremarkable. Pelvic Nodes: Unremarkable. Miscellaneous: No inguinal hernias are seen. Bones: Chronic L3 compression fracture with moderate retropulsion of posterior column. Mild chronic compression fractures of L1 and L4. IMPRESSION: 1. No acute process and no evidence of small bowel obstruction. 2. Probable lung base granulomas, stable. Dictated by: Leigha Figueroa M.D. on 07/05/2021 at 16:37 Approved by: Leigha Figueroa M.D. on 07/05/2021 at 16:51
[2021-07-05 15:53] LABS: CKMB % Relative Index 1.4 % (1.5-5.0); Creatine Kinase MB 3.46 ng/mL (<2.37)
[2021-07-05] MEDS: SODIUM CHLORIDE 0.9% 1,000 ML 1000 ML IV (16:00)
== END 2021-07-05 17:49 | disposition home or self-care (01) ==
PROVIDERS: Emergency Provider Emergency Medicine; PCP Student in an Organized Health Care Education/Training Program
DX: R07.9 Chest pain, unspecified (principal); R11.2 Nausea with vomiting, unspecified; R19.7 Diarrhea, unspecified; R10.13 Epigastric pain
CPT/HCPCS: 36415; 71045; 74176; 80053; 82550; 82553; 83690; 83735; 84484; 85025; 93005; 96360; 96361; 99284

== ENCOUNTER → 2021-07-12 07:02 | Outpatient (CLI) | payer OTHER, SELFPAY ==
[2021-04-24 13:39] VITALS: BMI 29.7
[2021-07-12 08:38] LABS: Add Manual Diff / Slide Review NO; Basophils Absolute Auto 100 /uL (0-100); Basophils Percent Auto 1.3 % (0-2); Eosinophils Absolute Auto 800 /uL (0-450); Hematocrit 42.3 % (41-53); Hemoglobin 14.3 g/dL (13.5-17.5); Lymphocytes Absolute Auto 3300 /uL (1100-4500); Lymphocytes Percent Auto 32.6 % (25-40); Mean Corpuscular HGB Conc 33.7 % (30-36); Mean Corpuscular Hemoglobin 29.8 PG (26-34); Mean Corpuscular Volume 88.5 fL (80-100); Monocytes Absolute Auto 500 /uL (0-900); Monocytes Percent Auto 5.2 % (3-14); Neutrophils Absolute Auto 5400 /uL (1500-7000); Neutrophils Percent Auto 52.9 % (50-75); Platelet Count 253 X10^3/uL (150-400); Red Blood Cell Count 4.78 X10^6/uL (4.5-5.9); Red Cell Distribution Width 14.6 % (11.6-14.8); White Blood Cell Count 10.2 X10^3/uL (4.5-11.0)
[2021-07-12 09:24] LABS: Alanine Aminotransferase 22 IU/L (<50); Albumin 4.8 g/dL (3.5-5.0); Albumin Globulin Ratio 1.9 (1.0-2.8); Alkaline Phosphatase 75 U/L (38-126); Aspartate Aminotransferase 25 IU/L (17-59); BUN Creatinine Ratio 16.7 (6-22); Bilirubin Total 0.5 mg/dL (0.2-1.3); Blood Urea Nitrogen 21 mg/dL (9-20); Calcium 10.1 mg/dL (8.4-10.2); Carbon Dioxide 30 mmol/L (22-32); Chloride 101 mmol/L (98-107); Estimated Glomerular Filt Rate 56.9 mL/min (>60); Globulin 2.5 g/dL (1.7-4.1); Glucose 208 mg/dL (80-110); HEMOLYSIS < 15 (0-50); Potassium 5.2 mmol/L (3.4-5.1); Sodium 138 mmol/L (137-145); Total Protein 7.3 g/dL (6.3-8.2)
[2021-07-13 08:02] LABS: Fructosamine 315 umol/L (0-285)
== END ==
PROVIDERS: PCP Student in an Organized Health Care Education/Training Program; Referring Provider Student in an Organized Health Care Education/Training Program; Visit Provider Student in an Organized Health Care Education/Training Program
DX: E11.9 Type 2 diabetes mellitus without complications (principal); Z79.4 Long term (current) use of insulin; N28.9 Disorder of kidney and ureter, unspecified; N18.30 Chronic kidney disease, stage 3 unspecified
CPT/HCPCS: 36415; 80053; 82985; 85025

== ENCOUNTER → 2021-07-15 14:58 | Outpatient (CLI) | payer OTHER, SELFPAY ==
[2021-04-24 13:39] VITALS: BMI 29.7
--- NOTE | 2021-07-19 17:25 | DIAB.INIT ---
Initial Diabetes Education Assessment Name: Bladimir Xavier Jr (Lucas) Date: 07/15/21 Time: 335-435p Dx: Type II DM Provider: Lucio Preferred Learning Style: Doing Lucas presents today for initial diabetes education visit. Reports T2Dm hx for 20 years. +FH with mother. States his main barrier is his lifestyle with his job in the [employer]: long hours, high stress, few days off and a lot of eating out. Some stress with health concerns as well, ie hospitalizations for gallbladder and pneumonia. Hard to concentrate on eating right because of his schedule. No set eating schedule. Dm is overwhelming ?playing the FAST FELT game?. States that the way he lives it feels impossible to make changes. Depression medication for years. Does not feel better, but does not want to increase in case impact focus at work. His focus at work is essential for his safety due to the nature of his job. Nutrition: No refrigerator at work, cannot store food at there. 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 Cant make breakfast bc up early and don?t want to wake everyone. Cant make dinner bc scheduling with other housemates. Previous living situation he could cook meals and BG were good. Was making salad for lunches and sandwiches. Breakfast was having sandwiches or burritos and for dinner making steak, fish dinners. Was walking daily. Diet Recall: B: [employer] breakfast burrito fresh L: [employer] deli chicken teriyaki or fried chicken or salad D: Eats at [employer]? every day for dinner; Th:chicken fried steak, today: prime rib or seafood Snacks: protein bars: atkins, glucerna Beverages: Diet soda, SF Gatorade, coffee black, water 3 x 16oz Physical Activity: Very active job, but he does not have a program. Reports when he was off from work due to an injury, he was able to eat better and walk daily which helped BG tremendously. Self-Monitoring Blood Glucose: Checks BID: FBG and ac or 1 hr pc dinner. FBG lowest 70-200 mg/dL. 146 this morning FBG. 43 mg/dL at work 2-3 weeks. Snyder shaky, sweaty, and vision changes. Treated with 3 honey sticks (15g CHO) and went home. Hypo does not happen often anymore, but use to be frequent at night. After dinner BG up to 270 mg/dL. Reports lows perhaps monthly. Dangerous when at work. Not open to CGM due physical nature of his job and issues keeping sensor on per his report. Might be a good idea to have glucagon rx'd due to sometimes having lows <50. Diabetes Medications: Metformin 500mg BID (was reduced due to hospitalization, plans to titrate back to full dose) NPH BID 50u am and 30u pm Lispro 10u TID Pertinent Labs: HgA1c 7% in 12/2019 no new labs for Dm Past Medical History: (Last Reviewed 07/05/21 @ 18:37 by Cleve Eaton, ) Chronic back pain (2004) CTS (carpal tunnel syndrome) (1994) Depression (1997) Esophageal obstruction due to food impaction (05/07/16) Treated by Dr. Perez [facility] Foot pain (2004) History of esophagogastroduodenoscopy (EGD) (05/08/16) With endoscopic relief of esophageal food bolus impaction - LESIA Olivera Shoulder pain (2009) Sleep apnea (2009) Status post laparoscopic cholecystectomy Intervention: This participant was very receptive. Provided appropriate educational handouts. Discussed the following topics: Completed intake assessment. Discussed barriers to care. Diabetes and depression Rule of 15 for hypoglycemia and glucagon Importance of managing BG Potential for CGM if open to eating out Plate Method Created SMART goals for patient self-care and success. Goals: Discuss depression with provider Keep a BG log with food and insulin dose Follow-up: [facility] follow-up in 2-3 weeks Will discuss nutrition in depth next visit and review Bg trends. [place] RDN, [facility] Certified Diabetes Care and Vp Of Global Marketing P: [phone] Thank you for this referral
== END ==
PROVIDERS: PCP Student in an Organized Health Care Education/Training Program; Referring Provider Student in an Organized Health Care Education/Training Program; Visit Provider Student in an Organized Health Care Education/Training Program
DX: E11.9 Type 2 diabetes mellitus without complications (principal)
CPT/HCPCS: G0108

== ENCOUNTER → 2021-09-08 16:59 | Outpatient (CLI) | payer OTHER, SELFPAY ==
[2021-04-24 13:39] VITALS: BMI 29.7
[2021-09-08 18:22] LABS: Creatinine Urine Random 76.9 mg/dL
[2021-09-08 18:26] LABS: Microalbumi Creatinin Ratio Ur 120.9 ug/mg CR (<30); Microalbumin Urine Random 9.3 mg/dL (0-1.6)
[2021-09-08 19:11] LABS: Appearance Urine UA CLEAR; Bilirubin Urine UA NEGATIVE (NEGATIVE); Color Urine UA YELLOW; Glucose Urine UA TRACE g/dL (Negative); Ketones Urine UA NEGATIVE (NEGATIVE); Leukocyte Esterase Urine UA NEGATIVE (NEGATIVE); Nitrite Urine UA NEGATIVE (Negative); Occult Blood Urine UA NEGATIVE (Negative); Protein Urine UA TRACE (Negative); Specific Gravity Urine UA 1.015 (1.000-1.035); Urobilinogen Urine UA 0.2 E.U./dL (0.2)
[2021-09-08 19:23] LABS: Bacteria Urine None Seen; Culture Indicated Urine Cult Not Indicated; RBC Urine 0-1/HPF (0-5/HPF); WBC Urine 0-1/HPF (0-5/HPF)
== END ==
PROVIDERS: PCP Student in an Organized Health Care Education/Training Program; Referring Provider Student in an Organized Health Care Education/Training Program; Visit Provider Student in an Organized Health Care Education/Training Program
DX: R30.0 Dysuria (principal); E11.9 Type 2 diabetes mellitus without complications; N28.9 Disorder of kidney and ureter, unspecified; Z79.4 Long term (current) use of insulin; N18.30 Chronic kidney disease, stage 3 unspecified
CPT/HCPCS: 81001; 82043; 82570

== ENCOUNTER → 2021-10-20 16:14 | Outpatient (CLI) | payer OTHER, SELFPAY ==
[2021-04-24 13:39] VITALS: BMI 29.7
[2021-10-20 16:53] LABS: Creatinine Urine Random 93.9 mg/dL
[2021-10-20 16:54] LABS: Hemoglobin A1C% w Est Avg Glu 9.3 % (4.0-6.0)
[2021-10-20 16:57] LABS: Microalbumi Creatinin Ratio Ur 151.2 ug/mg CR (<30); Microalbumin Urine Random 14.2 mg/dL (0-1.6)
[2021-10-20 16:58] LABS: BUN Creatinine Ratio 23.2 (6-22); Blood Urea Nitrogen 29 mg/dL (9-20); Estimated Glomerular Filt Rate > 60 mL/min (>60)
== END ==
PROVIDERS: PCP Student in an Organized Health Care Education/Training Program; Referring Provider Student in an Organized Health Care Education/Training Program; Visit Provider Student in an Organized Health Care Education/Training Program
DX: E11.9 Type 2 diabetes mellitus without complications (principal); R80.9 Proteinuria, unspecified; Z79.4 Long term (current) use of insulin; N18.30 Chronic kidney disease, stage 3 unspecified
CPT/HCPCS: 36415; 82043; 82565; 82570; 83036; 84520

== ENCOUNTER → 2021-10-27 08:06 | Outpatient (CLI) | payer OTHER, SELFPAY ==
[2021-04-24 13:39] VITALS: BMI 29.7
--- NOTE | 2021-10-27 08:08 | DI.RAD.S_ITS ---
PROCEDURE: XR CHEST 2V INDICATIONS: Continued cough TECHNIQUE: 2 views of the chest were acquired. COMPARISON: [facility], CR, XR CHEST 1V, 07/05/2021, 15:07. FINDINGS: Surgical changes and devices: None. Lungs and pleura: Lungs are clear. No pleural effusions or pneumothorax. Mediastinum: Mediastinal contours are normal. Heart size is normal. Bones and chest wall: No suspicious bony abnormalities. Soft tissues appear unremarkable. IMPRESSION: No evidence acute pulmonary process. Dictated by: Magdy Dimas M.D. on 10/27/2021 at 11:03 Approved by: Magdy Dimas M.D. on 10/27/2021 at 11:04
== END ==
PROVIDERS: PCP Student in an Organized Health Care Education/Training Program; Referring Provider Nurse Practitioner Family; Visit Provider Nurse Practitioner Family
DX: R05.9 Cough, unspecified (principal)
CPT/HCPCS: 71046

== ENCOUNTER → 2021-11-15 13:08 | Outpatient (CLI) | payer OTHER, SELFPAY ==
[2021-04-24 13:39] VITALS: BMI 29.7
--- NOTE | 2021-11-15 | DI.RAD.S_ITS ---
PROCEDURE: XR HAND LT MIN 3V INDICATIONS: Contusion L Hand/Wrist TECHNIQUE: 3 views of the hand(s) acquired. COMPARISON: None. FINDINGS: Bones: No fractures or dislocations. Carpal bones are normally aligned. No suspicious bony lesions. 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 Soft tissues: No suspicious soft tissue calcifications. IMPRESSION: No fracture. No acute osseous lesion. If symptoms and/or clinical suspicion for pathology persists, further assessment with repeat radiographs (7-10 days) or advanced imaging (e.g. CT, MRI or bone scan) should be considered. Dictated by: Jennifer Alvarado MD, PhD on 11/15/2021 at 16:51 Approved by: Jennifer Alvarado MD, PhD on 11/15/2021 at 16:52
--- NOTE | 2021-11-15 | DI.RAD.S_ITS ---
PROCEDURE: XR WRIST LT MIN 3V INDICATIONS: Contusion L Hand/Wrist TECHNIQUE: 4 views of the wrist were acquired. COMPARISON: , CR, XR HAND LT MIN 3V, 11/15/2021, 13:04. FINDINGS: Bones: No fractures or dislocations. No suspicious bony lesions. 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 Scaphoid view: Scaphoid is intact. Soft tissues: No suspicious soft tissue calcifications. IMPRESSION: No fracture. No osseous lesion. If symptoms and/or clinical suspicion for pathology persists, further assessment with repeat radiographs (7-10 days) or advanced imaging (e.g. CT, MRI or bone scan) should be considered. Dictated by: Jennifer Alvarado MD, PhD on 11/15/2021 at 16:44 Approved by: Jennifer Alvarado MD, PhD on 11/15/2021 at 16:46
== END ==
PROVIDERS: PCP Student in an Organized Health Care Education/Training Program; Referring Provider Family Medicine; Visit Provider Family Medicine
DX: S60.222A Contusion of left hand, initial encounter (principal); S60.212A Contusion of left wrist, initial encounter
CPT/HCPCS: 73110; 73130

== ENCOUNTER → 2021-12-05 12:47 | Outpatient (CLI) | payer OTHER, SELFPAY ==
[2021-04-24 13:39] VITALS: BMI 29.7
--- NOTE | 2021-12-05 | DI.RAD.S_ITS ---
PROCEDURE: XR KNEE RT 3V INDICATIONS: Injury Rt Knee TECHNIQUE: 3 views of the knee were acquired. COMPARISON: None. FINDINGS: Bones: No fractures or dislocations. No suspicious bony lesions. Mild tricompartmental periarticular osteophyte formation. Soft tissues: No joint effusion. No suspicious soft tissue calcifications. IMPRESSION: Osteoarthritis. No acute fracture. No osseous lesion. If symptoms and/or clinical suspicion for pathology persist, further assessment with repeat, or advanced imaging (e.g., CT, MRI, or bone scan) may be helpful for further assessment. Dictated by: Dagmar Coulter M.D. on 12/05/2021 at 14:29 Approved by: Dagmar Coulter M.D. on 12/05/2021 at 14:30
== END ==
PROVIDERS: PCP Student in an Organized Health Care Education/Training Program; Referring Provider Family Medicine; Visit Provider Family Medicine
DX: S80.01XA Contusion of right knee, initial encounter (principal); M17.11 Unilateral primary osteoarthritis, right knee; X58.XXXA Exposure to other specified factors, initial encounter
CPT/HCPCS: 73562

== ENCOUNTER → 2021-12-14 14:43 | Outpatient (CLI) | payer OTHER, SELFPAY ==
[2021-04-24 13:39] VITALS: BMI 29.7
--- NOTE | 2021-12-14 14:45 | DI.MRI.S_ITS ---
PROCEDURE: MR KNEE RT WO CON INDICATIONS: Contusion of right knee, initial encounter TECHNIQUE: Noncontrast sagittal PD fast spin echo and T2 fast spin echo with fat saturation, sagittal 3-D FLASH with fat saturation; coronal T1 spin echo and PD fast spin echo with fat saturation, and axial PD fast spin echo with fat saturation through the knee. COMPARISON: [facility], CR, XR KNEE RT 3V, 12/05/2021, 13:39. FINDINGS: Image quality: Excellent. Menisci: The medial and lateral menisci demonstrate normal morphology and internal signal. The meniscal root ligaments appear intact. Cruciate ligaments: The anterior and posterior cruciate ligaments appear intact. Medial structures: The medial collateral ligament appears mildly thickened. The posterior oblique ligament, semimembranosus tendon insertions, oblique popliteal ligament, and meniscocapsular junction appear intact. Visualized portions of the pes anserinus tendons appear normal. No abnormal bursal fluid. Lateral structures: The lateral collateral ligament is mildly thickened with intrasubstance T2 hyperintense signal. The long and short heads of the biceps femoris tendon appear intact. The popliteus tendon appears normal; the popliteofibular ligament appears intact. The posterosuperior and anteroinferior popliteomeniscal fascicles appear intact. The arcuate and fabellofibular ligaments appear intact, on either side of the lateral inferior geniculate artery. Iliotibial band appears normal. Anterior structures: Mild soft TT knee is soft tissue swelling and edema along anterior aspect of patella and patella tendon is seen. Distal quadriceps tendinosis is noted. Patellar tendon is intact. Patellar alignment is normal. No femoral trochlear dysplasia or ventral trochlear prominence. No edema in the infrapatellar fat pad. Bones and cartilage: No bone marrow contusions or fractures. Lysq-br-icqwzkcz tricompartmental osteoarthritis and chondromalacia is seen more prominent in patellofemoral compartment. Joint space: There is small to moderate amount of joint fluid, no gross loose bodies. No Steinberg's cyst. Normal appearing synovial plicae are incidentally noted. IMPRESSION: 1. Relr-gs-[id number] tricompartmental osteoarthritis and chondromalacia more prominent in patellofemoral compartment. No fracture or dislocation. Small to moderate amount of joint effusion, no gross loose bodies. 2. Nonspecific mild soft tissue edema along anterior aspect of patella and patella tendon. Distal quadriceps tendinosis. Patellar tendon is intact. 3. No evidence of focal meniscal tear. 4. Low-grade MCL sprain. Low to moderate grade LCL sprain/partial-thickness tear. Dictated by: Brodie Plunkett M.D. on 12/14/2021 at 15:30 Approved by: Brodie Plunkett M.D. on 12/14/2021 at 15:33
== END ==
PROVIDERS: PCP Student in an Organized Health Care Education/Training Program; Referring Provider Family Medicine; Visit Provider Family Medicine
DX: S80.01XA Contusion of right knee, initial encounter (principal); S83.411A Sprain of medial collateral ligament of right knee, initial encounter; S83.421A Sprain of lateral collateral ligament of right knee, initial encounter; M17.11 Unilateral primary osteoarthritis, right knee; M22.41 Chondromalacia patellae, right knee; X58.XXXA Exposure to other specified factors, initial encounter
CPT/HCPCS: 73721

== ENCOUNTER → 2022-05-04 10:40 | Outpatient (CLI) | payer OTHER, SELFPAY ==
[2021-04-24 13:39] VITALS: BMI 29.7
[2022-05-04 12:18] LABS: Influenza A - CEPHEID Flu A POSITIVE (NEGATIVE); Influenza B - CEPHEID Flu B NEGATIVE (NEGATIVE); Respiratory Syncytial Virus Negative (Negative)
[2022-05-04 12:23] LABS: COVID-19 CEPHEID 4-PLEX PCR Negative (Negative)
== END ==
PROVIDERS: PCP Student in an Organized Health Care Education/Training Program; Visit Provider Physician Assistant Medical
DX: J06.9 Acute upper respiratory infection, unspecified (principal); Z20.822 Contact with and (suspected) exposure to COVID-19
CPT/HCPCS: 0241U

== ENCOUNTER 2022-05-08 10:36 | Emergency (ER) | payer OTHER, SELFPAY ==
[2021-04-24 13:39] VITALS: BMI 29.7
[2022-05-08 10:40] VITALS: BP 164/80; PULSE 94; RESP 30; TEMP 36.7; O2SAT 94
[2022-05-08 10:45] VITALS: BP 139/78; PULSE 83; RESP 14; O2SAT 94
[2022-05-08 11:00] VITALS: BP 135/74; PULSE 79; RESP 23; O2SAT 93
--- NOTE | 2022-05-08 11:04 | DI.RAD.S_ITS ---
PROCEDURE: XR CHEST 1V INDICATIONS: suspected sepsis TECHNIQUE: One view of the chest was acquired. COMPARISON: [facility], CR, XR CHEST 2V, 05/24/2021, 13:32. [facility], CR, XR CHEST 1V, 07/05/2021, 15:07. [facility], CR, XR CHEST 2V, 10/27/2021, 7:55. FINDINGS: Surgical changes and devices: Cholecystectomy clips are seen. Lungs and pleura: An incomplete inspiratory result is noted, causing a crowded appearance to the lung markings. No focal infiltrates are seen. No pneumothorax or significant pleural effusions are seen. Mediastinum: The cardiac contours are within normal limits. The aorta demonstrates calcification and tortuosity. Bones and chest wall: No suspicious bony lesions. Age-appropriate bony degenerative changes are seen. Overlying soft tissues appear unremarkable. IMPRESSION: Low lung volumes, without focal infiltrates. Dictated by: Valentino Hemphill M.D. on 05/08/2022 at 10:43 Approved by: Valentino Hemphill M.D. on 05/08/2022 at 10:44
--- NOTE | 2022-05-08 11:10 | ED_ITS ---
HPI - Weakness General Chief complaint: Fever Stated complaint: Influenza A getting worse Time Seen by Provider: 05/08/22 11:01 Source: patient Mode of arrival: Ambulatory History of Present Illness HPI Narrative: Patient is a 67-year-old male history of insulin-dependent diabetes, hyperlipidemia, hypertension diagnosed with influenza on May 04 presenting today with worsening symptoms. He says he is able to drink a lot of diet 7 up but not able to eat. Feels like he has a pounding headache he is coughing so hard it hurts. He feels like he may have pulled a groin muscle he denies any swelling in his testicle or lump in his inguinal area. He feels a little short of breath sometimes. He was prescribed azithromycin he says has not helped. He has been taking Robitussin also not helping. He generally does not feel well. He denies any specific chest pain now. Related Data Previous Rx's Medication Instructions Recorded Syringes #100 ea 06/12/18 onetouch glucose meter starter kit #1 ea 07/02/19 Glucose: Test Strips #300 ea 08/31/20 Insulin Wagoner BD Ultra Fine Mini #450 ea 04/14/21 Pen Needle Lactobacillus acidophilus 1 tab PO BID #60 tabs 04/30/21 (Acidophilus chewable tablet) albuterol sulfate 90 mcg/actuation 2 puff inhalation Q4-6H PRN 04/30/21 aerosol inhaler shortness of breath or wheezing #6.7 grams aspirin 81 mg capsule 81 mg PO DAILY #60 caps 04/30/21 famotidine 40 mg tablet 40 mg PO BID #120 tabs 04/30/21 lidocaine 5 % topical patch 1 ea topical DAILY #10 ea 04/30/21 atorvastatin 40 mg tablet 40 mg PO HS #90 tabs 05/02/21 levothyroxine 125 mcg tablet 125 mcg PO QDAY #90 tabs 07/05/21 (Synthroid) lisinopril 20 mg tablet 20 mg PO QDAY #90 tabs 07/05/21 metformin 500 mg tablet 500 mg PO BIDWMEAL #180 tabs 09/23/21 benzonatate 100 mg capsule 100 mg PO BID PRN cough #20 caps 10/27/21 zolpidem 10 mg tablet (Ambien) 10 mg PO HSP PRN insomnia #10 tabs 12/18/21 insulin NPH isoph U-100 human 100 See Rx Instructions SUBCUT BID #90 12/20/21 unit/mL (3 mL) subcutaneous pen mL (Humulin N NPH U-100 Insulin KwikPen) insulin lispro 100 unit/mL 10 unit (0.1 mL) SUBCUT TID #45 mL 12/21/21 subcutaneous pen (Humalog KwikPen (U-100) Insulin) bupropion HCl 150 mg 24 hr tablet, 150 mg PO QDAY #90 tabs 03/23/22 extended release (Wellbutrin XL) azithromycin 250 mg tablet See Rx Instructions PO .COMPLEX #6 05/04/22 tabs Allergies Allergy/AdvReac Type Severity Reaction Status Date / Time Iodinated Contrast Media Allergy Mild Rash Verified 05/08/22 11:08 meropenem Allergy Mild Rash Verified 05/08/22 11:08 Influenza Virus Vaccines Allergy Unknown Verified 05/08/22 11:08 baclofen AdvReac Severe Vomiting Verified 05/08/22 11:08 Review of Systems Review of Systems ROS Unobtainable: All systems reviewed & are unremarkable except as noted in HPI and below Patient History Medical History Chronic back pain (2004) CTS (carpal tunnel syndrome) (1994) Depression (1997) Esophageal obstruction due to food impaction (05/07/16) Foot pain (2004) Shoulder pain (2009) Sleep apnea (2009) Surgical History History of esophagogastroduodenoscopy (EGD) (05/08/16) Status post laparoscopic cholecystectomy Family History Mother Loud snoring Restless leg Hypertension Diabetes mellitus Depression Family/Other Restless leg Obesity Hypertension Depression Anxiety Social History marital status: household members: other lives independently: Yes education level: high school occupational status: employed Smoking Status: Never smoker alcohol intake: never substance use type: does not use Smoking Status: Never smoker alcohol intake frequency: other Substance Use Type: does not use Exam Initial Vital Signs Initial Vital Signs: Vital Signs Temperature 98.0 F 05/08/22 10:40 Pulse Rate 94 H 05/08/22 10:40 Respiratory Rate 30 H 05/08/22 10:40 Blood Pressure 164/80 H 05/08/22 10:40 Pulse Oximetry 94 05/08/22 10:40 Oxygen Delivery Method 05/08/22 10:40 GENERAL: Alert pleasant 67-year-old male appears to not feel well and in no acute distress. HEENT: Head atraumatic,EOMI, pupils reactive, face symmetric, moist mucous membranes , neck supple CARDIOVASCULAR: Regular rate and rhythm without murmurs, rubs or gallops. RESPIRATORY: Breath sounds equal bilaterally, no wheezes rales or rhonchi. ABDOMEN: Soft, nontender. Normoactive bowel sounds all 4 quadrants. No guarding or rebound. EXTREMITIES: Normal range of motion, no clubbing or edema. Neurovascularly intact NEUROLOGICAL: Alert and oriented x4.Normal gait and speech. SKIN: Warm, dry, no laceration, no petechiae, no rashes or lesions. Course Orders Ordered: ED Orders 05/08/22 10:45 Blood Culture Stat 05/08/22 10:52 EKG-12 Lead Routine 05/08/22 11:00 Complete Blood Count AUTO DIFF Stat Comprehensive Metabolic Panel Stat Lactate (Lactic Acid) Stat Lipase Stat NT-proBNP (BNP-Adult 18+) Stat Partial Thromboplastin Time Stat Procalcitonin Stat Prothrombin Time INR Stat Troponin & CK Cardiac Panel Stat 05/08/22 11:04 XR chest 1V Stat RT Consult Eval and Treat NOW Sodium Chloride (Normal Saline 0.9%) 1,000 mls @ 1,000 mls/hr IV CONT ERIC Ondansetron HCl (Ondansetron 4 Mg/2 Ml Inj) 4 mg IV NOW PRN PRN Reason: Nausea And Vomiting Last Admin: 05/08/22 11:33 Dose: 4 mg Documented By: LEFTY Discontinued Medications Albuterol (Albuterol Hfa Prepack) 1 box MISC SEEINSTR ONE Stop: 05/08/22 12:51 Last Admin: 05/08/22 12:58 Dose: 1 box Documented By: GASPER Albuterol/Ipratropium (Albuterol/Ipratropium 3 Ml Ampul) 3 ml INH NOW ONE Stop: 05/08/22 12:22 Last Admin: 05/08/22 12:37 Dose: 3 ml Documented By: GASPER Sodium Chloride (Normal Saline 0.9%) 1,000 mls @ 1,000 mls/hr IV BOLUS ONE Stop: 05/08/22 12:03 Last Admin: 05/08/22 11:32 Dose: 1,000 mls/hr Documented By: LEFTY Ketorolac Tromethamine (Ketorolac 60 Mg/2 Ml Vial) 30 mg IV NOW ONE Stop: 05/08/22 11:11 Last Admin: 05/08/22 11:22 Dose: Not Given Documented By: LEFTY Ketorolac Tromethamine (Ketorolac 30 Mg/Ml Vial) 30 mg IV NOW ONE Stop: 05/08/22 11:24 Last Admin: 05/08/22 11:32 Dose: 30 mg Documented By: LEFTY Vital Signs Vital signs: Vital Signs - 8 hr 05/08/22 12:37 Pulse Rate 80 Respiratory Rate 18 Pulse Oximetry 96 Oxygen Delivery Method Room Air Oxygen Flow Rate 0 Fraction of Inspired Oxygen 21 MDM - Weakness Lab Data Result diagrams: 05/08/22 11:00 05/08/22 11:00 Labs: Lab Results 05/08/22 05/08/22 05/08/22 Range/Units 11:00 11:00 11:00 WBC 5.0 (4.5-11.0) X10^3/uL RBC 4.91 (4.5-5.9) X10^6/uL Hgb 14.6 (13.5-17.5) g/dL Hct 43.1 (41-53) % MCV 87.9 (80-100) fL MCH 29.8 (26-34) PG MCHC 33.9 (30-36) % RDW 14.0 (11.6-14.8) % Plt Count 249 (150-400) X10^3/uL Neut % (Auto) 56.4 (50-75) % Lymph % (Auto) 32.7 (25-40) % Mcleod % (Auto) 9.6 (3-14) % Eos % (Auto) 0.3 L (2-4) % Baso % (Auto) 1.0 (0-2) % Neut # (Auto) 2800 (4888-1975) /uL Lymph # (Auto) 1600 (8068-0273) /uL Mcleod # (Auto) 500 (0-900) /uL Eos # (Auto) 0 (0-450) /uL Baso # (Auto) 0 (0-100) /uL PT 12.0 (10.1-12.7) SECONDS INR 1.0 (0.9-1.3) APTT 31 (26-36) SECONDS Sodium 133 L (137-145) mmol/L Potassium 4.2 (3.4-5.1) mmol/L Chloride 96 L (98-107) mmol/L Carbon Dioxide 21 L (22-32) mmol/L BUN 39 H (9-20) mg/dL Creatinine 1.46 H (0.66-1.25) mg/dL Estimated GFR 52 L (>60) mL/min BUN/Creatinine Ratio 26.7 H (6-22) Glucose 259 H (80-110) mg/dL Lactate (0.7-2.1) mmol/L Calcium 8.6 (8.4-10.2) mg/dL Total Bilirubin 0.6 (0.2-1.3) mg/dL AST 73 H (17-59) IU/L ALT 48 (<50) IU/L Alkaline Phosphatase 76 (38-126) U/L Total Creatine Kinase (55-170) U/L CK-MB (CK-2) (<2.37) ng/mL CK-MB (CK-2) Rel Index (1.5-5.0) % Troponin I (0.01-0.034) ng/mL NT-Pro-B Natriuret Pep (<125) pg/mL Total Protein 7.8 (6.3-8.2) g/dL Albumin 4.4 (3.5-5.0) g/dL Globulin 3.4 (1.7-4.1) g/dL Albumin/Globulin Ratio 1.3 (1.0-2.8) Lipase 278 (23-300) U/L Procalcitonin 0.15 (<0.5) ng/mL 05/08/22 05/08/22 05/08/22 Range/Units 11:00 11:00 11:00 WBC (4.5-11.0) X10^3/uL RBC (4.5-5.9) X10^6/uL Hgb (13.5-17.5) g/dL Hct (41-53) % MCV (80-100) fL MCH (26-34) PG MCHC (30-36) % RDW (11.6-14.8) % Plt Count (150-400) X10^3/uL Neut % (Auto) (50-75) % Lymph % (Auto) (25-40) % Mcleod % (Auto) (3-14) % Eos % (Auto) (2-4) % Baso % (Auto) (0-2) % Neut # (Auto) (2207-0985) /uL Lymph # (Auto) (4828-5193) /uL Mcleod # (Auto) (0-900) /uL Eos # (Auto) (0-450) /uL Baso # (Auto) (0-100) /uL PT (10.1-12.7) SECONDS INR (0.9-1.3) APTT (26-36) SECONDS Sodium (137-145) mmol/L Potassium (3.4-5.1) mmol/L Chloride (98-107) mmol/L Carbon Dioxide (22-32) mmol/L BUN (9-20) mg/dL Creatinine (0.66-1.25) mg/dL Estimated GFR (>60) mL/min BUN/Creatinine Ratio (6-22) Glucose (80-110) mg/dL Lactate 1.6 (0.7-2.1) mmol/L Calcium (8.4-10.2) mg/dL Total Bilirubin (0.2-1.3) mg/dL AST (17-59) IU/L ALT (<50) IU/L Alkaline Phosphatase (38-126) U/L Total Creatine Kinase 853 H (55-170) U/L CK-MB (CK-2) 2.05 (<2.37) ng/mL CK-MB (CK-2) Rel Index 0.2 L (1.5-5.0) % Troponin I < 0.012 (0.01-0.034) ng/mL NT-Pro-B Natriuret Pep 24 (<125) pg/mL Total Protein (6.3-8.2) g/dL Albumin (3.5-5.0) g/dL Globulin (1.7-4.1) g/dL Albumin/Globulin Ratio (1.0-2.8) Lipase Cancelled (23-300) U/L Procalcitonin (<0.5) ng/mL Imaging Data Chest x-ray: Radiologist Impression: Signed Patient: Bladimir Xavier Jr MR#: [id number] : 1955 Acct:[id number] Age/Sex: 67 / M Date of Service: 05/08/22 Loc: ED Accession Number: [id number] ?? Procedure: XR chest 1V Ordering Provider: Fifi Henderson D.O. PROCEDURE:? XR CHEST 1V ? INDICATIONS:? suspected sepsis ? TECHNIQUE:? One view of the chest was acquired.? ? COMPARISON:? [facility], CR, XR CHEST 2V, 05/24/2021, 13:32.? [facility], CR, XR CHEST 1V, 07/05/2021, 15:07.? [facility], CR, XR CHEST 2V, 10/27/2021, 7:55. ? FINDINGS:? ? Surgical changes and devices:? Cholecystectomy clips are seen.? ? Lungs and pleura:? An incomplete inspiratory result is noted, causing a crowded appearance to the lung markings.? No focal infiltrates are seen.? No pneumothorax or significant pleural effusions are seen. ? ? Mediastinum:? The cardiac contours are within normal limits. The aorta demonstrates calcification and tortuosity. ? Bones and chest wall:? No suspicious bony lesions.? Age-appropriate bony degenerative changes are seen. ? Overlying soft tissues appear unremarkable.? ? ? IMPRESSION:? Low lung volumes, without focal infiltrates. ? ? Dictated by: Valentino Hemphill M.D. on 05/08/2022 at 10:43 ? ? ECG Data Interpretation: Sinus rhythm rate 79 GA interval 140 QRS 120 QTC 458 right bundle-branch block noted similar to previous EKG June 2021 MDM Narrative Medical decision making narrative: Patient has known influenza A generally not feeling well. He is not hypoxic. There is no evidence of sepsis no leukocytosis or fever, no source of sepsis or evidence of sepsis at this time. He Is feeling better after Toradol and fluids. He is mildly dehydrated his lab work BUN 39 creatinine 1.46. We discussed about not just drinking diet 7 up but other fluids as well. He is given DuoNeb treatment to help with his breathing which seems to help significantly. He is given spacer and albuterol inhaler to go home with. He is had this previously. At this time I do not see need for further workup. Differential diagnosis does include pulmonary embolism however with known influenza a and improvement with albuterol this is unlikely. Other considerations include acute coronary syndrome, pneumonia, sepsis Discharge Plan Departure Patient Disposition: Home Clinical Impression: Influenza A Instructions: DI for Influenza -- Adult Activity Restrictions/Additional Instructions: *You have been diagnosed with influenza *What to do: Continue to stay hydrated of rest. Had this time no need for antibiotics. Expect to feel poorly for the next few days but you should start having some improvement. Increase diet as tolerated *Continue to take medications as directed Tylenol 650 mg every 4-6 hours if needed for [id number] pain or fever Ibuprofen 600 mg every 6 hours if needed for zzcn-pw-mmdlygka pain or fever Albuterol inhaler 1-2 puffs every 4 hours if needed for coughing spells or shortness of breath Try bejf-nhs-ayjnmzo Mucinex DM *Follow up with your primary care provider in 2-3 days or call [phone] *Return to ER if you should have not tolerating fluid increasing shortness of breath , chest pain [or] any new, worsening or concerning symptoms Prescriptions: No Action azithromycin 250 mg tablet See Rx Instructions PO .COMPLEX Qty: 6 0RF Rx Instructions: For 250 mg dose pack: take 500 mg today (day 1), then 250 mg for 4 days (days 2-5) PO benzonatate 100 mg capsule 100 mg PO BID PRN (Reason: cough) Qty: 20 0RF (DME) Syringes See Rx Instructions .Route .MEDSUPPLY Qty: 100 6RF Dose Instruction: SQ SUBCUT QID; Rx Instructions: Use BD 0.5ml syringe with 31 gauge x 8mm needle to inject insulin four times a day. (DME) onetouch glucose meter starter kit Qty: 1 0RF Rx Instructions: use to check blood sugar 4 times daily (DME) Glucose: Test Strips 0 .Route .MEDSUPPLY Qty: 300 1RF Dose Instruction: As directed Rx Instructions: Use with matching meter to check blood glucose levels 4 times daily (DME) Insulin Wagoner BD Ultra Fine Mini Pen Needle Qty: 450 3RF Dose Instruction: As directed Rx Instructions: 31g X 3/16 - Use to Inject Humalog AND HUMULIN 5 NEEDLES PER DAY atorvastatin 40 mg tablet 40 mg PO HS Qty: 90 3RF levothyroxine [Synthroid] 125 mcg tablet 125 mcg PO QDAY Qty: 90 3RF lisinopril 20 mg tablet 20 mg PO QDAY Qty: 90 3RF metformin 500 mg tablet 500 mg PO BIDWMEAL Qty: 180 1RF Hold Instructions: pt needs labs done first zolpidem [Ambien] 10 mg tablet 10 mg PO HSP PRN (Reason: insomnia) Qty: 10 3RF Humulin N NPH Insulin KwikPen 100 unit/mL (3 mL) insulin pen See Rx Instructions SUBCUT BID Qty: 90 1RF Hold Instructions: Needs labs Dose Instruction: 50U in am, 20U in pm SUBCUT BID; Rx Instructions: 50U in am, 20U in pm SUBCUT BID; insulin lispro [Humalog KwikPen Insulin] 100 unit/mL insulin pen 10 unit SUBCUT TID Qty: 45 1RF Hold Instructions: Needs labs Rx Instructions: inject 10 units under skin before meals give additional 2units per dee ry50ml/dl glucose over 100. MMD 50 units bupropion HCl [Wellbutrin XL] 150 mg tablet extended release 24 hr 150 mg PO QDAY Qty: 90 1RF famotidine 40 mg tablet 40 mg PO BID Qty: 120 0RF lidocaine 5 % Adhesive Patch,Medicated 1 ea topical DAILY Qty: 10 0RF Acidophilus Tablet,Chewable 1 tab PO BID Qty: 60 0RF Rx Instructions: WITH MEALS albuterol sulfate 90 mcg/actuation HFA aerosol inhaler 2 puff inhalation Q4-6H PRN (Reason: shortness of breath or wheezing) Qty: 6.7 0RF aspirin 81 mg capsule 81 mg PO DAILY Qty: 60 0RF Referrals: Patrick Rocha MD [Primary Care Provider] - Stand Alone Forms: Work Release Note
[2022-05-08 11:11] LABS: Add Manual Diff / Slide Review NO; Basophils Absolute Auto 0 /uL (0-100); Eosinophils Absolute Auto 0 /uL (0-450); Eosinophils Percent Auto 0.3 % (2-4); Hematocrit 43.1 % (41-53); Hemoglobin 14.6 g/dL (13.5-17.5); Lymphocytes Absolute Auto 1600 /uL (1100-4500); Lymphocytes Percent Auto 32.7 % (25-40); Mean Corpuscular HGB Conc 33.9 % (30-36); Mean Corpuscular Hemoglobin 29.8 PG (26-34); Mean Corpuscular Volume 87.9 fL (80-100); Monocytes Absolute Auto 500 /uL (0-900); Monocytes Percent Auto 9.6 % (3-14); Neutrophils Absolute Auto 2800 /uL (1500-7000); Neutrophils Percent Auto 56.4 % (50-75); Platelet Count 249 X10^3/uL (150-400); Red Blood Cell Count 4.91 X10^6/uL (4.5-5.9)
[2022-05-08 11:19] LABS: PTT Partial Thromboplastin Tim 31 SECONDS (26-36)
[2022-05-08 11:22] LABS: Alanine Aminotransferase 48 IU/L (<50); Albumin 4.4 g/dL (3.5-5.0); Albumin Globulin Ratio 1.3 (1.0-2.8); Alkaline Phosphatase 76 U/L (38-126); Aspartate Aminotransferase 73 IU/L (17-59); BUN Creatinine Ratio 26.7 (6-22); Bilirubin Total 0.6 mg/dL (0.2-1.3); Blood Urea Nitrogen 39 mg/dL (9-20); Calcium 8.6 mg/dL (8.4-10.2); Carbon Dioxide 21 mmol/L (22-32); Chloride 96 mmol/L (98-107); Estimated Glomerular Filt Rate 52 mL/min (>60); Globulin 3.4 g/dL (1.7-4.1); Glucose 259 mg/dL (80-110); HEMOLYSIS 17 (0-50); Lactate (Lactic Acid) 1.6 mmol/L (0.7-2.1); Lipase 278 U/L (23-300); Potassium 4.2 mmol/L (3.4-5.1); Sodium 133 mmol/L (137-145); Total Protein 7.8 g/dL (6.3-8.2)
[2022-05-08 11:30] LABS: Creatine Kinase 853 U/L (55-170)
[2022-05-08] MEDS: SODIUM CHLORIDE 0.9% 1,000 ML 1000 ML IV (11:32)
[2022-05-08] MEDS: KETOROLAC 30 MG/ML VIAL IV (11:32)
[2022-05-08] MEDS: ONDANSETRON 4 MG/2 ML INJ IV (11:33)
[2022-05-08 11:37] LABS: Procalcitonin 0.15 ng/mL (<0.5)
[2022-05-08 11:40] LABS: NT-proBNP (BNP-Adult 18+) 24 pg/mL (<125)
[2022-05-08 11:42] LABS: Troponin I < 0.012 ng/mL (0.01-0.034)
[2022-05-08 11:45] LABS: CKMB % Relative Index 0.2 % (1.5-5.0); Creatine Kinase MB 2.05 ng/mL (<2.37)
[2022-05-08 12:37] VITALS: PULSE 80; RESP 18; O2SAT 96
[2022-05-08] MEDS: ALBUTEROL/IPRATROPIUM 3 ML AMPUL INH (12:37)
[2022-05-08] MEDS: ALBUTEROL HFA PREPACK 1 BOX MISC (12:58)
== END 2022-05-08 13:30 | disposition home or self-care (01) ==
PROVIDERS: Emergency Provider Emergency Medicine; PCP Student in an Organized Health Care Education/Training Program
DX: J10.1 Influenza due to other identified influenza virus with other respiratory manifestations (principal); R51.9 Headache, unspecified
CPT/HCPCS: 36415; 71045; 80053; 82550; 82553; 83605; 83690; 83880; 84145; 84484; 85025; 85610; 85730; 87040; 93005; 94640; 96361; 96374; 96375; 99284; J1885; J2405

== ENCOUNTER 2022-05-19 10:37 | Emergency (ER) | payer OTHER, SELFPAY ==
[2021-04-24 13:39] VITALS: BMI 29.7
[2022-05-19] VITALS (30 sets, daily range): BP systolic 113–171; BP diastolic 56–89; PULSE 69–101; RESP 10–26; TEMP 36.4; O2SAT 92–97; BMI 30.2
--- NOTE | 2022-05-19 10:44 | DI.RAD.S_ITS ---
PROCEDURE: XR CHEST 1V INDICATIONS: chest pain TECHNIQUE: One view of the chest was acquired. COMPARISON: [facility], CR, XR CHEST 1V, 05/08/2022, 11:19. FINDINGS: Surgical changes and devices: None. Lungs and pleura: Lungs are clear. No pleural effusions or pneumothorax. Mediastinum: Mediastinal contours appear normal. Heart size is normal. Bones and chest wall: No suspicious bony lesions. Overlying soft tissues appear unremarkable. IMPRESSION: No acute cardiopulmonary disease. Dictated by: Rossy Mcgrath M.D. on 05/19/2022 at 11:11 Approved by: Rossy Mcgrath M.D. on 05/19/2022 at 11:11
[2022-05-19 11:00] LABS: Add Manual Diff / Slide Review NO; Basophils Absolute Auto 100 /uL (0-100); Basophils Percent Auto 0.9 % (0-2); Eosinophils Absolute Auto 100 /uL (0-450); Hematocrit 39.3 % (41-53); Hemoglobin 13.1 g/dL (13.5-17.5); Lymphocytes Absolute Auto 3000 /uL (1100-4500); Lymphocytes Percent Auto 23.7 % (25-40); Mean Corpuscular HGB Conc 33.2 % (30-36); Mean Corpuscular Hemoglobin 29.4 PG (26-34); Mean Corpuscular Volume 88.5 fL (80-100); Monocytes Absolute Auto 900 /uL (0-900); Monocytes Percent Auto 7.6 % (3-14); Neutrophils Absolute Auto 8300 /uL (1500-7000); Neutrophils Percent Auto 66.8 % (50-75); Platelet Count 349 X10^3/uL (150-400); Red Blood Cell Count 4.44 X10^6/uL (4.5-5.9); Red Cell Distribution Width 13.9 % (11.6-14.8); White Blood Cell Count 12.5 X10^3/uL (4.5-11.0)
[2022-05-19 11:08] LABS: Prothrombin Time 11.4 SECONDS (10.1-12.7)
[2022-05-19 11:11] LABS: PTT Partial Thromboplastin Tim 30 SECONDS (26-36)
[2022-05-19 11:17] LABS: Alanine Aminotransferase 35 IU/L (<50); Albumin 4.6 g/dL (3.5-5.0); Albumin Globulin Ratio 1.5 (1.0-2.8); Alkaline Phosphatase 92 U/L (38-126); Aspartate Aminotransferase 28 IU/L (17-59); BUN Creatinine Ratio 17.9 (6-22); Bilirubin Total 0.6 mg/dL (0.2-1.3); Blood Urea Nitrogen 20 mg/dL (9-20); Calcium 9.7 mg/dL (8.4-10.2); Carbon Dioxide 26 mmol/L (22-32); Chloride 100 mmol/L (98-107); Creatine Kinase 189 U/L (55-170); Estimated Glomerular Filt Rate > 60 mL/min (>60); Glucose 228 mg/dL (80-110); HEMOLYSIS < 15 (0-50); Lipase 168 U/L (23-300); Magnesium 1.6 mg/dL (1.6-2.3); Potassium 4.4 mmol/L (3.4-5.1); Sodium 137 mmol/L (137-145); Total Protein 7.6 g/dL (6.3-8.2)
[2022-05-19 11:27] LABS: Troponin I < 0.012 ng/mL (0.01-0.034)
--- NOTE | 2022-05-19 13:36 | ED_ITS ---
HPI - Chest Pain <Fifi Santiago, DO - Last Filed: 05/22/22 07:17> General Chief Complaint: Chest Pain Stated Complaint: chest pain/SOB/ sent by [facility] t-2 Time Seen by Provider: 05/19/22 13:09 Source: patient Mode of arrival: Wheelchair Limitations: no limitations History of Present Illness HPI narrative: Patient is a 67-year-old male history of diabetes hyperlipidemia hypertension presenting today with chest discomfort. He was actually diagnosed with influenza on May 08 he says he is actually been back to work he has been doing well. However over the last 5 days got this epigastric pain radiates up into his chest it seems be more present when he is up moving around. He gets a little short of breath. It also happens at rest. He has some right upper abdominal pain as well sometimes it is worse with eating. He says pain lasts for about 15 minutes and then it goes away. He sometimes gets a little sweaty which she was this morning and he said it was cold outside so that was abnormal. He is no prior history of acute coronary syndrome Related Data Previous Rx's Medication Instructions Recorded Syringes #100 ea 06/12/18 onetouch glucose meter starter kit #1 ea 07/02/19 Glucose: Test Strips #300 ea 08/31/20 Insulin [place] BD Ultra Fine Mini #450 ea 04/14/21 Pen Needle Lactobacillus acidophilus 1 tab PO BID #60 tabs 04/30/21 (Acidophilus chewable tablet) albuterol sulfate 90 mcg/actuation 2 puff inhalation Q4-6H PRN 04/30/21 aerosol inhaler shortness of breath or wheezing #6.7 grams aspirin 81 mg capsule 81 mg PO DAILY #60 caps 04/30/21 famotidine 40 mg tablet 40 mg PO BID #120 tabs 04/30/21 lidocaine 5 % topical patch 1 ea topical DAILY #10 ea 04/30/21 atorvastatin 40 mg tablet 40 mg PO HS #90 tabs 05/02/21 levothyroxine 125 mcg tablet 125 mcg PO QDAY #90 tabs 07/05/21 (Synthroid) lisinopril 20 mg tablet 20 mg PO QDAY #90 tabs 07/05/21 metformin 500 mg tablet 500 mg PO BIDWMEAL #180 tabs 09/23/21 benzonatate 100 mg capsule 100 mg PO BID PRN cough #20 caps 10/27/21 zolpidem 10 mg tablet (Ambien) 10 mg PO HSP PRN insomnia #10 tabs 12/18/21 insulin NPH isoph U-100 human 100 See Rx Instructions SUBCUT BID #90 12/20/21 unit/mL (3 mL) subcutaneous pen mL (Humulin N NPH U-100 Insulin KwikPen) bupropion HCl 150 mg 24 hr tablet, 150 mg PO QDAY #90 tabs 03/23/22 extended release (Wellbutrin XL) azithromycin 250 mg tablet See Rx Instructions PO .COMPLEX #6 05/04/22 tabs insulin lispro 100 unit/mL 10 unit (0.1 mL) SUBCUT TID #45 mL 05/18/22 subcutaneous pen (Humalog KwikPen (U-100) Insulin) Allergies Allergy/AdvReac Type Severity Reaction Status Date / Time Iodinated Contrast Media Allergy Mild Rash Verified 05/19/22 10:42 meropenem Allergy Mild Rash Verified 05/19/22 10:42 Influenza Virus Vaccines Allergy Unknown Verified 05/19/22 10:42 baclofen AdvReac Severe Vomiting Verified 05/19/22 10:42 <Da Lafleur DO - Last Filed: 05/21/22 06:18> Review of Systems Narrative: GENERAL: See HPI HEENT: Denies sinus pain, ear pain, sore throat, difficulty swallowing, dizziness. RESPIRATORY: See HPI CARDIOVASCULAR: See HPI GASTROINTESTINAL: See HPI : Denies dysuria, frequency, incontinence, hematuria, urinary retention. MUSCULOSKELETAL: denies weakness, joint pain, or bony pain SKIN: Denies rash, skin lesions, or other NEUROLOGIC: Denies weakness, headache, numbness, change in speech, confusion, seizures, incoordination. PSYCHIATRIC: No concerning psychosocial issues. 12 point review of systems is negative except for those stated above Patient History <Fifi Henderson DO - Last Filed: 05/22/22 07:17> Medical History Chronic back pain (2004) CTS (carpal tunnel syndrome) (1994) Depression (1997) Esophageal obstruction due to food impaction (05/07/16) Foot pain (2004) Shoulder pain (2009) Sleep apnea (2009) Surgical History History of esophagogastroduodenoscopy (EGD) (05/08/16) Status post laparoscopic cholecystectomy Family History Mother Loud snoring Restless leg Hypertension Diabetes mellitus Depression Family/Other Restless leg Obesity Hypertension Depression Anxiety Social History marital status: household members: other lives independently: Yes education level: high school occupational status: employed Smoking Status: Never smoker alcohol intake: former (Quit alcohol use 34 years ago) substance use type: does not use Smoking Status: Never smoker alcohol intake frequency: other Substance Use Type: does not use Exam <Fifi Henderson DO - Last Filed: 05/22/22 07:17> Initial Vital Signs Initial Vital Signs: Vital Signs Temperature 97.5 F L 05/19/22 10:42 Pulse Rate 76 05/19/22 10:42 Respiratory Rate 15 05/19/22 10:42 Blood Pressure 154/72 H 05/19/22 10:42 Pulse Oximetry 96 05/19/22 10:42 Oxygen Delivery Method 05/19/22 10:42 GENERAL: Alert pleasant 67-year-old male HEENT: Head atraumatic,EOMI, pupils reactive, face symmetric, [moist] mucous membranes CARDIOVASCULAR: Regular rate and rhythm without murmurs, rubs or gallops. RESPIRATORY: Breath sounds equal bilaterally, no wheezes rales or rhonchi. ABDOMEN: Soft, mild epigastric tenderness minimal right upper quadrant pain no guarding no rebound : No CVA tenderness EXTREMITIES: Normal range of motion, no clubbing or edema. Neurovascularly intact NEUROLOGICAL: Alert and oriented x4.Normal gait and speech. Cranial nerves II through XII grossly intact. SKIN: Warm, dry, no laceration, no petechiae, no rashes or lesions. <Cleve Eaton DO - Last Filed: 05/20/22 06:20> Initial Vital Signs Initial Vital Signs: Vital Signs Temperature 97.5 F L 05/19/22 10:42 Pulse Rate 76 05/19/22 10:42 Respiratory Rate 15 05/19/22 10:42 Blood Pressure 154/72 H 05/19/22 10:42 Pulse Oximetry 96 05/19/22 10:42 Oxygen Delivery Method 05/19/22 10:42 <Da Lafleur DO - Last Filed: 05/21/22 06:18> Initial Vital Signs Initial Vital Signs: Vital Signs Temperature 97.5 F L 05/19/22 10:42 Pulse Rate 76 05/19/22 10:42 Respiratory Rate 15 05/19/22 10:42 Blood Pressure 154/72 H 05/19/22 10:42 Pulse Oximetry 96 05/19/22 10:42 Oxygen Delivery Method 05/19/22 10:42 Course <Fifi Henderson DO - Last Filed: 05/22/22 07:17> Orders Ordered: Discontinued Medications Acetaminophen (Acetaminophen 325 Mg Tablet) 650 mg PO NOW ONE Stop: 05/20/22 06:25 Last Admin: 05/20/22 06:31 Dose: 650 mg Documented By: CLOTILDE Aspirin (Aspirin 81 Mg Chew Tab) 324 mg PO NOW ONE Stop: 05/19/22 14:06 Last Admin: 05/19/22 14:10 Dose: 243 mg Documented By: JULIETA Aspirin (Aspirin 81 Mg Chew Tab) 324 mg PO DAILY [facility] Aspirin (Aspirin 81 Mg Chew Tab) 324 mg PO NOW ONE Stop: 05/20/22 16:43 Last Admin: 05/20/22 16:59 Dose: 324 mg Documented By: LORENA Dextrose (Dextrose 50 % In Water 25 Gm/50 Ml Syringe) 25 gm IV PRN PRN PRN Reason: Hypoglycemia Dextrose (Dextrose 50 % In Water 25 Gm/50 Ml Syringe) 25 gm IV PRN PRN; Protocol PRN Reason: Hypoglycemia Diphenhydramine HCl (Diphenhydramine 50 Mg/Ml Vial) 25 mg IV NOW ONE Stop: 05/19/22 14:43 Last Admin: 05/19/22 14:50 Dose: 25 mg Documented By: RENZO Heparin Sodium (Porcine) (Heparin 5,000 Unit/Ml Vial) 5,000 unit IV NOW ONE Stop: 05/19/22 17:32 Last Admin: 05/19/22 17:54 Dose: 5,000 unit Documented By: RAPHAEL Heparin Sodium/Dextrose (Heparin Drip) 25,000 unit in 500 mls @ 20 mls/hr IV CONT ERIC; Protocol Last Titration: 05/20/22 23:26 Dose: 850 units/hr, 17 mls/hr Documented By: Admin: 05/20/22 21:35 Dose: 850 units/hr, 17 mls/hr Documented By: Titration: 05/20/22 21:35 Dose: 850 units/hr, 17 mls/hr Documented By: Titration: 05/20/22 18:45 Dose: 850 units/hr, 17 mls/hr Documented By: Titration: 05/20/22 06:20 Dose: 800 units/hr, 16 mls/hr Documented By: Titration: 05/20/22 01:45 Dose: 850 units/hr, 17 mls/hr Documented By: Titration: 05/20/22 00:45 Dose: 0 units/hr, 0 mls/hr Documented By: Admin: 05/19/22 17:55 Dose: 1,000 units/hr, 20 mls/hr Documented By: MLMary Insulin Human Lispro (Insulin Lispro 100 Unit/Ml 3ml Vial) 0 unit SUBCUT ACHS [facility]; Protocol Last Admin: 05/19/22 21:09 Dose: 7 unit Documented By: CLOTILDE Co-signed By: VIN Admin: 05/19/22 18:41 Dose: Not Given Documented By: RAPHAEL Insulin Human Lispro (Insulin Lispro 100 Unit/Ml 3ml Vial) 0 unit SUBCUT ACHS [facility]; Protocol Last Admin: 05/20/22 21:16 Dose: 3 unit Documented By: LORENA Co-signed By: MARA Admin: 05/20/22 17:00 Dose: 7 unit Documented By: LORENA Co-signed By: MARA Admin: 05/20/22 12:14 Dose: 8 unit Documented By: LORENA Co-signed By: MARA Admin: 05/20/22 09:08 Dose: Not Given Documented By: RENZO Methylprednisolone (Methylprednisolone 125 Mg/2 Ml Vial) 125 mg IV NOW ONE Stop: 05/19/22 14:42 Last Admin: 05/19/22 14:50 Dose: 125 mg Documented By: RENZO Morphine Sulfate (Morphine 2 Mg/Ml Inj) 2 mg IV NOW ONE Stop: 05/19/22 13:43 Last Admin: 05/19/22 13:50 Dose: 2 mg Documented By: JULIETA Morphine Sulfate (Morphine 2 Mg/Ml Inj) 2 mg IV Q3H PRN PRN Reason: Pain, Moderate (4-6) Last Admin: 05/20/22 20:20 Dose: 2 mg Documented By: LORENA Nitroglycerin (Nitroglycerin 0.4 Mg Sl Tab) 0.4 mg SL [id number] PRN PRN Reason: Chest Pain Nitroglycerin (Nitroglycerin 0.4 Mg Sl Tab) 0.4 mg SL [id number] PRN PRN Reason: Chest Pain Zolpidem Tartrate (Zolpidem 5 Mg Tablet) 10 mg PO BEDTIME PRN PRN Reason: Sleep Last Admin: 05/20/22 21:17 Dose: 10 mg Documented By: Admin: 05/19/22 21:11 Dose: 10 mg Documented By: CLOTILDE Vital Signs Vital signs: Vital Signs - 8 hr 05/20/22 22:30 05/20/22 22:44 05/20/22 22:44 Pulse Rate 112 H 89 Blood Pressure 156/80 H Pulse Oximetry 93 Oxygen Delivery Method Nasal Cannula Oxygen Flow Rate 2 05/20/22 23:00 05/20/22 23:00 Pulse Rate 86 Blood Pressure 155/74 H Pulse Oximetry 95 Oxygen Delivery Method Nasal Cannula Oxygen Flow Rate 2 <Cleve Eaton DO - Last Filed: 05/20/22 06:20> Orders Ordered: Discontinued Medications Acetaminophen (Acetaminophen 325 Mg Tablet) 650 mg PO NOW ONE Stop: 05/20/22 06:25 Last Admin: 05/20/22 06:31 Dose: 650 mg Documented By: CLOTILDE Aspirin (Aspirin 81 Mg Chew Tab) 324 mg PO NOW ONE Stop: 05/19/22 14:06 Last Admin: 05/19/22 14:10 Dose: 243 mg Documented By: JULIETA Aspirin (Aspirin 81 Mg Chew Tab) 324 mg PO DAILY [facility] Aspirin (Aspirin 81 Mg Chew Tab) 324 mg PO NOW ONE Stop: 05/20/22 16:43 Last Admin: 05/20/22 16:59 Dose: 324 mg Documented By: LORENA Dextrose (Dextrose 50 % In Water 25 Gm/50 Ml Syringe) 25 gm IV PRN PRN PRN Reason: Hypoglycemia Dextrose (Dextrose 50 % In Water 25 Gm/50 Ml Syringe) 25 gm IV PRN PRN; Protocol PRN Reason: Hypoglycemia Diphenhydramine HCl (Diphenhydramine 50 Mg/Ml Vial) 25 mg IV NOW ONE Stop: 05/19/22 14:43 Last Admin: 05/19/22 14:50 Dose: 25 mg Documented By: RENZO Heparin Sodium (Porcine) (Heparin 5,000 Unit/Ml Vial) 5,000 unit IV NOW ONE Stop: 05/19/22 17:32 Last Admin: 05/19/22 17:54 Dose: 5,000 unit Documented By: RAPHAEL Heparin Sodium/Dextrose (Heparin Drip) 25,000 unit in 500 mls @ 20 mls/hr IV CONT [facility]; Protocol Last Titration: 05/20/22 23:26 Dose: 850 units/hr, 17 mls/hr Documented By: Admin: 05/20/22 21:35 Dose: 850 units/hr, 17 mls/hr Documented By: Titration: 05/20/22 21:35 Dose: 850 units/hr, 17 mls/hr Documented By: Titration: 05/20/22 18:45 Dose: 850 units/hr, 17 mls/hr Documented By: Titration: 05/20/22 06:20 Dose: 800 units/hr, 16 mls/hr Documented By: Titration: 05/20/22 01:45 Dose: 850 units/hr, 17 mls/hr Documented By: Titration: 05/20/22 00:45 Dose: 0 units/hr, 0 mls/hr Documented By: Admin: 05/19/22 17:55 Dose: 1,000 units/hr, 20 mls/hr Documented By: MLMary Insulin Human Lispro (Insulin Lispro 100 Unit/Ml 3ml Vial) 0 unit SUBCUT ACHS [facility]; Protocol Last Admin: 05/19/22 21:09 Dose: 7 unit Documented By: CLOTILDE Co-signed By: VIN Admin: 05/19/22 18:41 Dose: Not Given Documented By: MLMary Insulin Human Lispro (Insulin Lispro 100 Unit/Ml 3ml Vial) 0 unit SUBCUT ACHS [facility]; Protocol Last Admin: 05/20/22 21:16 Dose: 3 unit Documented By: LORENA Co-signed By: MARA Admin: 05/20/22 17:00 Dose: 7 unit Documented By: LORENA Co-signed By: MARA Admin: 05/20/22 12:14 Dose: 8 unit Documented By: LORENA Co-signed By: MARA Admin: 05/20/22 09:08 Dose: Not Given Documented By: RENZO Methylprednisolone (Methylprednisolone 125 Mg/2 Ml Vial) 125 mg IV NOW ONE Stop: 05/19/22 14:42 Last Admin: 05/19/22 14:50 Dose: 125 mg Documented By: RENZO Morphine Sulfate (Morphine 2 Mg/Ml Inj) 2 mg IV NOW ONE Stop: 05/19/22 13:43 Last Admin: 05/19/22 13:50 Dose: 2 mg Documented By: JULIETA Morphine Sulfate (Morphine 2 Mg/Ml Inj) 2 mg IV Q3H PRN PRN Reason: Pain, Moderate (4-6) Last Admin: 05/20/22 20:20 Dose: 2 mg Documented By: LORENA Nitroglycerin (Nitroglycerin 0.4 Mg Sl Tab) 0.4 mg SL [id number] PRN PRN Reason: Chest Pain Nitroglycerin (Nitroglycerin 0.4 Mg Sl Tab) 0.4 mg SL [id number] PRN PRN Reason: Chest Pain Zolpidem Tartrate (Zolpidem 5 Mg Tablet) 10 mg PO BEDTIME PRN PRN Reason: Sleep Last Admin: 05/20/22 21:17 Dose: 10 mg Documented By: Admin: 05/19/22 21:11 Dose: 10 mg Documented By: CLOTILDE Vital Signs Vital signs: Vital Signs - 8 hr 05/20/22 22:30 05/20/22 22:44 05/20/22 22:44 Pulse Rate 112 H 89 Blood Pressure 156/80 H Pulse Oximetry 93 Oxygen Delivery Method Nasal Cannula Oxygen Flow Rate 2 05/20/22 23:00 05/20/22 23:00 Pulse Rate 86 Blood Pressure 155/74 H Pulse Oximetry 95 Oxygen Delivery Method Nasal Cannula Oxygen Flow Rate 2 <Da Lafleur DO - Last Filed: 05/21/22 06:18> Orders Ordered: Discontinued Medications Acetaminophen (Acetaminophen 325 Mg Tablet) 650 mg PO NOW ONE Stop: 05/20/22 06:25 Last Admin: 05/20/22 06:31 Dose: 650 mg Documented By: CLOTILDE Aspirin (Aspirin 81 Mg Chew Tab) 324 mg PO NOW ONE Stop: 05/19/22 14:06 Last Admin: 05/19/22 14:10 Dose: 243 mg Documented By: JULIETA Aspirin (Aspirin 81 Mg Chew Tab) 324 mg PO DAILY [facility] Aspirin (Aspirin 81 Mg Chew Tab) 324 mg PO NOW ONE Stop: 05/20/22 16:43 Last Admin: 05/20/22 16:59 Dose: 324 mg Documented By: LORENA Dextrose (Dextrose 50 % In Water 25 Gm/50 Ml Syringe) 25 gm IV PRN PRN PRN Reason: Hypoglycemia Dextrose (Dextrose 50 % In Water 25 Gm/50 Ml Syringe) 25 gm IV PRN PRN; Protocol PRN Reason: Hypoglycemia Diphenhydramine HCl (Diphenhydramine 50 Mg/Ml Vial) 25 mg IV NOW ONE Stop: 05/19/22 14:43 Last Admin: 05/19/22 14:50 Dose: 25 mg Documented By: RENZO Heparin Sodium (Porcine) (Heparin 5,000 Unit/Ml Vial) 5,000 unit IV NOW ONE Stop: 05/19/22 17:32 Last Admin: 05/19/22 17:54 Dose: 5,000 unit Documented By: RAPHAEL Heparin Sodium/Dextrose (Heparin Drip) 25,000 unit in 500 mls @ 20 mls/hr IV CONT [facility]; Protocol Last Titration: 05/20/22 23:26 Dose: 850 units/hr, 17 mls/hr Documented By: Admin: 05/20/22 21:35 Dose: 850 units/hr, 17 mls/hr Documented By: Titration: 05/20/22 21:35 Dose: 850 units/hr, 17 mls/hr Documented By: Titration: 05/20/22 18:45 Dose: 850 units/hr, 17 mls/hr Documented By: Titration: 05/20/22 06:20 Dose: 800 units/hr, 16 mls/hr Documented By: Titration: 05/20/22 01:45 Dose: 850 units/hr, 17 mls/hr Documented By: Titration: 05/20/22 00:45 Dose: 0 units/hr, 0 mls/hr Documented By: Admin: 05/19/22 17:55 Dose: 1,000 units/hr, 20 mls/hr Documented By: MLaMry Insulin Human Lispro (Insulin Lispro 100 Unit/Ml 3ml Vial) 0 unit SUBCUT ACHS [facility]; Protocol Last Admin: 05/19/22 21:09 Dose: 7 unit Documented By: CLOTILDE Co-signed By: VIN Admin: 05/19/22 18:41 Dose: Not Given Documented By: MLMary Insulin Human Lispro (Insulin Lispro 100 Unit/Ml 3ml Vial) 0 unit SUBCUT ACHS [facility]; Protocol Last Admin: 05/20/22 21:16 Dose: 3 unit Documented By: LORENA Co-signed By: MARA Admin: 05/20/22 17:00 Dose: 7 unit Documented By: LORENA Co-signed By: MARA Admin: 05/20/22 12:14 Dose: 8 unit Documented By: LORENA Co-signed By: MARA Admin: 05/20/22 09:08 Dose: Not Given Documented By: RENZO Methylprednisolone (Methylprednisolone 125 Mg/2 Ml Vial) 125 mg IV NOW ONE Stop: 05/19/22 14:42 Last Admin: 05/19/22 14:50 Dose: 125 mg Documented By: RENZO Morphine Sulfate (Morphine 2 Mg/Ml Inj) 2 mg IV NOW ONE Stop: 05/19/22 13:43 Last Admin: 05/19/22 13:50 Dose: 2 mg Documented By: JULIETA Morphine Sulfate (Morphine 2 Mg/Ml Inj) 2 mg IV Q3H PRN PRN Reason: Pain, Moderate (4-6) Last Admin: 05/20/22 20:20 Dose: 2 mg Documented By: LORENA Nitroglycerin (Nitroglycerin 0.4 Mg Sl Tab) 0.4 mg SL [id number] PRN PRN Reason: Chest Pain Nitroglycerin (Nitroglycerin 0.4 Mg Sl Tab) 0.4 mg SL [id number] PRN PRN Reason: Chest Pain Zolpidem Tartrate (Zolpidem 5 Mg Tablet) 10 mg PO BEDTIME PRN PRN Reason: Sleep Last Admin: 05/20/22 21:17 Dose: 10 mg Documented By: Admin: 05/19/22 21:11 Dose: 10 mg Documented By: CLOTILDE Vital Signs Vital signs: Vital Signs - 8 hr 05/20/22 22:30 05/20/22 22:44 05/20/22 22:44 Pulse Rate 112 H 89 Blood Pressure 156/80 H Pulse Oximetry 93 Oxygen Delivery Method Nasal Cannula Oxygen Flow Rate 2 05/20/22 23:00 05/20/22 23:00 Pulse Rate 86 Blood Pressure 155/74 H Pulse Oximetry 95 Oxygen Delivery Method Nasal Cannula Oxygen Flow Rate 2 MDM - Chest Pain <Fifi Henderson DO - Last Filed: 05/22/22 07:17> Lab Data Result diagrams: 05/20/22 20:32 05/20/22 20:32 Labs: Lab Results 05/19/22 05/19/22 05/19/22 Range/Units 10:50 10:50 10:50 WBC 12.5 H (4.5-11.0) X10^3/uL RBC 4.44 L (4.5-5.9) X10^6/uL Hgb 13.1 L (13.5-17.5) g/dL Hct 39.3 L (41-53) % MCV 88.5 (80-100) fL MCH 29.4 (26-34) PG MCHC 33.2 (30-36) % RDW 13.9 (11.6-14.8) % Plt Count 349 (150-400) X10^3/uL Neut % (Auto) 66.8 (50-75) % Lymph % (Auto) 23.7 L (25-40) % [place] % (Auto) 7.6 (3-14) % Eos % (Auto) 1.0 L (2-4) % Baso % (Auto) 0.9 (0-2) % Neut # (Auto) 8300 H (0066-6173) /uL Lymph # (Auto) 3000 (1275-3960) /uL [place] # (Auto) 900 (0-900) /uL Eos # (Auto) 100 (0-450) /uL Baso # (Auto) 100 (0-100) /uL PT 11.4 (10.1-12.7) SECONDS INR 1.0 (0.9-1.3) APTT 30 (26-36) SECONDS Sodium 137 (137-145) mmol/L Potassium 4.4 (3.4-5.1) mmol/L Chloride 100 (98-107) mmol/L Carbon Dioxide 26 (22-32) mmol/L BUN 20 (9-20) mg/dL Creatinine 1.12 (0.66-1.25) mg/dL Estimated GFR > 60 (>60) mL/min BUN/Creatinine Ratio 17.9 (6-22) Glucose 228 H (80-110) mg/dL Hemoglobin A1c (4.0-6.0) % Calcium 9.7 (8.4-10.2) mg/dL Magnesium 1.6 (1.6-2.3) mg/dL Total Bilirubin 0.6 (0.2-1.3) mg/dL AST 28 (17-59) IU/L ALT 35 (<50) IU/L Alkaline Phosphatase 92 (38-126) U/L Total Creatine Kinase 189 H (55-170) U/L CK-MB (CK-2) 1.90 (<2.37) ng/mL CK-MB (CK-2) Rel Index 1.0 L (1.5-5.0) % Troponin I < 0.012 (0.01-0.034) ng/mL Total Protein 7.6 (6.3-8.2) g/dL Albumin 4.6 (3.5-5.0) g/dL Globulin 3.0 (1.7-4.1) g/dL Albumin/Globulin Ratio 1.5 (1.0-2.8) Lipase 168 (23-300) U/L Urine Color Urine Appearance Urine pH (4.5-8.0) Ur Specific [place] (1.000-1.035) Urine Protein (Negative) Urine Glucose (UA) (Negative) g/dL Urine Ketones (NEGATIVE) Urine Occult Blood (Negative) Urine Nitrate (Negative) Urine Bilirubin (NEGATIVE) Urine Urobilinogen (0.2) E.U./dL Ur Leukocyte Esterase (NEGATIVE) Urine RBC (0-5/HPF) Urine WBC (0-5/HPF) Urine Bacteria (None) Ur Culture Indicated? Chlamy pneumoniae PCR (Not Detect) Adenovirus (PCR) (Not Detect) B. pertussis DNA (PCR) (Not Detecte) B.parapertussis DNA PCR (Not Detecte) Coronavirus OC43 (PCR) (Not Detect) Coronavirus HKU1 (PCR) (Not Detect) Coronavirus 229E (PCR) (Not Detect) SARS-CoV-2 (PCR) (Negative) Coronavirus NL63 (PCR) (Not Detect) Human Metapneumovir PCR (Not Detect) Influenza Type A (PCR) (Not Detect) Influenza Type B (PCR) (Not Detect) M. pneumoniae (PCR) (Not Detect) Parainfluenza 1 (PCR) (Not Detect) Parainfluenza 2 (PCR) (Not Detect) Parainfluenza 3 (PCR) (Not Detect) Parainfluenza 4 (PCR) (Not Detect) RSV (PCR) (Not Detect) Entero/Rhino (PCR) (Not Detect) 05/19/22 05/19/22 05/19/22 Range/Units 10:50 13:06 18:30 WBC (4.5-11.0) X10^3/uL RBC (4.5-5.9) X10^6/uL Hgb (13.5-17.5) g/dL Hct (41-53) % MCV (80-100) fL MCH (26-34) PG MCHC (30-36) % RDW (11.6-14.8) % Plt Count (150-400) X10^3/uL Neut % (Auto) (50-75) % Lymph % (Auto) (25-40) % [place] % (Auto) (3-14) % Eos % (Auto) (2-4) % Baso % (Auto) (0-2) % Neut # (Auto) (1189-9133) /uL Lymph # (Auto) (3543-7386) /uL [place] # (Auto) (0-900) /uL Eos # (Auto) (0-450) /uL Baso # (Auto) (0-100) /uL PT (10.1-12.7) SECONDS INR (0.9-1.3) APTT (26-36) SECONDS Sodium (137-145) mmol/L Potassium (3.4-5.1) mmol/L Chloride (98-107) mmol/L Carbon Dioxide (22-32) mmol/L BUN (9-20) mg/dL Creatinine (0.66-1.25) mg/dL Estimated GFR (>60) mL/min BUN/Creatinine Ratio (6-22) Glucose (80-110) mg/dL Hemoglobin A1c 9.6 H (4.0-6.0) % Calcium (8.4-10.2) mg/dL Magnesium (1.6-2.3) mg/dL Total Bilirubin (0.2-1.3) mg/dL AST (17-59) IU/L ALT (<50) IU/L Alkaline Phosphatase (38-126) U/L Total Creatine Kinase 166 (55-170) U/L CK-MB (CK-2) 1.73 (<2.37) ng/mL CK-MB (CK-2) Rel Index 1.0 L (1.5-5.0) % Troponin I < 0.012 < 0.012 (0.01-0.034) ng/mL Total Protein (6.3-8.2) g/dL Albumin (3.5-5.0) g/dL Globulin (1.7-4.1) g/dL Albumin/Globulin Ratio (1.0-2.8) Lipase (23-300) U/L Urine Color Urine Appearance Urine pH (4.5-8.0) Ur Specific [place] (1.000-1.035) Urine Protein (Negative) Urine Glucose (UA) (Negative) g/dL Urine Ketones (NEGATIVE) Urine Occult Blood (Negative) Urine Nitrate (Negative) Urine Bilirubin (NEGATIVE) Urine Urobilinogen (0.2) E.U./dL Ur Leukocyte Esterase (NEGATIVE) Urine RBC (0-5/HPF) Urine WBC (0-5/HPF) Urine Bacteria (None) Ur Culture Indicated? Chlamy pneumoniae PCR (Not Detect) Adenovirus (PCR) (Not Detect) B. pertussis DNA (PCR) (Not Detecte) B.parapertussis DNA PCR (Not Detecte) Coronavirus OC43 (PCR) (Not Detect) Coronavirus HKU1 (PCR) (Not Detect) Coronavirus 229E (PCR) (Not Detect) SARS-CoV-2 (PCR) (Negative) Coronavirus NL63 (PCR) (Not Detect) Human Metapneumovir PCR (Not Detect) Influenza Type A (PCR) (Not Detect) Influenza Type B (PCR) (Not Detect) M. pneumoniae (PCR) (Not Detect) Parainfluenza 1 (PCR) (Not Detect) Parainfluenza 2 (PCR) (Not Detect) Parainfluenza 3 (PCR) (Not Detect) Parainfluenza 4 (PCR) (Not Detect) RSV (PCR) (Not Detect) Entero/Rhino (PCR) (Not Detect) 05/19/22 05/20/22 05/20/22 Range/Units 18:52 00:05 05:46 WBC (4.5-11.0) X10^3/uL RBC (4.5-5.9) X10^6/uL Hgb (13.5-17.5) g/dL Hct (41-53) % MCV (80-100) fL MCH (26-34) PG MCHC (30-36) % RDW (11.6-14.8) % Plt Count (150-400) X10^3/uL Neut % (Auto) (50-75) % Lymph % (Auto) (25-40) % [place] % (Auto) (3-14) % Eos % (Auto) (2-4) % Baso % (Auto) (0-2) % Neut # (Auto) (6650-4868) /uL Lymph # (Auto) (0611-9394) /uL [place] # (Auto) (0-900) /uL Eos # (Auto) (0-450) /uL Baso # (Auto) (0-100) /uL PT (10.1-12.7) SECONDS INR (0.9-1.3) APTT 136 H* D 76 H* D (26-36) SECONDS Sodium (137-145) mmol/L Potassium (3.4-5.1) mmol/L Chloride (98-107) mmol/L Carbon Dioxide (22-32) mmol/L BUN (9-20) mg/dL Creatinine (0.66-1.25) mg/dL Estimated GFR (>60) mL/min BUN/Creatinine Ratio (6-22) Glucose (80-110) mg/dL Hemoglobin A1c (4.0-6.0) % Calcium (8.4-10.2) mg/dL Magnesium (1.6-2.3) mg/dL Total Bilirubin (0.2-1.3) mg/dL AST (17-59) IU/L ALT (<50) IU/L Alkaline Phosphatase (38-126) U/L Total Creatine Kinase (55-170) U/L CK-MB (CK-2) (<2.37) ng/mL CK-MB (CK-2) Rel Index (1.5-5.0) % Troponin I (0.01-0.034) ng/mL Total Protein (6.3-8.2) g/dL Albumin (3.5-5.0) g/dL Globulin (1.7-4.1) g/dL Albumin/Globulin Ratio (1.0-2.8) Lipase (23-300) U/L Urine Color Urine Appearance Urine pH (4.5-8.0) Ur Specific [place] (1.000-1.035) Urine Protein (Negative) Urine Glucose (UA) (Negative) g/dL Urine Ketones (NEGATIVE) Urine Occult Blood (Negative) Urine Nitrate (Negative) Urine Bilirubin (NEGATIVE) Urine Urobilinogen (0.2) E.U./dL Ur Leukocyte Esterase (NEGATIVE) Urine RBC (0-5/HPF) Urine WBC (0-5/HPF) Urine Bacteria (None) Ur Culture Indicated? Chlamy pneumoniae PCR (Not Detect) Adenovirus (PCR) (Not Detect) B. pertussis DNA (PCR) (Not Detecte) B.parapertussis DNA PCR (Not Detecte) Coronavirus OC43 (PCR) (Not Detect) Coronavirus HKU1 (PCR) (Not Detect) Coronavirus 229E (PCR) (Not Detect) SARS-CoV-2 (PCR) Negative (Negative) Coronavirus NL63 (PCR) (Not Detect) Human Metapneumovir PCR (Not Detect) Influenza Type A (PCR) (Not Detect) Influenza Type B (PCR) (Not Detect) M. pneumoniae (PCR) (Not Detect) Parainfluenza 1 (PCR) (Not Detect) Parainfluenza 2 (PCR) (Not Detect) Parainfluenza 3 (PCR) (Not Detect) Parainfluenza 4 (PCR) (Not Detect) RSV (PCR) (Not Detect) Entero/Rhino (PCR) (Not Detect) 05/20/22 05/20/22 05/20/22 Range/Units 05:46 05:46 11:45 WBC 13.7 H (4.5-11.0) X10^3/uL RBC 4.62 (4.5-5.9) X10^6/uL Hgb 13.5 (13.5-17.5) g/dL Hct 40.7 L (41-53) % MCV 88.2 (80-100) fL MCH 29.3 (26-34) PG MCHC 33.2 (30-36) % RDW 13.6 (11.6-14.8) % Plt Count 329 (150-400) X10^3/uL Neut % (Auto) 89.0 H D (50-75) % Lymph % (Auto) 8.5 L (25-40) % [place] % (Auto) 1.5 L (3-14) % Eos % (Auto) 0.5 L (2-4) % Baso % (Auto) 0.5 (0-2) % Neut # (Auto) 16240 H (2267-4932) /uL Lymph # (Auto) 1200 (7190-8268) /uL [place] # (Auto) 200 (0-900) /uL Eos # (Auto) 100 (0-450) /uL Baso # (Auto) 100 (0-100) /uL PT (10.1-12.7) SECONDS INR (0.9-1.3) APTT 61 H D (26-36) SECONDS Sodium 133 L (137-145) mmol/L Potassium 5.1 (3.4-5.1) mmol/L Chloride 97 L (98-107) mmol/L Carbon Dioxide 25 (22-32) mmol/L BUN 23 H (9-20) mg/dL Creatinine 1.12 (0.66-1.25) mg/dL Estimated GFR > 60 (>60) mL/min BUN/Creatinine Ratio 20.5 (6-22) Glucose 317 H (80-110) mg/dL Hemoglobin A1c (4.0-6.0) % Calcium 9.3 (8.4-10.2) mg/dL Magnesium (1.6-2.3) mg/dL Total Bilirubin 0.8 (0.2-1.3) mg/dL AST 29 (17-59) IU/L ALT 37 (<50) IU/L Alkaline Phosphatase 83 (38-126) U/L Total Creatine Kinase 111 (55-170) U/L CK-MB (CK-2) 1.29 (<2.37) ng/mL CK-MB (CK-2) Rel Index 1.2 L (1.5-5.0) % Troponin I < 0.012 (0.01-0.034) ng/mL Total Protein 7.9 (6.3-8.2) g/dL Albumin 4.6 (3.5-5.0) g/dL Globulin 3.3 (1.7-4.1) g/dL Albumin/Globulin Ratio 1.4 (1.0-2.8) Lipase 164 (23-300) U/L Urine Color Urine Appearance Urine pH (4.5-8.0) Ur Specific [place] (1.000-1.035) Urine Protein (Negative) Urine Glucose (UA) (Negative) g/dL Urine Ketones (NEGATIVE) Urine Occult Blood (Negative) Urine Nitrate (Negative) Urine Bilirubin (NEGATIVE) Urine Urobilinogen (0.2) E.U./dL Ur Leukocyte Esterase (NEGATIVE) Urine RBC (0-5/HPF) Urine WBC (0-5/HPF) Urine Bacteria (None) Ur Culture Indicated? Chlamy pneumoniae PCR (Not Detect) Adenovirus (PCR) (Not Detect) B. pertussis DNA (PCR) (Not Detecte) B.parapertussis DNA PCR (Not Detecte) Coronavirus OC43 (PCR) (Not Detect) Coronavirus HKU1 (PCR) (Not Detect) Coronavirus 229E (PCR) (Not Detect) SARS-CoV-2 (PCR) (Negative) Coronavirus NL63 (PCR) (Not Detect) Human Metapneumovir PCR (Not Detect) Influenza Type A (PCR) (Not Detect) Influenza Type B (PCR) (Not Detect) M. pneumoniae (PCR) (Not Detect) Parainfluenza 1 (PCR) (Not Detect) Parainfluenza 2 (PCR) (Not Detect) Parainfluenza 3 (PCR) (Not Detect) Parainfluenza 4 (PCR) (Not Detect) RSV (PCR) (Not Detect) Entero/Rhino (PCR) (Not Detect) 05/20/22 05/20/22 05/20/22 Range/Units 18:16 20:04 20:32 WBC 16.8 H (4.5-11.0) X10^3/uL RBC 4.34 L (4.5-5.9) X10^6/uL Hgb 12.7 L (13.5-17.5) g/dL Hct 38.7 L (41-53) % MCV 89.2 (80-100) fL MCH 29.2 (26-34) PG MCHC 32.8 (30-36) % RDW 13.8 (11.6-14.8) % Plt Count 372 (150-400) X10^3/uL Neut % (Auto) 77.0 H (50-75) % Lymph % (Auto) 13.5 L (25-40) % [place] % (Auto) 8.4 (3-14) % Eos % (Auto) 0.4 L (2-4) % Baso % (Auto) 0.7 (0-2) % Neut # (Auto) 54598 H (0013-1197) /uL Lymph # (Auto) 2300 (4897-1166) /uL [place] # (Auto) 1400 H (0-900) /uL Eos # (Auto) 100 (0-450) /uL Baso # (Auto) 100 (0-100) /uL PT (10.1-12.7) SECONDS INR (0.9-1.3) APTT 40 H D (26-36) SECONDS Sodium (137-145) mmol/L Potassium (3.4-5.1) mmol/L Chloride (98-107) mmol/L Carbon Dioxide (22-32) mmol/L BUN (9-20) mg/dL Creatinine (0.66-1.25) mg/dL Estimated GFR (>60) mL/min BUN/Creatinine Ratio (6-22) Glucose (80-110) mg/dL Hemoglobin A1c (4.0-6.0) % Calcium (8.4-10.2) mg/dL Magnesium (1.6-2.3) mg/dL Total Bilirubin (0.2-1.3) mg/dL AST (17-59) IU/L ALT (<50) IU/L Alkaline Phosphatase (38-126) U/L Total Creatine Kinase (55-170) U/L CK-MB (CK-2) (<2.37) ng/mL CK-MB (CK-2) Rel Index (1.5-5.0) % Troponin I (0.01-0.034) ng/mL Total Protein (6.3-8.2) g/dL Albumin (3.5-5.0) g/dL Globulin (1.7-4.1) g/dL Albumin/Globulin Ratio (1.0-2.8) Lipase (23-300) U/L Urine Color Urine Appearance Urine pH (4.5-8.0) Ur Specific [place] (1.000-1.035) Urine Protein (Negative) Urine Glucose (UA) (Negative) g/dL Urine Ketones (NEGATIVE) Urine Occult Blood (Negative) Urine Nitrate (Negative) Urine Bilirubin (NEGATIVE) Urine Urobilinogen (0.2) E.U./dL Ur Leukocyte Esterase (NEGATIVE) Urine RBC (0-5/HPF) Urine WBC (0-5/HPF) Urine Bacteria (None) Ur Culture Indicated? Chlamy pneumoniae PCR Not detected (Not Detect) Adenovirus (PCR) Not detected (Not Detect) B. pertussis DNA (PCR) Not detected (Not Detecte) B.parapertussis DNA PCR Not detected (Not Detecte) Coronavirus OC43 (PCR) Not detected (Not Detect) Coronavirus HKU1 (PCR) Not detected (Not Detect) Coronavirus 229E (PCR) Not detected (Not Detect) SARS-CoV-2 (PCR) Not detected (Negative) Coronavirus NL63 (PCR) Not detected (Not Detect) Human Metapneumovir PCR Not detected (Not Detect) Influenza Type A (PCR) Not detected (Not Detect) Influenza Type B (PCR) Not detected (Not Detect) M. pneumoniae (PCR) Not detected (Not Detect) Parainfluenza 1 (PCR) Not detected (Not Detect) Parainfluenza 2 (PCR) Not detected (Not Detect) Parainfluenza 3 (PCR) Not detected (Not Detect) Parainfluenza 4 (PCR) Not detected (Not Detect) RSV (PCR) Not detected (Not Detect) Entero/Rhino (PCR) Not detected (Not Detect) 05/20/22 05/20/22 Range/Units 20:32 21:45 WBC (4.5-11.0) X10^3/uL RBC (4.5-5.9) X10^6/uL Hgb (13.5-17.5) g/dL Hct (41-53) % MCV (80-100) fL MCH (26-34) PG MCHC (30-36) % RDW (11.6-14.8) % Plt Count (150-400) X10^3/uL Neut % (Auto) (50-75) % Lymph % (Auto) (25-40) % [place] % (Auto) (3-14) % Eos % (Auto) (2-4) % Baso % (Auto) (0-2) % Neut # (Auto) (8513-7382) /uL Lymph # (Auto) (3193-5852) /uL [place] # (Auto) (0-900) /uL Eos # (Auto) (0-450) /uL Baso # (Auto) (0-100) /uL PT (10.1-12.7) SECONDS INR (0.9-1.3) APTT (26-36) SECONDS Sodium 135 L (137-145) mmol/L Potassium 4.5 (3.4-5.1) mmol/L Chloride 99 (98-107) mmol/L Carbon Dioxide 23 (22-32) mmol/L BUN 33 H (9-20) mg/dL Creatinine 1.22 (0.66-1.25) mg/dL Estimated GFR > 60 (>60) mL/min BUN/Creatinine Ratio 27.0 H (6-22) Glucose 291 H (80-110) mg/dL Hemoglobin A1c (4.0-6.0) % Calcium 9.2 (8.4-10.2) mg/dL Magnesium (1.6-2.3) mg/dL Total Bilirubin 0.6 (0.2-1.3) mg/dL AST 24 (17-59) IU/L ALT 31 (<50) IU/L Alkaline Phosphatase 91 (38-126) U/L Total Creatine Kinase (55-170) U/L CK-MB (CK-2) (<2.37) ng/mL CK-MB (CK-2) Rel Index (1.5-5.0) % Troponin I < 0.012 (0.01-0.034) ng/mL Total Protein 7.5 (6.3-8.2) g/dL Albumin 4.4 (3.5-5.0) g/dL Globulin 3.1 (1.7-4.1) g/dL Albumin/Globulin Ratio 1.4 (1.0-2.8) Lipase (23-300) U/L Urine Color Yellow Urine Appearance Clear Urine pH 6.0 (4.5-8.0) Ur Specific [place] 1.010 (1.000-1.035) Urine Protein Trace H (Negative) Urine Glucose (UA) 2+ H (Negative) g/dL Urine Ketones Negative (NEGATIVE) Urine Occult Blood Negative (Negative) Urine Nitrate Negative (Negative) Urine Bilirubin Negative (NEGATIVE) Urine Urobilinogen 0.2 (0.2) E.U./dL Ur Leukocyte Esterase Negative (NEGATIVE) Urine RBC None seen (0-5/HPF) Urine WBC None seen (0-5/HPF) Urine Bacteria None seen (None) Ur Culture Indicated? Cult not indicated Chlamy pneumoniae PCR (Not Detect) Adenovirus (PCR) (Not Detect) B. pertussis DNA (PCR) (Not Detecte) B.parapertussis DNA PCR (Not Detecte) Coronavirus OC43 (PCR) (Not Detect) Coronavirus HKU1 (PCR) (Not Detect) Coronavirus 229E (PCR) (Not Detect) SARS-CoV-2 (PCR) (Negative) Coronavirus NL63 (PCR) (Not Detect) Human Metapneumovir PCR (Not Detect) Influenza Type A (PCR) (Not Detect) Influenza Type B (PCR) (Not Detect) M. pneumoniae (PCR) (Not Detect) Parainfluenza 1 (PCR) (Not Detect) Parainfluenza 2 (PCR) (Not Detect) Parainfluenza 3 (PCR) (Not Detect) Parainfluenza 4 (PCR) (Not Detect) RSV (PCR) (Not Detect) Entero/Rhino (PCR) (Not Detect) Point of Care Testing Glucose POC 349 Imaging Data Chest x-ray: Radiologist's Impression: No acute cardiopulmonary disease See [employer] [facility] ECG Data Interpretation: EKG 1. Sinus rhythm rate 69 year interval 156 QRS 134 QTC 432 right bundle- branch block noted similar to previous EKG on 05/08/2022 V6 was not traceable EKG 2. Sinus rhythm rate 70 V6 now visible no ST elevations depressions or T- wave inversions EKG 3. Sinus rhythm rate 70 similar to previous with now artifact noted in precordial leads MDM Narrative Medical decision making narrative: 67-year-old male with multiple risk factors including diabetes hypertension hyperlipidemia with recent illness of influenza a now presenting with epigastric pain radiating to his chest lasting for 15 minutes and then dissipating worse with exertion but also associated with food. Concern for acute coronary syndrome versus cholelithiasis versus pulmonary embolism. A CTs are ordered. No EKG changes 2- troponins. Discussion with Dr. Poncho Chavez hospitalist in regards to admission. She actually came down and evaluated patient however after seeing him concerning for pain at rest and need cardiac catheterization. Recommends transferring to facility with Cardiology. 1720 Dr. Askew, cardiology consulted agrees with heparin drip nitro aspirin as needed. Agrees with transferring to another facility. If going to [facility] recommends talking to the hospitalist and they would be happy to consult Significant critical bed shortage. Patient is put on many list. He currently is not having any chest discomfort or pressure in the center of his chest. He understands plan of waiting for bed placement. Hospitalist has already put in orders for echocardiogram nitro and a consult. Patient signing out to Dr. Eaton for further management overnight Dr eaton overnight 05/19-05/20: Received turned over. Reviewed patient's history and physical exam. You would EKGs. Troponins have remained negative. He has been stable overnight. He had 1 episode of chest discomfort but it was r eproducible with palpation. Continues to be on heparin. A sliding scale insulin was ordered. Care turned over to day provider to continue to observe until disposition. [place] 05/20/22 patient remains in the emergency department concern for acute coronary syndrome, remains on heparin drip negative troponins. He continues have intermittent chest pain but does not seem to last too long he is not on any nitro. I did talk with [facility] transfer Center they looked at the [facility], no availability today but possibly tomorrow. Unfortunately the hospitalist consulted ordered an echocardiogram and it was not done today it is reordered to be done tomorrow. Patient says that he is now having pain with coughing that seems to start the pressure and pain in his chest although that is not how it started. He is giving morphine for pain. Recommend reconsulting Cardiology tomorrow for further instructions. Patient signed out to Dr. Lafleur <Cleve Eaton, DO - Last Filed: 05/20/22 06:20> Lab Data Labs: Lab Results 05/19/22 05/19/22 05/19/22 Range/Units 10:50 10:50 10:50 WBC 12.5 H (4.5-11.0) X10^3/uL RBC 4.44 L (4.5-5.9) X10^6/uL Hgb 13.1 L (13.5-17.5) g/dL Hct 39.3 L (41-53) % MCV 88.5 (80-100) fL MCH 29.4 (26-34) PG MCHC 33.2 (30-36) % RDW 13.9 (11.6-14.8) % Plt Count 349 (150-400) X10^3/uL Neut % (Auto) 66.8 (50-75) % Lymph % (Auto) 23.7 L (25-40) % [place] % (Auto) 7.6 (3-14) % Eos % (Auto) 1.0 L (2-4) % Baso % (Auto) 0.9 (0-2) % Neut # (Auto) 8300 H (0532-9558) /uL Lymph # (Auto) 3000 (1678-9226) /uL [place] # (Auto) 900 (0-900) /uL Eos # (Auto) 100 (0-450) /uL Baso # (Auto) 100 (0-100) /uL PT 11.4 (10.1-12.7) SECONDS INR 1.0 (0.9-1.3) APTT 30 (26-36) SECONDS Sodium 137 (137-145) mmol/L Potassium 4.4 (3.4-5.1) mmol/L Chloride 100 (98-107) mmol/L Carbon Dioxide 26 (22-32) mmol/L BUN 20 (9-20) mg/dL Creatinine 1.12 (0.66-1.25) mg/dL Estimated GFR > 60 (>60) mL/min BUN/Creatinine Ratio 17.9 (6-22) Glucose 228 H (80-110) mg/dL Hemoglobin A1c (4.0-6.0) % Calcium 9.7 (8.4-10.2) mg/dL Magnesium 1.6 (1.6-2.3) mg/dL Total Bilirubin 0.6 (0.2-1.3) mg/dL AST 28 (17-59) IU/L ALT 35 (<50) IU/L Alkaline Phosphatase 92 (38-126) U/L Total Creatine Kinase 189 H (55-170) U/L CK-MB (CK-2) 1.90 (<2.37) ng/mL CK-MB (CK-2) Rel Index 1.0 L (1.5-5.0) % Troponin I < 0.012 (0.01-0.034) ng/mL Total Protein 7.6 (6.3-8.2) g/dL Albumin 4.6 (3.5-5.0) g/dL Globulin 3.0 (1.7-4.1) g/dL Albumin/Globulin Ratio 1.5 (1.0-2.8) Lipase 168 (23-300) U/L Urine Color Urine Appearance Urine pH (4.5-8.0) Ur Specific [place] (1.000-1.035) Urine Protein (Negative) Urine Glucose (UA) (Negative) g/dL Urine Ketones (NEGATIVE) Urine Occult Blood (Negative) Urine Nitrate (Negative) Urine Bilirubin (NEGATIVE) Urine Urobilinogen (0.2) E.U./dL Ur Leukocyte Esterase (NEGATIVE) Urine RBC (0-5/HPF) Urine WBC (0-5/HPF) Urine Bacteria (None) Ur Culture Indicated? Chlamy pneumoniae PCR (Not Detect) Adenovirus (PCR) (Not Detect) B. pertussis DNA (PCR) (Not Detecte) B.parapertussis DNA PCR (Not Detecte) Coronavirus OC43 (PCR) (Not Detect) Coronavirus HKU1 (PCR) (Not Detect) Coronavirus 229E (PCR) (Not Detect) SARS-CoV-2 (PCR) (Negative) Coronavirus NL63 (PCR) (Not Detect) Human Metapneumovir PCR (Not Detect) Influenza Type A (PCR) (Not Detect) Influenza Type B (PCR) (Not Detect) M. pneumoniae (PCR) (Not Detect) Parainfluenza 1 (PCR) (Not Detect) Parainfluenza 2 (PCR) (Not Detect) Parainfluenza 3 (PCR) (Not Detect) Parainfluenza 4 (PCR) (Not Detect) RSV (PCR) (Not Detect) Entero/Rhino (PCR) (Not Detect) 05/19/22 05/19/22 05/19/22 Range/Units 10:50 13:06 18:30 WBC (4.5-11.0) X10^3/uL RBC (4.5-5.9) X10^6/uL Hgb (13.5-17.5) g/dL Hct (41-53) % MCV (80-100) fL MCH (26-34) PG MCHC (30-36) % RDW (11.6-14.8) % Plt Count (150-400) X10^3/uL Neut % (Auto) (50-75) % Lymph % (Auto) (25-40) % [place] % (Auto) (3-14) % Eos % (Auto) (2-4) % Baso % (Auto) (0-2) % Neut # (Auto) (9411-3412) /uL Lymph # (Auto) (6690-4363) /uL [place] # (Auto) (0-900) /uL Eos # (Auto) (0-450) /uL Baso # (Auto) (0-100) /uL PT (10.1-12.7) SECONDS INR (0.9-1.3) APTT (26-36) SECONDS Sodium (137-145) mmol/L Potassium (3.4-5.1) mmol/L Chloride (98-107) mmol/L Carbon Dioxide (22-32) mmol/L BUN (9-20) mg/dL Creatinine (0.66-1.25) mg/dL Estimated GFR (>60) mL/min BUN/Creatinine Ratio (6-22) Glucose (80-110) mg/dL Hemoglobin A1c 9.6 H (4.0-6.0) % Calcium (8.4-10.2) mg/dL Magnesium (1.6-2.3) mg/dL Total Bilirubin (0.2-1.3) mg/dL AST (17-59) IU/L ALT (<50) IU/L Alkaline Phosphatase (38-126) U/L Total Creatine Kinase 166 (55-170) U/L CK-MB (CK-2) 1.73 (<2.37) ng/mL CK-MB (CK-2) Rel Index 1.0 L (1.5-5.0) % Troponin I < 0.012 < 0.012 (0.01-0.034) ng/mL Total Protein (6.3-8.2) g/dL Albumin (3.5-5.0) g/dL Globulin (1.7-4.1) g/dL Albumin/Globulin Ratio (1.0-2.8) Lipase (23-300) U/L Urine Color Urine Appearance Urine pH (4.5-8.0) Ur Specific [place] (1.000-1.035) Urine Protein (Negative) Urine Glucose (UA) (Negative) g/dL Urine Ketones (NEGATIVE) Urine Occult Blood (Negative) Urine Nitrate (Negative) Urine Bilirubin (NEGATIVE) Urine Urobilinogen (0.2) E.U./dL Ur Leukocyte Esterase (NEGATIVE) Urine RBC (0-5/HPF) Urine WBC (0-5/HPF) Urine Bacteria (None) Ur Culture Indicated? Chlamy pneumoniae PCR (Not Detect) Adenovirus (PCR) (Not Detect) B. pertussis DNA (PCR) (Not Detecte) B.parapertussis DNA PCR (Not Detecte) Coronavirus OC43 (PCR) (Not Detect) Coronavirus HKU1 (PCR) (Not Detect) Coronavirus 229E (PCR) (Not Detect) SARS-CoV-2 (PCR) (Negative) Coronavirus NL63 (PCR) (Not Detect) Human Metapneumovir PCR (Not Detect) Influenza Type A (PCR) (Not Detect) Influenza Type B (PCR) (Not Detect) M. pneumoniae (PCR) (Not Detect) Parainfluenza 1 (PCR) (Not Detect) Parainfluenza 2 (PCR) (Not Detect) Parainfluenza 3 (PCR) (Not Detect) Parainfluenza 4 (PCR) (Not Detect) RSV (PCR) (Not Detect) Entero/Rhino (PCR) (Not Detect) 05/19/22 05/20/22 05/20/22 Range/Units 18:52 00:05 05:46 WBC (4.5-11.0) X10^3/uL RBC (4.5-5.9) X10^6/uL Hgb (13.5-17.5) g/dL Hct (41-53) % MCV (80-100) fL MCH (26-34) PG MCHC (30-36) % RDW (11.6-14.8) % Plt Count (150-400) X10^3/uL Neut % (Auto) (50-75) % Lymph % (Auto) (25-40) % [place] % (Auto) (3-14) % Eos % (Auto) (2-4) % Baso % (Auto) (0-2) % Neut # (Auto) (8433-6488) /uL Lymph # (Auto) (4399-4490) /uL [place] # (Auto) (0-900) /uL Eos # (Auto) (0-450) /uL Baso # (Auto) (0-100) /uL PT (10.1-12.7) SECONDS INR (0.9-1.3) APTT 136 H* D 76 H* D (26-36) SECONDS Sodium (137-145) mmol/L Potassium (3.4-5.1) mmol/L Chloride (98-107) mmol/L Carbon Dioxide (22-32) mmol/L BUN (9-20) mg/dL Creatinine (0.66-1.25) mg/dL Estimated GFR (>60) mL/min BUN/Creatinine Ratio (6-22) Glucose (80-110) mg/dL Hemoglobin A1c (4.0-6.0) % Calcium (8.4-10.2) mg/dL Magnesium (1.6-2.3) mg/dL Total Bilirubin (0.2-1.3) mg/dL AST (17-59) IU/L ALT (<50) IU/L Alkaline Phosphatase (38-126) U/L Total Creatine Kinase (55-170) U/L CK-MB (CK-2) (<2.37) ng/mL CK-MB (CK-2) Rel Index (1.5-5.0) % Troponin I (0.01-0.034) ng/mL Total Protein (6.3-8.2) g/dL Albumin (3.5-5.0) g/dL Globulin (1.7-4.1) g/dL Albumin/Globulin Ratio (1.0-2.8) Lipase (23-300) U/L Urine Color Urine Appearance Urine pH (4.5-8.0) Ur Specific [place] (1.000-1.035) Urine Protein (Negative) Urine Glucose (UA) (Negative) g/dL Urine Ketones (NEGATIVE) Urine Occult Blood (Negative) Urine Nitrate (Negative) Urine Bilirubin (NEGATIVE) Urine Urobilinogen (0.2) E.U./dL Ur Leukocyte Esterase (NEGATIVE) Urine RBC (0-5/HPF) Urine WBC (0-5/HPF) Urine Bacteria (None) Ur Culture Indicated? Chlamy pneumoniae PCR (Not Detect) Adenovirus (PCR) (Not Detect) B. pertussis DNA (PCR) (Not Detecte) B.parapertussis DNA PCR (Not Detecte) Coronavirus OC43 (PCR) (Not Detect) Coronavirus HKU1 (PCR) (Not Detect) Coronavirus 229E (PCR) (Not Detect) SARS-CoV-2 (PCR) Negative (Negative) Coronavirus NL63 (PCR) (Not Detect) Human Metapneumovir PCR (Not Detect) Influenza Type A (PCR) (Not Detect) Influenza Type B (PCR) (Not Detect) M. pneumoniae (PCR) (Not Detect) Parainfluenza 1 (PCR) (Not Detect) Parainfluenza 2 (PCR) (Not Detect) Parainfluenza 3 (PCR) (Not Detect) Parainfluenza 4 (PCR) (Not Detect) RSV (PCR) (Not Detect) Entero/Rhino (PCR) (Not Detect) 05/20/22 05/20/22 05/20/22 Range/Units 05:46 05:46 11:45 WBC 13.7 H (4.5-11.0) X10^3/uL RBC 4.62 (4.5-5.9) X10^6/uL Hgb 13.5 (13.5-17.5) g/dL Hct 40.7 L (41-53) % MCV 88.2 (80-100) fL MCH 29.3 (26-34) PG MCHC 33.2 (30-36) % RDW 13.6 (11.6-14.8) % Plt Count 329 (150-400) X10^3/uL Neut % (Auto) 89.0 H D (50-75) % Lymph % (Auto) 8.5 L (25-40) % [place] % (Auto) 1.5 L (3-14) % Eos % (Auto) 0.5 L (2-4) % Baso % (Auto) 0.5 (0-2) % Neut # (Auto) 74647 H (1011-0088) /uL Lymph # (Auto) 1200 (5422-8049) /uL [place] # (Auto) 200 (0-900) /uL Eos # (Auto) 100 (0-450) /uL Baso # (Auto) 100 (0-100) /uL PT (10.1-12.7) SECONDS INR (0.9-1.3) APTT 61 H D (26-36) SECONDS Sodium 133 L (137-145) mmol/L Potassium 5.1 (3.4-5.1) mmol/L Chloride 97 L (98-107) mmol/L Carbon Dioxide 25 (22-32) mmol/L BUN 23 H (9-20) mg/dL Creatinine 1.12 (0.66-1.25) mg/dL Estimated GFR > 60 (>60) mL/min BUN/Creatinine Ratio 20.5 (6-22) Glucose 317 H (80-110) mg/dL Hemoglobin A1c (4.0-6.0) % Calcium 9.3 (8.4-10.2) mg/dL Magnesium (1.6-2.3) mg/dL Total Bilirubin 0.8 (0.2-1.3) mg/dL AST 29 (17-59) IU/L ALT 37 (<50) IU/L Alkaline Phosphatase 83 (38-126) U/L Total Creatine Kinase 111 (55-170) U/L CK-MB (CK-2) 1.29 (<2.37) ng/mL CK-MB (CK-2) Rel Index 1.2 L (1.5-5.0) % Troponin I < 0.012 (0.01-0.034) ng/mL Total Protein 7.9 (6.3-8.2) g/dL Albumin 4.6 (3.5-5.0) g/dL Globulin 3.3 (1.7-4.1) g/dL Albumin/Globulin Ratio 1.4 (1.0-2.8) Lipase 164 (23-300) U/L Urine Color Urine Appearance Urine pH (4.5-8.0) Ur Specific [place] (1.000-1.035) Urine Protein (Negative) Urine Glucose (UA) (Negative) g/dL Urine Ketones (NEGATIVE) Urine Occult Blood (Negative) Urine Nitrate (Negative) Urine Bilirubin (NEGATIVE) Urine Urobilinogen (0.2) E.U./dL Ur Leukocyte Esterase (NEGATIVE) Urine RBC (0-5/HPF) Urine WBC (0-5/HPF) Urine Bacteria (None) Ur Culture Indicated? Chlamy pneumoniae PCR (Not Detect) Adenovirus (PCR) (Not Detect) B. pertussis DNA (PCR) (Not Detecte) B.parapertussis DNA PCR (Not Detecte) Coronavirus OC43 (PCR) (Not Detect) Coronavirus HKU1 (PCR) (Not Detect) Coronavirus 229E (PCR) (Not Detect) SARS-CoV-2 (PCR) (Negative) Coronavirus NL63 (PCR) (Not Detect) Human Metapneumovir PCR (Not Detect) Influenza Type A (PCR) (Not Detect) Influenza Type B (PCR) (Not Detect) M. pneumoniae (PCR) (Not Detect) Parainfluenza 1 (PCR) (Not Detect) Parainfluenza 2 (PCR) (Not Detect) Parainfluenza 3 (PCR) (Not Detect) Parainfluenza 4 (PCR) (Not Detect) RSV (PCR) (Not Detect) Entero/Rhino (PCR) (Not Detect) 05/20/22 05/20/22 05/20/22 Range/Units 18:16 20:04 20:32 WBC 16.8 H (4.5-11.0) X10^3/uL RBC 4.34 L (4.5-5.9) X10^6/uL Hgb 12.7 L (13.5-17.5) g/dL Hct 38.7 L (41-53) % MCV 89.2 (80-100) fL MCH 29.2 (26-34) PG MCHC 32.8 (30-36) % RDW 13.8 (11.6-14.8) % Plt Count 372 (150-400) X10^3/uL Neut % (Auto) 77.0 H (50-75) % Lymph % (Auto) 13.5 L (25-40) % [place] % (Auto) 8.4 (3-14) % Eos % (Auto) 0.4 L (2-4) % Baso % (Auto) 0.7 (0-2) % Neut # (Auto) 09881 H (5973-5383) /uL Lymph # (Auto) 2300 (2577-9126) /uL [place] # (Auto) 1400 H (0-900) /uL Eos # (Auto) 100 (0-450) /uL Baso # (Auto) 100 (0-100) /uL PT (10.1-12.7) SECONDS INR (0.9-1.3) APTT 40 H D (26-36) SECONDS Sodium (137-145) mmol/L Potassium (3.4-5.1) mmol/L Chloride (98-107) mmol/L Carbon Dioxide (22-32) mmol/L BUN (9-20) mg/dL Creatinine (0.66-1.25) mg/dL Estimated GFR (>60) mL/min BUN/Creatinine Ratio (6-22) Glucose (80-110) mg/dL Hemoglobin A1c (4.0-6.0) % Calcium (8.4-10.2) mg/dL Magnesium (1.6-2.3) mg/dL Total Bilirubin (0.2-1.3) mg/dL AST (17-59) IU/L ALT (<50) IU/L Alkaline Phosphatase (38-126) U/L Total Creatine Kinase (55-170) U/L CK-MB (CK-2) (<2.37) ng/mL CK-MB (CK-2) Rel Index (1.5-5.0) % Troponin I (0.01-0.034) ng/mL Total Protein (6.3-8.2) g/dL Albumin (3.5-5.0) g/dL Globulin (1.7-4.1) g/dL Albumin/Globulin Ratio (1.0-2.8) Lipase (23-300) U/L Urine Color Urine Appearance Urine pH (4.5-8.0) Ur Specific [place] (1.000-1.035) Urine Protein (Negative) Urine Glucose (UA) (Negative) g/dL Urine Ketones (NEGATIVE) Urine Occult Blood (Negative) Urine Nitrate (Negative) Urine Bilirubin (NEGATIVE) Urine Urobilinogen (0.2) E.U./dL Ur Leukocyte Esterase (NEGATIVE) Urine RBC (0-5/HPF) Urine WBC (0-5/HPF) Urine Bacteria (None) Ur Culture Indicated? Chlamy pneumoniae PCR Not detected (Not Detect) Adenovirus (PCR) Not detected (Not Detect) B. pertussis DNA (PCR) Not detected (Not Detecte) B.parapertussis DNA PCR Not detected (Not Detecte) Coronavirus OC43 (PCR) Not detected (Not Detect) Coronavirus HKU1 (PCR) Not detected (Not Detect) Coronavirus 229E (PCR) Not detected (Not Detect) SARS-CoV-2 (PCR) Not detected (Negative) Coronavirus NL63 (PCR) Not detected (Not Detect) Human Metapneumovir PCR Not detected (Not Detect) Influenza Type A (PCR) Not detected (Not Detect) Influenza Type B (PCR) Not detected (Not Detect) M. pneumoniae (PCR) Not detected (Not Detect) Parainfluenza 1 (PCR) Not detected (Not Detect) Parainfluenza 2 (PCR) Not detected (Not Detect) Parainfluenza 3 (PCR) Not detected (Not Detect) Parainfluenza 4 (PCR) Not detected (Not Detect) RSV (PCR) Not detected (Not Detect) Entero/Rhino (PCR) Not detected (Not Detect) 05/20/22 05/20/22 Range/Units 20:32 21:45 WBC (4.5-11.0) X10^3/uL RBC (4.5-5.9) X10^6/uL Hgb (13.5-17.5) g/dL Hct (41-53) % MCV (80-100) fL MCH (26-34) PG MCHC (30-36) % RDW (11.6-14.8) % Plt Count (150-400) X10^3/uL Neut % (Auto) (50-75) % Lymph % (Auto) (25-40) % [place] % (Auto) (3-14) % Eos % (Auto) (2-4) % Baso % (Auto) (0-2) % Neut # (Auto) (9668-3115) /uL Lymph # (Auto) (6073-4169) /uL [place] # (Auto) (0-900) /uL Eos # (Auto) (0-450) /uL Baso # (Auto) (0-100) /uL PT (10.1-12.7) SECONDS INR (0.9-1.3) APTT (26-36) SECONDS Sodium 135 L (137-145) mmol/L Potassium 4.5 (3.4-5.1) mmol/L Chloride 99 (98-107) mmol/L Carbon Dioxide 23 (22-32) mmol/L BUN 33 H (9-20) mg/dL Creatinine 1.22 (0.66-1.25) mg/dL Estimated GFR > 60 (>60) mL/min BUN/Creatinine Ratio 27.0 H (6-22) Glucose 291 H (80-110) mg/dL Hemoglobin A1c (4.0-6.0) % Calcium 9.2 (8.4-10.2) mg/dL Magnesium (1.6-2.3) mg/dL Total Bilirubin 0.6 (0.2-1.3) mg/dL AST 24 (17-59) IU/L ALT 31 (<50) IU/L Alkaline Phosphatase 91 (38-126) U/L Total Creatine Kinase (55-170) U/L CK-MB (CK-2) (<2.37) ng/mL CK-MB (CK-2) Rel Index (1.5-5.0) % Troponin I < 0.012 (0.01-0.034) ng/mL Total Protein 7.5 (6.3-8.2) g/dL Albumin 4.4 (3.5-5.0) g/dL Globulin 3.1 (1.7-4.1) g/dL Albumin/Globulin Ratio 1.4 (1.0-2.8) Lipase (23-300) U/L Urine Color Yellow Urine Appearance Clear Urine pH 6.0 (4.5-8.0) Ur Specific [place] 1.010 (1.000-1.035) Urine Protein Trace H (Negative) Urine Glucose (UA) 2+ H (Negative) g/dL Urine Ketones Negative (NEGATIVE) Urine Occult Blood Negative (Negative) Urine Nitrate Negative (Negative) Urine Bilirubin Negative (NEGATIVE) Urine Urobilinogen 0.2 (0.2) E.U./dL Ur Leukocyte Esterase Negative (NEGATIVE) Urine RBC None seen (0-5/HPF) Urine WBC None seen (0-5/HPF) Urine Bacteria None seen (None) Ur Culture Indicated? Cult not indicated Chlamy pneumoniae PCR (Not Detect) Adenovirus (PCR) (Not Detect) B. pertussis DNA (PCR) (Not Detecte) B.parapertussis DNA PCR (Not Detecte) Coronavirus OC43 (PCR) (Not Detect) Coronavirus HKU1 (PCR) (Not Detect) Coronavirus 229E (PCR) (Not Detect) SARS-CoV-2 (PCR) (Negative) Coronavirus NL63 (PCR) (Not Detect) Human Metapneumovir PCR (Not Detect) Influenza Type A (PCR) (Not Detect) Influenza Type B (PCR) (Not Detect) M. pneumoniae (PCR) (Not Detect) Parainfluenza 1 (PCR) (Not Detect) Parainfluenza 2 (PCR) (Not Detect) Parainfluenza 3 (PCR) (Not Detect) Parainfluenza 4 (PCR) (Not Detect) RSV (PCR) (Not Detect) Entero/Rhino (PCR) (Not Detect) Point of Care Testing Glucose POC 349 MDM Narrative Medical decision making narrative: 67-year-old male with multiple risk factors including diabetes hypertension hyperlipidemia with recent illness of influenza a now presenting with epigastric pain radiating to his chest lasting for 15 minutes and then dissipating worse with exertion but also associated with food. Concern for acute coronary syndrome versus cholelithiasis versus pulmonary embolism. A CTs are ordered. No EKG changes 2- troponins. Discussion with Dr. Poncho Chavez hospitalist in regards to admission. She actually came down and evaluated patient however after seeing him concerning for pain at rest and need cardiac catheterization. Recommends transferring to facility with Cardiology. 1720 Dr. Askew, cardiology consulted agrees with heparin drip nitro aspirin as needed. Agrees with transferring to another facility. If going to [facility] recommends talking to the hospitalist and they would be happy to consult Significant critical bed shortage. Patient is put on many list. He currently is not having any chest discomfort or pressure in the center of his chest. He understands plan of waiting for bed placement. Hospitalist has already put in orders for echocardiogram nitro and a consult. Patient signing out to Dr. Eaton for further management overnight Dr eaton overnight 05/19-05/20: Received turned over. Reviewed patient's history and physical exam. You would EKGs. Troponins have remained negative. He has been stable overnight. He had 1 episode of chest discomfort but it was reproducible with palpation. Continues to be on heparin. A sliding scale insu jerrell was ordered. Care turned over to day provider to continue to observe until disposition. <Da Lafleur, DO - Last Filed: 05/21/22 06:18> Lab Data Labs: Lab Results 05/19/22 05/19/2205/19/23 Range/Units 10:50 10:50 10:50 WBC 12.5 H (4.5-11.0) X10^3/uL RBC 4.44 L (4.5-5.9) X10^6/uL Hgb 13.1 L (13.5-17.5) g/dL Hct 39.3 L (41-53) % MCV 88.5 (80-100) fL MCH 29.4 (26-34) PG MCHC 33.2 (30-36) % RDW 13.9 (11.6-14.8) % Plt Count 349 (150-400) X10^3/uL Neut % (Auto) 66.8 (50-75) % Lymph % (Auto) 23.7 L (25-40) % [place] % (Auto) 7.6 (3-14) % Eos % (Auto) 1.0 L (2-4) % Baso % (Auto) 0.9 (0-2) % Neut # (Auto) 8300 H (1152-4253) /uL Lymph # (Auto) 3000 (5134-6747) /uL [place] # (Auto) 900 (0-900) /uL Eos # (Auto) 100 (0-450) /uL Baso # (Auto) 100 (0-100) /uL PT 11.4 (10.1-12.7) SECONDS INR 1.0 (0.9-1.3) APTT 30 (26-36) SECONDS Sodium 137 (137-145) mmol/L Potassium 4.4 (3.4-5.1) mmol/L Chloride 100 (98-107) mmol/L Carbon Dioxide 26 (22-32) mmol/L BUN 20 (9-20) mg/dL Creatinine 1.12 (0.66-1.25) mg/dL Estimated GFR > 60 (>60) mL/min BUN/Creatinine Ratio 17.9 (6-22) Glucose 228 H (80-110) mg/dL Hemoglobin A1c (4.0-6.0) % Calcium 9.7 (8.4-10.2) mg/dL Magnesium 1.6 (1.6-2.3) mg/dL Total Bilirubin 0.6 (0.2-1.3) mg/dL AST 28 (17-59) IU/L ALT 35 (<50) IU/L Alkaline Phosphatase 92 (38-126) U/L Total Creatine Kinase 189 H (55-170) U/L CK-MB (CK-2) 1.90 (<2.37) ng/mL CK-MB (CK-2) Rel Index 1.0 L (1.5-5.0) % Troponin I < 0.012 (0.01-0.034) ng/mL Total Protein 7.6 (6.3-8.2) g/dL Albumin 4.6 (3.5-5.0) g/dL Globulin 3.0 (1.7-4.1) g/dL Albumin/Globulin Ratio 1.5 (1.0-2.8) Lipase 168 (23-300) U/L Urine Color Urine Appearance Urine pH (4.5-8.0) Ur Specific [place] (1.000-1.035) Urine Protein (Negative) Urine Glucose (UA) (Negative) g/dL Urine Ketones (NEGATIVE) Urine Occult Blood (Negative) Urine Nitrate (Negative) Urine Bilirubin (NEGATIVE) Urine Urobilinogen (0.2) E.U./dL Ur Leukocyte Esterase (NEGATIVE) Urine RBC (0-5/HPF) Urine WBC (0-5/HPF) Urine Bacteria (None) Ur Culture Indicated? Chlamy pneumoniae PCR (Not Detect) Adenovirus (PCR) (Not Detect) B. pertussis DNA (PCR) (Not Detecte) B.parapertussis DNA PCR (Not Detecte) Coronavirus OC43 (PCR) (Not Detect) Coronavirus HKU1 (PCR) (Not Detect) Coronavirus 229E (PCR) (Not Detect) SARS-CoV-2 (PCR) (Negative) Coronavirus NL63 (PCR) (Not Detect) Human Metapneumovir PCR (Not Detect) Influenza Type A (PCR) (Not Detect) Influenza Type B (PCR) (Not Detect) M. pneumoniae (PCR) (Not Detect) Parainfluenza 1 (PCR) (Not Detect) Parainfluenza 2 (PCR) (Not Detect) Parainfluenza 3 (PCR) (Not Detect) Parainfluenza 4 (PCR) (Not Detect) RSV (PCR) (Not Detect) Entero/Rhino (PCR) (Not Detect) 05/19/22 05/19/22 05/19/22 Range/Units 10:50 13:06 18:30 WBC (4.5-11.0) X10^3/uL RBC (4.5-5.9) X10^6/uL Hgb (13.5-17.5) g/dL Hct (41-53) % MCV (80-100) fL MCH (26-34) PG MCHC (30-36) % RDW (11.6-14.8) % Plt Count (150-400) X10^3/uL Neut % (Auto) (50-75) % Lymph % (Auto) (25-40) % [place] % (Auto) (3-14) % Eos % (Auto) (2-4) % Baso % (Auto) (0-2) % Neut # (Auto) (4051-3232) /uL Lymph # (Auto) (9819-8943) /uL [place] # (Auto) (0-900) /uL Eos # (Auto) (0-450) /uL Baso # (Auto) (0-100) /uL PT (10.1-12.7) SECONDS INR (0.9-1.3) APTT (26-36) SECONDS Sodium (137-145) mmol/L Potassium (3.4-5.1) mmol/L Chloride (98-107) mmol/L Carbon Dioxide (22-32) mmol/L BUN (9-20) mg/dL Creatinine (0.66-1.25) mg/dL Estimated GFR (>60) mL/min BUN/Creatinine Ratio (6-22) Glucose (80-110) mg/dL Hemoglobin A1c 9.6 H (4.0-6.0) % Calcium (8.4-10.2) mg/dL Magnesium (1.6-2.3) mg/dL Total Bilirubin (0.2-1.3) mg/dL AST (17-59) IU/L ALT (<50) IU/L Alkaline Phosphatase (38-126) U/L Total Creatine Kinase 166 (55-170) U/L CK-MB (CK-2) 1.73 (<2.37) ng/mL CK-MB (CK-2) Rel Index 1.0 L (1.5-5.0) % Troponin I < 0.012 < 0.012 (0.01-0.034) ng/mL Total Protein (6.3-8.2) g/dL Albumin (3.5-5.0) g/dL Globulin (1.7-4.1) g/dL Albumin/Globulin Ratio (1.0-2.8) Lipase (23-300) U/L Urine Color Urine Appearance Urine pH (4.5-8.0) Ur Specific [place] (1.000-1.035) Urine Protein (Negative) Urine Glucose (UA) (Negative) g/dL Urine Ketones (NEGATIVE) Urine Occult Blood (Negative) Urine Nitrate (Negative) Urine Bilirubin (NEGATIVE) Urine Urobilinogen (0.2) E.U./dL Ur Leukocyte Esterase (NEGATIVE) Urine RBC (0-5/HPF) Urine WBC (0-5/HPF) Urine Bacteria (None) Ur Culture Indicated? Chlamy pneumoniae PCR (Not Detect) Adenovirus (PCR) (Not Detect) B. pertussis DNA (PCR) (Not Detecte) B.parapertussis DNA PCR (Not Detecte) Coronavirus OC43 (PCR) (Not Detect) Coronavirus HKU1 (PCR) (Not Detect) Coronavirus 229E (PCR) (Not Detect) SARS-CoV-2 (PCR) (Negative) Coronavirus NL63 (PCR) (Not Detect) Human Metapneumovir PCR (Not Detect) Influenza Type A (PCR) (Not Detect) Influenza Type B (PCR) (Not Detect) M. pneumoniae (PCR) (Not Detect) Parainfluenza 1 (PCR) (Not Detect) Parainfluenza 2 (PCR) (Not Detect) Parainfluenza 3 (PCR) (Not Detect) Parainfluenza 4 (PCR) (Not Detect) RSV (PCR) (Not Detect) Entero/Rhino (PCR) (Not Detect) 05/19/22 05/20/22 05/20/22 Range/Units 18:52 00:05 05:46 WBC (4.5-11.0) X10^3/uL RBC (4.5-5.9) X10^6/uL Hgb (13.5-17.5) g/dL Hct (41-53) % MCV (80-100) fL MCH (26-34) PG MCHC (30-36) % RDW (11.6-14.8) % Plt Count (150-400) X10^3/uL Neut % (Auto) (50-75) % Lymph % (Auto) (25-40) % [place] % (Auto) (3-14) % Eos % (Auto) (2-4) % Baso % (Auto) (0-2) % Neut # (Auto) (8529-4022) /uL Lymph # (Auto) (4841-9148) /uL [place] # (Auto) (0-900) /uL Eos # (Auto) (0-450) /uL Baso # (Auto) (0-100) /uL PT (10.1-12.7) SECONDS INR (0.9-1.3) APTT 136 H* D 76 H* D (26-36) SECONDS Sodium (137-145) mmol/L Potassium (3.4-5.1) mmol/L Chloride (98-107) mmol/L Carbon Dioxide (22-32) mmol/L BUN (9-20) mg/dL Creatinine (0.66-1.25) mg/dL Estimated GFR (>60) mL/min BUN/Creatinine Ratio (6-22) Glucose (80-110) mg/dL Hemoglobin A1c (4.0-6.0) % Calcium (8.4-10.2) mg/dL Magnesium (1.6-2.3) mg/dL Total Bilirubin (0.2-1.3) mg/dL AST (17-59) IU/L ALT (<50) IU/L Alkaline Phosphatase (38-126) U/L Total Creatine Kinase (55-170) U/L CK-MB (CK-2) (<2.37) ng/mL CK-MB (CK-2) Rel Index (1.5-5.0) % Troponin I (0.01-0.034) ng/mL Total Protein (6.3-8.2) g/dL Albumin (3.5-5.0) g/dL Globulin (1.7-4.1) g/dL Albumin/Globulin Ratio (1.0-2.8) Lipase (23-300) U/L Urine Color Urine Appearance Urine pH (4.5-8.0) Ur Specific [place] (1.000-1.035) Urine Protein (Negative) Urine Glucose (UA) (Negative) g/dL Urine Ketones (NEGATIVE) Urine Occult Blood (Negative) Urine Nitrate (Negative) Urine Bilirubin (NEGATIVE) Urine Urobilinogen (0.2) E.U./dL Ur Leukocyte Esterase (NEGATIVE) Urine RBC (0-5/HPF) Urine WBC (0-5/HPF) Urine Bacteria (None) Ur Culture Indicated? Chlamy pneumoniae PCR (Not Detect) Adenovirus (PCR) (Not Detect) B. pertussis DNA (PCR) (Not Detecte) B.parapertussis DNA PCR (Not Detecte) Coronavirus OC43 (PCR) (Not Detect) Coronavirus HKU1 (PCR) (Not Detect) Coronavirus 229E (PCR) (Not Detect) SARS-CoV-2 (PCR) Negative (Negative) Coronavirus NL63 (PCR) (Not Detect) Human Metapneumovir PCR (Not Detect) Influenza Type A (PCR) (Not Detect) Influenza Type B (PCR) (Not Detect) M. pneumoniae (PCR) (Not Detect) Parainfluenza 1 (PCR) (Not Detect) Parainfluenza 2 (PCR) (Not Detect) Parainfluenza 3 (PCR) (Not Detect) Parainfluenza 4 (PCR) (Not Detect) RSV (PCR) (Not Detect) Entero/Rhino (PCR) (Not Detect) 05/20/22 05/20/22 05/20/22 Range/Units 05:46 05:46 11:45 WBC 13.7 H (4.5-11.0) X10^3/uL RBC 4.62 (4.5-5.9) X10^6/uL Hgb 13.5 (13.5-17.5) g/dL Hct 40.7 L (41-53) % MCV 88.2 (80-100) fL MCH 29.3 (26-34) PG MCHC 33.2 (30-36) % RDW 13.6 (11.6-14.8) % Plt Count 329 (150-400) X10^3/uL Neut % (Auto) 89.0 H D (50-75) % Lymph % (Auto) 8.5 L (25-40) % [place] % (Auto) 1.5 L (3-14) % Eos % (Auto) 0.5 L (2-4) % Baso % (Auto) 0.5 (0-2) % Neut # (Auto) 08757 H (4916-5821) /uL Lymph # (Auto) 1200 (2306-9781) /uL [place] # (Auto) 200 (0-900) /uL Eos # (Auto) 100 (0-450) /uL Baso # (Auto) 100 (0-100) /uL PT (10.1-12.7) SECONDS INR (0.9-1.3) APTT 61 H D (26-36) SECONDS Sodium 133 L (137-145) mmol/L Potassium 5.1 (3.4-5.1) mmol/L Chloride 97 L (98-107) mmol/L Carbon Dioxide 25 (22-32) mmol/L BUN 23 H (9-20) mg/dL Creatinine 1.12 (0.66-1.25) mg/dL Estimated GFR > 60 (>60) mL/min BUN/Creatinine Ratio 20.5 (6-22) Glucose 317 H (80-110) mg/dL Hemoglobin A1c (4.0-6.0) % Calcium 9.3 (8.4-10.2) mg/dL Magnesium (1.6-2.3) mg/dL Total Bilirubin 0.8 (0.2-1.3) mg/dL AST 29 (17-59) IU/L ALT 37 (<50) IU/L Alkaline Phosphatase 83 (38-126) U/L Total Creatine Kinase 111 (55-170) U/L CK-MB (CK-2) 1.29 (<2.37) ng/mL CK-MB (CK-2) Rel Index 1.2 L (1.5-5.0) % Troponin I < 0.012 (0.01-0.034) ng/mL Total Protein 7.9 (6.3-8.2) g/dL Albumin 4.6 (3.5-5.0) g/dL Globulin 3.3 (1.7-4.1) g/dL Albumin/Globulin Ratio 1.4 (1.0-2.8) Lipase 164 (23-300) U/L Urine Color Urine Appearance Urine pH (4.5-8.0) Ur Specific [place] (1.000-1.035) Urine Protein (Negative) Urine Glucose (UA) (Negative) g/dL Urine Ketones (NEGATIVE) Urine Occult Blood (Negative) Urine Nitrate (Negative) Urine Bilirubin (NEGATIVE) Urine Urobilinogen (0.2) E.U./dL Ur Leukocyte Esterase (NEGATIVE) Urine RBC (0-5/HPF) Urine WBC (0-5/HPF) Urine Bacteria (None) Ur Culture Indicated? Chlamy pneumoniae PCR (Not Detect) Adenovirus (PCR) (Not Detect) B. pertussis DNA (PCR) (Not Detecte) B.parapertussis DNA PCR (Not Detecte) Coronavirus OC43 (PCR) (Not Detect) Coronavirus HKU1 (PCR) (Not Detect) Coronavirus 229E (PCR) (Not Detect) SARS-CoV-2 (PCR) (Negative) Coronavirus NL63 (PCR) (Not Detect) Human Metapneumovir PCR (Not Detect) Influenza Type A (PCR) (Not Detect) Influenza Type B (PCR) (Not Detect) M. pneumoniae (PCR) (Not Detect) Parainfluenza 1 (PCR) (Not Detect) Parainfluenza 2 (PCR) (Not Detect) Parainfluenza 3 (PCR) (Not Detect) Parainfluenza 4 (PCR) (Not Detect) RSV (PCR) (Not Detect) Entero/Rhino (PCR) (Not Detect) 05/20/22 05/20/22 05/20/22 Range/Units 18:16 20:04 20:32 WBC 16.8 H (4.5-11.0) X10^3/uL RBC 4.34 L (4.5-5.9) X10^6/uL Hgb 12.7 L (13.5-17.5) g/dL Hct 38.7 L (41-53) % MCV 89.2 (80-100) fL MCH 29.2 (26-34) PG MCHC 32.8 (30-36) % RDW 13.8 (11.6-14.8) % Plt Count 372 (150-400) X10^3/uL Neut % (Auto) 77.0 H (50-75) % Lymph % (Auto) 13.5 L (25-40) % [place] % (Auto) 8.4 (3-14) % Eos % (Auto) 0.4 L (2-4) % Baso % (Auto) 0.7 (0-2) % Neut # (Auto) 66763 H (6863-7779) /uL Lymph # (Auto) 2300 (7053-1181) /uL [place] # (Auto) 1400 H (0-900) /uL Eos # (Auto) 100 (0-450) /uL Baso # (Auto) 100 (0-100) /uL PT (10.1-12.7) SECONDS INR (0.9-1.3) APTT 40 H D (26-36) SECONDS Sodium (137-145) mmol/L Potassium (3.4-5.1) mmol/L Chloride (98-107) mmol/L Carbon Dioxide (22-32) mmol/L BUN (9-20) mg/dL Creatinine (0.66-1.25) mg/dL Estimated GFR (>60) mL/min BUN/Creatinine Ratio (6-22) Glucose (80-110) mg/dL Hemoglobin A1c (4.0-6.0) % Calcium (8.4-10.2) mg/dL Magnesium (1.6-2.3) mg/dL Total Bilirubin (0.2-1.3) mg/dL AST (17-59) IU/L ALT (<50) IU/L Alkaline Phosphatase (38-126) U/L Total Creatine Kinase (55-170) U/L CK-MB (CK-2) (<2.37) ng/mL CK-MB (CK-2) Rel Index (1.5-5.0) % Troponin I (0.01-0.034) ng/mL Total Protein (6.3-8.2) g/dL Albumin (3.5-5.0) g/dL Globulin (1.7-4.1) g/dL Albumin/Globulin Ratio (1.0-2.8) Lipase (23-300) U/L Urine Color Urine Appearance Urine pH (4.5-8.0) Ur Specific [place] (1.000-1.035) Urine Protein (Negative) Urine Glucose (UA) (Negative) g/dL Urine Ketones (NEGATIVE) Urine Occult Blood (Negative) Urine Nitrate (Negative) Urine Bilirubin (NEGATIVE) Urine Urobilinogen (0.2) E.U./dL Ur Leukocyte Esterase (NEGATIVE) Urine RBC (0-5/HPF) Urine WBC (0-5/HPF) Urine Bacteria (None) Ur Culture Indicated? Chlamy pneumoniae PCR Not detected (Not Detect) Adenovirus (PCR) Not detected (Not Detect) B. pertussis DNA (PCR) Not detected (Not Detecte) B.parapertussis DNA PCR Not detected (Not Detecte) Coronavirus OC43 (PCR) Not detected (Not Detect) Coronavirus HKU1 (PCR) Not detected (Not Detect) Coronavirus 229E (PCR) Not detected (Not Detect) SARS-CoV-2 (PCR) Not detected (Negative) Coronavirus NL63 (PCR) Not detected (Not Detect) Human Metapneumovir PCR Not detected (Not Detect) Influenza Type A (PCR) Not detected (Not Detect) Influenza Type B (PCR) Not detected (Not Detect) M. pneumoniae (PCR) Not detected (Not Detect) Parainfluenza 1 (PCR) Not detected (Not Detect) Parainfluenza 2 (PCR) Not detected (Not Detect) Parainfluenza 3 (PCR) Not detected (Not Detect) Parainfluenza 4 (PCR) Not detected (Not Detect) RSV (PCR) Not detected (Not Detect) Entero/Rhino (PCR) Not detected (Not Detect) 05/20/22 05/20/22 Range/Units 20:32 21:45 WBC (4.5-11.0) X10^3/uL RBC (4.5-5.9) X10^6/uL Hgb (13.5-17.5) g/dL Hct (41-53) % MCV (80-100) fL MCH (26-34) PG MCHC (30-36) % RDW (11.6-14.8) % Plt Count (150-400) X10^3/uL Neut % (Auto) (50-75) % Lymph % (Auto) (25-40) % [place] % (Auto) (3-14) % Eos % (Auto) (2-4) % Baso % (Auto) (0-2) % Neut # (Auto) (3561-0753) /uL Lymph # (Auto) (5323-9138) /uL [place] # (Auto) (0-900) /uL Eos # (Auto) (0-450) /uL Baso # (Auto) (0-100) /uL PT (10.1-12.7) SECONDS INR (0.9-1.3) APTT (26-36) SECONDS Sodium 135 L (137-145) mmol/L Potassium 4.5 (3.4-5.1) mmol/L Chloride 99 (98-107) mmol/L Carbon Dioxide 23 (22-32) mmol/L BUN 33 H (9-20) mg/dL Creatinine 1.22 (0.66-1.25) mg/dL Estimated GFR > 60 (>60) mL/min BUN/Creatinine Ratio 27.0 H (6-22) Glucose 291 H (80-110) mg/dL Hemoglobin A1c (4.0-6.0) % Calcium 9.2 (8.4-10.2) mg/dL Magnesium (1.6-2.3) mg/dL Total Bilirubin 0.6 (0.2-1.3) mg/dL AST 24 (17-59) IU/L ALT 31 (<50) IU/L Alkaline Phosphatase 91 (38-126) U/L Total Creatine Kinase (55-170) U/L CK-MB (CK-2) (<2.37) ng/mL CK-MB (CK-2) Rel Index (1.5-5.0) % Troponin I < 0.012 (0.01-0.034) ng/mL Total Protein 7.5 (6.3-8.2) g/dL Albumin 4.4 (3.5-5.0) g/dL Globulin 3.1 (1.7-4.1) g/dL Albumin/Globulin Ratio 1.4 (1.0-2.8) Lipase (23-300) U/L Urine Color Yellow Urine Appearance Clear Urine pH 6.0 (4.5-8.0) Ur Specific [place] 1.010 (1.000-1.035) Urine Protein Trace H (Negative) Urine Glucose (UA) 2+ H (Negative) g/dL Urine Ketones Negative (NEGATIVE) Urine Occult Blood Negative (Negative) Urine Nitrate Negative (Negative) Urine Bilirubin Negative (NEGATIVE) Urine Urobilinogen 0.2 (0.2) E.U./dL Ur Leukocyte Esterase Negative (NEGATIVE) Urine RBC None seen (0-5/HPF) Urine WBC None seen (0-5/HPF) Urine Bacteria None seen (None) Ur Culture Indicated? Cult not indicated Chlamy pneumoniae PCR (Not Detect) Adenovirus (PCR) (Not Detect) B. pertussis DNA (PCR) (Not Detecte) B.parapertussis DNA PCR (Not Detecte) Coronavirus OC43 (PCR) (Not Detect) Coronavirus HKU1 (PCR) (Not Detect) Coronavirus 229E (PCR) (Not Detect) SARS-CoV-2 (PCR) (Negative) Coronavirus NL63 (PCR) (Not Detect) Human Metapneumovir PCR (Not Detect) Influenza Type A (PCR) (Not Detect) Influenza Type B (PCR) (Not Detect) M. pneumoniae (PCR) (Not Detect) Parainfluenza 1 (PCR) (Not Detect) Parainfluenza 2 (PCR) (Not Detect) Parainfluenza 3 (PCR) (Not Detect) Parainfluenza 4 (PCR) (Not Detect) RSV (PCR) (Not Detect) Entero/Rhino (PCR) (Not Detect) Point of Care Testing Glucose POC 349 MDM Narrative Medical decision making narrative: 67-year-old male with multiple risk factors including diabetes hypertension hyperlipidemia with recent illness of influenza a now presenting with epigastric pain radiating to his chest lasting for 15 minutes and then dissipating worse with exertion but also associated with food. Concern for acute coronary syndrome versus cholelithiasis versus pulmonary embolism. A CTs are ordered. No EKG changes 2- troponins. Discussion with Dr. Poncho Ageearty hospitalist in regards to admission. She actually came down and evaluated patient however after seeing him concerning for pain at rest and need cardiac catheterization. Recommends transferring to facility with Cardiology. 1720 Dr. Askew, cardiology consulted agrees with heparin drip nitro aspirin as needed. Agrees with transferring to another facility. If going to [facility] recommends talking to the hospitalist and they would be happy to consult Significant critical bed shortage. Patient is put on many list. He currently is not having any chest discomfort or pressure in the center of his chest. He understands plan of waiting for bed placement. Hospitalist has already put in orders for echocardiogram nitro and a consult. Patient signing out to Dr. Eaton for further management overnight Dr eaton overnight 05/19-05/20: Received turned over. Reviewed patient's history and physical exam. You would EKGs. Troponins have remained negative. He has been stable overnight. He had 1 episode of chest discomfort but it was reproducible with palpation. Continues to be on heparin. A sliding scale insulin was ordered. Care turned over to day provider to continue to observe until disposition. Santiago 05/20/22 patient remains in the emergency department concern for acute coronary syndrome, remains on heparin drip negative troponins. He continues have intermittent chest pain but does not seem to last too long he is not on any nitro. I did talk with [facility] transfer [place] they looked at the [facility], no availability today but possibly tomorrow. Unfortunately the hospitalist consulted ordered an echocardiogram and it was not done today it is reordered to be done tomorrow. Patient says that he is now having pain with coughing that seems to start the pressure and pain in his chest although that is not how it started. He is giving morphine for pain. Recommend reconsulting Cardiology tomorrow for further instructions. Patient signed out to Dr. Lafleur [Daija] (Miquel) Patient received in sign out from [Santiago]. I have reviewed the clinical course and performed an independent history and physical exam. patient currently pain free [phone] - call back from [facility] Hospitalist (Siri Kamara) happy to accept. <Da Lafleur, DO - Last Filed: 05/21/22 06:18> Critical Care Time Critical Care Time: Yes Total Critical Care Time: 35 Attestation: The high probability of a clinically significant, sudden or life threatening deterioration of the [CV] system(s) required my full and direct attention, intervention and personal management. The aggregate critical care time was [35] minutes. This time is in addition to time spent performing reported procedures but includes the following: [x] Data Review and interpretation [x] Patient assessment and monitoring of vital signs [x] Documentation [x] Medication orders and management Discharge Plan Departure Patient Disposition: [facility] Clinical Impression: Angina pectoris, unstable Prescriptions: No Action azithromycin 250 mg tablet See Rx Instructions PO .COMPLEX Qty: 6 0RF Rx Instructions: For 250 mg dose pack: take 500 mg today (day 1), then 250 mg for 4 days (days 2-5) PO benzonatate 100 mg capsule 100 mg PO BID PRN (Reason: cough) Qty: 20 0RF (DME) Syringes See Rx Instructions .Route .MEDSUPPLY Qty: 100 6RF Dose Instruction: SQ SUBCUT QID; Rx Instructions: Use BD 0.5ml syringe with 31 gauge x 8mm needle to inject insulin four times a day. (DME) onetouch glucose meter starter kit Qty: 1 0RF Rx Instructions: use to check blood sugar 4 times daily (DME) Glucose: Test Strips 0 .Route .MEDSUPPLY Qty: 300 1RF Dose Instruction: As directed Rx Instructions: Use with matching meter to check blood glucose levels 4 times daily (DME) Insulin [place] BD Ultra Fine Mini Pen Needle Qty: 450 3RF Dose Instruction: As directed Rx Instructions: 31g X 3/16 - Use to Inject Humalog AND HUMULIN 5 NEEDLES PER DAY atorvastatin 40 mg tablet 40 mg PO HS Qty: 90 3RF levothyroxine [Synthroid] 125 mcg tablet 125 mcg PO QDAY Qty: 90 3RF lisinopril 20 mg tablet 20 mg PO QDAY Qty: 90 3RF metformin 500 mg tablet 500 mg PO BIDWMEAL Qty: 180 1RF Hold Instructions: pt needs labs done first zolpidem [Ambien] 10 mg tablet 10 mg PO HSP PRN (Reason: insomnia) Qty: 10 3RF Humulin N NPH Insulin KwikPen 100 unit/mL (3 mL) insulin pen See Rx Instructions SUBCUT BID Qty: 90 1RF Hold Instructions: Needs labs Dose Instruction: 50U in am, 20U in pm SUBCUT BID; Rx Instructions: 50U in am, 20U in pm SUBCUT BID; bupropion HCl [Wellbutrin XL] 150 mg tablet extended release 24 hr 150 mg PO QDAY Qty: 90 1RF insulin lispro [Humalog KwikPen Insulin] 100 unit/mL insulin pen 10 unit SUBCUT TID Qty: 45 0RF Hold Instructions: Needs labs Rx Instructions: inject 10 units under skin before meals give additional 2units per [id number]/dl glucose over 100. MMD 50 units famotidine 40 mg tablet 40 mg PO BID Qty: 120 0RF lidocaine 5 % Adhesive Patch,Medicated 1 ea topical DAILY Qty: 10 0RF Acidophilus Tablet,Chewable 1 tab PO BID Qty: 60 0RF Rx Instructions: WITH MEALS albuterol sulfate 90 mcg/actuation HFA aerosol inhaler 2 puff inhalation Q4-6H PRN (Reason: shortness of breath or wheezing) Qty: 6.7 0RF aspirin 81 mg capsule 81 mg PO DAILY Qty: 60 0RF Referrals: Patrick Rocha MD [Primary Care Provider] -
--- NOTE | 2022-05-19 13:42 | DI.CT.S_ITS ---
PROCEDURE: CT ANGIO CHEST PE PROTOCOL INDICATIONS: sob recent infection TECHNIQUE: After the administration of intravenous contrast, 2 mm thick sections acquired from the pulmonary apices to the posterior costophrenic angles. 3-dimensional maximum intensity projection (MIP) coronal and sagittal reformats were then acquired through the thorax. For radiation dose reduction, the following was used: automated exposure control, adjustment of mA and/or kV according to patient size. COMPARISON: None. FINDINGS: Image quality: Excellent. Pulmonary arteries: Pulmonary arteries are normal in size, and demonstrate no intraluminal filling defects to suggest central pulmonary embolism. Lungs and pleura: Lungs are free of pneumonia or edema. No pleural effusions or pneumothorax. Central and peripheral airways are patent. Mediastinum: Heart size is normal, without pericardial effusion but with moderate coronary artery calcifications. No mediastinal or hilar adenopathy. Thoracic aorta is normal in caliber and enhancement. Esophagus is normal in caliber, without hiatal hernia. Bones and chest wall: No suspicious bony lesions. Ribs and thoracic spine appear intact throughout. Thyroid gland appears normal. No axillary or supraclavicular adenopathy. Abdomen: Visualized upper abdominal solid organs appear normal in the early arterial phase of enhancement. IMPRESSION: No pulmonary embolus found, source of shortness of breath is not identified. Incidental note is made of moderate coronary artery calcifications. Dictated by: Jeffrey Castro M.D. on 05/19/2022 at 15:45 Approved by: Jeffrey Castro M.D. on 05/19/2022 at 15:47
--- NOTE | 2022-05-19 13:42 | DI.CT.S_ITS ---
PROCEDURE: CT ABDOMEN PELVIS W CON INDICATIONS: epigastric pain TECHNIQUE: After the administration of intravenous contrast, axial sections acquired from the lung bases to the pubic symphysis. Coronal and sagittal reformats were performed. For radiation dose reduction, the following was used: automated exposure control, adjustment of mA and/or kV according to patient size. COMPARISON: [facility], CT, CT ABDOMEN PELVIS W CON, 01/18/2020, 23:29. [facility], CT, CT ABDOMEN PELVIS W CON, 10/03/2019, 15:11. FINDINGS: Image quality: Excellent. Lung bases: Unremarkable. Heart: No significant findings. ABDOMEN: Liver: Unremarkable. Gallbladder: Previously resected Biliary ducts: Unremarkable. Pancreas: Unremarkable. Spleen: Unremarkable. Adrenal Glands: Unremarkable. Kidneys and Ureters: Unremarkable. Stomach and Bowel: Stomach, small bowel loops, and colon are unremarkable. Peritoneum: No abnormal intraperitoneal fluid. No free air. Ventral Wall: No hernias. Abdominal Nodes: No retroperitoneal or mesenteric adenopathy by size criteria. Vessels: Aorta and inferior vena cava are normal in size. PELVIS: Pelvic Organs: Unremarkable. Bladder: Unremarkable. Pelvic Nodes: No enlarged lymph nodes. Miscellaneous: No hernias are seen. Bones: Unremarkable. IMPRESSION: Source of epigastric pain is not identified. No acute inflammatory process is found. Prior cholecystectomy. No acute disease. Dictated by: Jeffrey Castro M.D. on 05/19/2022 at 15:44 Approved by: Jeffrey Castro M.D. on 05/19/2022 at 15:45
[2022-05-19] MEDS: MORPHINE 2 MG/ML INJ IV (13:50)
[2022-05-19 14:09] LABS: Troponin I < 0.012 ng/mL (0.01-0.034)
[2022-05-19] MEDS: ASPIRIN 81 MG CHEW TAB 324 MG PO (14:10)
--- NOTE | 2022-05-19 14:11 | PC.NURSE ---
Pt reports intermittent chest pain and SOB for past 4 days. Provider aware.
--- NOTE | 2022-05-19 14:27 | PC.NURSE ---
Pt reports pain improving, but not the pressure. Pt states it feels like something is going to explode.
[2022-05-19] MEDS: diphenhydrAMINE 50 MG/ML VIAL 25 MG IV (14:50)
[2022-05-19] MEDS: methylPREDNISolone 125 MG/2 ML VIAL IV (14:50)
--- NOTE | 2022-05-19 17:24 | PM.CN ---
History of Present Illness Consult details Chief complaint: chest pain/SOB/ sent by [facility] t-2 Narrative: 67-year-old gentleman with insulin-dependent diabetes mellitus, last A1c reported to be around 7%, hypertension, hyperlipidemia who presented to the emergency department today with escalating chest pain and pressure. Patient reports no prior history of coronary disease. He does however have risk factors including diabetes, hypertension, hyperlipidemia and his mom having had coronary disease at age 50 he is a lifelong nonsmoker. He notes 3 days ago he developed onset of chest pressure which escalates and then turns into pain. He describes it reaches a max level of 8/10. He notes associated lightheadedness, diaphoresis, and shortness of breath. He states it can come whether he is exerting or at rest, but does noted is worse with exertion. It lasts approximately 15-20 minutes before abating and eventually resolving. He notes over the last 3 days the pain has become more intense and he was concerned it may be cardiac related. 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 He notes being lightheaded at work was particularly concerning. He notes while he was driving into work this morning he did not feel right, developed significant diaphoresis. He did check his blood sugar which was within normal limits. In the emergency department, he reports he has had ongoing symptoms on approximately 3 occasions. He did receive aspirin 324 mg as well as IV morphine 2 mg. He notes the morphine did take the pain away but did not relieve the pressure. Currently he describes having no pressure or pain. EKG was nonischemic. Troponins have been negative x2. Meds Home Medications and Allergies Home Medications Medication Instructions Recorded Confirmed Type Syringes #100 ea 06/12/18 10/09/21 Rx onetouch glucose meter starter kit #1 ea 07/02/19 10/09/21 Rx Glucose: Test Strips #300 ea 08/31/20 10/09/21 Rx Insulin [place] BD Ultra Fine Mini #450 ea 04/14/21 10/09/21 Rx Pen Needle Lactobacillus acidophilus 1 tab PO BID #60 tabs 04/30/21 10/20/21 Rx (Acidophilus chewable tablet) albuterol sulfate 90 mcg/actuation 2 puff inhalation Q4-6H PRN 04/30/21 10/20/21 Rx aerosol inhaler shortness of breath or wheezing #6.7 grams aspirin 81 mg capsule 81 mg PO DAILY #60 caps 04/30/21 10/20/21 Rx famotidine 40 mg tablet 40 mg PO BID #120 tabs 04/30/21 10/20/21 Rx lidocaine 5 % topical patch 1 ea topical DAILY #10 ea 04/30/21 10/20/21 Rx atorvastatin 40 mg tablet 40 mg PO HS #90 tabs 05/02/21 10/20/21 Rx levothyroxine 125 mcg tablet 125 mcg PO QDAY #90 tabs 07/05/21 10/20/21 Rx (Synthroid) lisinopril 20 mg tablet 20 mg PO QDAY #90 tabs 07/05/21 10/20/21 Rx metformin 500 mg tablet 500 mg PO BIDWMEAL #180 tabs 09/23/21 10/20/21 Rx benzonatate 100 mg capsule 100 mg PO BID PRN cough #20 caps 10/27/21 10/27/21 Rx zolpidem 10 mg tablet (Ambien) 10 mg PO HSP PRN insomnia #10 tabs 12/18/21 Rx insulin NPH isoph U-100 human 100 See Rx Instructions SUBCUT BID #90 12/20/21 Rx unit/mL (3 mL) subcutaneous pen mL (Humulin N NPH U-100 Insulin KwikPen) bupropion HCl 150 mg 24 hr tablet, 150 mg PO QDAY #90 tabs 03/23/22 Rx extended release (Wellbutrin XL) azithromycin 250 mg tablet See Rx Instructions PO .COMPLEX #6 05/04/22 05/04/22 Rx tabs insulin lispro 100 unit/mL 10 unit (0.1 mL) SUBCUT TID #45 mL 05/18/22 Rx subcutaneous pen (Humalog KwikPen (U-100) Insulin) Allergies Allergy/AdvReac Type Severity Reaction Status Date / Time Iodinated Contrast Media Allergy Mild Rash Verified 05/19/22 10:42 meropenem Allergy Mild Rash Verified 05/19/22 10:42 Influenza Virus Vaccines Allergy Unknown Verified 05/19/22 10:42 baclofen AdvReac Severe Vomiting Verified 05/19/22 10:42 Review of Systems Review of Systems Narrative: He reports having had influenza a on May 08. He feels his symptoms have since resolved. Otherwise, All other systems were reviewed negative Exam Vital Signs (past 8 hours): - 05/19/22 10:42 Temperature 97.5 F L Pulse Rate 76 Respiratory Rate 15 Blood Pressure 154/72 H Pulse Oximetry 96 Oxygen Delivery Method Room Air Oxygen Delivery Method Room Air Narrative Exam Narrative: GEN: Very pleasant middle-aged male, Alert and oriented x3, no acute distress HEENT: Normocephalic, face symmetric, pupils equal round reactive to light, extraocular movements intact, sclerae anicteric, conjunctiva clear, nares patent, oropharynx reveals an intact soft and hard palate with moist mucous membranes, dentition is fair NECK: Supple, no lymphadenopathy, thyroid without enlargement or nodularity, carotids no bruits CHEST: Respiratory excursions symmetric, course in the bases, otherwise clear to auscultation bilaterally CV: Regular rate and rhythm, no murmurs, rubs, gallops, PMI not be palpated ABD: Soft, obese, nontender, nondistended, bowel sounds present in all 4 quadrants, body habitus limits exam, old laparoscopy scars noted EXTR: Warm, well perfused, no clubbing/cyanosis/edema SKIN: Warm and dry, without rash NEURO: Alert and oriented x3, grossly intact PSYCH: Mood and affect is within normal limits, judgment and insight are appropriate Objective Labs Result Diagrams: 05/19/22 10:50 05/19/22 10:50 Labs: Laboratory Results - last 24 hr 05/19/22 05/19/22 05/19/22 10:50 10:50 10:50 WBC 12.5 H RBC 4.44 L Hgb 13.1 L Hct 39.3 L MCV 88.5 MCH 29.4 MCHC 33.2 RDW 13.9 Plt Count 349 Neut % (Auto) 66.8 Lymph % (Auto) 23.7 L Yell % (Auto) 7.6 Eos % (Auto) 1.0 L Baso % (Auto) 0.9 Neut # (Auto) 8300 H Lymph # (Auto) 3000 Yell # (Auto) 900 Eos # (Auto) 100 Baso # (Auto) 100 PT 11.4 INR 1.0 APTT 30 Sodium 137 Potassium 4.4 Chloride 100 Carbon Dioxide 26 BUN 20 Creatinine 1.12 Estimated GFR > 60 BUN/Creatinine Ratio 17.9 Glucose 228 H Calcium 9.7 Magnesium 1.6 Total Bilirubin 0.6 AST 28 ALT 35 Alkaline Phosphatase 92 Total Creatine Kinase 189 H CK-MB (CK-2) 1.90 CK-MB (CK-2) Rel Index 1.0 L Troponin I < 0.012 Total Protein 7.6 Albumin 4.6 Globulin 3.0 Albumin/Globulin Ratio 1.5 Lipase 168 05/19/22 13:06 WBC RBC Hgb Hct MCV MCH MCHC RDW Plt Count Neut % (Auto) Lymph % (Auto) Yell % (Auto) Eos % (Auto) Baso % (Auto) Neut # (Auto) Lymph # (Auto) Yell # (Auto) Eos # (Auto) Baso # (Auto) PT INR APTT Sodium Potassium Chloride Carbon Dioxide BUN Creatinine Estimated GFR BUN/Creatinine Ratio Glucose Calcium Magnesium Total Bilirubin AST ALT Alkaline Phosphatase Total Creatine Kinase CK-MB (CK-2) CK-MB (CK-2) Rel Index Troponin I < 0.012 Total Protein Albumin Globulin Albumin/Globulin Ratio Lipase [facility] Medical History Chronic back pain (2004) CTS (carpal tunnel syndrome) (1994) Depression (1997) Esophageal obstruction due to food impaction (05/07/16) Foot pain (2004) Shoulder pain (2009) Sleep apnea (2009) Surgical History History of esophagogastroduodenoscopy (EGD) (05/08/16) Status post laparoscopic cholecystectomy Family History Mother Loud snoring Restless leg Hypertension Diabetes mellitus Depression Family/Other Restless leg Obesity Hypertension Depression Anxiety Comment: He notes his father had congestive heart failure Social History marital status: household members: other lives independently: Yes education level: high school occupational status: employed Tobacco & Substance Use Smoking Status: Never smoker alcohol intake: former (Quit alcohol use 34 years ago) substance use type: does not use Assessment & Plan Assessment & Plan narrative: 1. Chest pain, concerning for unstable angina Patient has diabetes, hypertension, and hyperlipidemia as well as obesity and some family history of coronary disease. He presents with 3 day history of worsening anginal symptoms, occurring both at rest and with activity as well as increasing dyspnea activity. Symptoms have been escalating for the past 24 hours. He did receive aspirin in the emergency department. Nonischemic EKG, negative troponins x2. Given the constellation of symptoms, I am concerned about admitting him to our facility as we do not have the ability to obtain stress testing over the weekend, nor do we have Cardiology on site for performing a heart catheterization. I do suspect he should have a heart catheterization, as a negative stress test would not be particularly reassuring given his history. I have communicated the above to the emergency room physician. Should he have recurring pain or pressure, I have told him to notify nursing. Will add nitroglycerin for chest pain. If he continues to have escalating pain, could consider nitroglycerin drip. 2. Diabetes mellitus type 2, insulin dependent Will place on fingersticks and sliding scale while in the emergency department. 3. Hypertension Blood pressures have been moderately elevated in the emergency department. He did have normal blood pressures in the emergency department May 08, but prior to that his hypertensive control has been suboptimal, with ranges in the 150s to 170s systolic. It appears he is on lisinopril at baseline. Meds have not yet been reconciled 4. Hyperlipidemia On atorvastatin on an outpatient basis. Meds have not yet been reconciled. Plan to restart his atorvastatin once dosing has been confirmed 5. Recent influenza a He denies any residual symptoms. CT PE was performed due to complaints of shortness of breath in conjunction with his chest pain. There was no evidence of pulmonary embolism. No infectious etiology identified. No pulmonary abnormality. 6. Coronary calcification seen on CT scan Chest CT did reveal moderate coronary artery calcifications. 7. Hypothyroidism Plan to resume his usual outpatient thyroid dose once it has been confirmed. 8. Suspected GERD It appears he is on Pepcid on an outpatient basis. Await medication reconciliation. 9. Suspected depression Bupropion is on his home medication list. This has not yet been confirmed. Will restart once meds have been confirmed. If patient is unable to be transferred to a higher level of care for cardiology consultation and consideration of cardiac catheterization, patient will be admitted to our facility for monitoring. Time Spent With Patient Critical Care time: I spent a total of [] minutes of critical care time on this patient's care today; this time is exclusive of procedural time.
[2022-05-19] MEDS: HEPARIN 5,000 UNIT/ML VIAL 5000 UNIT IV (17:54)
[2022-05-19] MEDS: HEPARIN DRIP 25,000 UNIT/500 ML IV.SOLN 20 UNIT IV (17:55)
[2022-05-19 18:11] LABS: Hemoglobin A1C% w Est Avg Glu 9.6 % (4.0-6.0)
[2022-05-19 18:53] LABS: Creatine Kinase 166 U/L (55-170)
[2022-05-19 19:06] LABS: Troponin I < 0.012 ng/mL (0.01-0.034)
[2022-05-19 19:08] LABS: Creatine Kinase MB 1.73 ng/mL (<2.37)
--- NOTE | 2022-05-19 19:45 | PC.NURSE ---
Patient was put on waitlist at [facility]. [facility] and will call us back. Maggie Johnson and Rafaela refused patient on waitlist.
[2022-05-19 20:57] LABS: COVID19 -Nasal RAPID Negative (Negative)
[2022-05-19] MEDS: INSULIN LISPRO 100 UNIT/ML 3ML VIAL SUBCUT (21:09)
[2022-05-19] MEDS: ZOLPIDEM 5 MG TABLET 10 MG PO (21:11)
[2022-05-20] VITALS (60 sets, daily range): BP systolic 125–181; BP diastolic 60–88; PULSE 80–112; RESP 13–32; TEMP 36.6–36.8; O2SAT 88–98
[2022-05-20 00:33] LABS: PTT Partial Thromboplastin Tim 136 SECONDS (26-36)
[2022-05-20 05:56] LABS: Add Manual Diff / Slide Review NO; Basophils Absolute Auto 100 /uL (0-100); Basophils Percent Auto 0.5 % (0-2); Eosinophils Absolute Auto 100 /uL (0-450); Eosinophils Percent Auto 0.5 % (2-4); Hematocrit 40.7 % (41-53); Hemoglobin 13.5 g/dL (13.5-17.5); Lymphocytes Absolute Auto 1200 /uL (1100-4500); Lymphocytes Percent Auto 8.5 % (25-40); Mean Corpuscular HGB Conc 33.2 % (30-36); Mean Corpuscular Hemoglobin 29.3 PG (26-34); Mean Corpuscular Volume 88.2 fL (80-100); Monocytes Absolute Auto 200 /uL (0-900); Monocytes Percent Auto 1.5 % (3-14); Neutrophils Absolute Auto 12200 /uL (1500-7000); Platelet Count 329 X10^3/uL (150-400); Red Blood Cell Count 4.62 X10^6/uL (4.5-5.9); Red Cell Distribution Width 13.6 % (11.6-14.8); White Blood Cell Count 13.7 X10^3/uL (4.5-11.0)
[2022-05-20 06:05] LABS: PTT Partial Thromboplastin Tim 76 SECONDS (26-36)
[2022-05-20 06:06] LABS: Alanine Aminotransferase 37 IU/L (<50); Albumin 4.6 g/dL (3.5-5.0); Albumin Globulin Ratio 1.4 (1.0-2.8); Alkaline Phosphatase 83 U/L (38-126); Aspartate Aminotransferase 29 IU/L (17-59); BUN Creatinine Ratio 20.5 (6-22); Bilirubin Total 0.8 mg/dL (0.2-1.3); Blood Urea Nitrogen 23 mg/dL (9-20); Calcium 9.3 mg/dL (8.4-10.2); Carbon Dioxide 25 mmol/L (22-32); Chloride 97 mmol/L (98-107); Creatine Kinase 111 U/L (55-170); Estimated Glomerular Filt Rate > 60 mL/min (>60); Globulin 3.3 g/dL (1.7-4.1); Glucose 317 mg/dL (80-110); HEMOLYSIS < 15 (0-50); Lipase 164 U/L (23-300); Potassium 5.1 mmol/L (3.4-5.1); Sodium 133 mmol/L (137-145); Total Protein 7.9 g/dL (6.3-8.2)
[2022-05-20 06:18] LABS: Troponin I < 0.012 ng/mL (0.01-0.034)
--- NOTE | 2022-05-20 06:18 | PC.NURSE ---
Pt reports increase in pain in chest with coughing, can reproduce pain with palpation to chest. Provider aware.
[2022-05-20 06:21] LABS: CKMB % Relative Index 1.2 % (1.5-5.0); Creatine Kinase MB 1.29 ng/mL (<2.37)
[2022-05-20] MEDS: ACETAMINOPHEN 325 MG TABLET 650 MG PO (06:31)
[2022-05-20 12:04] LABS: PTT Partial Thromboplastin Tim 61 SECONDS (26-36)
[2022-05-20] MEDS: INSULIN LISPRO 100 UNIT/ML 3ML VIAL SUBCUT ×3 (12:14→21:16)
[2022-05-20] MEDS: ASPIRIN 81 MG CHEW TAB 324 MG PO (16:59)
[2022-05-20 18:39] LABS: PTT Partial Thromboplastin Tim 40 SECONDS (26-36)
--- NOTE | 2022-05-20 20:02 | DI.RAD.S_ITS ---
PROCEDURE: XR CHEST 1V INDICATIONS: cough TECHNIQUE: One view of the chest was acquired. COMPARISON: [facility], CR, XR CHEST 1V, 05/19/2022, 10:56. [facility], CR, XR CHEST 1V, 05/08/2022, 11:19. FINDINGS: Surgical changes and devices: None. Lungs and pleura: Lungs are clear. No pleural effusions or pneumothorax. Mediastinum: Mediastinal contours appear normal. Heart size is normal. Bones and chest wall: No suspicious bony lesions. Overlying soft tissues appear unremarkable. IMPRESSION: Normal for age, source of current cough symptoms is not seen. Dictated by: Jeffrey Castro M.D. on 05/20/2022 at 20:55 Approved by: Jeffrey Castro M.D. on 05/20/2022 at 20:56
[2022-05-20] MEDS: MORPHINE 2 MG/ML INJ IV (20:20)
[2022-05-20 20:42] LABS: Add Manual Diff / Slide Review NO; Basophils Absolute Auto 100 /uL (0-100); Basophils Percent Auto 0.7 % (0-2); Eosinophils Absolute Auto 100 /uL (0-450); Eosinophils Percent Auto 0.4 % (2-4); Hematocrit 38.7 % (41-53); Hemoglobin 12.7 g/dL (13.5-17.5); Lymphocytes Absolute Auto 2300 /uL (1100-4500); Lymphocytes Percent Auto 13.5 % (25-40); Mean Corpuscular HGB Conc 32.8 % (30-36); Mean Corpuscular Hemoglobin 29.2 PG (26-34); Mean Corpuscular Volume 89.2 fL (80-100); Monocytes Absolute Auto 1400 /uL (0-900); Monocytes Percent Auto 8.4 % (3-14); Neutrophils Absolute Auto 12900 /uL (1500-7000); Platelet Count 372 X10^3/uL (150-400); Red Blood Cell Count 4.34 X10^6/uL (4.5-5.9); Red Cell Distribution Width 13.8 % (11.6-14.8); White Blood Cell Count 16.8 X10^3/uL (4.5-11.0)
[2022-05-20 21:02] LABS: Alanine Aminotransferase 31 IU/L (<50); Albumin 4.4 g/dL (3.5-5.0); Albumin Globulin Ratio 1.4 (1.0-2.8); Alkaline Phosphatase 91 U/L (38-126); Aspartate Aminotransferase 24 IU/L (17-59); Bilirubin Total 0.6 mg/dL (0.2-1.3); Blood Urea Nitrogen 33 mg/dL (9-20); Calcium 9.2 mg/dL (8.4-10.2); Carbon Dioxide 23 mmol/L (22-32); Chloride 99 mmol/L (98-107); Estimated Glomerular Filt Rate > 60 mL/min (>60); Globulin 3.1 g/dL (1.7-4.1); Glucose 291 mg/dL (80-110); HEMOLYSIS < 15 (0-50); Potassium 4.5 mmol/L (3.4-5.1); Sodium 135 mmol/L (137-145); Total Protein 7.5 g/dL (6.3-8.2)
[2022-05-20 21:11] LABS: Adenovirus Not Detected (Not Detect); B. parapertussis Not Detected (Not Detecte); Bordetella pertussis Not Detected (Not Detecte); Chlamydophila pneumoniae Not Detected (Not Detect); Coronavirus 229E Not Detected (Not Detect); Coronavirus HKU1 Not Detected (Not Detect); Coronavirus NL 63 Not Detected (Not Detect); Coronavirus OC43 Not Detected (Not Detect); Human Metapneumovirus Not Detected (Not Detect); Human Rhinovirus/Enterovirus Not Detected (Not Detect); Influenza A Not Detected (Not Detect); Influenza B Not Detected (Not Detect); Mycoplasma pneumoniae Not Detected (Not Detect); Parainfluenza Virus 1 Not Detected (Not Detect); Parainfluenza Virus 2 Not Detected (Not Detect); Parainfluenza Virus 3 Not Detected (Not Detect); Parainfluenza Virus 4 Not Detected (Not Detect); Respiratory Syncytial Virus Not Detected (Not Detect); SARS- CoV-2 Not Detected (Not Detecte)
[2022-05-20 21:12] LABS: Troponin I < 0.012 ng/mL (0.01-0.034)
[2022-05-20] MEDS: ZOLPIDEM 5 MG TABLET 10 MG PO (21:17)
[2022-05-20] MEDS: HEPARIN DRIP 25,000 UNIT/500 ML IV.SOLN 17 UNIT IV (21:35)
[2022-05-20 22:19] LABS: Appearance Urine UA CLEAR; Bilirubin Urine UA NEGATIVE (NEGATIVE); Color Urine UA YELLOW; Glucose Urine UA 2+ g/dL (Negative); Ketones Urine UA NEGATIVE (NEGATIVE); Leukocyte Esterase Urine UA NEGATIVE (NEGATIVE); Nitrite Urine UA NEGATIVE (Negative); Occult Blood Urine UA NEGATIVE (Negative); Protein Urine UA TRACE (Negative); Urobilinogen Urine UA 0.2 E.U./dL (0.2)
[2022-05-20 22:53] LABS: Bacteria Urine None Seen; Culture Indicated Urine Cult Not Indicated; RBC Urine None Seen (0-5/HPF); WBC Urine None Seen (0-5/HPF)
== END 2022-05-20 23:26 | disposition short-term general hospital (02) ==
LOC: ED 16:12 → AC 17:08 → ED 05-20 07:20
PROVIDERS: Emergency Medicine; Family Medicine; Emergency Provider Emergency Medicine; PCP Student in an Organized Health Care Education/Training Program; Referring Provider Emergency Medicine
DX: I20.0 Unstable angina (principal); I10 Essential (primary) hypertension; E11.9 Type 2 diabetes mellitus without complications; Z79.4 Long term (current) use of insulin; Z79.84 Long term (current) use of oral hypoglycemic drugs; Z20.822 Contact with and (suspected) exposure to COVID-19
CPT/HCPCS: 36415; 71045; 71275; 74177; 80053; 81001; 82550; 82553; 82962; 83036; 83690; 83735; 84484; 85025; 85610; 85730; 87633; 87635; 93005; 93010; 96365; 96366; 96372; 96375; 96376; 99285; 99291; C9803; J1200; J1644; J1815; J2270; J2930; Q9967

== ENCOUNTER 2022-07-31 11:34 | Emergency (ER) | payer OTHER, SELFPAY ==
[2021-04-24 13:39] VITALS: BMI 29.7
[2022-07-31] VITALS (9 sets, daily range): BP systolic 149–180; BP diastolic 71–96; PULSE 83–96; RESP 18; TEMP 37.1; O2SAT 91–95; BMI 29.6
--- NOTE | 2022-07-31 11:53 | ED_ITS ---
HPI - General Adult General Chief complaint: Upper Respiratory Symptoms Stated complaint: sent by [facility] numbness/tingle in LT shoulder/chest p Time Seen by Provider: 07/31/22 11:50 Source: patient Mode of arrival: Ambulatory Limitations: no limitations History of Present Illness HPI narrative: Patient is a 67-year-old insulin-dependent diabetic male who was sent over from the walk-in clinic. He arrived there for evaluation of approximately 3 days of what he describes as ?the flu bug? he states he has had nausea and diarrhea for the past couple days. No abdominal pain. He also states he has had occasional left-sided chest pain and tingling down his arm. This has been going on for the past week and this occasional lasting only minutes. He currently is asymptomatic. He has been taking all his medications as directed. He has had his gallbladder removed but no other abdominal surgeries. He has had chills but no objective fevers. Related Data Previous Rx's Medication Instructions Recorded Syringes #100 ea 06/12/18 onetouch glucose meter starter kit #1 ea 07/02/19 Glucose: Test Strips #300 ea 08/31/20 albuterol sulfate 90 mcg/actuation 2 puff inhalation Q4-6H PRN 04/30/21 aerosol inhaler shortness of breath or wheezing #6.7 grams aspirin 81 mg capsule 81 mg PO DAILY #60 caps 04/30/21 famotidine 40 mg tablet 40 mg PO BID #120 tabs 04/30/21 insulin NPH isoph U-100 human 100 See Rx Instructions SUBCUT BID #90 12/20/21 unit/mL (3 mL) subcutaneous pen mL (Humulin N NPH U-100 Insulin KwikPen) insulin lispro 100 unit/mL 10 unit (0.1 mL) SUBCUT TID #45 mL 05/18/22 subcutaneous pen (Humalog KwikPen (U-100) Insulin) bupropion HCl 300 mg 24 hr tablet, 300 mg PO QAM #90 tabs 05/30/22 extended release Insulin Liebenthal BD Ultra Fine Mini #450 ea 06/13/22 Pen Needle atorvastatin 40 mg tablet 40 mg PO HS #90 tabs 06/13/22 levothyroxine 125 mcg tablet 125 mcg PO QDAY #90 tabs 07/10/22 (Synthroid) lisinopril 20 mg tablet 20 mg PO QDAY #90 tabs 07/27/22 metformin 500 mg tablet 500 mg PO BIDWMEAL #60 tabs 07/27/22 zolpidem 10 mg tablet (Ambien) 10 mg PO HSP PRN insomnia #10 tabs 07/27/22 Allergies Allergy/AdvReac Type Severity Reaction Status Date / Time Iodinated Contrast Media Allergy Mild Rash Verified 07/31/22 10:30 meropenem Allergy Mild Rash Verified 07/31/22 10:30 Influenza Virus Vaccines Allergy Unknown Verified 07/31/22 10:30 baclofen AdvReac Severe Vomiting Verified 07/31/22 10:30 Review of Systems Constitutional Constitutional: Reports system reviewed and no additional complaints, except as documented Cardiovascular Cardiovascular: Reports system reviewed and no additional complaints, except as documented Respiratory Respiratory: Reports system reviewed and no additional complaints, except as documented Gastrointestinal Gastrointestinal: Reports system reviewed and no additional complaints, except as documented Integumentary/Breasts Skin/Breast: Reports system reviewed and no additional complaints, except as documented Neurologic Neurologic: Reports system reviewed and no additional complaints, except as documented Hematologic/Lymphatic On Anticoagulants: No Patient History Medical History Chronic back pain (2004) CTS (carpal tunnel syndrome) (1994) Depression (1997) Esophageal obstruction due to food impaction (05/07/16) Foot pain (2004) Shoulder pain (2009) Sleep apnea (2009) Surgical History History of esophagogastroduodenoscopy (EGD) (05/08/16) Status post laparoscopic cholecystectomy Family History Mother Loud snoring Restless leg Hypertension Diabetes mellitus Depression Family/Other Restless leg Obesity Hypertension Depression Anxiety Social History marital status: household members: other lives independently: Yes education level: high school occupational status: employed Smoking Status: Never smoker alcohol intake: former (Quit alcohol use 34 years ago) substance use type: does not use Smoking Status: Never smoker alcohol intake frequency: other Substance Use Type: does not use Exam Initial Vital Signs Initial Vital Signs: Vital Signs Temperature 98.7 F 07/31/22 11:50 Pulse Rate 87 07/31/22 11:50 Respiratory Rate 18 07/31/22 11:50 Blood Pressure 149/72 H 07/31/22 11:50 Pulse Oximetry 95 07/31/22 11:50 Oxygen Delivery Method Room Air 07/31/22 11:50 Const General: cooperative, comfortable and No ill appearing HENMT Head: normal to inspection and normocephalic Resp Effort & Inspection: normal respiratory effort Auscultation: clear to auscultation bilaterally Cardio Rate: regular rate Rhythm: regular rhythm GI Inspection: normal to inspection Palpation: soft and No tender Skin General: no rashes or lesions noted Neuro General: patient alert, patient awake and moves all extremities Extrem General: normal to inspection and capillary refill normal Psych Appearance: grossly normal and well kempt Scores HEART Score Heart Score history: Slightly Suspicious Heart Score EKG: Normal Heart Score Age: > or = 65 years old Heart Score risk factors: 1-2 risk factors Heart Score troponin: < or = to normal limit Heart Score Total: 3 Course Orders Ordered: ED Orders 07/31/22 11:55 XR chest 1V Stat EKG-12 Lead Stat 07/31/22 12:15 Complete Blood Count AUTO DIFF Stat Comprehensive Metabolic Panel Stat Covid-19 + FLU A/B + RSV - PCR Stat Lipase Stat Troponin & CK Cardiac Panel Stat 07/31/22 14:25 Troponin & CK Cardiac Panel Stat Discontinued Medications Sodium Chloride (Normal Saline 0.9%) 1,000 mls @ 500 mls/hr IV BOLUS ONE Stop: 07/31/22 13:53 Last Admin: 07/31/22 12:30 Dose: 500 mls/hr Documented By: AT Vital Signs Vital signs: Vital Signs - 8 hr 07/31/22 11:50 07/31/22 11:59 07/31/22 12:00 Temperature 98.7 F Pulse Rate 87 85 Respiratory Rate 18 Blood Pressure 149/72 H 153/71 H Pulse Oximetry 95 92 Oxygen Delivery Method Room Air 07/31/22 12:00 07/31/22 12:30 07/31/22 12:30 Temperature Pulse Rate 84 86 Respiratory Rate Blood Pressure 162/78 H Pulse Oximetry 91 94 Oxygen Delivery Method Room Air Room Air 07/31/22 13:00 07/31/22 13:00 07/31/22 13:30 Temperature Pulse Rate 83 Respiratory Rate Blood Pressure 164/83 H 161/76 H Pulse Oximetry 92 Oxygen Delivery Method Room Air 07/31/22 13:30 07/31/22 14:00 07/31/22 14:00 Temperature Pulse Rate 85 90 Respiratory Rate Blood Pressure 180/95 H Pulse Oximetry 95 94 Oxygen Delivery Method 07/31/22 14:37 07/31/22 14:38 07/31/22 14:38 Temperature Pulse Rate 96 H 93 H Respiratory Rate Blood Pressure 170/96 H Pulse Oximetry 95 95 Oxygen Delivery Method Medical Decision Making Lab Data Lab results reviewed: Yes I reviewed the patient's lab results. 07/31/22 12:15 07/31/22 12:15 Labs: Lab Results 07/31/22 07/31/22 07/31/22 Range/Units 12:15 12:15 12:15 WBC 5.9 (4.5-11.0) X10^3/uL RBC 4.69 (4.5-5.9) X10^6/uL Hgb 13.8 (13.5-17.5) g/dL Hct 41.2 (41-53) % MCV 87.9 (80-100) fL MCH 29.4 (26-34) PG MCHC 33.5 (30-36) % RDW 14.4 (11.6-14.8) % Plt Count 214 (150-400) X10^3/uL Neut % (Auto) 66.8 (50-75) % Lymph % (Auto) 13.3 L (25-40) % Morrow % (Auto) 19.3 H (3-14) % Eos % (Auto) 0.1 L (2-4) % Baso % (Auto) 0.5 (0-2) % Neut # (Auto) 3900 (7005-7392) /uL Lymph # (Auto) 800 L (6484-6242) /uL Morrow # (Auto) 1100 H (0-900) /uL Eos # (Auto) 0 (0-450) /uL Baso # (Auto) 0 (0-100) /uL Sodium 133 L (137-145) mmol/L Potassium 4.4 (3.4-5.1) mmol/L Chloride 95 L (98-107) mmol/L Carbon Dioxide 26 (22-32) mmol/L BUN 26 H (9-20) mg/dL Creatinine 1.26 H (0.66-1.25) mg/dL Estimated GFR > 60 (>60) mL/min BUN/Creatinine Ratio 20.6 (6-22) Glucose 216 H (80-110) mg/dL Calcium 9.3 (8.4-10.2) mg/dL Total Bilirubin 0.8 (0.2-1.3) mg/dL AST 36 (17-59) IU/L ALT 38 (<50) IU/L Alkaline Phosphatase 67 (38-126) U/L Total Creatine Kinase 212 H (55-170) U/L CK-MB (CK-2) 1.10 (<2.37) ng/mL CK-MB (CK-2) Rel Index 0.5 L (1.5-5.0) % Troponin I < 0.012 (0.01-0.034) ng/mL Total Protein 8.1 (6.3-8.2) g/dL Albumin 4.9 (3.5-5.0) g/dL Globulin 3.2 (1.7-4.1) g/dL Albumin/Globulin Ratio 1.5 (1.0-2.8) Lipase 115 (23-300) U/L SARS-CoV-2 (PCR) Positive H (Negative) Influenza A (RT-PCR) Flu a negative (NEGATIVE) Influenza B (RT-PCR) Flu b negative (NEGATIVE) RSV (PCR) Negative (Negative) 07/31/22 Range/Units 14:25 WBC (4.5-11.0) X10^3/uL RBC (4.5-5.9) X10^6/uL Hgb (13.5-17.5) g/dL Hct (41-53) % MCV (80-100) fL MCH (26-34) PG MCHC (30-36) % RDW (11.6-14.8) % Plt Count (150-400) X10^3/uL Neut % (Auto) (50-75) % Lymph % (Auto) (25-40) % Morrow % (Auto) (3-14) % Eos % (Auto) (2-4) % Baso % (Auto) (0-2) % Neut # (Auto) (3288-4967) /uL Lymph # (Auto) (9234-0234) /uL Morrow # (Auto) (0-900) /uL Eos # (Auto) (0-450) /uL Baso # (Auto) (0-100) /uL Sodium (137-145) mmol/L Potassium (3.4-5.1) mmol/L Chloride (98-107) mmol/L Carbon Dioxide (22-32) mmol/L BUN (9-20) mg/dL Creatinine (0.66-1.25) mg/dL Estimated GFR (>60) mL/min BUN/Creatinine Ratio (6-22) Glucose (80-110) mg/dL Calcium (8.4-10.2) mg/dL Total Bilirubin (0.2-1.3) mg/dL AST (17-59) IU/L ALT (<50) IU/L Alkaline Phosphatase (38-126) U/L Total Creatine Kinase 202 H (55-170) U/L CK-MB (CK-2) 0.96 (<2.37) ng/mL CK-MB (CK-2) Rel Index 0.5 L (1.5-5.0) % Troponin I < 0.012 (0.01-0.034) ng/mL Total Protein (6.3-8.2) g/dL Albumin (3.5-5.0) g/dL Globulin (1.7-4.1) g/dL Albumin/Globulin Ratio (1.0-2.8) Lipase (23-300) U/L SARS-CoV-2 (PCR) (Negative) Influenza A (RT-PCR) (NEGATIVE) Influenza B (RT-PCR) (NEGATIVE) RSV (PCR) (Negative) Imaging Data Chest x-ray: Radiologist's Impression: ROCEDURE:? XR CHEST 1V ? INDICATIONS:? L sided chest pain ? TECHNIQUE:? One view of the chest was acquired.? ? COMPARISON:? [facility], CR, XR CHEST 1V, 05/20/2022, 20:16. ? FINDINGS:? ? Surgical changes and devices:? None.? ? Lungs and pleura:? Lungs are clear.? No pleural effusions or pneumothorax.? ? Mediastinum:? Mediastinal contours appear normal.? Heart size is normal.? ? Bones and chest wall:? No suspicious bony lesions.? Overlying soft tissues appear unremarkable.? ? IMPRESSION:? No acute pulmonary process. ECG Data Attestation: I personally reviewed and interpreted this ECG as follows: Interpretation: Sinus rhythm Ventricular rate [address] T wave changes MDM Narrative Medical decision making narrative: Patient is COVID-19 positive. His chest x-ray is unremarkable. Troponins are negative x2. EKGs unremarkable. Low risk heart score. Patient is not hypoxic. Not tachypneic. Lungs are clear. No indication for antibiotics. Discharge patient home. He was informed of his COVID-19 diagnosis. He was given return precautions. He expressed understanding and agreement. Discharge Plan Departure Patient Disposition: Home Clinical Impression: COVID-19, Atypical chest pain Instructions: COVID-19 Activity Restrictions/Additional Instructions: Recommend that you continue to take all of your medications as directed. Please follow all current CDC guidelines with regard to quarantine because of your COVID-19 diagnosis. These can be found online. Contact your primary doctor for follow-up. Return to the emergency department for any new or worsening symptoms. Prescriptions: No Action (DME) Syringes See Rx Instructions .Route .MEDSUPPLY Qty: 100 6RF Dose Instruction: SQ SUBCUT QID; Rx Instructions: Use BD 0.5ml syringe with 31 gauge x 8mm needle to inject insulin four times a day. (DME) onetouch glucose meter starter kit Qty: 1 0RF Rx Instructions: use to check blood sugar 4 times daily (DME) Glucose: Test Strips 0 .Route .MEDSUPPLY Qty: 300 1RF Dose Instruction: As directed Rx Instructions: Use with matching meter to check blood glucose levels 4 times daily Humulin N NPH Insulin KwikPen 100 unit/mL (3 mL) insulin pen See Rx Instructions SUBCUT BID Qty: 90 1RF Hold Instructions: Needs labs Dose Instruction: 50U in am, 20U in pm SUBCUT BID; Rx Instructions: 50U in am, 20U in pm SUBCUT BID; insulin lispro [Humalog KwikPen Insulin] 100 unit/mL insulin pen 10 unit SUBCUT TID Qty: 45 0RF Hold Instructions: Needs labs Rx Instructions: inject 10 units under skin before meals give additional 2units per wlezm33re/dl glucose over 100. MMD 50 units atorvastatin 40 mg tablet 40 mg PO HS Qty: 90 1RF (DME) Insulin Liebenthal BD Ultra Fine Mini Pen Needle Qty: 450 1RF Dose Instruction: As directed Rx Instructions: 31g X 07/27 - Use to Inject Humalog AND HUMULIN 5 NEEDLES PER DAY levothyroxine [Synthroid] 125 mcg tablet 125 mcg PO QDAY Qty: 90 0RF Rx Instructions: PT WILL NEED TO BE SEEN BEFORE NEXT RENEWAL 07/10/22 zolpidem [Ambien] 10 mg tablet 10 mg PO HSP PRN (Reason: insomnia) Qty: 10 0RF metformin 500 mg tablet 500 mg PO BIDWMEAL Qty: 60 0RF Hold Instructions: pt needs labs done first Rx Instructions: Patient is overdue for medication check appointment with Dr. Rocha. Please have patient contact us to schedule an appointment before next renewal. 07/13/22 lisinopril 20 mg tablet 20 mg PO QDAY Qty: 90 0RF bupropion HCl 300 mg tablet extended release 24 hr 300 mg PO QAM Qty: 90 0RF famotidine 40 mg tablet 40 mg PO BID Qty: 120 0RF albuterol sulfate 90 mcg/actuation HFA aerosol inhaler 2 puff inhalation Q4-6H PRN (Reason: shortness of breath or wheezing) Qty: 6.7 0RF aspirin 81 mg capsule 81 mg PO DAILY Qty: 60 0RF Referrals: Patrick Rocha MD [Primary Care Provider] - Stand Alone Forms: Patient Portal/API
--- NOTE | 2022-07-31 11:55 | DI.RAD.S_ITS ---
PROCEDURE: XR CHEST 1V INDICATIONS: L sided chest pain TECHNIQUE: One view of the chest was acquired. COMPARISON: [facility], , XR CHEST 1V, 05/20/2022, 20:16. FINDINGS: Surgical changes and devices: None. Lungs and pleura: Lungs are clear. No pleural effusions or pneumothorax. Mediastinum: Mediastinal contours appear normal. Heart size is normal. Bones and chest wall: No suspicious bony lesions. Overlying soft tissues appear unremarkable. IMPRESSION: No acute pulmonary process. Dictated by: Arin Stallworth M.D. on 07/31/2022 at 12:28 Approved by: Arin Stallworth M.D. on 07/31/2022 at 12:28
[2022-07-31 12:25] LABS: Add Manual Diff / Slide Review NO; Basophils Absolute Auto 0 /uL (0-100); Basophils Percent Auto 0.5 % (0-2); Eosinophils Absolute Auto 0 /uL (0-450); Eosinophils Percent Auto 0.1 % (2-4); Hematocrit 41.2 % (41-53); Hemoglobin 13.8 g/dL (13.5-17.5); Lymphocytes Absolute Auto 800 /uL (1100-4500); Lymphocytes Percent Auto 13.3 % (25-40); Mean Corpuscular HGB Conc 33.5 % (30-36); Mean Corpuscular Hemoglobin 29.4 PG (26-34); Mean Corpuscular Volume 87.9 fL (80-100); Monocytes Absolute Auto 1100 /uL (0-900); Monocytes Percent Auto 19.3 % (3-14); Neutrophils Absolute Auto 3900 /uL (1500-7000); Neutrophils Percent Auto 66.8 % (50-75); Platelet Count 214 X10^3/uL (150-400); Red Blood Cell Count 4.69 X10^6/uL (4.5-5.9); Red Cell Distribution Width 14.4 % (11.6-14.8); White Blood Cell Count 5.9 X10^3/uL (4.5-11.0)
[2022-07-31] MEDS: SODIUM CHLORIDE 0.9% 1,000 ML 500 ML IV (12:30)
[2022-07-31 12:36] LABS: Alanine Aminotransferase 38 IU/L (<50); Albumin 4.9 g/dL (3.5-5.0); Albumin Globulin Ratio 1.5 (1.0-2.8); Alkaline Phosphatase 67 U/L (38-126); Aspartate Aminotransferase 36 IU/L (17-59); BUN Creatinine Ratio 20.6 (6-22); Bilirubin Total 0.8 mg/dL (0.2-1.3); Blood Urea Nitrogen 26 mg/dL (9-20); Calcium 9.3 mg/dL (8.4-10.2); Carbon Dioxide 26 mmol/L (22-32); Chloride 95 mmol/L (98-107); Creatine Kinase 212 U/L (55-170); Estimated Glomerular Filt Rate > 60 mL/min (>60); Globulin 3.2 g/dL (1.7-4.1); Glucose 216 mg/dL (80-110); HEMOLYSIS < 15 (0-50); Lipase 115 U/L (23-300); Potassium 4.4 mmol/L (3.4-5.1); Sodium 133 mmol/L (137-145); Total Protein 8.1 g/dL (6.3-8.2)
[2022-07-31 12:48] LABS: Troponin I < 0.012 ng/mL (0.01-0.034)
[2022-07-31 12:51] LABS: CKMB % Relative Index 0.5 % (1.5-5.0)
[2022-07-31 13:00] LABS: Influenza A - CEPHEID Flu A NEGATIVE (NEGATIVE); Influenza B - CEPHEID Flu B NEGATIVE (NEGATIVE); Respiratory Syncytial Virus Negative (Negative)
[2022-07-31 13:02] LABS: COVID-19 CEPHEID 4-PLEX PCR POSITIVE (Negative)
[2022-07-31 14:53] LABS: Creatine Kinase 202 U/L (55-170)
[2022-07-31 15:05] LABS: Troponin I < 0.012 ng/mL (0.01-0.034)
[2022-07-31 15:08] LABS: CKMB % Relative Index 0.5 % (1.5-5.0); Creatine Kinase MB 0.96 ng/mL (<2.37)
== END 2022-07-31 15:34 | disposition home or self-care (01) ==
PROVIDERS: Emergency Provider Emergency Medicine; PCP Student in an Organized Health Care Education/Training Program
DX: U07.1 COVID-19 (principal); R07.89 Other chest pain
CPT/HCPCS: 0241U; 36415; 71045; 80053; 82550; 82553; 83690; 84484; 85025; 93005; 93010; 99284

== ENCOUNTER → 2022-08-10 15:19 | Outpatient (CLI) | payer OTHER, SELFPAY ==
[2021-04-24 13:39] VITALS: BMI 29.7
[2022-08-12 05:45] LABS: Fructosamine 324 umol/L (0-285)
== END ==
PROVIDERS: PCP Student in an Organized Health Care Education/Training Program; Referring Provider Student in an Organized Health Care Education/Training Program; Visit Provider Student in an Organized Health Care Education/Training Program
DX: R73.9 Hyperglycemia, unspecified (principal); T38.0X5A Adverse effect of glucocorticoids and synthetic analogues, initial encounter
CPT/HCPCS: 36415; 82985

== ENCOUNTER → 2022-10-11 13:11 | Outpatient (CLI) | payer OTHER, SELFPAY ==
[2021-04-24 13:39] VITALS: BMI 29.7
--- NOTE | 2022-10-11 | DI.RAD.S_ITS ---
PROCEDURE: XR CHEST 2V INDICATIONS: PRE OP TECHNIQUE: 2 views of the chest were acquired. COMPARISON: [facility], CR, XR CHEST 1V, 07/31/2022, 12:10. FINDINGS: Surgical changes and devices: Cholecystectomy clips. Lungs and pleura: Lungs are clear. No pleural effusions or pneumothorax. Mediastinum: Mediastinal contours are normal. Heart size is normal. Bones and chest wall: No suspicious bony abnormalities. Soft tissues appear unremarkable. IMPRESSION: No acute cardiopulmonary abnormality. Dictated by: Jerry Corley M.D. on 10/11/2022 at 16:42 Approved by: Jerry Corley M.D. on 10/11/2022 at 16:42
== END ==
PROVIDERS: PCP Student in an Organized Health Care Education/Training Program; Referring Provider Family Medicine; Visit Provider Family Medicine
DX: Z01.811 Encounter for preprocedural respiratory examination (principal); E03.9 Hypothyroidism, unspecified; I11.0 Hypertensive heart disease with heart failure; E78.5 Hyperlipidemia, unspecified; E11.9 Type 2 diabetes mellitus without complications
CPT/HCPCS: 71046; 80053; 82985; 83036; 85025; 85610; 85730

== ENCOUNTER → 2022-10-11 15:20 | Outpatient (ROUT) | payer OTHER, SELFPAY ==
[2021-04-24 13:39] VITALS: BMI 29.7
[2022-10-11 15:33] LABS: Add Manual Diff / Slide Review NO; Basophils Absolute Auto 100 /uL (0-100); Basophils Percent Auto 0.6 % (0-2); Eosinophils Absolute Auto 300 /uL (0-450); Eosinophils Percent Auto 2.3 % (2-4); Hematocrit 42.1 % (41-53); Hemoglobin 14.2 g/dL (13.5-17.5); Lymphocytes Absolute Auto 3600 /uL (1100-4500); Lymphocytes Percent Auto 31.4 % (25-40); Mean Corpuscular HGB Conc 33.8 % (30-36); Mean Corpuscular Hemoglobin 29.6 PG (26-34); Mean Corpuscular Volume 87.5 fL (80-100); Monocytes Absolute Auto 800 /uL (0-900); Monocytes Percent Auto 6.9 % (3-14); Neutrophils Absolute Auto 6800 /uL (1500-7000); Neutrophils Percent Auto 58.8 % (50-75); Platelet Count 284 X10^3/uL (150-400); Red Blood Cell Count 4.81 X10^6/uL (4.5-5.9); Red Cell Distribution Width 13.8 % (11.6-14.8); White Blood Cell Count 11.6 X10^3/uL (4.5-11.0)
[2022-10-11 15:35] LABS: Alanine Aminotransferase 32 IU/L (<50); Albumin 4.8 g/dL (3.5-5.0); Albumin Globulin Ratio 1.7 (1.0-2.8); Alkaline Phosphatase 79 U/L (38-126); Aspartate Aminotransferase 29 IU/L (17-59); BUN Creatinine Ratio 18.8 (6-22); Bilirubin Total 0.6 mg/dL (0.2-1.3); Blood Urea Nitrogen 22 mg/dL (9-20); Calcium 10.3 mg/dL (8.4-10.2); Carbon Dioxide 27 mmol/L (22-32); Chloride 99 mmol/L (98-107); Estimated Glomerular Filt Rate > 60 mL/min (>60); Globulin 2.9 g/dL (1.7-4.1); Glucose 90 mg/dL (80-110); HEMOLYSIS < 15 (0-50); Potassium 5.1 mmol/L (3.4-5.1); Sodium 138 mmol/L (137-145); Total Protein 7.7 g/dL (6.3-8.2)
[2022-10-11 15:41] LABS: Prothrombin Time 11.4 SECONDS (10.1-12.7)
[2022-10-11 15:44] LABS: PTT Partial Thromboplastin Tim 35 SECONDS (26-36)
[2022-10-12 05:53] LABS: Fructosamine 326 umol/L (0-285)
[2022-10-12 20:36] LABS: x Labcorp Estim. Avg Glu (eAG) 203 mg/dL (.); x Labcorp Hemoglobin A1c 8.7 % (4.8-5.6)
== END ==
PROVIDERS: Visit Provider Family Medicine
DX: E03.9 Hypothyroidism, unspecified (principal); I10 Essential (primary) hypertension; E78.5 Hyperlipidemia, unspecified; E11.9 Type 2 diabetes mellitus without complications
CPT/HCPCS: 80053; 82985; 83036; 85025; 85610; 85730

== ENCOUNTER → 2022-10-12 09:44 | Outpatient (ROUT) | payer OTHER, SELFPAY ==
[2021-04-24 13:39] VITALS: BMI 29.7
[2022-10-12 11:45] LABS: MRSA (Nasal) PCR DETECTED (Not Detect)
== END ==
PROVIDERS: PCP Student in an Organized Health Care Education/Training Program; Visit Provider Family Medicine
DX: Z01.818 Encounter for other preprocedural examination (principal)
CPT/HCPCS: 87797

== ENCOUNTER → 2022-10-23 08:55 | Outpatient (CLI) | payer OTHER, SELFPAY ==
[2021-04-24 13:39] VITALS: BMI 29.7
[2022-10-24 07:36] LABS: Fructosamine 297 umol/L (0-285)
== END ==
PROVIDERS: PCP Student in an Organized Health Care Education/Training Program; Referring Provider Family Medicine; Visit Provider Family Medicine
DX: E11.65 Type 2 diabetes mellitus with hyperglycemia (principal)
CPT/HCPCS: 36415; 82985

== ENCOUNTER 2022-12-03 00:21 | Emergency (ER) | payer OTHER, MEDICARE, SELFPAY ==
[2021-04-24 13:39] VITALS: BMI 29.7
--- NOTE | 2022-12-03 00:23 | ED.GENADULT ---
HPI - General Adult General Chief complaint: Extremity Problem,Nontraumatic Stated complaint: Post op Knee pain Time Seen by Provider: 12/03/22 00:23 History of Present Illness HPI narrative: 67-year-old male nonsmoker presents for evaluation of right knee pain. He states that he had his right knee surgically repaired at an outside facility about 3 weeks ago and presents tonight with a chief complaint of spasming type pain over his lateral knee that he noticed when lying flat trying to sleep. He denies any redness or swelling. He has no fever or chills. Denies any drainage. He is not having pain actively. He is taking all of his medications as prescribed. He denies any recent trauma or injury. He denies any obvious provocation or palliation of his symptoms. He states the spasms seem to come and go with a mind of their own and are very intense briefly and then go away Related Data Previous Rx's Medication Instructions Recorded Syringes #100 ea 06/12/18 onetouch glucose meter starter kit #1 ea 07/02/19 albuterol sulfate 90 mcg/actuation 2 puff inhalation Q4-6H PRN 04/30/21 aerosol inhaler shortness of breath or wheezing #6.7 grams aspirin 81 mg capsule 81 mg PO DAILY #60 caps 04/30/21 famotidine 40 mg tablet 40 mg PO BID #120 tabs 04/30/21 Insulin [place] BD Ultra Fine Mini #450 ea 06/13/22 Pen Needle insulin NPH isoph U-100 human 100 See Rx Instructions SUBCUT BID #90 08/10/22 unit/mL (3 mL) subcutaneous pen mL (Humulin N NPH U-100 Insulin KwikPen) insulin lispro 100 unit/mL 10 unit (0.1 mL) SUBCUT TID #45 mL 08/10/22 subcutaneous pen (Humalog KwikPen (U-100) Insulin) metformin 500 mg tablet 500 mg PO BIDWMEAL #180 tabs 08/10/22 bupropion HCl 300 mg 24 hr tablet, 300 mg PO QAM #90 tabs 09/20/22 extended release levothyroxine 125 mcg tablet 125 mcg PO QDAY #90 tabs 09/25/22 (Synthroid) DISABLED PARKING PERMIT #1 ea 10/04/22 zolpidem 10 mg tablet (Ambien) 10 mg PO HSP PRN insomnia #30 tabs 10/04/22 lancets surekhatouch delica #100 ea 10/17/22 blood sugar diagnostic (OneTouch #300 strips 10/25/22 Verio test strips) atorvastatin 40 mg tablet 40 mg PO HS #90 tabs 10/31/22 lisinopril 20 mg tablet 20 mg PO QDAY #90 tabs 10/31/22 diazepam 2 mg tablet (Valium) 2 mg PO BID-TID PRN muscle spasm 12/03/22 #10 tabs Allergies Allergy/AdvReac Type Severity Reaction Status Date / Time Iodinated Contrast Media Allergy Mild Rash Verified 10/12/22 06:56 meropenem Allergy Mild Rash Verified 10/12/22 06:56 Influenza Virus Vaccines Allergy Unknown Verified 10/12/22 06:56 baclofen AdvReac Severe Vomiting Verified 10/12/22 06:56 Review of Systems Review of Systems Narrative: GENERAL: Denies chills, fatigue, malaise, fever, sweats. HEENT: Denies sinus pain, ear pain, sore throat, difficulty swallowing, dizziness. RESPIRATORY: Denies dyspnea, cough, wheezing, hemoptysis, sputum. CARDIOVASCULAR: Denies chest pain, palpitations, orthopnea, edema, GASTROINTESTINAL: Denies nausea, vomiting, abdominal pain, diarrhea, constipation, melena. : Denies dysuria, frequency, incontinence, hematuria, urinary retention. MUSCULOSKELETAL: See HPI SKIN: Denies rash, skin lesions, or other NEUROLOGIC: Denies weakness, headache, numbness, change in speech, confusion, seizures, incoordination. PSYCHIATRIC: No concerning psychosocial issues. 12 point review of systems is negative except for those stated above Patient History Medical History (Updated 12/03/22 @ 02:48 by Da Lafleur DO) Chronic back pain (2004) COVID-19 CTS (carpal tunnel syndrome) (1994) Depression (1997) Esophageal obstruction due to food impaction (05/07/16) Foot pain (2004) Observed sleep apnea Shoulder pain (2009) Sleep apnea (2009) Trigger finger Surgical History (System 10/12/22 @ 06:56 by Alberta Eduardo) History of esophagogastroduodenoscopy (EGD) (05/08/16) Status post laparoscopic cholecystectomy Family History (System 10/12/22 @ 06:56 by Alberta Eduardo) Mother Loud snoring Restless leg Hypertension Diabetes mellitus Depression Family/Other Restless leg Obesity Hypertension Depression Anxiety Social History (System 10/12/22 @ 06:56 by Alberta Eduardo) marital status: household members: other lives independently: Yes education level: high school occupational status: employed Smoking Status: Never smoker alcohol intake: former (Quit alcohol use 34 years ago) substance use type: does not use Smoking Status: Never smoker alcohol intake frequency: other Substance Use Type: does not use Exam Narrative Exam Narrative: GENERAL: [67] year old patient appears stated age. Well-developed patient, in mild distress. HEAD: Atraumatic. Normocephalic. EYES: Pupils equal round and reactive. Extraocular motions intact. No scleral icterus. No injection or drainage. ENT: Nose without bleeding, purulent drainage. Throat without erythema, tonsillar hypertrophy or exudate. Airway patent. NECK: Trachea midline. Non tender CARDIOVASCULAR: Regular rate and rhythm without murmurs, gallops, or rubs. RESPIRATORY: Clear to auscultation. Breath sounds equal bilaterally. No wheezes, rales, or rhonchi. GASTROINTESTINAL: Abdomen soft, non-tender, nondistended. EXTREMITIES: Right knee without obvious erythema, moderate effusion, no joint line tenderness, incision is clean, dry and intact. No current reproducible pain BACK: Nontender without deformity or crepitance. No flank tenderness. NEURO: AOx3. SKIN: No rash or erythema of visible areas Initial Vital Signs Initial Vital Signs: Vital Signs Temperature 97.5 F L 12/03/22 00:25 Pulse Rate 109 H 12/03/22 00:25 Respiratory Rate 18 12/03/22 00:25 Blood Pressure 123/79 12/03/22 00:25 Pulse Oximetry 97 12/03/22 00:25 Oxygen Delivery Method Room Air 12/03/22 00:25 Course Orders Ordered: ED Orders 12/03/22 00:30 XR knee RT 3V Stat Discontinued Medications Diazepam (Diazepam 5 Mg Tablet) 5 mg PO NOW ONE Stop: 12/03/22 02:38 Last Admin: 12/03/22 02:41 Dose: 5 mg Documented By: Vital Signs Vital signs: Vital Signs - 8 hr 12/03/22 00:25 12/03/22 01:30 12/03/22 02:18 Temperature 97.5 F L Pulse Rate 109 H 104 H 94 H Respiratory Rate 18 Blood Pressure 123/79 Pulse Oximetry 97 97 Oxygen Delivery Method Room Air 12/03/22 02:41 Temperature Pulse Rate 94 H Respiratory Rate 16 Blood Pressure 115/70 Pulse Oximetry 95 Oxygen Delivery Method Room Air Medical Decision Making MDM Narrative Medical decision making narrative: [67] year old patient presents with right knee spasm when lying flat Multiple etiologies for patient's symptoms considered including, but not limited to: [septic arthritis vs. post op change vs. other] Prior Charts reviewed in our EMR Primary Historian: patient Imaging reviewed:post surgical changes, large joint effusion Patient with episodes of spasming around his knee that seemed to come and go but only when lying flat and preparing for bed. He is able to ambulate without any significant difficulty and denies any systemic complaints. He has no pain at the moment and as impressive range of motion. Findings and discharge diagnosis discussed with patient/family followed by verbalization of understanding Return precautions discussed with patient/family whom verbalize understanding of diagnosis and plan Discharge Plan Departure Patient Disposition: Home Clinical Impression: Spasm, Effusion of knee joint right Instructions: DI for Muscle Spasm Activity Restrictions/Additional Instructions: *You have been diagnosed with [postsurgical joint effusion with associated muscle spasm. As we discussed otherwise your history, physical exam and x-ray are reassuring] *What to do: *Please continue to take your regular medications as directed. [x ] New medication prescriptions sent to your pharmacy: [ [facility]] [ ] New medication written as a paper prescription [ ] No new medications given *Please follow up with your primary care provider in 2-3 days, call for an appointment. Let them know you were seen in the Emergency Department and that we ask that you be seen in follow up. We will electronically transmit a record of today's note if your PCP is in our system *If you do not have a primary care provider please contact the [facility] Resource line at [phone]. They will ask some questions about your medical history and help get you set up with a doctor in the community. *Return to Emergency Department if you should have any new, worsening or concerning symptoms, such as [fever greater than 101 F, shaking chills, worsening pain, persistent vomiting or other bothersome symptoms] Prescriptions: New diazepam [Valium] 2 mg tablet 2 mg PO BID-TID PRN (Reason: muscle spasm) Qty: 10 0RF No Action (DME) Syringes See Rx Instructions .Route .MEDSUPPLY Qty: 100 6RF Dose Instruction: SQ SUBCUT QID; Rx Instructions: Use BD 0.5ml syringe with 31 gauge x 8mm needle to inject insulin four times a day. (DME) onetouch glucose meter starter kit Qty: 1 0RF Rx Instructions: use to check blood sugar 4 times daily (DME) Insulin [place] BD Ultra Fine Mini Pen Needle Qty: 450 1RF Dose Instruction: As directed Rx Instructions: 31g X 3/16 - Use to Inject Humalog AND HUMULIN 5 NEEDLES PER DAY bupropion HCl 300 mg tablet extended release 24 hr 300 mg PO QAM Qty: 90 1RF levothyroxine [Synthroid] 125 mcg tablet 125 mcg PO QDAY Qty: 90 1RF (DME) lancets onetouch delica 33 gauge See Rx Instructions .Route .MEDSUPPLY Qty: 100 3RF Rx Instructions: Use to test blood sugars 4x a day (DME) OneTouch Verio test strips Strip See Rx Instructions .ROUTE .COMPLEX Qty: 300 3RF Dose Instruction: Use with matching meter to check blood glucose 4 times daily Rx Instructions: Use with matching meter to check blood glucose 4 times daily atorvastatin 40 mg tablet 40 mg PO HS Qty: 90 1RF lisinopril 20 mg tablet 20 mg PO QDAY Qty: 90 1RF Humulin N NPH Insulin KwikPen 100 unit/mL (3 mL) insulin pen See Rx Instructions SUBCUT BID Qty: 90 1RF Hold Instructions: Needs labs Dose Instruction: 50U in am, 20U in pm SUBCUT BID; Rx Instructions: 50U in am, 20U in pm SUBCUT BID; insulin lispro [Humalog KwikPen Insulin] 100 unit/mL insulin pen 10 unit SUBCUT TID Qty: 45 5RF Hold Instructions: Needs labs Rx Instructions: inject 10 units under skin before meals give additional 2units per every 50ml/dl glucose over 100. MMD 50 units metformin 500 mg tablet 500 mg PO BIDWMEAL Qty: 180 1RF Hold Instructions: pt needs labs done first (DME) DISABLED PARKING PERMIT See Rx Instructions .ROUTE .MEDSUPPLY Qty: 1 0RF Rx Instructions: I FIND THIS PATIENT TO BE MEDICALLY DISABLED AND QUALIFIED FOR DISABLE PARKING INDICATED, AND SIGNED ON THE ACCOMPANYING [place] APPLICATION FOR INDIVIDUALS zolpidem [Ambien] 10 mg tablet 10 mg PO HSP PRN (Reason: insomnia) Qty: 30 0RF Hold Instructions: Change to #30 famotidine 40 mg tablet 40 mg PO BID Qty: 120 0RF albuterol sulfate 90 mcg/actuation HFA aerosol inhaler 2 puff inhalation Q4-6H PRN (Reason: shortness of breath or wheezing) Qty: 6.7 0RF aspirin 81 mg capsule 81 mg PO DAILY Qty: 60 0RF Referrals: Patrick Rocha MD [Primary Care Provider] - Stand Alone Forms: Patient Portal/API
[2022-12-03 00:25] VITALS: BP 123/79; PULSE 109; RESP 18; TEMP 36.4; O2SAT 97; BMI 30.2
--- NOTE | 2022-12-03 00:30 | DI.RAD.S_ITS ---
PROCEDURE: XR KNEE RT 3V INDICATIONS: knee pain, post op TECHNIQUE: 3 views of the knee were acquired. COMPARISON: [facility], CR, XR KNEE 4+ VIEWS RIGHT, 08/28/2022, 14:04. [facility], CR, XR KNEE RT 3V, 12/05/2021, 13:39. FINDINGS: Bones: Patellofemoral joint arthroplasty. No fractures or dislocations. No suspicious bony lesions. Soft tissues: Large joint effusion. No suspicious soft tissue calcifications. IMPRESSION: 1. No acute osseous abnormality. 2. Postsurgical changes with patellofemoral arthroplasty. 3. Large knee joint effusion. Dictated by: Rossy Mcgrath M.D. on 12/03/2022 at 1:29 Approved by: Rossy Mcgrath M.D. on 12/03/2022 at 1:31
[2022-12-03 01:30] VITALS: PULSE 104
[2022-12-03 02:18] VITALS: PULSE 94; O2SAT 97
[2022-12-03 02:41] VITALS: BP 115/70; PULSE 94; RESP 16; O2SAT 95
[2022-12-03] MEDS: diazePAM 5 MG TABLET PO (02:41)
== END 2022-12-03 02:46 | disposition home or self-care (01) ==
PROVIDERS: Emergency Provider Emergency Medicine; PCP Student in an Organized Health Care Education/Training Program
DX: M62.838 Other muscle spasm (principal); M25.461 Effusion, right knee; Z79.899 Other long term (current) drug therapy; M25.561 Pain in right knee
CPT/HCPCS: 73562; 99283

== ENCOUNTER → 2022-12-07 13:14 | Outpatient (CLI) | payer OTHER, SELFPAY ==
[2021-04-24 13:39] VITALS: BMI 29.7
== END ==
PROVIDERS: PCP Student in an Organized Health Care Education/Training Program; Visit Provider Nurse Practitioner Family
DX: N39.0 Urinary tract infection, site not specified (principal)
CPT/HCPCS: 87086

== ENCOUNTER → 2022-12-19 15:30 | Outpatient (CLI) | payer OTHER, SELFPAY ==
[2021-04-24 13:39] VITALS: BMI 29.7
--- NOTE | 2022-12-19 | DI.US.S_ITS ---
PROCEDURE: US PERIPH VENOUS LOW EXTREM RT INDICATIONS: RT LOWER LEG PAIN / RULE OUT DVT TECHNIQUE: Real-time imaging, as well as color and pulse Doppler interrogation, were performed of the lower extremity deep veins from the inguinal ligament to the popliteal fossa, with documentation of the visualized calf veins. COMPARISON: None. FINDINGS: The common femoral, femoral, popliteal, and the visualized calf veins are normally compressible, and free of intraluminal thrombus. Color and pulse Doppler demonstrate normal phasic intraluminal flow. There is normal augmentation response to distal compression maneuver. IMPRESSION: No findings of lower extremity deep venous thrombosis. Dictated by: Jennifer Alvarado MD, PhD on 12/19/2022 at 16:27 Approved by: Jennifer Alvarado MD, PhD on 12/19/2022 at 16:27
[2022-12-19 16:21] LABS: Add Manual Diff / Slide Review NO; Basophils Absolute Auto 100 /uL (0-100); Basophils Percent Auto 1.3 % (0-2); Eosinophils Absolute Auto 500 /uL (0-450); Eosinophils Percent Auto 5.4 % (2-4); Hemoglobin 12.9 g/dL (13.5-17.5); Lymphocytes Absolute Auto 2100 /uL (1100-4500); Lymphocytes Percent Auto 21.8 % (25-40); Mean Corpuscular HGB Conc 33.9 % (30-36); Mean Corpuscular Hemoglobin 29.7 PG (26-34); Mean Corpuscular Volume 87.4 fL (80-100); Monocytes Absolute Auto 500 /uL (0-900); Monocytes Percent Auto 5.7 % (3-14); Neutrophils Absolute Auto 6300 /uL (1500-7000); Neutrophils Percent Auto 65.8 % (50-75); Platelet Count 271 X10^3/uL (150-400); Red Blood Cell Count 4.36 X10^6/uL (4.5-5.9); Red Cell Distribution Width 14.1 % (11.6-14.8); White Blood Cell Count 9.6 X10^3/uL (4.5-11.0)
[2022-12-19 16:23] LABS: D Dimer 1521 ng/ml (<500)
[2022-12-19 16:29] LABS: Alanine Aminotransferase 41 IU/L (<50); Albumin 4.5 g/dL (3.5-5.0); Albumin Globulin Ratio 1.6 (1.0-2.8); Alkaline Phosphatase 104 U/L (38-126); Aspartate Aminotransferase 32 IU/L (17-59); BUN Creatinine Ratio 17.1 (6-22); Bilirubin Total 0.3 mg/dL (0.2-1.3); Blood Urea Nitrogen 21 mg/dL (9-20); C-Reactive Protein Quant < 0.5 mg/dL (<1.0); Calcium 9.7 mg/dL (8.4-10.2); Carbon Dioxide 31 mmol/L (22-32); Chloride 98 mmol/L (98-107); Estimated Glomerular Filt Rate > 60 mL/min (>60); Globulin 2.9 g/dL (1.7-4.1); Glucose 224 mg/dL (80-110); HEMOLYSIS 17 (0-50); Sodium 138 mmol/L (137-145); Total Protein 7.4 g/dL (6.3-8.2)
[2022-12-19 16:42] LABS: Potassium 5.6 mmol/L (3.4-5.1)
[2022-12-19 16:47] LABS: Erythrocyte Sedimentation Rate 19 MM/HR (0-15)
== END ==
PROVIDERS: PCP Student in an Organized Health Care Education/Training Program; Referring Provider Pediatrics; Visit Provider Pediatrics
DX: I82.409 Acute embolism and thrombosis of unspecified deep veins of unspecified lower extremity (principal); M25.569 Pain in unspecified knee; M79.669 Pain in unspecified lower leg; M79.89 Other specified soft tissue disorders; Z98.890 Other specified postprocedural states
CPT/HCPCS: 36415; 80053; 85025; 85379; 85651; 86140; 93971

== ENCOUNTER → 2023-02-19 09:27 | Outpatient (CLI) | payer OTHER, SELFPAY ==
[2021-04-24 13:39] VITALS: BMI 29.7
[2023-02-19 09:47] LABS: Add Manual Diff / Slide Review NO; Basophils Absolute Auto 100 /uL (0-100); Basophils Percent Auto 0.8 % (0-2); Eosinophils Absolute Auto 300 /uL (0-450); Eosinophils Percent Auto 3.2 % (2-4); Hematocrit 42.6 % (41-53); Hemoglobin 14.4 g/dL (13.5-17.5); Lymphocytes Absolute Auto 3300 /uL (1100-4500); Lymphocytes Percent Auto 34.5 % (25-40); Mean Corpuscular HGB Conc 33.7 % (30-36); Mean Corpuscular Hemoglobin 30.2 PG (26-34); Mean Corpuscular Volume 89.5 fL (80-100); Monocytes Absolute Auto 600 /uL (0-900); Monocytes Percent Auto 6.1 % (3-14); Neutrophils Absolute Auto 5300 /uL (1500-7000); Neutrophils Percent Auto 55.4 % (50-75); Platelet Count 263 X10^3/uL (150-400); Red Blood Cell Count 4.76 X10^6/uL (4.5-5.9); Red Cell Distribution Width 14.8 % (11.6-14.8); White Blood Cell Count 9.6 X10^3/uL (4.5-11.0)
[2023-02-19 09:53] LABS: Hemoglobin A1C% w Est Avg Glu 7.6 % (4.0-6.0)
[2023-02-19 10:11] LABS: Cholesterol 157 mg/dL (140-199); HDL Cholesterol 49 mg/dL (40-60); HEMOLYSIS < 15 (0-50); LDL Cholesterol Calculated 80 mg/dL (<100); Potassium 4.4 mmol/L (3.4-5.1); Triglycerides 142 mg/dL (35-150)
[2023-02-19 10:41] LABS: Prostate Specific Antigen Scrn 3.04 ng/mL (0.1-4.0)
[2023-02-19 10:46] LABS: Ferritin 57 ng/mL (18-464)
[2023-02-19 10:55] LABS: TSH w/ Reflex to FT4 0.16 uIU/mL (0.47-4.68)
[2023-02-19 11:20] LABS: Free T4, Direct Thyroxine 1.12 ng/dL (0.78-2.19)
[2023-02-21 08:57] LABS: Fecal Immunochemical Test Negative (Negative)
== END ==
PROVIDERS: Pediatrics; PCP Student in an Organized Health Care Education/Training Program; Referring Provider Physician Assistant; Visit Provider Physician Assistant
DX: D64.9 Anemia, unspecified (principal); E11.69 Type 2 diabetes mellitus with other specified complication; N18.2 Chronic kidney disease, stage 2 (mild); Z12.5 Encounter for screening for malignant neoplasm of prostate; Z12.11 Encounter for screening for malignant neoplasm of colon; E03.9 Hypothyroidism, unspecified; I10 Essential (primary) hypertension; E78.5 Hyperlipidemia, unspecified; E11.9 Type 2 diabetes mellitus without complications; Z79.4 Long term (current) use of insulin; E87.5 Hyperkalemia; Z79.899 Other long term (current) drug therapy
CPT/HCPCS: 36415; 80061; 82274; 82728; 83036; 84132; 84439; 84443; 85025; G0103

== ENCOUNTER → 2023-02-27 12:05 | Outpatient (CLI) | payer OTHER, SELFPAY ==
[2021-04-24 13:39] VITALS: BMI 29.7
--- NOTE | 2023-02-27 12:19 | DI.RAD.S_ITS ---
PROCEDURE: XR CHEST 2V INDICATIONS: Cough TECHNIQUE: 2 views of the chest were acquired. COMPARISON: [facility], CR, XR CHEST 2V, 10/11/2022, 13:13. FINDINGS: Surgical changes and devices: None. Lungs and pleura: Lungs are clear. No pleural effusions or pneumothorax. Mediastinum: Mediastinal contours are normal. Heart size is normal. Bones and chest wall: No suspicious bony abnormalities. Soft tissues appear unremarkable. IMPRESSION: No acute cardiopulmonary abnormality is seen. Dictated by: Beto Klein M.D. on 02/27/2023 at 12:58 Approved by: Beto Klein M.D. on 02/27/2023 at 12:58
== END ==
PROVIDERS: PCP Student in an Organized Health Care Education/Training Program; Referring Provider Physician Assistant; Visit Provider Physician Assistant
DX: R05.1 Acute cough (principal)
CPT/HCPCS: 71046

== ENCOUNTER → 2023-06-14 07:48 | Outpatient (CLI) | payer OTHER, SELFPAY ==
[2021-04-24 13:39] VITALS: BMI 29.7
[2023-06-14 08:54] LABS: Hemoglobin A1C% w Est Avg Glu 7.1 % (4.0-6.0)
[2023-06-14 09:20] LABS: BUN Creatinine Ratio 15.5 (6-22); Blood Urea Nitrogen 18 mg/dL (9-20); Estimated Glomerular Filt Rate > 60 mL/min (>60)
[2023-06-14 09:46] LABS: TSH w/ Reflex to FT4 0.29 uIU/mL (0.47-4.68)
[2023-06-14 10:59] LABS: Free T4, Direct Thyroxine 1.09 ng/dL (0.78-2.19)
== END ==
PROVIDERS: PCP Family Medicine; Referring Provider Family Medicine; Visit Provider Family Medicine
DX: E11.9 Type 2 diabetes mellitus without complications (principal); N18.2 Chronic kidney disease, stage 2 (mild); E03.9 Hypothyroidism, unspecified; R05.3 Chronic cough; Z79.4 Long term (current) use of insulin
CPT/HCPCS: 36415; 82565; 83036; 84439; 84443; 84520

== ENCOUNTER → 2023-07-25 07:26 | Outpatient (CLI) | payer OTHER, SELFPAY ==
[2023-07-04 10:37] VITALS: BMI 29.7
== END ==
LOC: RESP 07:27
PROVIDERS: PCP Family Medicine; Referring Provider Internal Medicine Critical Care Medicine; Visit Provider Internal Medicine Critical Care Medicine
DX: R05.9 Cough, unspecified (principal)
CPT/HCPCS: 94060; 94726; 94729

== ENCOUNTER → 2023-08-13 13:17 | Outpatient (CLI) | payer OTHER, SELFPAY ==
[2023-07-04 10:37] VITALS: BMI 29.7
--- NOTE | 2023-08-13 13:19 | DI.RAD.S_ITS ---
PROCEDURE: XR FOOT RT MIN 3V INDICATIONS: Pain in right lateral distal MTP TECHNIQUE: 3 views of the foot were acquired. COMPARISON: None. FINDINGS: Bones: No fractures or dislocations. Osteoarthritic changes throughout right foot are seen more notably involving 1st MTP joint and 1st through 5th interphalangeal joints. Well-defined dorsal calcaneal enthesophyte is seen. No suspicious bony lesions. Soft tissues: No tibiotalar joint effusion. Achilles tendon appears normal. IMPRESSION: No right foot fracture or dislocation. Right foot osteoarthritis and calcaneal enthesophyte as above. Dictated by: Brodie Plunkett M.D. on 08/13/2023 at 13:58 Approved by: Brodie Plunkett M.D. on 08/13/2023 at 14:01
== END ==
PROVIDERS: PCP Family Medicine; Referring Provider Physician Assistant; Visit Provider Physician Assistant
DX: M19.071 Primary osteoarthritis, right ankle and foot (principal); M77.31 Calcaneal spur, right foot; M79.671 Pain in right foot
CPT/HCPCS: 73630

== ENCOUNTER → 2023-11-07 16:25 | Outpatient (CLI) | payer OTHER, SELFPAY ==
[2023-07-04 10:37] VITALS: BMI 29.7
[2023-11-07 17:15] LABS: Add Manual Diff / Slide Review NO; Basophils Absolute Auto 100 /uL (0-100); Basophils Percent Auto 0.7 % (0-2); Eosinophils Absolute Auto 500 /uL (0-450); Eosinophils Percent Auto 4.6 % (2-4); Hematocrit 39.7 % (41-53); Hemoglobin 13.4 g/dL (13.5-17.5); Lymphocytes Absolute Auto 3400 /uL (1100-4500); Lymphocytes Percent Auto 31.8 % (25-40); Mean Corpuscular HGB Conc 33.7 % (30-36); Mean Corpuscular Hemoglobin 30.6 PG (26-34); Mean Corpuscular Volume 90.7 fL (80-100); Monocytes Absolute Auto 700 /uL (0-900); Neutrophils Absolute Auto 5900 /uL (1500-7000); Neutrophils Percent Auto 55.9 % (50-75); Platelet Count 238 X10^3/uL (150-400); Red Blood Cell Count 4.38 X10^6/uL (4.5-5.9); Red Cell Distribution Width 14.4 % (11.6-14.8); White Blood Cell Count 10.5 X10^3/uL (4.5-11.0)
[2023-11-07 17:28] LABS: Appearance Urine UA CLEAR; Bilirubin Urine UA NEGATIVE (NEGATIVE); Color Urine UA YELLOW; Glucose Urine UA NEGATIVE (Negative); Ketones Urine UA NEGATIVE (NEGATIVE); Leukocyte Esterase Urine UA NEGATIVE (NEGATIVE); Nitrite Urine UA NEGATIVE (Negative); Occult Blood Urine UA NEGATIVE (Negative); Protein Urine UA NEGATIVE (Negative); Specific Gravity Urine UA 1.015 (1.000-1.035)
[2023-11-07 17:37] LABS: Alanine Aminotransferase 26 IU/L (<50); Albumin 4.9 g/dL (3.5-5.0); Albumin Globulin Ratio 1.8 (1.0-2.8); Alkaline Phosphatase 58 U/L (38-126); Aspartate Aminotransferase 31 IU/L (17-59); BUN Creatinine Ratio 16.9 (6-22); Bilirubin Total 0.4 mg/dL (0.2-1.3); Blood Urea Nitrogen 24 mg/dL (9-20); Carbon Dioxide 29 mmol/L (22-32); Chloride 102 mmol/L (98-107); Estimated Glomerular Filt Rate 53 mL/min (>60); Globulin 2.8 g/dL (1.7-4.1); Glucose 130 mg/dL (80-110); HEMOLYSIS < 15 (0-50); Potassium 4.5 mmol/L (3.4-5.1); Sodium 139 mmol/L (137-145); Total Protein 7.7 g/dL (6.3-8.2)
[2023-11-07 17:46] LABS: Bacteria Urine Occasional (0-1); Culture Indicated Urine Cult Not Indicated; RBC Urine None Seen (0-5/HPF); Squamous Epithelial Cell Urine None Seen (0-5/HPF); Urine Volume 10mL (spun); WBC Urine 0-1/HPF (0-5/HPF)
[2023-11-07 18:49] LABS: Free T4, Direct Thyroxine 0.43 ng/dL (0.78-2.19)
== END ==
PROVIDERS: Physician Assistant; PCP Family Medicine; Referring Provider Family Medicine; Visit Provider Family Medicine
DX: E03.9 Hypothyroidism, unspecified (principal); R79.89 Other specified abnormal findings of blood chemistry; R10.9 Unspecified abdominal pain
CPT/HCPCS: 36415; 80053; 81001; 84439; 84443; 85025

== ENCOUNTER → 2024-01-10 10:31 | Outpatient (CLI) | payer OTHER, SELFPAY ==
[2023-07-04 10:37] VITALS: BMI 29.7
[2024-01-10 11:57] LABS: Alanine Aminotransferase 29 IU/L (<50); Albumin 4.4 g/dL (3.5-5.0); Albumin Globulin Ratio 1.6 (1.0-2.8); Alkaline Phosphatase 66 U/L (38-126); Aspartate Aminotransferase 26 IU/L (17-59); BUN Creatinine Ratio 16.3 (6-22); Bilirubin Total 0.4 mg/dL (0.2-1.3); Blood Urea Nitrogen 20 mg/dL (9-20); Calcium 9.7 mg/dL (8.4-10.2); Carbon Dioxide 25 mmol/L (22-32); Chloride 101 mmol/L (98-107); Cholesterol 132 mg/dL (140-199); Estimated Glomerular Filt Rate > 60 mL/min (>60); Globulin 2.7 g/dL (1.7-4.1); Glucose 122 mg/dL (80-110); HDL Cholesterol 46 mg/dL (40-60); HEMOLYSIS < 15 (0-50); LDL Cholesterol Calculated 57 mg/dL (<100); Potassium 4.5 mmol/L (3.4-5.1); Sodium 137 mmol/L (137-145); Total Protein 7.1 g/dL (6.3-8.2); Triglycerides 143 mg/dL (35-150)
[2024-01-10 12:21] LABS: Hemoglobin A1C% w Est Avg Glu 6.6 % (4.0-6.0)
[2024-01-10 12:29] LABS: TSH w/ Reflex to FT4 0.85 uIU/mL (0.47-4.68)
[2024-01-10 12:44] LABS: Hep C Virus Ab w/Reflex Quant NEGATIVE s/c (NEGATIVE)
== END ==
PROVIDERS: PCP Family Medicine; Referring Provider Family Medicine; Visit Provider Family Medicine
DX: E11.22 Type 2 diabetes mellitus with diabetic chronic kidney disease (principal); N18.2 Chronic kidney disease, stage 2 (mild); Z79.4 Long term (current) use of insulin; Z11.59 Encounter for screening for other viral diseases
CPT/HCPCS: 36415; 80053; 80061; 83036; 84443; 86803